=== PATIENT | female | born 1935 | race Caucasian/White ===

== ENCOUNTER 2019-08-30 08:00 | Outpatient (CLI) | payer MEDICARE, OTHER | END 2019-08-30 08:01 | disposition critical access hospital (66) | LOC: EMS 08:00 | PROVIDERS: ATTEND Surgery | DX: R06.00 Dyspnea, unspecified (principal); F41.9 Anxiety disorder, unspecified | CPT/HCPCS: A0425; A0429 ==

== ENCOUNTER 2019-08-30 08:05 | Inpatient (IN) | payer MEDICARE, OTHER ==
[2019-08-30] MEDS ORDERED: FUROSEMIDE 40 MG/4 ML VIAL IVP STA (09:04)
--- NOTE | 2019-08-30 09:07 | ED Physician Documentation ---
PD HPI DYSPNEA - Stated complaint Stated Complaint: SOA - Chief complaint Chief Complaint: Resp - History obtained from History obtained from: Patient, Family, EMS - History of Present Illness Timing - onset: How many days ago (5) Timing - onset during: Light activity Timing - duration: Days (5) Timing - details: Gradual onset, Still present Improved by: O2, Sitting up Worsened by: Exertion, Laying flat Associated symptoms: Cough, Wheezing, Chest pain / discomfort Similar symptoms before: Diagnosis (COPD) Recently seen: Not recently seen - Additional information Additional information: 84-year-old female with history of pulmonary hypertension and COPD has developed increasing shortness of breath beginning last week. She is visiting from [place] and will be here at least until the end of November. She has had some exertional dyspnea and weakness progressive over this past week and she [facility] with a cough and congestion. Review of Systems Constitutional: denies: Fever Eyes: denies: Photophobia Ears: denies: Ear pain Nose: denies: Rhinorrhea / runny nose, Congestion Throat: denies: Sore throat Cardiac: reports: Chest pain / pressure, Palpitations. denies: Pedal edema, Calf pain Respiratory: reports: Dyspnea, Cough, Wheezing GI: denies: Abdominal Pain, Nausea, Vomiting : denies: Dysuria Skin: denies: Rash PD PAST MEDICAL HISTORY - Past Medical History Cardiovascular: Hypertension Respiratory: COPD GI: C.difficile Musculoskeletal: Osteoarthritis - Past Surgical History Past Surgical History: No - Present Medications Home Medications: Ambulatory Orders Medication Instructions Recorded Confirmed Aspirin 81 mg PO DAILY 11/08/12 05/15/15 Citalopram [CeleXA] 10 mg PO ONCE 11/08/12 05/15/15 Losartan [Cozaar] 50 mg PO DAILY 11/08/12 05/15/15 Tiotropium [Spiriva] 1 puffs INH DAILY 11/08/12 05/15/15 Verapamil ER [Calan SA] 240 mg PO DAILY 11/08/12 05/15/15 HYDROcod/ACETAM 5/325 [Vicodin 1 - 2 ea PO Q6H PRN #15 tablet 05/15/15 5/325] Lansoprazole 15 mg PO DAILY 05/15/15 05/15/15 guaiFENesin/DEXTROMETHORPHAN 10 ml PO DAILY 05/15/15 05/15/15 [Robitussin Dm] - Allergies Allergies/Adverse Reactions: Allergies Allergy/AdvReac Type Severity Reaction Status Date / Time azithromycin AdvReac Severe LOWERS Verified 12/29/13 16:20 [From Zithromax Z-Gerhard] BLOOD PRESSURE - Social History Does the pt smoke?: No Smoking Status: Never smoker Does the pt drink ETOH?: No Does the pt have substance abuse?: No - Immunizations Immunizations are current?: Yes - POLST Patient has POLST: Yes PD ED PE NORMAL - Vitals Vital signs reviewed: Yes (Tachycardic and hypertensive) - General General: Alert and oriented X 3, Well developed/nourished, Other (84-year-old fe male hard of hearing is standing at the bedside mildly tachypneic and moving slowly.) - HEENT HEENT: Atraumatic, PERRL, EOMI - Neck Neck: Supple, no meningeal sign, No bony TTP - Cardiac Cardiac: Other (Irregularly irregular rate and rhythm with 2 out of 6 holosystolic murmur) - Respiratory Respiratory: Other (Tachypneic at rest with diminished breath sounds in the bases bilaterally) - Abdomen Abdomen: Soft, Non tender - Back Back: No CVA TTP, No spinal TTP - Derm Derm: Normal color, Warm and dry, No rash - Extremities Extremities: No deformity, Other (Trace edema only) - Neuro Neuro: Alert and oriented X 3, filament shaper 2-12 intact, No motor deficit, No sensory deficit, Normal speech Eye Opening: Spontaneous Motor: Obeys Commands Verbal: Oriented GCS Score: 15 - Psych Psych: Normal mood, Normal affect Results - Vitals Vitals: Vital Signs - 24 hr 08/30/19 08/30/19 08/30/19 08:19 10:27 12:00 Temperature 36.5 C 36.6 C Heart Rate 106 H 128 H 105 H Respiratory 20 21 20 Rate Blood Pressure 155/112 H 167/95 H 149/98 H O2 Saturation 93 98 99 08/30/19 14:00 Temperature Heart Rate 107 H Respiratory 17 Rate Blood Pressure 160/94 H O2 Saturation 99 Oxygen O2 Source Room air - EKG (time done) 0925 Rate: Rate (enter#) (117) Rhythm: Atrial fibrillation Intervals: Prolonged QT (borderline) QRS: LVH Compare to prior EKG: Old EKG unavailable Computer interpretation: Agree with computer - Labs Labs: Laboratory Tests 08/30/19 08/30/19 08/30/19 10:15 10:15 10:15 WBC 7.0 RBC 4.78 Hgb 12.3 Hct 39.1 MCV 81.8 MCH 25.7 L MCHC 31.5 L RDW 16.7 H Plt Count 285 MPV 9.9 Neut # (Auto) 5.4 Lymph # (Auto) 1.1 L [place] # (Auto) 0.4 Eos # (Auto) 0.1 Baso # (Auto) 0.1 Absolute Nucleated RBC 0.00 Nucleated RBC % 0.0 Sodium 137 Potassium 3.9 Chloride 98 L Carbon Dioxide 27 Anion Gap 12.0 BUN 21 H Creatinine 1.0 Estimated GFR (MDRD) 53 L Glucose 121 H Lactic Acid Calcium 9.3 Total Bilirubin 0.8 AST 109 H ALT 123 H Alkaline Phosphatase 109 Troponin I High Sens 11.5 B-Natriuretic Peptide Total Protein 7.1 Albumin 4.0 Globulin 3.1 Albumin/Globulin Ratio 1.3 Lipase 29 Urine Color Urine Clarity Urine pH Ur Specific [place] Urine Protein Urine Glucose (UA) Urine Ketones Urine Occult Blood Urine Nitrite Urine Bilirubin Urine Urobilinogen Ur Leukocyte Esterase Urine RBC Urine WBC Ur Squamous Epith Cells Urine Bacteria Ur Microscopic Review Urine Culture Comments 08/30/19 08/30/19 08/30/19 10:15 10:15 10:23 WBC RBC Hgb Hct MCV MCH MCHC RDW Plt Count MPV Neut # (Auto) Lymph # (Auto) [place] # (Auto) Eos # (Auto) Baso # (Auto) Absolute Nucleated RBC Nucleated RBC % Sodium Potassium Chloride Carbon Dioxide Anion Gap BUN Creatinine Estimated GFR (MDRD) Glucose Lactic Acid 1.1 Calcium Total Bilirubin AST ALT Alkaline Phosphatase Troponin I High Sens B-Natriuretic Peptide 865 H Total Protein Albumin Globulin Albumin/Globulin Ratio Lipase Urine Color YELLOW Urine Clarity CLEAR Urine pH 7.0 Ur Specific [place] 1.015 Urine Protein NEGATIVE Urine Glucose (UA) NEGATIVE Urine Ketones NEGATIVE Urine Occult Blood MODERATE H Urine Nitrite NEGATIVE Urine Bilirubin NEGATIVE Urine Urobilinogen 0.2 (NORMAL) Ur Leukocyte Esterase TRACE H Urine RBC 6-10 H Urine WBC 0-3 Ur Squamous Epith Cells RARE Squamous Urine Bacteria None Seen Ur Microscopic Review INDICATED Urine Culture Comments INDICATED - Rads (name of study) chest 1 Radiology: Prelim report reviewed (Impression: 1. Probable COPD with baseline chronic interstitial changes. Possible superimposed mild pulmonary edema. 2. No pneumothorax. Pleural thickening versus small right pleural effusion.), EMP read indepedently, See rad report Procedures - IVC sono (time) 0900 Bedside IVC sono: IVC measures (cm) (2.52), IVC collapsed c insp (cm) (2.52), Dehydration, High CVP PD MEDICAL DECISION MAKING - ED course Complexity details: reviewed old records, reviewed results, re-evaluated patient, considered differential, d/w patient, d/w family ED course: 84 y/o female without a history of afib has developed increasing shortness of breath. She is found to be volume overloaded and has rapid A. fib. She is administered Lasix 40 mg intravenously and then she is administered diltiazem 20 mg intravenously. Both of these maneuvers lead first to an improvement in her breathing and second and improvement in her heart rate. She has never had congestive heart failure to her her recall and she has not had atrial fibrillation to her recall. She has been on blood thinners once before for DVT about 6 years ago. Both of these findings are new for the patient both the congestive failure and the atrial fibrillation. I have asked our Hospitalist to consider admitting the patient to the hospital for observation. Departure - Departure Disposition: ED Place in Observation Clinical Impression: Atrial fibrillation with RVR Congestive heart failure Qualifiers: Heart failure type: unspecified Heart failure chronicity: acute on chronic Qu alified Code(s): I50.9 - Heart failure, unspecified Condition: Fair
--- NOTE | 2019-08-30 09:33 | XRAY Report ---
Reason: chest pain Procedure Date: 08/30/2019 Accession Number: [id number] / [id number] Procedure: XR - Chest 1 View X-Ray CPT Code: 85770 Final Report FULL RESULT: EXAM: CHEST RADIOGRAPHY EXAM DATE: 08/30/2019 09:03 AM. CLINICAL HISTORY: Chest pain. COMPARISON: CHEST 2 VIEW PA/LAT 03/18/2015 3:08 PM. TECHNIQUE: 1 view. FINDINGS: Lungs/Pleura: Mild blunting of the right costophrenic angles. Diffuse mild interstitial prominence is present. Mild bronchial wall thickening. Lungs are hyperinflated with flattening of the diaphragms. Subtle opacities are noted at the bases. No pneumothorax. Mediastinum: Atheromatous disease is noted in the thoracic aorta. Stable cardiomediastinal silhouette. Other: EKG leads overlie the chest. IMPRESSION: 1. Probable COPD with baseline chronic interstitial changes. Possible superimposed mild pulmonary edema. 2. No pneumothorax. Pleural thickening versus small right pleural effusion. RADIA
[2019-08-30 10:36] LABS: BASOPHILS # (AUTO) 0.1 10^3/uL (0.0-0.1); BASOPHILS % (AUTO) 0.7 %; EOSINOPHILS # (AUTO) 0.1 10^3/uL (0.0-0.7); EOSINOPHILS % (AUTO) 1.1 %; HGB - HEMOGLOBIN 12.3 g/dL (12.0-16.0); LYMPHOCYTES # (AUTO) 1.1 10^3/uL (1.5-3.5); LYMPHOCYTES % (AUTO) 15.2 %; MEAN CORPUSCULAR HEMOGLOBIN 25.7 pg (27.0-31.0); MEAN CORPUSCULAR HGB CONC 31.5 g/dL (32.0-36.0); MEAN CORPUSCULAR VOLUME 81.8 fL (81.0-99.0); MEAN PLATELET VOLUME 9.9 fL (7.9-10.8); MONOCYTES # (AUTO) 0.4 10^3/uL (0.0-1.0); MONOCYTES % (AUTO) 6.3 %; NEUTROPHILS # (AUTO) 5.4 10^3/uL (1.5-6.6); NEUTROPHILS % (AUTO) 76.3 %; PLT - PLATELET COUNT 285 10^3/uL (130-450); RED BLOOD COUNT 4.78 10^6/uL (4.20-5.40); RED CELL DISTRIBUTION WIDTH 16.7 % (12.0-15.0)
[2019-08-30 10:54] LABS: ALBUMIN/GLOBULIN RATIO 1.3 (1.0-2.2); BILIRUBIN,TOTAL 0.8 mg/dL (0.2-1.0); CALCIUM 9.3 mg/dL (8.5-10.3); TOTAL PROTEIN 7.1 g/dL (6.7-8.2)
[2019-08-30 10:58] LABS: BILIRUBIN,URINE NEGATIVE (NEGATIVE); GLUCOSE, URINE (UA) NEGATIVE (NEGATIVE); KETONES,URINE (UA) NEGATIVE (NEGATIVE); LEUKOCYTE ESTERASE, URINE TRACE (NEGATIVE); NITRITE,URINE NEGATIVE (NEGATIVE); OCCULT BLOOD,URINE MODERATE (NEGATIVE); PROTEIN,URINE NEGATIVE (NEGATIVE); UROBILINOGEN,URINE 0.2 (NORMAL) E.U./dL (NORMAL)
[2019-08-30 11:01] LABS: CLARITY,URINE CLEAR (CLEAR)
[2019-08-30 11:23] LABS: BACTERIA,URINE None Seen /HPF (None Seen); SQUAMOUS EPITHELIAL CELL,UR RARE Squamous (<= Few)
[2019-08-30] MEDS ORDERED: diltiaZEM INJ 5 MG/ML VIAL IVP STA (14:44)
[2019-08-30] MEDS ORDERED: SODIUM CHLORIDE FLUSH 0.9% 10 ML SYRINGE IVP PRN (16:38)
--- NOTE | 2019-08-30 17:07 | HISTORY & PHYSICAL EXAMINATION ---
Chief Complaint - Chief Complaint Chief Complaint: shortness of breath, leg swelling History of Present Illness - Admitted From Admitted From:: ED - History Obtained From Records Reviewed: yes History obtained from: patient, chart review Exam Limitations: AMS, hearing impairment - History of Present Illness HPI Comment/Other: Lauren Aviles is a fraile appearing 84-year old white female with a [place] accent and a past medical history of hypertension, hyperlipidemia, atrial fibrillation, pulmonary hypertension, COPD, hearing impairment, cataracts, memory loss, anal fissure with bleeding, constipation, and urinary urgency & frequency. The patient was brought in via EMS with a primary complaint of shortness of breath with activity intolerance, which has been progressive for the last several days. She used her albuterol inhaler at least 4 times, with no improvement in her breathing so called EMS. Upon arrival to the ED the patient was struggling to breath, could not tolerate the HOB to be lowered, only speaking in one word phrases. After applying oxygen, and with repeat nebulizer treatments, her symptoms improved. She was noted to be in atrial fibrillation with RVR, heart rates 100-140s, with little improvement after IV diltiazem and IV Lasix was given. A chest x-ray showed pulmonary edema, possible right pleural effusion. On exam, the patient states that since her airplane ride out to [facility] on July 31, 2019, she has suffered from an upper respiratory congestion and a productive cough. She states that since getting over that, she has felt extremely tired every day. The patient and her daughter confirm that she has been having no tolerance of lying flat for the past several months and sleeps in a recliner. She has had had recent weight gain, poor appeti te, increased cough, and more swelling in her BLEs. Labs show an elevated BNP over 800. She is being admitted to inpatient for treatment of CHF exacerbation. 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 She has a son, a daughter and is . She admits to tobacco use, denies alcohol or illicit drug use. She wishes to be a FULL code. - Substance History Use: Uses substance without health or social issues: NONE Abuse: Recurrent use of substance despite neg consequences: NONE Dependence: Experiences withdrawal or developed tolerances: NONE - POLST Patient has POLST: Yes POLST Status: Full Code Meds/Allgy - Home Medications Home Medications: Ambulatory Orders Medication Instructions Recorded Confirmed Aspirin 81 mg PO DAILY 11/08/12 08/30/19 Citalopram [CeleXA] 10 mg PO DAILY 11/08/12 08/30/19 Furosemide [Lasix] 20 mg PO DAILY 08/30/19 08/30/19 Losartan Potassium [Cozaar] 100 mg PO DAILY 08/30/19 08/30/19 Metoprolol Succinate [Toprol Xl] 50 mg PO DAILY 08/30/19 08/30/19 Omeprazole 20 mg PO DAILY 08/30/19 08/30/19 Sildenafil Citrate [Sildenafil] 10 mg PO BID 08/30/19 08/30/19 Umeclidinium Brm/Vilanterol Tr 1 puffs INH DAILY 08/30/19 08/30/19 [Anoro Ellipta 62.5-25 Mcg INH] - Allergies Allergies/Adverse Reactions: Allergies Allergy/AdvReac Type Severity Reaction Status Date / Time No Known Drug Allergies Allergy Verified 08/30/19 21:08 Review of Systems - Constitutional Constitutional: reports: Fatigue, Malaise, Weakness, Poor appetite, Weight gain - Eyes Eyes: reports: Vision loss - Ears, Nose & Throat Ears, Nose & Throat: reports: Hearing loss, Tinnitus, Postnasal drainage, Sore throat, Hoarseness, Dental decay - Cardiovascular Cariovascular: reports: Irregular heart rate, Palpitations, Edema, Lightheadedness, Exertional dyspnea, Decr. exercise tolerance, Orthopnea - Respiratory Respiratory: reports: Cough, Sputum production, Orthopnea, SOB at rest, SOB with exertion - Gastrointestinal Gastrointestinal: reports: Abdominal distention, Nausea, Reflux/heartburn, Bloat ing, Poor appetite - Genitourinary Genitourinary: reports: Dysuria, Frequency, Urgency, Incontinence, Nocturia - Musculoskeletal Musculoskeletal: reports: Muscle aches, Stiffness, Limited range of motion, Muscle weakness - Integumentary Integumentary: reports: Dryness, Pigment changes - Neurological Neurological: reports: Headache, Dizziness, Memory problems, Pre-existing deficit, Abnormal gait - Endocrine Endocrine: reports: Intolerance to cold - All Other Systems All Other Systems: reports: Reviewed and negative Prior Level of Functionality: Patient does not drive, no recent falls, walks independently, lives in [facility]. Exam - Vital Signs Reviewed Vital Signs: Yes Vital Signs: Vital Signs x48h Temp Pulse Resp BP Pulse Ox 08/30/19 16:00 109 H 18 147/93 H 100 08/30/19 14:00 107 H 17 160/94 H 99 08/30/19 12:00 105 H 20 149/98 H 99 08/30/19 10:27 36.6 C 128 H 21 167/95 H 98 - Physical Exam General Appearance: positive: Alert, Mild distress Eyes Bilateral: positive: No lid inflammation ENT: positive: Other (poor oral dentitian) Neck: positive: Trachea midline, Stiff neck Respiratory: positive: Chest non-tender, No respiratory distress, Wheezes, Rhonchi Cardiovascular: positive: Irregularly irregular, Tachycardia, JVD present, Systolic murmur, Diastolic murmur, Decreased pulse(s) Peripheral Pulses: positive: 1+ Abdomen: positive: Non-tender, Nml bowel sounds, Other (rounded, soft) Back: positive: Nml inspection Skin: positive: No rash, Warm, Dry, Pallor (pale, dry, flakey skin) Extremities: positive: Non-tender, Pedal edema (pitting, +2 to BLEs, cool extremities), Joint swelling Neurologic/Psychiatric: positive: Disoriented to time, Weakness, Sensory loss, Depressed mood/affect (poor energy, flat affect, baseline dementia, memory loss) Reflexes: Bicep (R): 2+, Bicep (L): 2+ Conclusion/Plan - Problem List (1) Congestive heart failure Conclusion/Plan: -Exam findings; orthopnea, activity intolerance, progressive shortness of breath, productive cough, weight gain, peripheral edema, and palpitations -Elevated BNP of 823, liver congestions with elevated LFTs, tachycardia, HTN -Given IV Lasix and IV diltiazem in the ED -Continue IV Lasix, start spironolactone, rate control with metoprolol -Continue on telemetry, await echo in the AM, daily weights, strict I/Os, routine labs Orthopnea -Patient has had no tolerance of lying flat for the past several months per daughter Acute and chronic respiratory failure with hypoxia -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 -Takes Anoro Ellipta at home, continued home med while here -Added Xopenex nebs, respiratory cares -Supplemental oxygen is needed since coming to the ED, no home O2 Elevated LFTs -AST 109, ALT 123, normal bili, normal alk phos -Likely due to liver congestion from acute fluid overload Atrial fibrillation with RVR -No prior history of atrial fibrillation -PCP, Dr. 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 -No current home O2, no history of GABRIELLE Hypertension -Patient is prescribed Lasix, metoprolol, and losartan at home -IV Lasix, metoprolol with split dosing, and holding losartan until echo results GERD (gastroesophageal reflux disease) -PPI at home, continue on an H2 lillian per daughters request Osteoporosis -Noted in past medical history Chronic cough -Likely a result of her COPD, now with fluid overload -Cough is usual productive -Consider an expectorant if needed Protein calorie malnutrition -Patient appears cachetic on exam -Daughter confirms recent poor appetite, although weight gain (fluid overload) Hearing loss -Patient left her hearing aides at home, daughter will bring in Hyperlipidemia -No statin on home med list, may not be of benefit at this point -No prior history of stroke or [place] Anal fissure -Patient admits to bleeding after BMs -Difficult to justify anticoagulation with this condition based on HAS BLED score -Monitor for bleeding, avoid constipation, give bowel meds, routine labs Chronic constipation -No prescribed bowel meds at home -Also with poor appetite lately -Consequently has bleeding with hard stools -Lactulose in the AM, monitor for constipation Insomnia -Patients daughter notes longstanding, life long difficulties with poor sleep habits -Also her poor sleep leads to lack of routines, leading to medical noncompliance with taking her medications -Consider extra help, also with memory loss (mild) Qualifiers: - Lab Results Lab results reviewed: Yes Henry Bones: 08/30/19 10:15 08/30/19 10:15 Core Measures - Anticipated LOS I expect patient to be DC'd or transferred within 96 hours.: Yes
[2019-08-30] MEDS: SODIUM CHLORIDE FLUSH 0.9% 10 ML SYRINGE IVP SCH ×2 (18:20→23:49)
[2019-08-30] MEDS ORDERED: LEVALBUTEROL 1.25 MG/3 ML NEB INH PRN (18:24)
[2019-08-30] MEDS ORDERED: ACETAMINOPHEN 500 MG TABLET PO PRN (18:25)
[2019-08-30] MEDS: SPIRONOLACTONE 25 MG TABLET PO SCH (19:12)
[2019-08-30] MEDS: METOPROLOL SUCCINATE 25 MG TABLET PO SCH (19:12)
[2019-08-30] MEDS: FUROSEMIDE 40 MG/4 ML VIAL IVP SCH (19:12)
[2019-08-30] MEDS: FAMOTIDINE 20 MG TABLET PO SCH (20:51)
[2019-08-30] MEDS ORDERED: MAGNESIUM SULFATE 1 GM in SODIUM CHLORIDE 0.9% 50 ML IV ONE (22:21)
[2019-08-31] MEDS: FUROSEMIDE 40 MG/4 ML VIAL IVP SCH ×2 (06:34→14:29)
--- NOTE | 2019-08-31 08:24 | PROVIDER PROGRESS NOTE ---
Subjective - Prog Note Date Prog Note Date: 08/31/19 Prog Note Time: 08:24 - Subjective Pt reports feeling: Improved Subjective: Lauren complains about not moving her bowels for at least 48 hours, and wishes to have her magnesium with her calcium, or else they will not work. She denies a new headache, chest pain, nausea, vomiting, a new rash or confusion. She states she did not sleep well, as usual. She understands the importance of remaining in the hospital for one more day for fluid management. Current Medications - Current Medications Current Medications: Active Medications: Acetaminophen (Tylenol) 500 mg PO Q6HR PRN Aspirin ([place] Aspirin) 81 mg PO DAILY [facility] Calcium Citrate () 250 mg PO DAILY [facility] Citalopram Hydrobromide (Celexa) 10 mg PO DAILY [facility] Famotidine (Pepcid) 20 mg PO BID [facility] Furosemide (Lasix Inj 40 Mg Vial) 40 mg IVP BIDDIURETIC [facility] Lactulose (Enulose) 10 gm PO DAILY [facility] Levalbuterol HCl (Xopenex) 1.25 mg INH Q4H PRN Magnesium Oxide (Mag Ox) 400 mg PO DAILYWM [facility] Metoprolol Succinate (Toprol Xl) 25 mg PO BIDWM [facility] Anoro Ellipta 62.5- (25 Mcg Inh) 1 puffs INH RTDAILY [facility] Senna (Senokot) 8.6 mg PO BIDWM [facility] Spironolactone (Aldactone) 25 mg PO DAILY [facility] Wheat Dextrin (Benefiber) 1 packet PO DAILY [facility] HOME meds: Aspirin 81 mg PO DAILY 11/08/12 Citalopram [CeleXA] 10 mg PO DAILY 11/08/12 Furosemide [Lasix] 20 mg PO DAILY 08/30/19 Losartan Potassium [Cozaar] 100 mg PO DAILY 08/30/19 Metoprolol Succinate [Toprol Xl] 50 mg PO DAILY 08/30/19 Omeprazole 20 mg PO DAILY 08/30/19 Objective - Vital Signs/Intake & Output Reviewed Vital Signs: Yes Vital Signs: Vital Signs x48h Temp Pulse Resp BP Pulse Ox 08/31/19 08:23 36.8 C 112 H 19 154/93 H 94 08/31/19 05:35 36.8 C 115 H 18 147/101 H 94 Intake & Output: Intake & Output 0208/29/19 08/30/19 08/31/19 23:59 23:59 23:59 23:59 Intake Total 100 52 Output Total 550 Balance -450 52 - Objective General Appearance: positive: No acute distress, Alert Eyes Bilateral: positive: PERRL, No lid inflammation Eyes: OU Conjunctivae pale ENT: positive: Pharyngeal erythema, Dry mucous membranes Neck: positive: No JVD, Trachea midline Respiratory: positive: Chest non-tender, No respiratory distress, Rhonchi (coarse crackles to posterior bilateral low lungs, scattered crackles anterior- bilaterally) Cardiovascular: positive: Irregularly irregular, Tachycardia, Systolic murmur, Gallop/S3, Decreased pulse(s) Peripheral Pulses: 1+ Radial (R), 1+ Radial (L) Abdomen: positive: Non-tender, Nml bowel sounds, Other (rounded, firm) Back: positive: Nml inspection Skin: positive: No rash, Warm, Dry, Pallor, Other (bronze, ricardo toned skin) Extremities: positive: Pedal edema (trace to ankles, legs are sensitive, covered in spider veins, warm, +sensation) Neurologic/Psychiatric: positive: Oriented x3, CN's nml (2-12), Motor nml, Weakness, Sensory loss, Other (early dementia, HOPI) Reflexes: Bicep (R): 3+, Bicep (L): 3+ - Lab Results Fish Bones: 08/31/19 09:05 08/31/19 09:05 Other Labs: Lab Results x24hrs 08/30/19 08/30/19 08/30/19 Range/Units 10:23 10:15 10:15 WBC (4.8-10.8) x10^3/uL RBC (4.20-5.40) 10^6/uL Hgb (12.0-16.0) g/dL Hct (37.0-47.0) % MCV (81.0-99.0) fL MCH (27.0-31.0) pg MCHC (32.0-36.0) g/dL RDW (12.0-15.0) % Plt Count (130-450) 10^3/uL MPV (7.9-10.8) fL Neut # (Auto) (1.5-6.6) 10^3/uL Lymph # (Auto) (1.5-3.5) 10^3/uL [place] # (Auto) (0.0-1.0) 10^3/uL Eos # (Auto) (0.0-0.7) 10^3/uL Baso # (Auto) (0.0-0.1) 10^3/uL Absolute Nucleated RBC x10^3/uL Nucleated RBC % /100WBC Sodium (135-145) mmol/L Potassium (3.5-5.0) mmol/L Chloride (101-111) mmol/L Carbon Dioxide (21-32) mmol/L Anion Gap (6-13) BUN (6-20) mg/dL Creatinine (0.4-1.0) mg/dL Estimated GFR (MDRD) (>89) Glucose (70-100) mg/dL Lactic Acid 1.1 (0.5-2.2) mmol/L Calcium (8.5-10.3) mg/dL Total Bilirubin (0.2-1.0) mg/dL AST (10-42) IU/L ALT (10-60) IU/L Alkaline Phosphatase (42-121) IU/L Troponin I High Sens (2.3-14.8) ng/L B-Natriuretic Peptide 865 H (5-100) pg/mL Total Protein (6.7-8.2) g/dL Albumin (3.2-5.5) g/dL Globulin (2.1-4.2) g/dL Albumin/Globulin Ratio (1.0-2.2) Lipase (22-51) U/L Urine Color YELLOW Urine Clarity CLEAR (CLEAR) Urine pH 7.0 (5.0-7.5) PH Ur Specific [place] 1.015 (1.002-1.030) Urine Protein NEGATIVE (NEGATIVE) mg/dL Urine Glucose (UA) NEGATIVE (NEGATIVE) mg/dL Urine Ketones NEGATIVE (NEGATIVE) mg/dL Urine Occult Blood MODERATE H (NEGATIVE) Urine Nitrite NEGATIVE (NEGATIVE) Urine Bilirubin NEGATIVE (NEGATIVE) Urine Urobilinogen 0.2 (NORMAL) (NORMAL) E.U./dL Ur Leukocyte Esterase TRACE H (NEGATIVE) Urine RBC 6-10 H (0-5) /HPF Urine WBC 0-3 (0-5) /HPF Ur Squamous Epith Cells RARE Squamous (<= Few) Urine Bacteria None Seen (None Seen) /HPF Ur Microscopic Review INDICATED Urine Culture Comments INDICATED 08/30/19 08/30/19 08/30/19 Range/Units 10:15 10:15 10:15 WBC 7.0 (4.8-10.8) x10^3/uL RBC 4.78 (4.20-5.40) 10^6/uL Hgb 12.3 (12.0-16.0) g/dL Hct 39.1 (37.0-47.0) % MCV 81.8 (81.0-99.0) fL MCH 25.7 L (27.0-31.0) pg MCHC 31.5 L (32.0-36.0) g/dL RDW 16.7 H (12.0-15.0) % Plt Count 285 (130-450) 10^3/uL MPV 9.9 (7.9-10.8) fL Neut # (Auto) 5.4 (1.5-6.6) 10^3/uL Lymph # (Auto) 1.1 L (1.5-3.5) 10^3/uL [place] # (Auto) 0.4 (0.0-1.0) 10^3/uL Eos # (Auto) 0.1 (0.0-0.7) 10^3/uL Baso # (Auto) 0.1 (0.0-0.1) 10^3/uL Absolute Nucleated RBC 0.00 x10^3/uL Nucleated RBC % 0.0 /100WBC Sodium 137 (135-145) mmol/L Potassium 3.9 (3.5-5.0) mmol/L Chloride 98 L (101-111) mmol/L Carbon Dioxide 27 (21-32) mmol/L Anion Gap 12.0 (6-13) BUN 21 H (6-20) mg/dL Creatinine 1.0 (0.4-1.0) mg/dL Estimated GFR (MDRD) 53 L (>89) Glucose 121 H (70-100) mg/dL Lactic Acid (0.5-2.2) mmol/L Calcium 9.3 (8.5-10.3) mg/dL Total Bilirubin 0.8 (0.2-1.0) mg/dL AST 109 H (10-42) IU/L ALT 123 H (10-60) IU/L Alkaline Phosphatase 109 (42-121) IU/L Troponin I High Sens 11.5 (2.3-14.8) ng/L B-Natriuretic Peptide (5-100) pg/mL Total Protein 7.1 (6.7-8.2) g/dL Albumin 4.0 (3.2-5.5) g/dL Globulin 3.1 (2.1-4.2) g/dL Albumin/Globulin Ratio 1.3 (1.0-2.2) Lipase 29 (22-51) U/L Urine Color Urine Clarity (CLEAR) Urine pH (5.0-7.5) PH Ur Specific [place] (1.002-1.030) Urine Protein (NEGATIVE) mg/dL Urine Glucose (UA) (NEGATIVE) mg/dL Urine Ketones (NEGATIVE) mg/dL Urine Occult Blood (NEGATIVE) Urine Nitrite (NEGATIVE) Urine Bilirubin (NEGATIVE) Urine Urobilinogen (NORMAL) E.U./dL Ur Leukocyte Esterase (NEGATIVE) Urine RBC (0-5) /HPF Urine WBC (0-5) /HPF Ur Squamous Epith Cells (<= Few) Urine Bacteria (None Seen) /HPF Ur Microscopic Review Urine Culture Comments ABX Reporting Has patient been on IV antibiotics over the past 48 hours?: No Assessment/Plan - Problem List (1) Congestive heart failure Impression: -Exam findings; orthopnea, activity intolerance, progressive shortness of breath, productive cough, weight gain, peripheral edema, and palpitations -Patient has had no tolerance of lying flat for the past several months per daughter -Elevated BNP up from 865, now 1110, liver congestions with elevated LFTs, tachycardia, HTN is ongoing this morning -Given IV Lasix and IV diltiazem in the ED -Continue IV Lasix, spironolactone, rate control with metoprolol -One extra dose of BB was added to achieve better rate control -Continue on telemetry, daily weights, strict I/Os, routine labs Severe pulmonary hypertension -Preliminary echo show an elevated RVSP at rest of 52 mmHg, moderate tricuspid regurg -Likely a consequence of her advanced lung disease -Continues on spironolactone, IV lasix and rate control with BB -Continue supplemental oxygen, respiratory cares, home inhaler, as needed Xopenex nebs Acute and chronic respiratory failure with hypoxia -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 -Asbestos is the commercial name for a group of hydrated magnesium silicate fibrous minerals -Asbestos occurs in soil and rock as long fibers (2 major types: serpentine and amphibole) -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 daughter -No current home O2, no history of GABRIELLE -Now with severe pulmonary HTN Hypertension -Patient is prescribed Lasix, metoprolol, and losartan at home -IV Lasix, metoprolol with split dosing, and holding losartan, likely resume losartan at a very low dose GERD (gastroesophageal reflux disease) -PPI at home, continue on an H2 lillian per daughters request -continues on Pepcid Osteoporosis -Noted in past medical history Chronic cough -Likely a result of her COPD, now with fluid overload -Cough is usual productive -Consider an expectorant if needed Protein calorie malnutrition -Patient appears cachetic on exam -Daughter confirms recent poor appetite, although weight gain (fluid overload) -Ate a good breakfast Hearing loss -Patient left her hearing aides at home, daughter will bring in Hyperlipidemia -No statin on home med list, may not be of benefit at this point -No prior history of stroke or HI Anal fissure -Patient admits to bleeding after BMs -Difficult to justify anticoagulation with this condition based on HAS BLED score -Monitor for bleeding, avoid constipation, give bowel meds, routine labs Chronic constipation -No prescribed bowel meds at home -Also with poor appetite lately -Consequently has bleeding with hard stools -Lactulose today, daily benefiber, monitor for constipation Insomnia -Patients daughter notes longstanding, life long difficulties with poor sleep habits -Also her poor sleep leads to lack of routines, leading to medical noncompliance with taking her medications -Consider extra help, also with memory loss (mild) Qualifiers:
[2019-08-31 09:14] LABS: BASOPHILS # (AUTO) 0.1 10^3/uL (0.0-0.1); BASOPHILS % (AUTO) 0.9 %; EOSINOPHILS # (AUTO) 0.1 10^3/uL (0.0-0.7); EOSINOPHILS % (AUTO) 2.2 %; LYMPHOCYTES % (AUTO) 37.2 %; MEAN CORPUSCULAR VOLUME 80.9 fL (81.0-99.0); MEAN PLATELET VOLUME 9.6 fL (7.9-10.8); MONOCYTES # (AUTO) 0.5 10^3/uL (0.0-1.0); MONOCYTES % (AUTO) 8.3 %; NEUTROPHILS # (AUTO) 2.8 10^3/uL (1.5-6.6); NEUTROPHILS % (AUTO) 51.2 %; PLT - PLATELET COUNT 289 10^3/uL (130-450); RED BLOOD COUNT 5.19 10^6/uL (4.20-5.40); RED CELL DISTRIBUTION WIDTH 16.4 % (12.0-15.0); WHITE BLOOD COUNT 5.4 x10^3/uL (4.8-10.8)
[2019-08-31] MEDS: ASPIRIN CHEW 81 MG TABLET PO SCH (09:18)
[2019-08-31] MEDS: CITALOPRAM 10 MG TABLET PO SCH (09:18)
[2019-08-31] MEDS: MAGNESIUM OXIDE 400 MG TABLET PO SCH ×3 (09:18→11:54)
[2019-08-31] MEDS: METOPROLOL SUCCINATE 25 MG TABLET PO SCH ×3 (09:18→17:29)
[2019-08-31] MEDS: FAMOTIDINE 20 MG TABLET PO SCH ×2 (09:19→21:25)
[2019-08-31] MEDS: SODIUM CHLORIDE FLUSH 0.9% 10 ML SYRINGE IVP SCH ×2 (09:19→17:29)
[2019-08-31] MEDS: SPIRONOLACTONE 25 MG TABLET PO SCH (09:21)
[2019-08-31] MEDS ORDERED: METOPROLOL SUCCINATE 25 MG TABLET PO ONE (09:25)
[2019-08-31 09:28] LABS: ALBUMIN 4.1 g/dL (3.2-5.5); ALBUMIN/GLOBULIN RATIO 1.3 (1.0-2.2); BILIRUBIN,TOTAL 0.9 mg/dL (0.2-1.0); CALCIUM 9.2 mg/dL (8.5-10.3); CREATININE 1.3 mg/dL (0.4-1.0); INR 1.2 (0.8-1.2); MAGNESIUM 2.4 mg/dL (1.7-2.8); PHOSPHORUS 3.9 mg/dL (2.5-4.6); PT - PROTHROMBIN TIME 13.4 secs (9.9-12.6); TOTAL PROTEIN 7.2 g/dL (6.7-8.2)
[2019-08-31] MEDS: LACTULOSE 10 GM /15 ML UDC PO SCH (09:47)
[2019-08-31] MEDS: CALCIUM CITRATE 250 MG TABLET PO SCH (11:50)
[2019-08-31] MEDS: WHEAT DEXTRIN POWDER PACKET PO SCH (11:50)
[2019-08-31] MEDS: DIGOXIN 500 MCG/2 ML AMP IVP SCH ×2 (14:25→19:59)
[2019-08-31] MEDS ORDERED: HYALURONIDASE HUMAN RECOMB 150 UNIT/ML VIAL SUBQ ONE (16:00)
--- NOTE | 2019-08-31 16:14 | PHARMACY PROGRESS NOTE ---
- Best Possible Medication History Admit Date and Time: 08/30/19 1638 Processed by: Pharmacy Medication History completed: Yes Patient Interview: Completed Secondary Source(s): Prescription bottles, Other family member As the person ultimately responsible for medication therapy, providers are able to order a medication from an existing home medication list in [facility] via the "Reconcile Routine" prior to Confirmation of that medication by support assistant. Such practice is discouraged except when the physician, in their clinical judgment, deems that a medical need exists for a medication without regard to previous use.
[2019-08-31] MEDS: SENNA 8.6 MG TABLET PO SCH (17:29)
[2019-08-31] MEDS ORDERED: POTASSIUM CHLORIDE 20 MEQ TABLET PO ONE (19:10)
[2019-08-31] MEDS: DIGOXIN 125 MCG TABLET PO SCH (21:37)
[2019-08-31] MEDS ORDERED: DIGOXIN 125 MCG TABLET PO SCH (22:00)
[2019-09-01] MEDS: SODIUM CHLORIDE FLUSH 0.9% 10 ML SYRINGE IVP SCH ×2 (01:22→09:48)
[2019-09-01] MEDS: DIGOXIN 125 MCG TABLET PO SCH ×2 (06:42→14:08)
[2019-09-01] MEDS ORDERED: FUROSEMIDE 40 MG TABLET PO ONE (07:31)
[2019-09-01] MEDS ORDERED: METOPROLOL SUCCINATE 25 MG TABLET PO SCH (08:00)
[2019-09-01 08:24] LABS: CREATININE 1.1 mg/dL (0.4-1.0)
[2019-09-01] MEDS: SPIRONOLACTONE 25 MG TABLET PO SCH (08:36)
[2019-09-01] MEDS: CALCIUM CITRATE 250 MG TABLET PO SCH (08:36)
[2019-09-01] MEDS: SENNA 8.6 MG TABLET PO SCH (08:36)
[2019-09-01] MEDS: MAGNESIUM OXIDE 400 MG TABLET PO SCH (08:37)
[2019-09-01] MEDS: ASPIRIN CHEW 81 MG TABLET PO SCH (08:37)
[2019-09-01] MEDS: LACTULOSE 10 GM /15 ML UDC PO SCH (08:38)
[2019-09-01] MEDS: FAMOTIDINE 20 MG TABLET PO SCH (08:38)
[2019-09-01] MEDS: CITALOPRAM 10 MG TABLET PO SCH (08:38)
[2019-09-01] MEDS: WHEAT DEXTRIN POWDER PACKET PO SCH (09:01)
[2019-09-01] MEDS ORDERED: guaiFENesin 600 MG TABLET PO SCH (10:00)
[2019-09-01] MEDS ORDERED: FLUTICASONE NASAL SPRAY NAS SCH (10:00)
--- NOTE | 2019-09-01 11:12 | Discharge Plan ---
Discharge Plan Problem Reviewed?: Yes Disposition: Home, Self Care Condition: Good Prescriptions: Citalopram Hydrobromide [Citalopram HBr] 20 mg PO DAILY #30 tablet Famotidine [Pepcid] 20 mg PO BID #60 tablet Losartan Potassium 12.5 mg PO DAILY #30 tablet Metoprolol Succinate [Toprol Xl] 75 mg PO DAILY #60 tab.er.24h Senna [Senokot] 8.6 mg PO BIDWM #60 tablet Spironolactone [Aldactone] 25 mg PO DAILY #30 tablet Diet: Regular Activity Restrictions: Activity as Tolerated Shower Restrictions: No Instruction Topics: Senna tablets or capsules, Losartan tablets, Spironolactone tablets Health Concerns: CHF exacerbation Dyspnea (shortness of breath) Atrial fibrillation (irregular, fast heart beat) Insomnia Plan of Treatment: Continue treatment of your heart failure as directed Attend Pulmonary/Cardiac rehab See a PCP within one week Care Goals: Prevent fluid overload by taking your diuretic pills (water pills) Prevent hospital stays or ED visits Improve sleep hygiene to ensure hour scheduled stays the same Assessment: You were admitted to the hospital for an exacerbation of your heart failure. Your shortness of breath became less, and your heart rate became more controlled. An oxygen saturation study was performed with final results showing no need for home oxygen. A physical therapy evaluation was done to ensure you are strong enough to return home. Your primary care office from [facility] was in good contact with us, and provided your last office note. They will be getting a copy of my discharge summary. Dr. Littlejohn-Cardiology and Hawa Garduno's office as well. You are medically stable since your heart rates have been more controlled, and your diuretics are working. Go see Dr. Mathews on 09/18/2019 @ 12:30 as a hospital follow up. Ask Dr. Mathews for an outpatient physical therapy evaluation for a balance test please. Follow-Up Care: [facility], [facility] No Smoking: If you smoke, Please STOP! Call for help.
--- NOTE | 2019-09-01 12:05 | DISCHARGE SUMMARY ---
Discharge Summary Admit Date: 08/30/19 Discharge Date: 09/01/19 Discharging Provider: DIAMOND Trammell Primary Care Provider: Hawa Garduno/Gokul Lyon Code Status: Attempt Resuscitation Condition at Discharge: Good Discharge Disposition: 01 Home, Self Care - DIAGNOSES Admission Diagnoses: CHF exacerbation Orthopnea Acute and chronic respiratory failure with hypoxia Elevated LFTs Atrial fibrillation with RVR COPD (chronic obstructive pulmonary disease) with chronic bronchitis Hypertension GERD (gastroesophageal reflux disease) Osteoporosis Chronic cough Protein calorie malnutrition Hearing loss Hyperlipidemia Anal fissure Chronic constipation Insomnia Discharge Diagnoses with Status of Each Condition: Acute on chronic combined systolic and diastolic heart failure-ongoing, stable, continues on medical guided therapy Moderate to severe pulmonary hypertension-Started on spironolactone/lasix, stable Acute and chronic respiratory failure with hypoxia-Resolved, baseline lung disease, no home oxygen needed Elevated LFTs-Resolved Atrial fibrillation with RVR-Resolved, rates more controlled since starting BB COPD (chronic obstructive pulmonary disease) with chronic bronchitis-Chronic, stable Hypertension-Chronic, adjusted prior meds to allow for new diuretics GERD (gastroesophageal reflux disease)-Chronic, stable Osteoporosis-Chronic, stable Chronic cough-Improved, back to baseline Protein calorie malnutrition-Chronic, will be seeing Pulmonary rehab Hearing loss-Chronic, recommend hearing aids Hyperlipidemia-Chronic, stable Anal fissure-Chronic, 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 The patient was brought in via EMS with a primary complaint of shortness of breath, which has been progressive for the last several days. She used her albuterol inhaler at least 4 times, with no improvement in her breathing so called EMS. Upon arrival to the ED the patient was struggling to breath, could not tolerate the HOB to be lowered, only speaking in one word phrases. After applying oxygen, and with repeat nebulizer treatments, her symptoms improved. She was noted to be in atrial fibrillation with RVR, heart rates 100-140s, with little improvement after IV diltiazem and IV Lasix was given. A chest x-ray showed pulmonary edema, possible right pleural effusion. On exam, the patient states that since her airplane ride out to [facility] on July 31, 2019, she has suffered from an upper respiratory congestion and a productive cough. She states that since getting over that, she has felt extremely tired every day. - HOSPITAL COURSE Hospital Course: The patient was admitted to the hospital for a CHF exacerbation, with progressive dyspnea, leg swelling and activity intolerance. She was first treated with IV lasix, transitioned to PO, spironolactone since her pulmonary pr essures were elevated (severe pulmonary hypertension). She was noted to be in atrial fibrillation with RVR which was treated with increased home dosing of her metoprolol, digoxin x3 doses, not continued at home, and gentle diuretics. The patient has baseline constipation, which was treated with lactulose, magnesium citrate, and activity. An oxygen saturation study was performed with final results showing no need for home oxygen. A physical therapy evaluation was completed, excluding her from rehab. The patient's primary care office from [facility] was in good contact with us, and provided their last office note, who is CC'd in this document. Also, Dr. iLttlejohn-Cardiology and Hawa Garduno. The patient was medically stable since her heart rates have been more controlled with continuous telemetry monitoring (80-90's). - ALLERGIES Allergies/Adverse Reactions: Allergies Allergy/AdvReac Type Severity Reaction Status Date / Time No Known Drug Allergies Allergy Verified 09/04/19 14:28 - MEDICATIONS Home Medications: Ambulatory Orders Medication Instructions Recorded Confirmed Aspirin 81 mg PO DAILY 11/08/12 08/30/19 Furosemide [Lasix] 20 mg PO DAILY 08/30/19 08/30/19 Umeclidinium Brm/Vilanterol Tr 1 puffs INH DAILY 08/30/19 08/30/19 [Anoro Ellipta 62.5-25 Mcg INH] Albuterol Sulf [Ventolin Hfa 1 - 2 puffs INH Q4HR 08/31/19 08/31/19 Inhaler] Azelastine HCl 1 spray ELENI DAILY 08/31/19 08/31/19 Fluticasone [Flonase] 1 spray ELENI DAILY 08/31/19 08/31/19 Guaifenesin [Mucinex] 600 mg PO DAILY 08/31/19 08/31/19 Citalopram Hydrobromide 20 mg PO DAILY #30 tablet 09/01/19 [Citalopram HBr] Famotidine [Pepcid] 20 mg PO BID #60 tablet 09/01/19 Losartan Potassium 12.5 mg PO DAILY #30 tablet 09/01/19 Metoprolol Succinate [Toprol Xl] 75 mg PO DAILY #60 tab.er.24h 09/01/19 Senna [Senokot] 8.6 mg PO BIDWM #60 tablet 09/01/19 Spironolactone [Aldactone] 25 mg PO DAILY #30 tablet 09/01/19 - PHYSICAL EXAM AT DISCHARGE General Appearance: positive: No acute distress, Alert, Anxious Eyes Bilateral: positive: No lid inflammation ENT: positive: Pharynx nml, No signs of dehydration Neck: positive: Thyroid nml, No JVD, Trachea midline Respiratory: positive: Chest non-tender, No respiratory distress Cardiovascular: positive: No gallop, Irregularly irregular, Systolic murmur, Diastolic murmur, Decreased pulse(s) Peripheral Pulses: positive: 1+ Abdomen: positive: Non-tender, Nml bowel sounds, Other (rounded, soft) Back: positive: Nml inspection Skin: positive: No rash, Warm, Dry, Other (pale, dry, flakey) Extremities: positive: Non-tender, Pedal edema (trace to BLEs) Neurologic/Psychiatric: positive: Oriented x3, Weakness, Sensory loss, Depressed mood/affect, Other (baseline short term memory loss (early dementia)) Reflexes: Bicep (R): 3+, Bicep (L): 3+ - LABS Result Diagrams: 08/31/19 09:05 09/01/19 08:11 - FOLLOW UP Follow Up: Go see Dr. Mathews on 09/18/2019 @ 12:30 as a hospital follow up. Ask Dr. Mathews for an outpatient physical therapy evaluation for a balance test please. - TIME SPENT Time Spent in Discharge (Minutes): 55
[2019-09-01] MEDS ORDERED: MAGNESIUM CITRATE 296 ML BOTTLE PO ONE (12:07)
[2019-09-01 12:16] VITALS: BP 146/93
[2019-09-01] MEDS ORDERED: CITALOPRAM 10 MG TABLET PO ONE (14:06)
--- NOTE | 2019-09-01 15:02 | ADVANCE CARE PLANNING NOTE ---
Advance Care Planning - Planning Encounter Date: 09/01/19 Time: 11:00 Purpose: To establish quality of life goals, confirm code status wishes Parties in Attendance: The patient-Lauren Aviles, myself-DIAMOND Trammell Decisional Capacity of the Patient: The patient is fully decisional and can elaborate on all of her medical diagnoses. She has been alert and orientated for her entire hospital stay. She has a baseline hearing impairment that is not a barrier to this conversation. 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 She states that sometimes her anxiety blocks her from doing things that she once found enjoyable such as walking, spending an entire day shopping or traveling long distances. She states that she feels blessed to have lived such a long life, but wonders what it would be like to stop taking all of her pills and let things level out. She states she very much wants to keep living, and has no intentions of following through with such an act. She understands that her newest medications will keep her heart strong and is looking forward to her pulmonary rehabilitation that has been ordered. She states that if her heart were to stop, she would wish for all efforts to be made to get it going again, despite the consequence of potential brain damage. She wishes to remain a FULL code, since miracles can always happen. She finds her recent breathlessness to be quite disturbing as it has stopped her from doing as much as she wants with her sculpting. She hates having a routine in her life, but understands the importance of a better routine to ensure medications are taken, and her chronic illnesses be treated as intended. She explains, her most creative time of the day is between 3-4AM, when everyone else is sleeping in the world. She states that she trusts her daughter, Sesar, who she is staying with to help her out with prompt follow ups and extensive medical decisions. She wants to feel better each day, and do what she is supposed to do when it comes to her health. She respects her PCP in [facility] and wants to make sure we keep him updated. Objective/Medical Story: Lauren Aviles is a frail appearing 84-year old white female with a [place] accent and a past medical history of hypertension, hyperlipidemia, atrial fibrillation, pulmonary hypertension, COPD, hearing impairment, cataracts, dementia, anal fissure with bleeding, constipation, and urinary urgency & frequency. The patient was brought in via EMS with a primary complaint of shortness of breath, which has been progressive for the last several days. She used her albuterol inhaler at least 4 times, with no improvement in her breathing so called EMS. Upon arrival to the ED the patient was struggling to breath, could not tolerate the HOB to be lowered, only speaking in one word phrases. After applying oxygen, and with repeat nebulizer treatments, her symptoms improved. She was noted to be in atrial fibrillation with RVR, heart rates 100-140s, with little improvement after IV diltiazem and IV Lasix was given. A chest x-ray showed pulmonary edema, possible right pleural effusion. On exam, the patient states that since her airplane ride out to [facility] on July 31, 2019, she has suffered from an upper respiratory congestion and a productive cough. She states that since getting over that, she has felt extremely tired every day. An advance care discussion occurred due to the patient's initial statement of, "wonders what it would be like to stop taking all of her pills and let things level out. She struggles with anxiety, which becomes worse with her sleep disturbance. Goals of Care: Prevent fluid overload by taking your diuretic pills (water pills) Prevent hospital stays or ED visits Improve sleep hygiene to ensure hour scheduled stays the same Plan: Continue treatment of your heart failure as directed Attend Pulmonary/Cardiac rehab See a PCP within one week Code Status: Attempt Resuscitation Time spent on advance care plannin
[2019-09-02] MEDS ORDERED: CITALOPRAM 10 MG TABLET PO SCH (09:00)
[2019-09-02] MEDS ORDERED: FUROSEMIDE 20 MG TABLET PO SCH (09:00)
[2019-09-02] MEDS ORDERED: FAMOTIDINE 20 MG TABLET PO SCH (09:00)
--- NOTE | 2019-09-04 09:21 | MISCELLANEOUS PROVIDER NOTE ---
Miscellaneous Provider Note - - Note: Spoke with Sesar, patients daughter via phone as a courtesy check up to see how things are going since returning home from the hospital. The patient had diarrhea, for at least 2 days, so I advised her to hold her daily Lasix for today since she may be a little dehydrated. She also said that her mothers arm where an IV infiltrated is becoming more painful, hard, very red. I advised her to keep it elevated, watch for fevers, and apply ice for comfort. The patient is not having an increased cough, more shortness of breath, poor appetite or weight gain. I wished her well, and she plans to follow up with the PCP in a few weeks for hospital follow up. Signed: DIAMOND Trammell 09/04/2019 @ 0921 AM
== END 2019-09-01 15:00 | disposition home or self-care (01) | DRG 291 ==
LOC: EDUNIT# → ED 08:05 → MS2 16:38
PROVIDERS: ADMIT Nurse Practitioner; ATTEND Nurse Practitioner
DX: I11.0 Hypertensive heart disease with heart failure (principal); I50.9 Heart failure, unspecified; J96.21 Acute and chronic respiratory failure with hypoxia; E46 Unspecified protein-calorie malnutrition; R64 Cachexia; I50.43 Acute on chronic combined systolic (congestive) and diastolic (congestive) heart failure; I48.91 Unspecified atrial fibrillation; J43.9 Emphysema, unspecified; I27.23 Pulmonary hypertension due to lung diseases and hypoxia; F17.200 Nicotine dependence, unspecified, uncomplicated; E78.5 Hyperlipidemia, unspecified; F41.9 Anxiety disorder, unspecified; F03.90 Unspecified dementia, unspecified severity, without behavioral disturbance, psychotic disturbance, mood disturbance, and anxiety; K76.1 Chronic passive congestion of liver; K60.2 Anal fissure, unspecified; M19.90 Unspecified osteoarthritis, unspecified site; G62.9 Polyneuropathy, unspecified; H91.90 Unspecified hearing loss, unspecified ear; K21.9 Gastro-esophageal reflux disease without esophagitis; K59.09 Other constipation; R32 Unspecified urinary incontinence; R35.1 Nocturia; R35.0 Frequency of micturition; M81.0 Age-related osteoporosis without current pathological fracture; Z68.21 Body mass index [BMI] 21.0-21.9, adult; G47.00 Insomnia, unspecified; H54.7 Unspecified visual loss; J32.9 Chronic sinusitis, unspecified; Z77.090 Contact with and (suspected) exposure to asbestos; Z79.82 Long term (current) use of aspirin; Z79.899 Other long term (current) drug therapy; Z86.718 Personal history of other venous thrombosis and embolism; Z87.01 Personal history of pneumonia (recurrent)
CPT/HCPCS: 36415; 71045; 80051; 80053; 81001; 82565; 83605; 83690; 83735; 83880; 84100; 84484; 85025; 85610; 86140; 87086; 93005; 93306; 94640; 94761; 97161; A9270; J7040; 81003; 96374; 96375; 99284

== ENCOUNTER 2019-09-04 14:21 | Emergency (ER) | payer MEDICARE, OTHER ==
[2019-09-04 16:28] LABS: BASOPHILS # (AUTO) 0.1 10^3/uL (0.0-0.1); BASOPHILS % (AUTO) 1.6 %; EOSINOPHILS # (AUTO) 0.1 10^3/uL (0.0-0.7); HGB - HEMOGLOBIN 12.4 g/dL (12.0-16.0); LYMPHOCYTES # (AUTO) 1.6 10^3/uL (1.5-3.5); LYMPHOCYTES % (AUTO) 28.6 %; MEAN CORPUSCULAR HEMOGLOBIN 26.3 pg (27.0-31.0); MEAN CORPUSCULAR VOLUME 82.4 fL (81.0-99.0); MEAN PLATELET VOLUME 10.1 fL (7.9-10.8); MONOCYTES # (AUTO) 0.6 10^3/uL (0.0-1.0); MONOCYTES % (AUTO) 11.3 %; NEUTROPHILS # (AUTO) 3.1 10^3/uL (1.5-6.6); NEUTROPHILS % (AUTO) 56.1 %; PLT - PLATELET COUNT 292 10^3/uL (130-450); RED BLOOD COUNT 4.71 10^6/uL (4.20-5.40); RED CELL DISTRIBUTION WIDTH 16.2 % (12.0-15.0); WHITE BLOOD COUNT 5.6 x10^3/uL (4.8-10.8)
[2019-09-04 16:40] LABS: ALBUMIN 3.7 g/dL (3.2-5.5); ALBUMIN/GLOBULIN RATIO 1.1 (1.0-2.2); CALCIUM 9.3 mg/dL (8.5-10.3); CREATININE 1.3 mg/dL (0.4-1.0)
--- NOTE | 2019-09-04 17:06 | XRAY Report ---
Reason: Chest pain Procedure Date: 09/04/2019 Accession Number: [id number] / [id number] Procedure: XR - Chest 1 View X-Ray CPT Code: 36771 Final Report FULL RESULT: EXAM: CHEST RADIOGRAPHY EXAM DATE: 09/04/2019 04:48 PM. CLINICAL HISTORY: Chest pain. COMPARISON: CHEST 1 VIEW 08/30/2019 9:03 AM. TECHNIQUE: 1 view. FINDINGS: Lungs/Pleura: Interval improvement in lung volume. There is no consolidation or pulmonary edema. No new airspace disease. Negative for pneumothorax. Mediastinum: The heart size is normal. There is moderate tortuosity of the aorta. Other: None. IMPRESSION: Improved lung volumes. No new airspace disease. RADIA
[2019-09-04 19:03] VITALS: BP 158/97
--- NOTE | 2019-09-04 20:14 | ED Physician Documentation ---
History of Present Illness - Stated complaint Stated Complaint: DIFFICULTY BREATHING, LT ARM SWELLING - Chief complaint Chief Complaint: Resp - History obtained from History obtained from: Patient, Family - Additonal information Additional information: Patient comes emergency department with her daughter complaining that she felt as though she could not take a deep breath this morning. Patient states that she did not notice any other symptoms. No chest pain or Air hunger. No cough or fever. No increased edema in her lower extremities. Patient states that she was just admitted to the hospital and her records indicate that she was diagnosed with a CHF exacerbation and new onset atrial fibrillation.Patient states that she is actually not feeling too bad right now, but that she is trying to be "cautious" because she does not want to end up as bad off as she was last week when she had to stay in the hospital. No other complaints at this time. Patient was started on metoprolol and spironolactone on discharge and was instructed to follow-up with her primary care physician. She has not seen a fill manager. Review of Systems Ten Systems: 10 systems reviewed and negative Constitutional: reports: Reviewed and negative Eyes: reports: Reviewed and negative Ears: reports: Reviewed and negative Nose: reports: Reviewed and negative Throat: reports: Reviewed and negative Cardiac: reports: Reviewed and negative Respiratory: reports: Reviewed and negative, Other (Difficulty taking deep breath) GI: reports: Reviewed and negative : reports: Reviewed and negative Skin: reports: Reviewed and negative Musculoskeletal: reports: Reviewed and negative Neurologic: reports: Reviewed and negative Psychiatric: reports: Reviewed and negative Endocrine: reports: Reviewed and negative Immunocompromised: reports: Reviewed and negative PD PAST MEDICAL HISTORY - Past Medical History Past Medical History: Yes Cardiovascular: Hypertension, High cholesterol, Deep vein thrombosis, Atrial fibrillation, Arrhythmia Respiratory: COPD, Pneumonia Neuro: Dementia, Peripheral neuropathy Endocrine/Autoimmune: None GI: GERD, Hemorrhoids ONCOLOGY ACCOUNT SPECIALIST: None : Incontinence, Nocturia, Frequency HEENT: Chronic vision loss, Chronic sinusitis, Chronic hearing loss Psych: None Musculoskeletal: Osteoarthritis, Osteoporosis, Fatigue Derm: None - Past Surgical History Past Surgical History: No - Present Medications Home Medications: Ambulatory Orders Medication Instructions Recorded Confirmed Aspirin 81 mg PO DAILY 11/08/12 08/30/19 Furosemide [Lasix] 20 mg PO DAILY 08/30/19 08/30/19 Umeclidinium Brm/Vilanterol Tr 1 puffs INH DAILY 08/30/19 08/30/19 [Anoro Ellipta 62.5-25 Mcg INH] Albuterol Sulf [Ventolin Hfa 1 - 2 puffs INH Q4HR 08/31/19 08/31/19 Inhaler] Azelastine HCl 1 spray ELENI DAILY 08/31/19 08/31/19 Fluticasone [Flonase] 1 spray ELENI DAILY 08/31/19 08/31/19 Guaifenesin [Mucinex] 600 mg PO DAILY 08/31/19 08/31/19 Citalopram Hydrobromide 20 mg PO DAILY #30 tablet 09/01/19 [Citalopram HBr] Famotidine [Pepcid] 20 mg PO BID #60 tablet 09/01/19 Losartan Potassium 12.5 mg PO DAILY #30 tablet 09/01/19 Metoprolol Succinate [Toprol Xl] 75 mg PO DAILY #60 tab.er.24h 09/01/19 Senna [Senokot] 8.6 mg PO BIDWM #60 tablet 09/01/19 Spironolactone [Aldactone] 25 mg PO DAILY #30 tablet 09/01/19 Cephalexin [Keflex] 500 mg PO Q6H #28 capsule 09/04/19 - Allergies Allergies/Adverse Reactions: Allergies Allergy/AdvReac Type Severity Reaction Status Date / Time No Known Drug Allergies Allergy Verified 09/04/19 14:28 - Social History Does the pt smoke?: No Smoking Status: Never smoker Does the pt drink ETOH?: No Does the pt have substance abuse?: No - Immunizations Immunizations are current?: Yes - POLST Patient has POLST: Yes POLST Status: Full Code PD ED PE NORMAL - Vitals Vital signs reviewed: Yes - General General: Alert and oriented X 3, No acute distress - HEENT HEENT: PERRL - Neck Neck: Supple, no meningeal sign - Cardiac Cardiac: RRR, No murmur - Respiratory Respiratory: No respiratory distress, Clear bilaterally, Other (Patient speaks without difficulty and carries on an extensive conversation. She is noted to be sitting in bed comfortably breathing and without labored respirations. Patient is able to take full, deep breaths on respiratory exam.) - Abdomen Abdomen: Soft, Non tender, Non distended - Derm Derm: Warm and dry - Extremities Extremities: No deformity, No edema - Neuro Neuro: Alert and oriented X 3 - Psych Psych: Normal mood, Normal affect Results - Vitals Vitals: Vital Signs - 24 hr 09/04/19 09/04/19 09/04/19 14:28 16:08 17:14 Temperature 36.9 C 36.4 C L Heart Rate 99 80 84 Respiratory 20 18 23 Rate Blood Pressure 132/90 H 149/93 H 159/106 H O2 Saturation 95 96 97 09/04/19 09/04/19 18:23 19:03 Temperature Heart Rate 73 89 Respiratory 24 20 Rate Blood Pressure 144/97 H 158/97 H O2 Saturation 96 96 Oxygen O2 Source Room air - EKG (time done) 1701 Rate: Rate (enter#) (93) Rhythm: Atrial fibrillation [place]: Normal Intervals: Normal [place] QRS: Normal Ischemia: Normal ST segments. No: Hyperacute T waves, T wave inversion Compare to prior EKG: Unchanged from prior EKG Computer interpretation: Agree with computer - Labs Labs: Laboratory Tests 09/04/19 09/04/19 09/04/19 16:21 16:21 16:21 WBC 5.6 RBC 4.71 Hgb 12.4 Hct 38.8 MCV 82.4 MCH 26.3 L MCHC 32.0 RDW 16.2 H Plt Count 292 MPV 10.1 Neut # (Auto) 3.1 Lymph # (Auto) 1.6 [place] # (Auto) 0.6 Eos # (Auto) 0.1 Baso # (Auto) 0.1 Absolute Nucleated RBC 0.00 Nucleated RBC % 0.0 Sodium 136 Potassium 4.5 Chloride 97 L Carbon Dioxide 28 Anion Gap 11.0 BUN 28 H Creatinine 1.3 H Estimated GFR (MDRD) 39 L Glucose 95 Calcium 9.3 Total Bilirubin 1.0 AST 18 ALT 31 Alkaline Phosphatase 81 Troponin I High Sens 23.9 H* B-Natriuretic Peptide Total Protein 7.0 Albumin 3.7 Globulin 3.3 Albumin/Globulin Ratio 1.1 Lipase 29 09/04/19 09/04/19 16:30 18:12 WBC RBC Hgb Hct MCV MCH MCHC RDW Plt Count MPV Neut # (Auto) Lymph # (Auto) [place] # (Auto) Eos # (Auto) Baso # (Auto) Absolute Nucleated RBC Nucleated RBC % Sodium Potassium Chloride Carbon Dioxide Anion Gap BUN Creatinine Estimated GFR (MDRD) Glucose Calcium Total Bilirubin AST ALT Alkaline Phosphatase Troponin I High Sens 23.2 H* B-Natriuretic Peptide 508 H Total Protein Albumin Globulin Albumin/Globulin Ratio Lipase - Rads (name of study) Chest x-ray Radiology: Final report received, See rad report (Final radiologist impression: Improved lung volumes. No new airspace disease.) PD MEDICAL DECISION MAKING - ED course Complexity details: reviewed old records, reviewed results, re-evaluated patient, considered differential, d/w patient, d/w family ED course: The patient was very well-appearing in the emergency department and furthermore, had a normal lung exam and good oxygen saturation with a normal heartrate, and no lower extremity edema. As such, I did not find evidence of an acute worsening of her CHF or COPD exacerbation. I discussed with the patient and her daughter thatAt this point in time, there is no reason to change her regimen and certainly, not to admit her back to the hospital. We have discussed the importance of follow-up with her doctor, as well as potential need for cardio logy follow-up at some point. According to nurse initiated protocol, labs and chest x-ray had been obtained after triage and these were unremarkable. Chest x-ray showed improvement since the patient's last x-ray during admission. Departure - Departure Disposition: 01 Home, Self Care Clinical Impression: Phlebitis Dyspnea Qualifiers: Dyspnea type: unspecified Qualified Code(s): R06.00 - Dyspnea, unspecified Condition: Fair Instructions: ED Dyspnea Shortness of Breath Prescriptions: Cephalexin [Keflex] 500 mg PO Q6H #28 capsule Comments: Your labs, including repeat cardiac enzymes, look good. There is no evidence of an acute condition causing your symptoms today. Additionally, your chest x-ray is improved since the last chest x-ray, and your lung exam is normal. Your oxygen levels here in the ER are also good. At this point in time, your atrial fibrillation is still present, but the rate is well controlled. As such, you may be discharged home, and no changes to your current medication regimen are indicated at this time. Discharge Date/Time: 09/04/19 19:09
== END 2019-09-04 19:09 | disposition home or self-care (01) ==
LOC: ED 14:21
DX: R06.00 Dyspnea, unspecified (principal); I80.9 Phlebitis and thrombophlebitis of unspecified site; I10 Essential (primary) hypertension; F03.90 Unspecified dementia, unspecified severity, without behavioral disturbance, psychotic disturbance, mood disturbance, and anxiety
CPT/HCPCS: 36415; 71045; 80053; 83690; 83880; 84484; 85025; 93005; 99284

== ENCOUNTER 2019-10-23 14:17 | Outpatient (CLI) | payer MEDICARE, OTHER ==
[2019-10-23 14:40] LABS: CALCIUM 9.1 mg/dL (8.5-10.3); CREATININE 1.6 mg/dL (0.4-1.0)
== END 2019-10-23 14:18 | disposition home or self-care (01) ==
LOC: LAB 14:17
PROVIDERS: ATTEND Internal Medicine Cardiovascular Disease
DX: I48.91 Unspecified atrial fibrillation (principal); I50.31 Acute diastolic (congestive) heart failure
CPT/HCPCS: 36415; 80048

== ENCOUNTER 2019-12-26 11:40 | Outpatient (CLI) | payer MEDICARE, OTHER ==
--- NOTE | 2019-12-26 16:15 | DEXA Report ---
Reason: OSTEOPOROSIS Procedure Date: 12/26/2019 Accession Number: [id number] / [id number] Procedure: DEX - Dexa Spine and/or Hip CPT Code: Final Report FULL RESULT: PROCEDURE: Dexa Spine and/or Hip INDICATIONS: OSTEOPOROSIS TECHNIQUE: Dual energy x-ray absorptiometry (DXA) was performed on a [employer] System. Regions measured are the AP Spine, femoral neck, and if needed forearm. COMPARISON: None. FINDINGS: Lumbar Spine: Bone Mineral Density 0.710 g/cm/cm,T score -3.9, osteoporosis Left Hip: Bone Mineral Density 0.527 g/cm/cm,T score -3.8, osteoporosis Left Femoral Neck: Bone Mineral Density 0.484 g/cm/cm, T score -4.0, osteoporosis (T score greater or equal to -1.0: NORMAL) (T score from -1.1 to -2.4: OSTEOPENIA) (T score less than or equal to -2.5 to: OSTEOPOROSIS) Impression: Prominent osteoporosis within the lumbar spine, hip and femoral neck as above. Patients with diagnosis of osteoporosis or osteopenia should have regular bone mineral density assessment. For those eligible for Medicare, routine testing is allowed once every 2 years. Testing frequency can be increased for patients who have rapidly progressing disease or for those who are receiving medical therapy to restore bone mass. Reviewed by: Rebecca Liz MD on 12/26/2019 4:13 PM PDT Approved by: Rebecca Liz MD on 12/26/2019 4:13 PM PDT Station ID: [id number]
== END 2019-12-26 23:59 | disposition home or self-care (01) ==
LOC: DI 11:40
PROVIDERS: ATTEND Nurse Practitioner Gerontology
DX: M81.0 Age-related osteoporosis without current pathological fracture (principal)
CPT/HCPCS: 77080

== ENCOUNTER 2020-01-29 12:05 | Outpatient (CLI) | payer MEDICARE, OTHER ==
[2020-01-29 12:27] LABS: BASOPHILS # (AUTO) 0.1 10^3/uL (0.0-0.1); BASOPHILS % (AUTO) 1.2 %; EOSINOPHILS # (AUTO) 0.1 10^3/uL (0.0-0.7); HGB - HEMOGLOBIN 13.9 g/dL (12.0-16.0); LYMPHOCYTES # (AUTO) 1.7 10^3/uL (1.5-3.5); LYMPHOCYTES % (AUTO) 33.4 %; MEAN CORPUSCULAR HEMOGLOBIN 27.7 pg (27.0-31.0); MEAN CORPUSCULAR HGB CONC 32.9 g/dL (32.0-36.0); MEAN CORPUSCULAR VOLUME 84.1 fL (81.0-99.0); MEAN PLATELET VOLUME 9.5 fL (7.9-10.8); MONOCYTES # (AUTO) 0.4 10^3/uL (0.0-1.0); MONOCYTES % (AUTO) 8.8 %; NEUTROPHILS # (AUTO) 2.7 10^3/uL (1.5-6.6); NEUTROPHILS % (AUTO) 54.4 %; PLT - PLATELET COUNT 236 10^3/uL (130-450); RED BLOOD COUNT 5.02 10^6/uL (4.20-5.40); RED CELL DISTRIBUTION WIDTH 16.8 % (12.0-15.0)
[2020-01-29 12:44] LABS: ALBUMIN 4.5 g/dL (3.2-5.5); ALBUMIN/GLOBULIN RATIO 1.4 (1.0-2.2); ALKALINE PHOSPHATASE 46 IU/L (42-121); ALT ALANINE AMINOTRANSFERASE 14 IU/L (10-60); AST ASPARTATE AMINOTRANSFERASE 19 IU/L (10-42); BUN - BLOOD UREA NITROGEN 50 mg/dL (6-20); CALCIUM 9.2 mg/dL (8.5-10.3); CARBON DIOXIDE - CO2 34 mmol/L (21-32); CHLORIDE 91 mmol/L (101-111); CHOL/HDL RATIO 4.4 (<4.4); CHOLESTEROL 258 mg/dL; GLUCOSE 98 mg/dL (70-100); HDL CHOLESTEROL 59 mg/dL; LDL CHOLESTEROL,CALCULATED 178 mg/dL; SODIUM 134 mmol/L (135-145); TOTAL PROTEIN 7.8 g/dL (6.7-8.2); VLDL CHOLESTEROL 21 mg/dL
== END 2020-01-29 12:06 | disposition home or self-care (01) ==
LOC: LAB 12:05
PROVIDERS: ATTEND Nurse Practitioner Family
DX: I11.0 Hypertensive heart disease with heart failure (principal); I50.9 Heart failure, unspecified; I48.91 Unspecified atrial fibrillation; E78.5 Hyperlipidemia, unspecified
CPT/HCPCS: 36415; 80053; 80061; 83721; 85025

== ENCOUNTER 2020-02-13 15:13 | Outpatient (CLI) | payer MEDICARE, OTHER ==
[2020-02-13 18:35] LABS: BILIRUBIN,URINE NEGATIVE (NEGATIVE); GLUCOSE, URINE (UA) NEGATIVE (NEGATIVE); KETONES,URINE (UA) NEGATIVE (NEGATIVE); LEUKOCYTE ESTERASE, URINE NEGATIVE (NEGATIVE); NITRITE,URINE NEGATIVE (NEGATIVE); OCCULT BLOOD,URINE LARGE (NEGATIVE); PROTEIN,URINE NEGATIVE (NEGATIVE); UROBILINOGEN,URINE 0.2 (NORMAL) E.U./dL (NORMAL)
[2020-02-13 18:42] LABS: CLARITY,URINE CLEAR (CLEAR)
[2020-02-13 18:51] LABS: CALCIUM 9.9 mg/dL (8.5-10.3); CREATININE 2.1 mg/dL (0.4-1.0)
[2020-02-13 19:03] LABS: BACTERIA,URINE None Seen /HPF (None Seen); EPITHELIAL CELLS,UR MOD Renal Tubular /HPF (<= Few); RBC,URINE 0-5 /HPF (0-5); SQUAMOUS EPITHELIAL CELL,UR NONE SEEN (<= Few)
== END 2020-02-13 23:59 | disposition home or self-care (01) ==
LOC: LAB.WCP 15:13
PROVIDERS: ATTEND Nurse Practitioner Family
DX: N17.9 Acute kidney failure, unspecified (principal); R31.9 Hematuria, unspecified
CPT/HCPCS: 36415; 80048; 81001

== ENCOUNTER 2020-03-17 13:29 | Outpatient (CLI) | payer MEDICARE, OTHER ==
--- NOTE | 2020-03-17 16:16 | CT Report ---
PROCEDURE: Abdomen/Pelvis WO INDICATIONS: PANCREATIC CYST, HEMATURIA TECHNIQUE: Noncontrast 5 mm thick sections acquired from the diaphragms to the symphysis. 5 mm coronal and sagi ttal reformats were then performed. For radiation dose reduction, the following was used: automated exposure control, adjustment of mA and/or kV according to patient size. COMPARISON: None. FINDINGS: Image quality: Limited by absence of both oral and intravenous contrast.. ABDOMEN: Lung bases: Lung bases are clear. Heart size is normal. Solid organs: Liver and spleen are normal in size. Gallbladder contains a slight degree of posterio r layering calcification seen on CT series 3 image 41 but there is no evidence of acute cholecystitis or biliary obstruction Pancreas is normal in contours except at the pancreatic tail where a water d ensity rounded structure can be seen in the area of sonographic visualization of a cyst measuring 2.4 x 2.5 cm. This was also present without appreciable spinning frame changer time on 05/15/2015 CT scanning utiliz ing similar technique. No adrenal nodules. Kidneys are normal in size, without hydronephrosis or ne phrolithiasis. Peritoneum and bowel: Unenhanced bowel loops demonstrate normal wall thickness and caliber. No free fluid or air. Nodes and vessels: No retroperitoneal or mesenteric adenopathy by size criteria. Aorta and inferior vena cava are normal in caliber. Miscellaneous: No ventral hernias. PELVIS: Genitourinary: Bladder wall thickness is normal. Miscellaneous: No inguinal hernias or adenopathy. Bones: No suspicious bony lesions. No vertebral body compression fractures. IMPRESSION: No definite acute disease. Quality of visualization is somewhat limited by the absence of both oral a nd intravenous contrast. At the pancreatic tail there is a 2.4 x 2.5 cm water density cyst, equivalen t to the finding on ultrasound from 02/07/2020 and also present on prior CT scanning 05/15/2015. No foll ow-up recommended. Note is made of a slight degree of posterior layering calcification within the gallbladder lumen, pot entially milk of calcium. No evidence of acute cholecystitis or biliary obstruction. A source of hematuria is not found. No hydronephrosis or nephrolithiasis is seen. Contrast enhanced s lyssa with excretion phase imaging allowing better visualization of the urothelium and also renal c ortex may be warranted for more accurate assessment of hematuria. Reviewed by: Griffin Mosquera MD on 03/17/2020 4:14 PM PDT Approved by: Griffin Mosquera MD on 03/17/2020 4:14 PM PDT Station ID: [id number]
== END 2020-03-17 13:30 | disposition home or self-care (01) ==
LOC: DI 13:29
PROVIDERS: ATTEND Nurse Practitioner Family
DX: K86.2 Cyst of pancreas (principal); R31.9 Hematuria, unspecified
CPT/HCPCS: 74176

== ENCOUNTER 2020-05-05 12:19 | Outpatient (CLI) | payer MEDICARE, OTHER ==
[2020-05-05 13:06] LABS: CALCIUM 9.6 mg/dL (8.5-10.3); CREATININE 2.4 mg/dL (0.4-1.0)
== END 2020-05-05 12:20 | disposition home or self-care (01) ==
LOC: LAB 12:19
PROVIDERS: ATTEND Nurse Practitioner Family
DX: N18.4 Chronic kidney disease, stage 4 (severe) (principal)
CPT/HCPCS: 36415; 80048

== ENCOUNTER 2020-06-15 07:00 | Outpatient (CLI) | payer MEDICARE, OTHER ==
[2020-06-15 15:52] LABS: ALBUMIN 4.2 g/dL (3.2-5.5); ALBUMIN/GLOBULIN RATIO 1.4 (1.0-2.2); BILIRUBIN,TOTAL 0.9 mg/dL (0.2-1.0); CALCIUM 9.5 mg/dL (8.5-10.3); CREATININE 1.7 mg/dL (0.4-1.0); TOTAL PROTEIN 7.3 g/dL (6.7-8.2)
[2020-06-15 15:54] LABS: BILIRUBIN,URINE NEGATIVE (NEGATIVE); GLUCOSE, URINE (UA) NEGATIVE (NEGATIVE); KETONES,URINE (UA) NEGATIVE (NEGATIVE); LEUKOCYTE ESTERASE, URINE TRACE (NEGATIVE); NITRITE,URINE POSITIVE (NEGATIVE); OCCULT BLOOD,URINE LARGE (NEGATIVE); PH,URINE 6.5 PH (5.0-7.5); PROTEIN,URINE 100 mg/dL (NEGATIVE); UROBILINOGEN,URINE 0.2 (NORMAL) E.U./dL (NORMAL)
[2020-06-15 15:55] LABS: CLARITY,URINE CLOUDY (CLEAR)
[2020-06-15 16:11] LABS: BACTERIA,URINE Few /HPF (None Seen); RBC,URINE TNTC /HPF (0-5); SQUAMOUS EPITHELIAL CELL,UR NONE SEEN (<= Few)
[2020-06-15 17:16] LABS: CREATININE,URINE 153.6 mg/dL; MICROALBUM/CREATININE RATIO,UR 673.2 ug/mg (<30.0); MICROALBUMIN,URINE 103.4 mg/dL (0-300.0)
== END 2020-06-15 23:59 | disposition home or self-care (01) ==
LOC: LAB 07:00
PROVIDERS: ATTEND Internal Medicine
DX: N18.4 Chronic kidney disease, stage 4 (severe) (principal)
CPT/HCPCS: 36415; 80053; 81001; 82043; 82306; 82570; 83970; 87086; 87181

== ENCOUNTER 2020-06-26 14:08 | Outpatient (CLI) | payer MEDICARE, OTHER ==
[2020-06-26 14:51] LABS: BASOPHILS # (AUTO) 0.1 10^3/uL (0.0-0.1); BASOPHILS % (AUTO) 1.2 %; EOSINOPHILS # (AUTO) 0.1 10^3/uL (0.0-0.7); EOSINOPHILS % (AUTO) 1.8 %; HGB - HEMOGLOBIN 10.8 g/dL (12.0-16.0); LYMPHOCYTES # (AUTO) 1.5 10^3/uL (1.5-3.5); LYMPHOCYTES % (AUTO) 29.9 %; MEAN CORPUSCULAR HEMOGLOBIN 26.9 pg (27.0-31.0); MEAN CORPUSCULAR HGB CONC 31.9 g/dL (32.0-36.0); MEAN CORPUSCULAR VOLUME 84.5 fL (81.0-99.0); MEAN PLATELET VOLUME 9.4 fL (7.9-10.8); MONOCYTES # (AUTO) 0.5 10^3/uL (0.0-1.0); MONOCYTES % (AUTO) 9.6 %; NEUTROPHILS # (AUTO) 2.8 10^3/uL (1.5-6.6); NEUTROPHILS % (AUTO) 57.3 %; PLT - PLATELET COUNT 264 10^3/uL (130-450); RED BLOOD COUNT 4.01 10^6/uL (4.20-5.40); WHITE BLOOD COUNT 4.9 x10^3/uL (4.8-10.8)
== END 2020-06-26 14:09 | disposition home or self-care (01) ==
LOC: LAB 14:08
PROVIDERS: ATTEND Nurse Practitioner Family
DX: R53.83 Other fatigue (principal)
CPT/HCPCS: 36415; 85025

== ENCOUNTER 2020-07-05 14:04 | Outpatient (CLI) | payer MEDICARE, OTHER ==
[2020-07-05 14:44] LABS: BILIRUBIN,URINE NEGATIVE (NEGATIVE); GLUCOSE, URINE (UA) NEGATIVE (NEGATIVE); KETONES,URINE (UA) NEGATIVE (NEGATIVE); LEUKOCYTE ESTERASE, URINE NEGATIVE (NEGATIVE); NITRITE,URINE NEGATIVE (NEGATIVE); OCCULT BLOOD,URINE LARGE (NEGATIVE); PH,URINE 7.5 PH (5.0-7.5); PROTEIN,URINE 30 mg/dL (NEGATIVE); UROBILINOGEN,URINE 0.2 (NORMAL) E.U./dL (NORMAL)
[2020-07-05 14:49] LABS: CLARITY,URINE HAZY (CLEAR)
== END 2020-07-05 14:05 | disposition home or self-care (01) ==
LOC: LAB 14:04
PROVIDERS: ATTEND Specialist
DX: R31.0 Gross hematuria (principal); N18.4 Chronic kidney disease, stage 4 (severe)
CPT/HCPCS: 81003

== ENCOUNTER 2020-07-13 14:00 | Outpatient (CLI) | payer MEDICARE, OTHER ==
--- NOTE | 2020-07-13 17:30 | CONSULTATION NOTE ---
Palliative Care Consultation - Referral Referring Provider: DIAMOND Fernando Time of Visit: [id number] Referral setting: Home Referral Reason: Advanced Care Planning/Depression - Information Sources Records reviewed: Previous records reviewed History/Review of Systems obtained from: Patient, Family (daughter/CHRISTINA Kaba) Exam limitations: Clinical condition ([place]) - History of Present Illness Brief History of Present Illness: This is an 85-year-old female who was seen and evaluated today for initial palliative care consultation Within her home due to her underlying COPD, CKD, and advance care planning with her daughter, but not present in their home. The patient's overwhelming concern has been related to her circumstances. She has had the misfortune that she came to [facility] in July 2019 to have cataract surgery performed and unfortunately, coronavirus hits and she was unable to return back to her home in [place]. Since that time, she has been living with her daughter and [place]. She has been having increased financial strain and difficulties that make her feel helpless in being able to manage so far away from her apartment in [place]. She stays up late until 3-4AM in the morning and sleeps the majority of the day. Her daughter reports that she will not shower routinely. The patient herself reports to feeling hopeless in the last 2 weeks and losing interest in activities she used to find pleasurable. She is on citralopram 20mg daily and has been on this for an unknown time and previously provided relief for her. She also feels isolated from her friends in [facility] due to the time difference and her inability to rise earlier in the day. The patient herself feels that she has a good appetite, but her daughter stipulates that it is decreased (also due to missing meals) and the patient has lost weight in the last year, appx 8lbs. She presently weighs 102lb. She states that she will snack when she is awake at night. The patient supports some forgetfulness. She reports that it is minor things. Her daughter is supporting her in medication management with queing reminders to take her medications and ordering these medications. Upon arrival to [facility], the patient was admitted to [facility] in Aug 2019 with a CHF excerbation and Afib. It was later discovered that she was not taking all of her medications as prescribed. She has underlying COPD that does not require oxygen supplementation. 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 She reports a cough that last week was more persistent that has returned to baseline. Denies fever or wheezing. She is scheduled to have a cystoscopy due to hematuria. She first noticed hematuria in appx November 2018. The hematuria would resolve and then come back. Recently the patient had gross hematuria with visible bruising. Her eliquis is presently being held and she has had decrease in bruising. She reports some trepidation regarding the upcoming procedure due to anesthesia. This is a frail, well-dressed woman who is seen and evaluated is the dining room. She is articulate and engaged. No evidence of acute distress. Cardiology: Dr. Raad Lees Director Of Agriculture: Dr. Lamont Monroe Nephrology: Dr. Heaton Urology: Dr. Canales Medical/Surgical History - Past Medical History Cardiovascular: reports: Congestive heart failure, Hypertension, High cholesterol, Deep vein thrombosis, Atrial fibrillation, Arrhythmia, Other (Pulm onary HTN) Respiratory: reports: COPD (Followed by Dr. Monroe, no oxygen requirment), Pneumonia Neuro: Peripheral neuropathy Endocrine/Autoimmune: reports: None GI: reports: GERD, C.difficile, Hemorrhoids GAME MODERATOR: reports: None : reports: Incontinence, Nocturia, Frequency, Other (Hematuria) HEENT: reports: Chronic vision loss, Chronic sinusitis, Chronic hearing loss Psych: reports: Depression, Anxiety, Other (Insomnia) Musculoskeletal: reports: Osteoarthritis, Osteoporosis, Fatigue Derm: reports: None MRSA Hx?: No - Past Surgical History HEENT: reports: Cataracts - Substance History Use: Uses substance without health or social issues: NONE (Former tobacco use, 2ppd "many years ago") Social History - Living Situation Living arrangement: At home Living Situation: With family (daughter/Sesar VASQUEZ) Support System: Since early July 2019 the patient has been residing with her daughter, Sesar is in [place]. She came to [facility] for cataract surgery and due to the coronavirus pandemic has been unable to return to her apartment in [place]. She grew up in [place]. 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 She is . She has 2 children, a son and daughter. Her daughter, Sesar he is her DPOA who resides in [facility] and is undergoing treatment for breast cancer. Her son, resides in [place]. It is her desire to return to [place] and live independently. Sesar has a dog, Blueberry, that is in the home that she rescued. Family History - Family History Family History: Mother: , Father: Family History Comment/Other: Father in 50s due to heart; Mother diseased in 90s with HTN and heart concerns. Medications/Allergies - Medications Home Medications: Ambulatory Orders Medication Instructions Recorded Confirmed Umeclidinium Brm/Vilanterol Tr 1 puffs INH DAILY 08/30/19 07/14/20 [Anoro Ellipta 62.5-25 Mcg INH] Albuterol Sulf [Ventolin Hfa 1 - 2 puffs INH Q4HR 08/31/19 07/14/20 Inhaler] Azelastine HCl 1 spray ELNEI DAILY 08/31/19 07/14/20 Fluticasone [Flonase] 1 spray ELENI DAILY 08/31/19 07/14/20 Guaifenesin [Mucinex] 600 mg PO DAILY 08/31/19 07/14/20 Citalopram Hydrobromide 20 mg PO DAILY #30 tablet 09/01/19 07/14/20 [Citalopram HBr] Biotin 1 cap PO DAILY 07/14/20 07/14/20 Zwllygh-Dti-Q5 2 tbs PO DAILY 07/14/20 Famotidine [Pepcid] 10 mg PO BID 07/14/20 07/14/20 Metoprolol Succinate [Toprol Xl] 75 mg PO DAILY 07/14/20 07/14/20 Mirtazapine [Remeron] 7.5 mg PO QPM 07/14/20 07/14/20 Potassium Chloride Oral Soln 15 ml PO DAILY 07/14/20 07/14/20 Probiotic Saccharomyces B 1 cap PO DAILY 07/14/20 Sildenafil Citrate [Sildenafil] 10 mg PO BID 07/14/20 07/14/20 Torsemide 10 mg PO .SAT&SUN 07/14/20 07/14/20 Torsemide 20 mg PO .MONTOFRIDAY 07/14/20 07/14/20 - Allergies Allergies/Adverse Reactions: Allergies Allergy/AdvReac Type Severity Reaction Status Date / Time No Known Drug Allergies Allergy Verified 07/14/20 19:38 Review of Systems - Constitutional Constitutional: reports: Fatigue, Weight loss (in last year, weight at 102lb). denies: Fever - Eyes Eyes: reports: Corrective lenses. denies: Irritation - Ears, Nose & Throat Ears, Nose & Throat: reports: Hearing loss, Hearing aids (missing a hearing aid). denies: Dry mouth - Cardiovascular Cardiovascular: reports: Exertional dyspnea. denies: Chest pain, Edema (controlled) - Respiratory Respiratory: reports: Cough. denies: Wheezing - Gastrointestinal Gastrointestinal: reports: Other (bowel movement daily with varied forms. Bowel movements have been changed since she had C.diff.). denies: Abdominal pain, Vomiting - Genitourinary Genitourinary: reports: Hematuria (history of hematuria with cystoscopy scheduled 07/16/2020). denies: Dysuria - Musculoskeletal Musculoskeletal: denies: Joint swelling, Transfer issues - Integumentary Integumentary: reports: Dryness - Neurological Neurological: reports: General weakness - Psychiatric Psychiatric: reports: Depression, Anxiety, Other (Insomnnia) - Endocrine Endocrine: denies: Diabetes type 2 - All Other Systems All Other Systems: reports: Reviewed and negative Physical Exam - Vital Signs Temperature: 36.9 C Pulse Rate: 80 O2 Saturation: 96 (on RA at rest) Blood Pressure: 141/69 (left wrist cuff) - Physical Exam General Appearance: positive: No acute distress, Alert, Other (thin) Eyes Bilateral: positive: Normal inspection ENT: positive: No signs of dehydration Neck: positive: Thyroid nml, Trachea midline Cardiovascular: positive: Regular rate & rhythm, No murmur Respiratory: positive: No respiratory distress, Breath sounds nml, Other (intermittent dry, nonproductive cough). negative: Wheezes, Rales Abdomen: positive: Non-tender, Soft, Nml bowel sounds Skin: positive: Dryness Extremities: positive: No pedal edema, Other (+lumbar lordosis) Neurologic/Psychiatric: positive: Oriented x3, Weakness, Depressed mood/affect Palliative Care - POLST Patient has POLST: No Pain: No pain Tiredness/Fatigue: Mild (1-3) Drowsiness/Sedation: None Nausea: None Anorexia: Mild (1-3) Dyspnea: Mild (1-3) Depression: Moderate (4-6) Anxiety: Moderate (4-6) Feelings of wellbeing/Perceived Quality of Life: Poor Sleep: Variable sleep pattern Performance Status: Patient is ambulatory without an assistive device in her daughter's home. No recent falls. Requires cueing for medication management. Continent of bowel and bladder. Reduced appetite. PPS 60% - Palliative Care Discussion: Through a series of unfortunate events the patient has spent the last year in [facility] unable to return to her apartment in [place] initially due to her own health complications and then due to the coronavirus pandemic. She recognizes that she is at high risk for axel coronavirus and this is something that she wishes to avoid and mitigate her risk by staying within her daughter's home. The patient's underlying financial concerns, worry regarding her future living arrangements and unfolding health problems has further led to depressive symptoms that are not being managed by her present monotherapy of citralopram. The patient also has concerns and fear regarding her daughter's phone physical wellbeing and states as she undergoes chemotherapy for breast cancer. The patient has the ultimate desire to return to [place] and sees that she will have to relocate from her present apartment which requires multiple tasks. She has to sort through stacks of paper work, move all her sculptures, and with her underlying comorbidities navigate the public transport of [place]. The patient's daughter and son have expressed concerns regarding her returning to [place]. However, the patient at the present time feels the need to be in a community with various age groups as she obtains inspiration for her art from this and she most adamantly does not wish to move to senior housing or a facility. Began introduction of POLST today and patient is clear that she wishes to have all interventions performed that are life-sustaining. Results - Lab Results Lab results reviewed: Yes Lab and Imaging Results: 06/15/2020 Sodium 134, potassium 3.4, BUN 28, creatinine 1.7, glucose 93, calcium 93, AST 22, ALT 20, alk phos 57, albumin 4.2, vitamin D 58, PTH intact 141 06/26/2020 WBC 4.9, hemoglobin 10.8, hematocrit 33.9%, MCV 84.5, RDW 15, platelet 264 Impression and Recommendations - Palliative Care Impression: This is an 85-year-old female with multiple cardiac and pulmonary comorbidities including pulmonary hypertension, COPD, CHF and atrial fibrillation now with uncontrolled depression in the setting of insomnia and weight loss. The patient has developed hematuria and is undergoing further evaluation and management by urology with the procedure scheduled this Sunday. There is underlying complex psychosocial history that would benefit from further support supportive listening navigation. Palliative care will continue to explore goals of care, build rapport, provide symptom management and anticipatory guidance. Recommendations/Counseling Done: 1.COPD. No adventitious lung sounds on examination. Appears to be stable. Reviewed signs and symptoms of COPD exacerbation such as purulent sputum, wheezing/shortness of breath for further monitoring. Continue Anoro Ellipta as ordered. Patient had questions regarding continuation of Mucinex and given underlying history of cough in the setting of COPD recommend continuation of Mucinex 600 mg daily. Follow-up with pulmonology as scheduled. 2.Depression. Longstanding history with underlying anxiety. Presently depressive symptoms are not controlled as evidenced by reports of insomnia and decreased oral intake with reported weight loss. Social isolation, financial pressures as well as complex psychosocial concerns contributing to depressive symptoms. Supportive listening provided. Recommend continuation of citalopram 20 mg daily. Will initiate mirtazapine 7.5 mg to take 1 tablet in the evening for appetite stimulation, depressive symptoms and insomnia. Reviewed with patient and daughter/DPOA side effects such as sedation, weight gain and expect to see evidence of some benefit of medication in 2 to 4 weeks. Mirtazapine will be used as an adjunct to citalopram for refractory depression. If recent lab work such as TSH has not been obtained will obtain at next visit to rule out any underlying hypothyroidism. We will continue to follow and adjust medication regiment based on patient's response. Mirtazapine to be initiated on Sunday following her cystoscopy to avoid any interactions with anesthesia. 3.Insomnia. Patient has long been someone who goes to bed in the early hours of the morning as she is typically most creative at night. Recommend resetting her sleepwake cycle with the initiation of mirtazapine. Recommend slowly Moving her bedtime forward in gradual increments for example from 4:30 AM to 3:30 AM an d so on. This will also assist with her being able to be more engaged during the day and connect with friends via phone on the [facility]. 4.Forgetfulness. Reported by the patient. This can be compounded due to her uncontrolled depression exacerbating the symptoms as well as her social isolation. Will monitor as depressive symptoms improve and may consider more formal evaluation of any underlying cognitive impairment. 5.Caregiver burden. Underlying complex psychosocial concerns. The patient's daughter/DPOA is overseeing care in management of the patient in addition to her own health concerns and this is taxing and waiting upon her. As the patient has some financial task and burdens to address recommended to the patient and daughter to tackle one item at a time on a daily basis to reduce stress and anxiety. Supportive listening provided. If open, would benefit from medical social work in the future for psychosocial support. 6. Advanced care planning. Patient's ultimate goal is to return to [place]. The patient's daughter's fears regarding her ability to navigate freely in public transportation with her decreased exercise tolerance due to her pulmonary hypertension, CHF and his COPD put her at risk for sequelae such as a fall, COPD exacerbation or can axel coronavirus. The patient does not recognize her physical limitations due to her chronic co-morbidities and wishes to remain independent. The patient is quite clear that she wishes to have any medical interventions for prolongation of life. Prior to the patient's upcoming cystoscopy she wishes to redo her healthcare power of staff attorney paperwork to continue to state her daughter as designated primary DPOA and her son asked secondary. We will continue to build rapport and tease out goals of care moving forward. We will continue to provide support for communication between the patient and her daughter. Time Spent: Follow-up in 3 to 4 weeks or as needed. Total time spent 90 minutes with greater than 50% of this spent in counseling and coordination of care with the patient and daughter/DPOA; review of palliative care philosophy; introduction of POLST and goals of care; examination of patient; review of pathophysiology of COPD; management of depression and review of medication mirtazapine with purpose, dose and side effects reviewed; review of symptom management and anticipatory guidance. Disclaimer: The chart note was formulated using voice recognition technology and unfortunately sound alike errors may occur.
== END 2020-07-13 14:01 | disposition home or self-care (01) ==
LOC: PC 14:00
PROVIDERS: ATTEND Nurse Practitioner Family
DX: Z51.5 Encounter for palliative care (principal); J44.9 Chronic obstructive pulmonary disease, unspecified; F32.9 Major depressive disorder, single episode, unspecified; G47.00 Insomnia, unspecified; R31.9 Hematuria, unspecified; R41.3 Other amnesia; I13.0 Hypertensive heart and chronic kidney disease with heart failure and stage 1 through stage 4 chronic kidney disease, or unspecified chronic kidney disease; N18.4 Chronic kidney disease, stage 4 (severe); I50.9 Heart failure, unspecified; I27.20 Pulmonary hypertension, unspecified; Z87.891 Personal history of nicotine dependence
CPT/HCPCS: 99345

== ENCOUNTER 2021-02-15 13:16 | Outpatient (CLI) | payer MEDICARE, OTHER ==
[2021-02-15 13:38] LABS: BASOPHILS # (AUTO) 0.1 10^3/uL (0.0-0.1); EOSINOPHILS # (AUTO) 0.2 10^3/uL (0.0-0.7); HCT - HEMATOCRIT 42.3 % (37.0-47.0); HGB - HEMOGLOBIN 13.1 g/dL (12.0-16.0); LYMPHOCYTES # (AUTO) 1.8 10^3/uL (1.5-3.5); LYMPHOCYTES % (AUTO) 26.1 %; MEAN CORPUSCULAR HEMOGLOBIN 26.5 pg (27.0-31.0); MEAN CORPUSCULAR VOLUME 85.5 fL (81.0-99.0); MEAN PLATELET VOLUME 9.4 fL (7.9-10.8); MONOCYTES # (AUTO) 0.6 10^3/uL (0.0-1.0); MONOCYTES % (AUTO) 8.7 %; NEUTROPHILS # (AUTO) 4.1 10^3/uL (1.5-6.6); NEUTROPHILS % (AUTO) 61.1 %; PLT - PLATELET COUNT 257 10^3/uL (130-450); RED BLOOD COUNT 4.95 10^6/uL (4.20-5.40); RED CELL DISTRIBUTION WIDTH 17.6 % (12.0-15.0); WHITE BLOOD COUNT 6.8 x10^3/uL (4.8-10.8)
[2021-02-15 14:03] LABS: ALBUMIN 4.1 g/dL (3.2-5.5); ALBUMIN/GLOBULIN RATIO 1.2 (1.0-2.2); ALKALINE PHOSPHATASE 91 IU/L (42-121); ALT ALANINE AMINOTRANSFERASE 14 IU/L (10-60); AST ASPARTATE AMINOTRANSFERASE 18 IU/L (10-42); BILIRUBIN,TOTAL 0.7 mg/dL (0.2-1.0); BUN - BLOOD UREA NITROGEN 32 mg/dL (6-20); CALCIUM 10.1 mg/dL (8.5-10.3); CARBON DIOXIDE - CO2 30 mmol/L (21-32); CHLORIDE 98 mmol/L (101-111); CHOLESTEROL 250 mg/dL; CREATININE 1.3 mg/dL (0.4-1.0); GFR - MDRD 39 (>89); GLUCOSE 92 mg/dL (70-100); HDL CHOLESTEROL 62 mg/dL; LDL CHOLESTEROL,CALCULATED 159 mg/dL; LDL/HDL RATIO 2.6 (<4.4); POTASSIUM 3.5 mmol/L (3.5-5.0); SODIUM 140 mmol/L (135-145); TOTAL PROTEIN 7.6 g/dL (6.7-8.2); TRIGLYCERIDES 144 mg/dL; VLDL CHOLESTEROL 29 mg/dL
[2021-02-15 14:16] LABS: THYROID STIMULATING HORMONE 4.6 uIU/mL (0.34-5.60)
[2021-02-15 14:19] LABS: FREE T4 (FREE THYROXINE) 1.44 ng/dL (0.58-1.64)
== END 2021-02-15 13:17 | disposition home or self-care (01) ==
LOC: LAB.S 13:16
PROVIDERS: ATTEND Nurse Practitioner
DX: N18.4 Chronic kidney disease, stage 4 (severe) (principal); I50.9 Heart failure, unspecified; E03.9 Hypothyroidism, unspecified; D64.9 Anemia, unspecified
CPT/HCPCS: 36415; 80053; 80061; 83721; 84439; 84443; 85025

== ENCOUNTER 2021-06-20 16:54 | Emergency (ER) | payer MEDICARE, OTHER ==
--- NOTE | 2021-06-20 17:12 | ED Physician Documentation ---
PD HPI DYSPNEA - Stated complaint Stated Complaint: SOA/ON OXYGEN - Chief complaint Chief Complaint: Resp - History obtained from History obtained from: Patient - History of Present Illness Timing - onset: How many days ago (2-3) Timing - onset during: Light activity (She typically does not need oxygen at rest and only uses it with activity at 2 to 3 L nasal cannula. She has needed it regularly for the last 2 to 3 days and is feeling short of breath even with it.) Timing - duration: Days (2-3) Timing - details: Abrupt onset (worse dyspnea with weight gain just over the past 2-3 days, confirmed by her daughter with whom she lives.) Inciting event(s): No: Out of meds, URI, Immobilization/travel Improved by: O2, Rest, Sitting up Worsened by: Exertion, Laying flat Associated symptoms: Bilateral edema (with noted 5-6 lb weight gain in just the past 2 days.). No: Fever, Cough, Wheezing, Chest pain / discomfort Similar symptoms before: Diagnosis (history of CHF, also COPD.) Recently seen: Clinic (BCG bladder irrigations for bladder cancer in the past week.) Review of Systems Constitutional: denies: Fever, Chills Nose: denies: Rhinorrhea / runny nose, Congestion Throat: denies: Sore throat Cardiac: denies: Chest pain / pressure, Palpitations Respiratory: reports: Dyspnea, Wheezing (at times). denies: Cough GI: denies: Abdominal Pain, Nausea, Vomiting, Diarrhea, Bloody / black stool Skin: denies: Rash Musculoskeletal: reports: Extremity swelling (increased the past 2-3 days) Neurologic: reports: Generalized weakness. denies: Focal weakness, Numbness PD PAST MEDICAL HISTORY - Past Medical History Cardiovascular: Congestive heart failure, Hypertension, High cholesterol, Deep vein thrombosis, Atrial fibrillation, Arrhythmia, Other (Pulmonary HTN) Respiratory: COPD (Followed by Dr. Monroe, no oxygen requirment), Pneumonia Neuro: Peripheral neuropathy Endocrine/Autoimmune: None GI: GERD, C.difficile, Hemorrhoids COMIC ARTIST: None : Incontinence, Nocturia, Frequency, Other (Hematuria) HEENT: Chronic vision loss, Chronic sinusitis, Chronic hearing loss Psych: Depression, Anxiety, Other (Insomnia) Musculoskeletal: Osteoarthritis, Osteoporosis, Fatigue Derm: None - Past Surgical History Past Surgical History: No HEENT: Cataracts - Present Medications Home Medications: Ambulatory Orders Medication Instructions Recorded Confirmed Albuterol Sulf [Ventolin Hfa 1 - 2 puffs INH Q4HR 08/31/19 06/20/21 Inhaler] Azelastine HCl 1 spray ELENI DAILY 08/31/19 06/20/21 Fluticasone [Flonase] 1 spray ELENI DAILY 08/31/19 06/20/21 Citalopram Hydrobromide 20 mg PO DAILY #30 tablet 09/01/19 07/14/20 [Citalopram HBr] Biotin 1 cap PO DAILY 07/14/20 07/14/20 [id number] 2 tbs PO DAILY 07/14/20 Famotidine [Pepcid] 10 mg PO BID 07/14/20 07/14/20 Metoprolol Succinate [Toprol Xl] 75 mg PO DAILY 07/14/20 06/20/21 Mirtazapine [Remeron] 7.5 mg PO QPM 07/14/20 06/20/21 Probiotic Saccharomyces B 1 cap PO DAILY 07/14/20 Sildenafil Citrate [Sildenafil] 10 mg PO BID 07/14/20 06/20/21 Torsemide 20 mg ORAL DAILY 07/14/20 06/20/21 Apixaban [Eliquis] 2.5 mg ORAL BID 06/20/21 06/20/21 Tiotropium Br/Olodaterol HCl 2 puffs IH DAILY 06/20/21 06/20/21 [Stiolto Respimat Inhal [place]] - Allergies Allergies/Adverse Reactions: Allergies Allergy/AdvReac Type Severity Reaction Status Date / Time No Known Drug Allergies Allergy Verified 06/20/21 17:00 - Social History Does the pt smoke?: No Smoking Status: Never smoker Does the pt drink ETOH?: No Does the pt have substance abuse?: No - Immunizations Immunizations are current?: Yes - POLST Patient has POLST: No POLST Status: Full Code PD ED PE NORMAL - Vitals Vital signs reviewed: Yes - General General: Alert and oriented X 3, Well developed/nourished - HEENT HEENT: Pharynx benign - Neck Neck: Supple, no meningeal sign, No adenopathy - Cardiac Cardiac: RRR, Other (mild diastolic murmur left chest radiating to neck c/w aortic regurg?) - Respiratory Respiratory: No respiratory distress, Other (wet crackles both lower 1/3 lung tavera. Faint exp wheezes scattered. ) - Abdomen Abdomen: Soft, Non tender, No organomegaly - Female Female : Deferred - Rectal Rectal: Deferred - Back Back: No CVA TTP - Derm Derm: Normal color, Warm and dry - Extremities Extremities: No calf tenderness / cord, Other (2+ edema without tenderness in both lower legs. ) - Neuro Neuro: Alert and oriented X 3, No motor deficit, No sensory deficit, Normal speech Eye Opening: Spontaneous Motor: Obeys Commands Verbal: Oriented GCS Score: 15 Results - Vitals Vitals: Vital Signs - 24 hr 06/20/21 06/20/21 06/20/21 17:00 17:21 18:07 Temperature 36.5 C Heart Rate 61 61 Respiratory 16 16 Rate Blood Pressure 180/78 H 165/88 H O2 Saturation 94 94 97 06/20/21 06/20/21 06/20/21 18:30 19:00 19:30 Temperature Heart Rate 76 63 56 L Respiratory 20 14 18 Rate Blood Pressure 180/79 H 179/65 H O2 Saturation 96 99 97 06/20/21 20:00 Temperature Heart Rate 55 L Respiratory 16 Rate Blood Pressure 157/61 H O2 Saturation 100 Oxygen O2 Source Nasal cannula Oxygen Flow Rate 2 - Labs Labs: Laboratory Tests 06/20/21 06/20/21 06/20/21 17:36 17:36 17:36 WBC 5.1 RBC 4.90 Hgb 12.9 Hct 41.0 MCV 83.7 MCH 26.3 L MCHC 31.5 L RDW 15.7 H Plt Count 245 MPV 9.5 Neut # (Auto) 3.0 Lymph # (Auto) 1.5 Smith # (Auto) 0.4 Eos # (Auto) 0.2 Baso # (Auto) 0.1 Absolute Nucleated RBC 0.00 Nucleated RBC % 0.0 Sodium 140 Potassium 3.9 Chloride 97 L Carbon Dioxide 32 Anion Gap 11.0 BUN 22 H Creatinine 1.5 H Estimated GFR (MDRD) 33 L Glucose 89 Calcium 9.7 Phosphorus 3.9 Magnesium 2.6 Total Bilirubin 1.0 AST 21 ALT 13 Alkaline Phosphatase 70 Troponin I High Sens 10.5 B-Natriuretic Peptide Total Protein 8.1 Albumin 4.1 Globulin 4.0 Albumin/Globulin Ratio 1.0 Lipase 31 Nasal Adenovirus (PCR) Nasal B. parapertussis DNA (PCR) Nasal Coronavir 229E PCR Nasal Coronavir HKU1 PCR Nasal Coronavir NL63 PCR Nasal Coronavir OC43 PCR Nasal Enterovir/Rhinovir PCR Nasal Influenza B PCR Nasal Influenza A PCR Nasal Parainfluen 1 PCR Nasal Parainfluen 2 PCR Nasal Parainfluen 3 PCR Nasal Parainfluen 4 PCR Nasal RSV (PCR) Nasal B.pertussis DNA PCR Nasal C.pneumoniae (PCR) Eleni Human Metapneumo PCR Nasal M.pneumoniae (PCR) Nasal SARS-CoV-2 (PCR) 06/20/21 06/20/21 17:36 18:33 WBC RBC Hgb Hct MCV MCH MCHC RDW Plt Count MPV Neut # (Auto) Lymph # (Auto) Smith # (Auto) Eos # (Auto) Baso # (Auto) Absolute Nucleated RBC Nucleated RBC % Sodium Potassium Chloride Carbon Dioxide Anion Gap BUN Creatinine Estimated GFR (MDRD) Glucose Calcium Phosphorus Magnesium Total Bilirubin AST ALT Alkaline Phosphatase Troponin I High Sens B-Natriuretic Peptide 448 H Total Protein Albumin Globulin Albumin/Globulin Ratio Lipase Nasal Adenovirus (PCR) NOT DETECTED Nasal B. parapertussis DNA (PCR) NOT DETECTED Nasal Coronavir 229E PCR NOT DETECTED Nasal Coronavir HKU1 PCR NOT DETECTED Nasal Coronavir NL63 PCR NOT DETECTED Nasal Coronavir OC43 PCR NOT DETECTED Nasal Enterovir/Rhinovir PCR NOT DETECTED Nasal Influenza B PCR NOT DETECTED Nasal Influenza A PCR NOT DETECTED Nasal Parainfluen 1 PCR NOT DETECTED Nasal Parainfluen 2 PCR NOT DETECTED Nasal Parainfluen 3 PCR NOT DETECTED Nasal Parainfluen 4 PCR NOT DETECTED Nasal RSV (PCR) NOT DETECTED Nasal B.pertussis DNA PCR NOT DETECTED Nasal C.pneumoniae (PCR) NOT DETECTED Eleni Human Metapneumo PCR NOT DETECTED Nasal M.pneumoniae (PCR) NOT DETECTED Nasal SARS-CoV-2 (PCR) NOT DETECTED - Rads (name of study) chest xray Radiology: Prelim report reviewed (left basilar atelectasis infiltrates and sma ll effusion. ), See rad report PD MEDICAL DECISION MAKING - ED course Complexity details: reviewed results (Her basic electrolytes and kidney function are okay and her creatinine is actually better than baseline in general. BNP is elevated at 400 but comparable or less than other values.), re-evaluated patient (To more comfortably and states she had a reasonable urine output here in the ER so far. She is maintaining good oxygenation on 2 L nasal cannula which she does have available at home. Her preference is outpatient treatment.), considered differential (Like exacerbation of CHF without any obvious trigger such as change diet, medications, concurrent illness. We will treat with extra diuretic. Check labs. She has received BCG bladder irrigations so may have had some absorption of fluid with fluid gain in that way.), d/w patient Departure - Departure Disposition: 01 Home, Self Care Clinical Impression: Dyspnea Qualifiers: Dyspnea type: shortness of breath Qualified Code(s): R06.02 - Shortness of breath Acute exacerbation of CHF (congestive heart failure) Qualifiers: Heart failure type: combined systolic and diastolic Qualified Code(s): I50.43 - Acute on chronic combined systolic (congestive) and diastolic (congestive) heart failure Condition: Stable Record reviewed to determine appropriate education?: Yes Instructions: ED Dyspnea Shortness of Breath Follow-Up: Nicolasa Ham ARNP [Primary Care Provider] - Comments: Your kidney function and electrolytes are looking okay. You do have mild renal insufficiency but it is similar or better than prior levels. The creatinine today was 1.5. Your chest x-ray does not look like a significant amount of CHF. Obviously you have had the recent weight gain. It is possible he may have had some fluid resorption with the bladder irrigations that have led to increased amount of fluid. It has not affected your electrolytes however. For the next couple of days I would suggest increasing your torsemide from the once daily to twice daily with a repeat second dose being or just after lunchtime. See if that allows for improvement in your weight and fluid retention. I would just do that for the next 2 days and see how you do. Follow-up with your primary care in the next few days as well. See if they want to have any medication adjustment while you are getting the bladder irrigations etc. Discharge Date/Time: 06/20/21 20:52
[2021-06-20] MEDS ORDERED: FUROSEMIDE 40 MG/4 ML VIAL IVP STA (17:33)
[2021-06-20 17:50] LABS: BASOPHILS # (AUTO) 0.1 10^3/uL (0.0-0.1); BASOPHILS % (AUTO) 1.8 %; EOSINOPHILS # (AUTO) 0.2 10^3/uL (0.0-0.7); HGB - HEMOGLOBIN 12.9 g/dL (12.0-16.0); LYMPHOCYTES # (AUTO) 1.5 10^3/uL (1.5-3.5); LYMPHOCYTES % (AUTO) 29.3 %; MEAN CORPUSCULAR HEMOGLOBIN 26.3 pg (27.0-31.0); MEAN CORPUSCULAR HGB CONC 31.5 g/dL (32.0-36.0); MEAN CORPUSCULAR VOLUME 83.7 fL (81.0-99.0); MEAN PLATELET VOLUME 9.5 fL (7.9-10.8); MONOCYTES # (AUTO) 0.4 10^3/uL (0.0-1.0); MONOCYTES % (AUTO) 7.3 %; NEUTROPHILS % (AUTO) 58.4 %; PLT - PLATELET COUNT 245 10^3/uL (130-450); RED CELL DISTRIBUTION WIDTH 15.7 % (12.0-15.0); WHITE BLOOD COUNT 5.1 x10^3/uL (4.8-10.8)
[2021-06-20] MEDS ORDERED: ALBUTEROL NEB 2.5 MG/3 ML INH STA (17:56)
--- NOTE | 2021-06-20 18:05 | XRAY Report ---
PROCEDURE: Chest 1 View X-Ray INDICATIONS: Chest Pain TECHNIQUE: One view of the chest was acquired. COMPARISON: Prior exam report dated 09/04/2019. Images not available. FINDINGS: Surgical changes and devices: None. Lungs and pleura: Underinflation chronic interstitial change present. There is blunting the left cost ophrenic angle. Mediastinum: Mediastinal contours appear normal. Heart size is normal. Atherosclerotic vascular bria cification noted in the aortic arch. Bones and chest wall: No suspicious bony lesions. Overlying soft tissues appear unremarkable. IMPRESSION: Minimal left basilar atelectasis and or infiltrate with small left pleural effusion. Hyperinflation chronic interstitial changes Aortic atherosclerosis Reviewed by: Marcell Armijo MD on 06/20/2021 5:03 PM [facility] Approved by: Marcell Armijo MD on 06/20/2021 5:03 PM AKST Station ID: [id number]
[2021-06-20 18:13] LABS: ALBUMIN 4.1 g/dL (3.2-5.5); CALCIUM 9.7 mg/dL (8.5-10.3); CREATININE 1.5 mg/dL (0.4-1.0); MAGNESIUM 2.6 mg/dL (1.7-2.8); PHOSPHORUS 3.9 mg/dL (2.5-4.6); POTASSIUM 3.9 mmol/L (3.5-5.0); TOTAL PROTEIN 8.1 g/dL (6.7-8.2)
[2021-06-20] MEDS ORDERED: ENALAPRILAT 1.25 MG/ML VIAL IVP STA (18:55)
[2021-06-20 19:36] LABS: B. PARAPERTUSSIS- RESP PCR PAN NOT DETECTED; B. PERTUSSIS- RESP PCR PANEL NOT DETECTED; C. PNEUMONIAE- RESP PCR PANEL NOT DETECTED; CORONAVIRUS 229E-RESP PCR NOT DETECTED; CORONAVIRUS HKU1-RESP PCR NOT DETECTED; CORONAVIRUS NL63-RESP PCR NOT DETECTED; CORONAVIRUS OC43-RESP PCR NOT DETECTED; HUMAN METAPNEUMOVIRUS NOT DETECTED; INFLUENZA A- RESP PCR PANEL NOT DETECTED; INFLUENZA B - RESP PCR PANEL NOT DETECTED; M. PNEUMONIAE- RESP PCR PANEL NOT DETECTED; PARAINFLUENZA VIRUS 1 NOT DETECTED; PARAINFLUENZA VIRUS 2 NOT DETECTED; PARAINFLUENZA VIRUS 3 NOT DETECTED; PARAINFLUENZA VIRUS 4 NOT DETECTED; RHINOVIRUS/ENTEROVIRUS NOT DETECTED; RSV- RESP PCR PANEL NOT DETECTED; SARS-CoV-2 -RESP PCR PANEL NOT DETECTED
[2021-06-20 20:11] VITALS: BP 157/61
--- NOTE | 2021-06-20 20:26 | ED Physician Documentation ---
ED Addendum - Addendum Addendum: 06/20/21 20:24 Patient signed out to me by Dr. Vaughan at end of his shift. At beginning of my shift, ED RN tells me patient is requesting d/c home. I went into patient's room and she is awake and alert, smiling, and in NAD. She is indeed requesting discharge home, tells me she feels much better and is comfortable going home. She maintains 96-98% pulse ox on 2 liters NC (which she has at home, although typically only uses at night). I encouraged her to return if she worsens in any way, and to follow up with her primary care provider
== END 2021-06-20 20:52 | disposition home or self-care (01) ==
LOC: ED 16:54
DX: I11.0 Hypertensive heart disease with heart failure (principal); I50.43 Acute on chronic combined systolic (congestive) and diastolic (congestive) heart failure; N28.9 Disorder of kidney and ureter, unspecified; I49.1 Atrial premature depolarization; Z86.718 Personal history of other venous thrombosis and embolism; Z79.01 Long term (current) use of anticoagulants; R01.1 Cardiac murmur, unspecified; Z20.822 Contact with and (suspected) exposure to COVID-19
CPT/HCPCS: 0202U; 36415; 80053; 83690; 83735; 83880; 84100; 84484; 85025; 93005; 94640; 96374; 96375; 99283

== ENCOUNTER 2021-07-20 14:04 | Emergency (ER) | payer MEDICARE, OTHER ==
[2021-07-20 15:34] LABS: BASOPHILS # (AUTO) 0.1 10^3/uL (0.0-0.1); BASOPHILS % (AUTO) 1.2 %; EOSINOPHILS # (AUTO) 0.2 10^3/uL (0.0-0.7); EOSINOPHILS % (AUTO) 3.5 %; HCT - HEMATOCRIT 38.5 % (37.0-47.0); HGB - HEMOGLOBIN 12.3 g/dL (12.0-16.0); LYMPHOCYTES # (AUTO) 1.4 10^3/uL (1.5-3.5); LYMPHOCYTES % (AUTO) 23.9 %; MEAN CORPUSCULAR HEMOGLOBIN 26.4 pg (27.0-31.0); MEAN CORPUSCULAR HGB CONC 31.9 g/dL (32.0-36.0); MEAN CORPUSCULAR VOLUME 82.6 fL (81.0-99.0); MONOCYTES # (AUTO) 0.6 10^3/uL (0.0-1.0); MONOCYTES % (AUTO) 9.9 %; NEUTROPHILS # (AUTO) 3.5 10^3/uL (1.5-6.6); NEUTROPHILS % (AUTO) 61.2 %; PLT - PLATELET COUNT 278 10^3/uL (130-450); RED BLOOD COUNT 4.66 10^6/uL (4.20-5.40); RED CELL DISTRIBUTION WIDTH 15.3 % (12.0-15.0); WHITE BLOOD COUNT 5.7 x10^3/uL (4.8-10.8)
[2021-07-20 15:41] LABS: CALCIUM 9.8 mg/dL (8.5-10.3); CREATININE 1.9 mg/dL (0.4-1.0); POTASSIUM 3.9 mmol/L (3.5-5.0)
--- NOTE | 2021-07-20 16:14 | XRAY Report ---
PROCEDURE: Chest 1 View X-Ray INDICATIONS: chest pain TECHNIQUE: One view of the chest was acquired. COMPARISON: Chest x-ray 06/20/2021 FINDINGS: Surgical changes and devices: None. Lungs and pleura: No pleural effusions or pneumothorax. Chronic interstitial changes are present. Mediastinum: Mediastinal contours appear normal. Heart size is enlarged. Bones and chest wall: No suspicious bony lesions. Overlying soft tissues appear unremarkable. IMPRESSION: Chronic interstitial changes. Reviewed by: Rebecca Liz MD on 07/20/2021 4:13 PM PST Approved by: Rebecca Liz MD on 07/20/2021 4:13 PM [facility] Station ID: [id number]
[2021-07-20 16:15] LABS: BILIRUBIN,URINE NEGATIVE (NEGATIVE); GLUCOSE, URINE (UA) NEGATIVE (NEGATIVE); KETONES,URINE (UA) NEGATIVE (NEGATIVE); LEUKOCYTE ESTERASE, URINE MODERATE (NEGATIVE); NITRITE,URINE NEGATIVE (NEGATIVE); OCCULT BLOOD,URINE SMALL (NEGATIVE); PH,URINE 6.5 PH (5.0-7.5); PROTEIN,URINE TRACE mg/dL (NEGATIVE); UROBILINOGEN,URINE 0.2 (NORMAL) E.U./dL (NORMAL)
--- NOTE | 2021-07-20 16:22 | ED Physician Documentation ---
History of Present Illness - Stated complaint Stated Complaint: FEMALE - Chief complaint Chief Complaint: Abd Pain - Additonal information Additional information: 86-year-old female who has a history of bladder cancer presents to the emergency department for concerns of possible urinary tract infection, urinary retention as well as bilateral feet swelling. She is treated by Dr. Ash [phone]), urologist at [facility]. She last had a cystoscopy about 1 week. She has also had 2 courses of BCG. However it was poorly tolerated since then the patient has had dribbling urine with bladder pain but no juan jose dysuria. She is also been found to have some increasing feet swelling during the day. Patient does have a history of COPD for which she is oxygen dependent. Meds: Levothyroxine, albuterol, torsemide, Viagra, Eliquis, metoprolol, stilalto, albuterol PD PAST MEDICAL HISTORY - Past Medical History Cardiovascular: Congestive heart failure, Hypertension, High cholesterol, Deep vein thrombosis, Atrial fibrillation, Arrhythmia, Other (Pulmonary HTN) Respiratory: COPD (Followed by Dr. Monroe, no oxygen requirment), Pneumonia Neuro: Peripheral neuropathy Endocrine/Autoimmune: None GI: GERD, C.difficile, Hemorrhoids LINE WELDER: None : Incontinence, Nocturia, Frequency, Other (Hematuria) HEENT: Chronic vision loss, Chronic sinusitis, Chronic hearing loss Psych: Depression, Anxiety, Other (Insomnia) Musculoskeletal: Osteoarthritis, Osteoporosis, Fatigue Derm: None - Past Surgical History Past Surgical History: No HEENT: Cataracts - Present Medications Home Medications: Ambulatory Orders Medication Instructions Recorded Confirmed Albuterol Sulf [Ventolin Hfa 1 - 2 puffs INH Q4HR 08/31/19 06/20/21 Inhaler] Azelastine HCl 1 spray ELENI DAILY 08/31/19 06/20/21 Fluticasone [Flonase] 1 spray ELENI DAILY 08/31/19 06/20/21 Citalopram Hydrobromide 20 mg PO DAILY #30 tablet 09/01/19 07/14/20 [Citalopram HBr] Biotin 1 cap PO DAILY 07/14/20 07/14/20 [id number] 2 tbs PO DAILY 07/14/20 Famotidine [Pepcid] 10 mg PO BID 07/14/20 07/14/20 Metoprolol Succinate [Toprol Xl] 75 mg PO DAILY 07/14/20 06/20/21 Mirtazapine [Remeron] 7.5 mg PO QPM 07/14/20 06/20/21 Probiotic Saccharomyces B 1 cap PO DAILY 07/14/20 Sildenafil Citrate [Sildenafil] 10 mg PO BID 07/14/20 06/20/21 Torsemide 20 mg ORAL DAILY 07/14/20 06/20/21 Apixaban [Eliquis] 2.5 mg ORAL BID 06/20/21 06/20/21 Tiotropium Br/Olodaterol HCl 2 puffs IH DAILY 06/20/21 06/20/21 [Stiolto Respimat Inhal [place]] Cefpodoxime Proxetil [Vantin] 100 mg PO Q12H #14 tablet 07/20/21 - Allergies Allergies/Adverse Reactions: Allergies Allergy/AdvReac Type Severity Reaction Status Date / Time No Known Drug Allergies Allergy Verified 07/20/21 14:22 - Social History Does the pt smoke?: No Smoking Status: Never smoker Does the pt drink ETOH?: No Does the pt have substance abuse?: No - Immunizations Immunizations are current?: Yes - POLST Patient has POLST: No POLST Status: Full Code Results - Vitals Vitals: Vital Signs - 24 hr 07/20/21 14:18 Temperature 36.4 C L Heart Rate 103 H Respiratory 20 Rate Blood Pressure 96/71 O2 Saturation 93 Oxygen O2 Source Nasal cannula - Labs Labs: Laboratory Tests 07/20/21 07/20/21 07/20/21 15:29 15:29 15:29 WBC 5.7 RBC 4.66 Hgb 12.3 Hct 38.5 MCV 82.6 MCH 26.4 L MCHC 31.9 L RDW 15.3 H Plt Count 278 MPV 9.0 Neut # (Auto) 3.5 Lymph # (Auto) 1.4 L [place] # (Auto) 0.6 Eos # (Auto) 0.2 Baso # (Auto) 0.1 Absolute Nucleated RBC 0.00 Nucleated RBC % 0.0 Sodium 136 Potassium 3.9 Chloride 95 L Carbon Dioxide 31 Anion Gap 10.0 BUN 34 H Creatinine 1.9 H Estimated GFR (MDRD) 25 L Glucose 110 H Lactic Acid Calcium 9.8 Troponin I High Sens 12.4 B-Natriuretic Peptide TSH Urine Color Urine Clarity Urine pH Ur Specific [place] Urine Protein Urine Glucose (UA) Urine Ketones Urine Occult Blood Urine Nitrite Urine Bilirubin Urine Urobilinogen Ur Leukocyte Esterase Urine RBC Urine WBC Ur Squamous Epith Cells Urine Bacteria Ur Microscopic Review Urine Culture Comments 07/20/21 07/20/21 07/20/21 15:29 15:29 15:48 WBC RBC Hgb Hct MCV MCH MCHC RDW Plt Count MPV Neut # (Auto) Lymph # (Auto) [place] # (Auto) Eos # (Auto) Baso # (Auto) Absolute Nucleated RBC Nucleated RBC % Sodium Potassium Chloride Carbon Dioxide Anion Gap BUN Creatinine Estimated GFR (MDRD) Glucose Lactic Acid Calcium Troponin I High Sens B-Natriuretic Peptide 239 H TSH 5.31 Urine Color YELLOW Urine Clarity SL. CLOUDY Urine pH 6.5 Ur Specific [place] <=1.005 Urine Protein TRACE Urine Glucose (UA) NEGATIVE Urine Ketones NEGATIVE Urine Occult Blood SMALL H Urine Nitrite NEGATIVE Urine Bilirubin NEGATIVE Urine Urobilinogen 0.2 (NORMAL) Ur Leukocyte Esterase MODERATE H Urine RBC 0-5 Urine WBC >25 H Ur Squamous Epith Cells RARE Squamous Urine Bacteria None Seen Ur Microscopic Review INDICATED Urine Culture Comments INDICATED 07/20/21 16:12 WBC RBC Hgb Hct MCV MCH MCHC RDW Plt Count MPV Neut # (Auto) Lymph # (Auto) [place] # (Auto) Eos # (Auto) Baso # (Auto) Absolute Nucleated RBC Nucleated RBC % Sodium Potassium Chloride Carbon Dioxide Anion Gap BUN Creatinine Estimated GFR (MDRD) Glucose Lactic Acid 0.7 Calcium Troponin I High Sens B-Natriuretic Peptide TSH Urine Color Urine Clarity Urine pH Ur Specific [place] Urine Protein Urine Glucose (UA) Urine Ketones Urine Occult Blood Urine Nitrite Urine Bilirubin Urine Urobilinogen Ur Leukocyte Esterase Urine RBC Urine WBC Ur Squamous Epith Cells Urine Bacteria Ur Microscopic Review Urine Culture Comments - Rads (name of study) CXR Radiology: Final report received (Chronic interstitial changes. No pleural effusion or pneumothorax.) PD MEDICAL DECISION MAKING - ED course Complexity details: reviewed old records, reviewed results, re-evaluated pat ient, considered differential, d/w patient ED course: 86-year-old female who carries a history of bladder cancer, oxygen dependent COPD as well as congestive heart failure is advised to come to the emergency department for evaluation of bladder discomfort and difficulty initiating urine stream. She was seen by her urologist 1 week ago and underwent cystoscopy. Since then she has had increased discomfort. She is also reporting lower extremity/feet leg swelling. Screening labs show no significant leukocytosis or anemia. She does have a mildly elevated BUN and creatinine of 34 and 1.9 respectively. This is mildly higher than her baseline which is typically in the 20s and about 1.5. Chest x- ray does not show acute heart failure and her BNP is only mildly elevated to 239. Patient has admitted to eating and drinking very little over the last week given her concerns about needing to urinate. Therefore we did give only a small amount of fluids to help with the mild renal insufficiency. 500 mL. 1710: I spoke with her urologist. We discussed that with cystoscopy last week the cytology was negative for recurrence of the bladder cancer. Urine culture grew mixed jose. We did discuss my urine sample today that shows moderate LE and WBCs but rare bacteria. However given the symptoms her urologist would like the urine treated. Patient will be started on Vantin 100 mg twice daily. Plan and findings were discussed with the patient and her daughter at the bedside. All questions answered. Emergent return precautions discussed. Departure - Departure Disposition: Home, Self Care Clinical Impression: Acute cystitis Qualifiers: Hematuria presence: without hematuria Qualified Code(s): N30.00 - Acute cystitis without hematuria Bladder cancer Qualifiers: Bladder location: unspecified site Qualified Code(s): C67.9 - Malignant neoplasm of bladder, unspecified Condition: Stable Record reviewed to determine appropriate education?: Yes Follow-Up: KALYANI ASH MD [Primary Care Provider] - Prescriptions: Cefpodoxime Proxetil [Vantin] 100 mg PO Q12H #14 tablet Comments: Your mom was seen in the emergency department today for about 1 week of bladder discomfort and a weak stream of urine. She had also reported swelling in both her feet. Her chest x-ray does not show any pneumonia or acute heart failure, however all people with COPD especially to her degree do have some degree of heart failure. Her urine does suggest infection. Her labs and urine was discussed with her urologist. At this point we like to start a prescription of antibiotics. Please fill the prescription for the cefpodoxime/Vantin which was sent electronically to the [facility] in [place]. With this antibiotic I would anticipate that she has improved urinary symptoms over the next 24 to 48 hours. It is important to continue close follow-up with her urologist. If at any point she has worsening symptoms, develops fevers, abdominal pain, uncontrolled vomiting, chest pain that she is to return immediately to the ER for a second evaluation.
[2021-07-20 16:32] LABS: CLARITY,URINE SL. CLOUDY (CLEAR)
[2021-07-20 16:35] LABS: RBC,URINE 0-5 /HPF (0-5); SQUAMOUS EPITHELIAL CELL,UR RARE Squamous (<= Few); WBC,URINE >25 /HPF (0-5)
[2021-07-20 16:36] LABS: BACTERIA,URINE None Seen /HPF (None Seen)
[2021-07-20] MEDS ORDERED: SODIUM CHLORIDE 0.9% 500 ML IV STA (17:12)
[2021-07-20] MEDS ORDERED: CEFPODOXIME PROXETIL 100 MG TABLET PO STA (17:24)
[2021-07-20 18:03] VITALS: BP 184/66
[2021-07-20] MEDS ORDERED: CEFPODOXIME PROXETIL 100 MG TABLET PO SCH (21:00)
== END 2021-07-20 18:12 | disposition home or self-care (01) ==
LOC: ED 14:04
DX: I11.0 Hypertensive heart disease with heart failure (principal); I50.9 Heart failure, unspecified; Z86.718 Personal history of other venous thrombosis and embolism; Z79.01 Long term (current) use of anticoagulants; J44.9 Chronic obstructive pulmonary disease, unspecified; Z99.81 Dependence on supplemental oxygen; N30.00 Acute cystitis without hematuria; Z85.51 Personal history of malignant neoplasm of bladder
CPT/HCPCS: 36415; 51702; 71045; 80048; 81001; 83605; 83880; 84443; 84484; 85025; 87086; 93005; 99281; 99284; A9270; 81003

== ENCOUNTER 2021-07-28 15:06 | Outpatient (CLI) | payer MEDICARE, OTHER ==
[2021-07-28 15:27] LABS: BILIRUBIN,URINE NEGATIVE (NEGATIVE); GLUCOSE, URINE (UA) NEGATIVE (NEGATIVE); KETONES,URINE (UA) NEGATIVE (NEGATIVE); LEUKOCYTE ESTERASE, URINE MODERATE (NEGATIVE); NITRITE,URINE NEGATIVE (NEGATIVE); OCCULT BLOOD,URINE MODERATE (NEGATIVE); PROTEIN,URINE 100 mg/dL (NEGATIVE); UROBILINOGEN,URINE 0.2 (NORMAL) E.U./dL (NORMAL)
[2021-07-28 15:51] LABS: CLARITY,URINE SL. CLOUDY (CLEAR)
[2021-07-28 16:15] LABS: BACTERIA,URINE Few /HPF (None Seen); RBC,URINE 0-5 /HPF (0-5); SQUAMOUS EPITHELIAL CELL,UR FEW Squamous (<= Few); WBC,URINE >25 /HPF (0-5)
== END 2021-07-28 15:07 | disposition home or self-care (01) ==
LOC: LAB 15:06
PROVIDERS: ATTEND Urology
DX: R30.0 Dysuria (principal)
CPT/HCPCS: 81001; 87086

== ENCOUNTER 2021-09-08 10:41 | Outpatient (CLI) | payer MEDICARE, OTHER | END 2021-09-08 10:42 | disposition critical access hospital (66) | LOC: EMS 10:41 | DX: R06.02 Shortness of breath (principal); I50.9 Heart failure, unspecified; Z99.81 Dependence on supplemental oxygen | CPT/HCPCS: A0425; A0429 ==

== ENCOUNTER 2021-09-08 10:48 | Emergency (ER) | payer MEDICARE, OTHER ==
[2021-09-08 11:11] LABS: BASOPHILS # (AUTO) 0.1 10^3/uL (0.0-0.1); BASOPHILS % (AUTO) 0.9 %; EOSINOPHILS # (AUTO) 0.2 10^3/uL (0.0-0.7); EOSINOPHILS % (AUTO) 2.9 %; HCT - HEMATOCRIT 39.3 % (37.0-47.0); HGB - HEMOGLOBIN 12.6 g/dL (12.0-16.0); LYMPHOCYTES % (AUTO) 36.5 %; MEAN CORPUSCULAR HEMOGLOBIN 26.7 pg (27.0-31.0); MEAN CORPUSCULAR HGB CONC 32.1 g/dL (32.0-36.0); MEAN CORPUSCULAR VOLUME 83.3 fL (81.0-99.0); MEAN PLATELET VOLUME 8.9 fL (7.9-10.8); MONOCYTES # (AUTO) 0.4 10^3/uL (0.0-1.0); MONOCYTES % (AUTO) 7.7 %; NEUTROPHILS # (AUTO) 2.8 10^3/uL (1.5-6.6); NEUTROPHILS % (AUTO) 51.8 %; PLT - PLATELET COUNT 256 10^3/uL (130-450); RED BLOOD COUNT 4.72 10^6/uL (4.20-5.40); RED CELL DISTRIBUTION WIDTH 17.2 % (12.0-15.0); WHITE BLOOD COUNT 5.5 x10^3/uL (4.8-10.8)
--- NOTE | 2021-09-08 11:22 | ED Physician Documentation ---
PD HPI DYSPNEA - Stated complaint Stated Complaint: SOA - Chief complaint Chief Complaint: Resp - History obtained from History obtained from: Patient - History of Present Illness Timing - onset: Yesterday Timing - onset during: Light activity Timing - duration: Days (1) Timing - details: Gradual onset, Still present Inciting event(s): Other (having considerable burning and pain with urination and frequency, which has gotten her anxious and worsening her feeling of dyspnea.). No: Out of meds, URI Improved by: Rest Worsened by: Exertion, Other (feeling anxious) Associated symptoms: No: Fever, Cough, Wheezing Similar symptoms before: Diagnosis (CHF episodes in the past, and also COPD.) Recently seen: Clinic (had chemo bladder irrigation recently with marked discomfort with urination soon after.) Review of Systems Constitutional: denies: Fever, Chills Nose: denies: Rhinorrhea / runny nose, Congestion Cardiac: denies: Chest pain / pressure, Palpitations Respiratory: reports: Dyspnea, Wheezing. denies: Cough GI: reports: Nausea. denies: Abdominal Pain, Vomiting, Diarrhea : reports: Dysuria, Frequency, Hesitancy, Incontinent (often dribbling when feels urge to urinate. Does not have feeling of incomplete emptying per se, but frequency.). denies: Hematuria Skin: denies: Rash, Lesions Musculoskeletal: reports: Extremity swelling (mild edema in both legs, slightly more than baseline.). denies: Back pain Neurologic: reports: Generalized weakness. denies: Focal weakness, Numbness Psychiatric: reports: Anxiety PD PAST MEDICAL HISTORY - Past Medical History Cardiovascular: Congestive heart failure, Hypertension, High cholesterol, Deep vein thrombosis, Atrial fibrillation, Arrhythmia, Other (Pulmonary HTN) Respiratory: COPD (Followed by Dr. Monroe, no oxygen requirment), Pneumonia Neuro: Peripheral neuropathy Endocrine/Autoimmune: None GI: GERD, C.difficile, Hemorrhoids BOARD CERTIFIED ARTS THERAPIST: None : Incontinence, Nocturia, Frequency, Other (Hematuria) HEENT: Chronic vision loss, Chronic sinusitis, Chronic hearing loss Psych: Depression, Anxiety, Other (Insomnia) Musculoskeletal: Osteoarthritis, Osteoporosis, Fatigue Derm: None - Past Surgical History Past Surgical History: No HEENT: Cataracts - Present Medications Home Medications: Ambulatory Orders Medication Instructions Recorded Confirmed Albuterol Sulf [Ventolin Hfa 1 - 2 puffs INH Q4HR 08/31/19 06/20/21 Inhaler] Azelastine HCl 1 spray ELENI DAILY 08/31/19 06/20/21 Fluticasone [Flonase] 1 spray ELENI DAILY 08/31/19 06/20/21 Citalopram Hydrobromide 20 mg PO DAILY #30 tablet 09/01/19 07/14/20 [Citalopram HBr] Biotin 1 cap PO DAILY 07/14/20 07/14/20 [id number] 2 tbs PO DAILY 07/14/20 Famotidine [Pepcid] 10 mg PO BID 07/14/20 07/14/20 Metoprolol Succinate [Toprol Xl] 75 mg PO DAILY 07/14/20 06/20/21 Mirtazapine [Remeron] 7.5 mg PO QPM 07/14/20 06/20/21 Probiotic Saccharomyces B 1 cap PO DAILY 07/14/20 Sildenafil Citrate [Sildenafil] 10 mg PO BID 07/14/20 06/20/21 Torsemide 20 mg ORAL DAILY 07/14/20 06/20/21 Apixaban [Eliquis] 2.5 mg ORAL BID 06/20/21 06/20/21 Tiotropium Br/Olodaterol HCl 2 puffs IH DAILY 06/20/21 06/20/21 [Stiolto Respimat Inhal [place]] Cefpodoxime Proxetil [Vantin] 100 mg PO Q12H #14 tablet 07/20/21 Levothyroxine Sodium 09/08/21 [Levothyroxine] Phenazopyridine HCl [Pyridium] 100 mg PO TID PRN #15 tablet 09/08/21 cephALEXin [Keflex] 500 mg PO TID #20 cap 09/08/21 oxyCODONE [Roxicodone] 09/08/21 09/08/21 - Allergies Allergies/Adverse Reactions: Allergies Allergy/AdvReac Type Severity Reaction Status Date / Time No Known Drug Allergies Allergy Verified 07/20/21 14:22 - Social History Does the pt smoke?: No Smoking Status: Never smoker Does the pt drink ETOH?: No Does the pt have substance abuse?: No - Immunizations Immunizations are current?: Yes - POLST Patient has POLST: No POLST Status: Full Code PD ED PE NORMAL - General General: Alert and oriented X 3, Well developed/nourished, Other (mostly anxious with tachypnea, but no work of breathing, retractions, nor conversational dyspnea. ) - HEENT HEENT: Pharynx benign - Neck Neck: Supple, no meningeal sign, No adenopathy - Cardiac Cardiac: RRR, No murmur - Respiratory Respiratory: No respiratory distress. No: Clear bilaterally (faint basilar crackles, mild. No wheezing nor coarse sounds.) - Abdomen Abdomen: Soft, Non tender - Derm Derm: Normal color, Warm and dry - Extremities Extremities: No calf tenderness / cord, Other (1+ edema in both lower legs, without calf tenderness.) - Neuro Neuro: Alert and oriented X 3, No motor deficit, Normal speech Results - Vitals Vitals: Vital Signs - 24 hr 09/08/21 09/08/21 09/08/21 10:56 11:42 12:22 Temperature 36.5 C Heart Rate 88 101 H 93 Respiratory 34 H 36 H 34 H Rate Blood Pressure 165/112 H 163/120 H 183/110 H O2 Saturation 98 92 95 09/08/21 09/08/21 09/08/21 12:33 14:48 15:29 Temperature Heart Rate 97 87 79 Respiratory 24 18 16 Rate Blood Pressure 175/97 H 152/70 H 110/57 L O2 Saturation 93 97 95 09/08/21 09/08/21 17:09 17:12 Temperature 37 C Heart Rate 80 74 Respiratory 20 Rate Blood Pressure 128/72 O2 Saturation 95 95 Oxygen O2 Source Nasal cannula Oxygen Flow Rate 4 - EKG (time done) 10:59 Rate: Rate (enter#) (85) Rhythm: NSR [place]: Normal Intervals: Normal AR Ischemia: Normal ST segments. No: ST elevation c/w ischemia, ST depression Compare to prior EKG: Unchanged from prior EKG - Labs Labs: Laboratory Tests 09/08/21 09/08/21 09/08/21 11:07 11:07 11:07 WBC 5.5 RBC 4.72 Hgb 12.6 Hct 39.3 MCV 83.3 MCH 26.7 L MCHC 32.1 RDW 17.2 H Plt Count 256 MPV 8.9 Neut # (Auto) 2.8 Lymph # (Auto) 2.0 [place] # (Auto) 0.4 Eos # (Auto) 0.2 Baso # (Auto) 0.1 Absolute Nucleated RBC 0.00 Nucleated RBC % 0.0 Sodium 134 L Potassium 3.9 Chloride 95 L Carbon Dioxide 28 Anion Gap 11.0 BUN 35 H Creatinine 1.7 H Estimated GFR (MDRD) 28 L Glucose 103 H Calcium 9.4 Magnesium Total Bilirubin 0.7 AST 20 ALT 13 Alkaline Phosphatase 56 Troponin I High Sens B-Natriuretic Peptide 395 H Total Protein 7.8 Albumin 4.3 Globulin 3.5 Albumin/Globulin Ratio 1.2 Lipase 31 Urine Color Urine Clarity Urine pH Ur Specific [place] Urine Protein Urine Glucose (UA) Urine Ketones Urine Occult Blood Urine Nitrite Urine Bilirubin Urine Urobilinogen Ur Leukocyte Esterase Urine RBC Urine WBC Ur Squamous Epith Cells Urine Bacteria Ur Microscopic Review Urine Culture Comments 09/08/21 09/08/21 09/08/21 11:07 11:07 14:23 WBC RBC Hgb Hct MCV MCH MCHC RDW Plt Count MPV Neut # (Auto) Lymph # (Auto) [place] # (Auto) Eos # (Auto) Baso # (Auto) Absolute Nucleated RBC Nucleated RBC % Sodium Potassium Chloride Carbon Dioxide Anion Gap BUN Creatinine Estimated GFR (MDRD) Glucose Calcium Magnesium 2.9 H Total Bilirubin AST ALT Alkaline Phosphatase Troponin I High Sens 14.5 B-Natriuretic Peptide Total Protein Albumin Globulin Albumin/Globulin Ratio Lipase Urine Color YELLOW Urine Clarity HAZY Urine pH 7.0 Ur Specific [place] 1.015 Urine Protein TRACE Urine Glucose (UA) NEGATIVE Urine Ketones NEGATIVE Urine Occult Blood LARGE H Urine Nitrite POSITIVE H Urine Bilirubin NEGATIVE Urine Urobilinogen 0.2 (NORMAL) Ur Leukocyte Esterase NEGATIVE Urine RBC TNTC H Urine WBC 6-10 H Ur Squamous Epith Cells RARE Squamous Urine Bacteria Rare Ur Microscopic Review INDICATED Urine Culture Comments INDICATED - Rads (name of study) chest xray Radiology: Prelim report reviewed (chronic interstitial changes. No acute process. ), See rad report PD MEDICAL DECISION MAKING - ED course Complexity details: reviewed results (bladder scanner, okay amount post residual. Does have some UTI by UA and certainly by symptoms. Her CHF is mild. ), re-evaluated patient (improved and more calm/rested and not feeling dyspnea at time of discharge.), considered differential (her symptoms improved most with pain meds and benzo IV, for calming and to decreased bladder pain. Some element of CHF likely, but not too much. Given extra diuretic.), d/w patient Departure - Departure Disposition: 01 Home, Self Care Clinical Impression: Dysuria Dyspnea Qualifiers: Dyspnea type: shortness of breath Qualified Code(s): R06.02 - Shortness of breath UTI (urinary tract infection) Qualifiers: Urinary tract infection type: acute cystitis Hematuria presence: without hematuria Qualified Code(s): N30.00 - Acute cystitis without hematuria Condition: Stable Record reviewed to determine appropriate education?: Yes Instructions: ED UTI Cystitis Female Follow-Up: Nicolasa Ham ARNP [Primary Care Provider] - Prescriptions: cephALEXin [Keflex] 500 mg PO TID #20 cap Phenazopyridine HCl [Pyridium] 100 mg PO TID PRN #15 tablet PRN Reason: Abdominal Pain Comments: You do not appear to be in significant congestive heart failure. I would just continue usual medications and diuretic. You were given an extra dose here with some urine out. Your urine test does show signs of potential infection. The urine culture will result in 2 to 3 days to verify infection or not. We can treat meanwhile for potential bladder infection given your symptoms. Take phenazopyridine and cephalexin 3 times daily for the next 5 to 7 days as prescribed. Add Tylenol every 4-6 hours if needed for pains. Continue your other usual medicines. Follow-up with your primary care and urologist as scheduled. If transmitted your prescriptions to [facility] pharmacy in [place]. Discharge Date/Time: 09/08/21 17:19
[2021-09-08 11:24] LABS: ALBUMIN 4.3 g/dL (3.2-5.5); ALBUMIN/GLOBULIN RATIO 1.2 (1.0-2.2); BILIRUBIN,TOTAL 0.7 mg/dL (0.2-1.0); CALCIUM 9.4 mg/dL (8.5-10.3); CREATININE 1.7 mg/dL (0.4-1.0); POTASSIUM 3.9 mmol/L (3.5-5.0); TOTAL PROTEIN 7.8 g/dL (6.7-8.2)
[2021-09-08] MEDS ORDERED: HYDROmorphone 1 MG/ML CARPUJECT IVP STA (11:48)
[2021-09-08] MEDS ORDERED: FUROSEMIDE 40 MG/4 ML VIAL IVP STA (11:48)
[2021-09-08] MEDS ORDERED: PHENAZOPYRIDINE 100 MG TABLET PO STA (11:48)
--- NOTE | 2021-09-08 12:09 | XRAY Report ---
PROCEDURE: Chest 1 View X-Ray INDICATIONS: chest pain TECHNIQUE: One view of the chest was acquired. COMPARISON: Chest x-ray 07/20/2021 FINDINGS: Surgical changes and devices: None. Lungs and pleura: No pleural effusions or pneumothorax. Lungs are clear. Chronic interstitial villalta ges and elevation of the right hemidiaphragm unchanged. Mediastinum: Mediastinal contours appear normal. Heart size is normal. Bones and chest wall: No suspicious bony lesions. Overlying soft tissues appear unremarkable. IMPRESSION: Stable appearance of chronic interstitial change. Reviewed by: Rebecca Liz MD on 09/08/2021 12:08 PM [facility] Approved by: Rebecca Liz MD on 09/08/2021 12:08 PM [facility] Station ID: [id number]
[2021-09-08] MEDS ORDERED: LORazepam 2 MG/ML VIAL IVP STA (12:13)
[2021-09-08] MEDS ORDERED: KETOROLAC 15 MG/ML VIAL IVP STA (13:49)
[2021-09-08 14:56] LABS: BILIRUBIN,URINE NEGATIVE (NEGATIVE); GLUCOSE, URINE (UA) NEGATIVE (NEGATIVE); KETONES,URINE (UA) NEGATIVE (NEGATIVE); LEUKOCYTE ESTERASE, URINE NEGATIVE (NEGATIVE); NITRITE,URINE POSITIVE (NEGATIVE); OCCULT BLOOD,URINE LARGE (NEGATIVE); PROTEIN,URINE TRACE mg/dL (NEGATIVE); UROBILINOGEN,URINE 0.2 (NORMAL) E.U./dL (NORMAL)
[2021-09-08 14:57] LABS: CLARITY,URINE HAZY (CLEAR)
[2021-09-08 15:37] LABS: BACTERIA,URINE Rare /HPF (None Seen); RBC,URINE TNTC /HPF (0-5); SQUAMOUS EPITHELIAL CELL,UR RARE Squamous (<= Few)
[2021-09-08] MEDS ORDERED: cefTRIAXone 1 GM VIAL IVP STA (15:54)
[2021-09-08 17:12] VITALS: BP 128/72
== END 2021-09-08 17:19 | disposition home or self-care (01) ==
LOC: EDUNIT# → ED 10:48
DX: N30.00 Acute cystitis without hematuria (principal); I11.0 Hypertensive heart disease with heart failure; I50.9 Heart failure, unspecified; Z86.718 Personal history of other venous thrombosis and embolism; Z79.01 Long term (current) use of anticoagulants; I48.91 Unspecified atrial fibrillation
CPT/HCPCS: 36415; 71045; 80053; 81001; 83690; 83735; 83880; 84484; 85025; 87086; 93005; 96374; 96375; 99284; A9270; J1170; J2060; 81003

== ENCOUNTER 2021-09-14 09:35 | Outpatient (CLI) | payer MEDICARE, OTHER ==
--- NOTE | 2021-09-14 12:10 | CONSULTATION NOTE ---
Palliative Care Follow Up - Referral Referring Provider: DIAMOND Frankel Time of Visit: [id number] Referral setting: Home Referral Reason: Frailty/Anxiety/Pain - Information Sources Records reviewed: Previous records reviewed History/Review of Systems obtained from: Patient, Family (daughterRafy) Exam limitations: Clinical condition (+LOS COYOTES) - History of Present Illness Update Brief HPI Update: This is an 86-year-old female who was seen and evaluated today for palliative care consultation due to suprapubic pain in the setting of bladder cancer, anxiety, COPD, frailty, and advance care planning with her daughter, Rafy present in the home. Provider wore N95 mask. The patient first began noticing hematuria in November 2018 and it was off and on. She was eventually evaluated for hematuria and July 2020 she had a cystocopy and right retograde pyelogram TURBT by Dr. Ruelas at Loc[facility] and had post op complications of acute respiratory failure, CHF exacerbation, afib with chest pain. Upon discharge she went to [facility] for rehabilitation and was there until Fall 2020 when she moved back in with her daughter. 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 She has seen two urologists and is now being followed by Dr. Tessy Rosas at [facility]. She has had 2 BCG cycles. The after the last cycle of BCG treatment the patient had a cystoscopy in June 2021 that was unable to be fully preformed due to patients tolerance and demonstrated the shay of the bladder were inflammed and was not continued. Daughter says a CT scan also demonstrated thickened bladder shay. Since the last cystoscopy the patient has been having increasing suprapubic pain. She reports that it will occur with voiding, attempt to void and defecation. THe pain will also occur at night and she has to get up frequently to attempt to void but does not always have success. She presently is being treated for a UTI with keflex and pyridum. Urology placed her on Myretiq 25mg daily and no noted improvement of symptoms at this time. Patient has relief with use of oxycodone 5mg when available. Before any further evaluation could be done regarding the patient's bladder cancer, a nodule increased in size with her lung and she had a fine needle biopsy performed on 09/12 with results pending. The patient has had an increase in shortness of breath. She becomes anxious if her oxygen is not in place and she will not wash her face with water for fear th at she will have this perception that she will drown. She was advised by her seasoning mixer to only use her oxygen when active however, she has needed this at rest as well due to increased dyspnea as well as anxiety. She has been on citalopram in the past. Presently on mirtazapine 7.5 mg daily. The patient is presently managing her medications not allowing her daughter to assist. She is unable to state what medication she is on and why despite multiple attempts for explanation. Would benefit from the daughter taking over management of the medications. Prior to the patient's procedure in July 2020 she was not on supplemental oxygen. She reports that she has a bowel movement at least daily to every other day. If there are concerns regarding constipation then she utilizes MiraLAX effectively. She weighs herself daily with last weight 111 pounds. She denies any increased lower extremity edema. She prefers to not wear stockings or socks for fear of constriction. The patient is seen in the living room, well groomed, frail with supplemental oxygen in place. She is unable to sit still for very long due to discomfort and is having to stand and frequently excuse herself to utilize the restroom where it is clear through the door that she is displaying signs of discomfort and distress. Requested that oxycodone 5 mg be administered and after approximately 15 minutes the patient became calm and was comfortable and able to participate in conversation and evaluation. Lithostripper: Dr. Lamont Monroe Urologist: Dr. Tessy Rosas Slip Caster: Dr. Raad Lees [facility]-Coagulation Clinic: [facility], [place] Past Medical History: Patient has a past medical history of congestive heart failure, hypertension, hyperlipidemia, DVT, atrial fibrillation, arrhythmia, pulmonary hypertension, COPD on supplemental oxygen, pneumonia, peripheral neuropathy, GERD, C. difficile, hemorrhoids, incontinence, chronic vision loss, chronic sinusitis, chronic hearing loss not wearing hearing aids, insomnia, depression, anxiety, osteoarthritis, osteoporosis, fatigue, former tobacco use, bladder cancer 2020, CKD stage IV, pulmonary nodule, history of lung collapse 2/2 lung biopsy. Social History - Living Situation Living arrangement: At home Living Situation: With family (daughter/CHRISTINA, Sesar) Support System: Since early July 2019 the patient was residing with her daughter, Maribell in [place]. She came to [facility] for cataract surgery and due to the coronavirus pandemic was unable to return to her apartment in [facility] which is in [facility]. The patient grew up in [place]. 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 She is . She has 2 children, a son and daughter. Her daughter chano, is her DPOA who resides in [place] and her son resides in [place]. After the patient underwent an evaluation of hematuria with cystoscopy in July 2020 the patient had postop complications and then was discharged to a rehabilitation facility, [facility] where she was until the fall 2020 when she returned home with her daughter, in the next 2 minutes home. The patient continues to have a strong desire to return to her apartment in [place]. Homar has a dog, jonelle, that is in the home that she rescued and is extremely friendly. Medications/Allergies - Medications Home Medications: Ambulatory Orders Medication Instructions Recorded Confirmed Albuterol Sulf [Ventolin Hfa 1 - 2 puffs INH Q4HR 08/31/19 06/20/21 Inhaler] Azelastine HCl 1 spray ELENI QPM 08/31/19 06/20/21 Fluticasone [Flonase] 1 spray LEENI DAILY 08/31/19 06/20/21 [id number] 2 tbs PO DAILY 07/14/20 Metoprolol Succinate [Toprol Xl] 75 mg PO DAILY 07/14/20 06/20/21 Mirtazapine [Remeron] 7.5 mg PO Q48H MDD x 7 days then 07/14/20 06/20/21 d/c Sildenafil Citrate [Sildenafil] 10 mg PO BID 07/14/20 06/20/21 Torsemide 20 mg ORAL DAILY 07/14/20 06/20/21 Apixaban [Eliquis] 2.5 mg ORAL BID 06/20/21 06/20/21 Tiotropium Br/Olodaterol HCl 2 puffs IH DAILY 06/20/21 06/20/21 [Stiolto Respimat Inhal Peacham] Levothyroxine Sodium 1 tab PO DAILY 09/08/21 [Levothyroxine] Phenazopyridine HCl [Pyridium] 100 mg PO TID PRN #15 tablet 09/08/21 cephALEXin [Keflex] 500 mg PO TID #20 cap 09/08/21 oxyCODONE [Roxicodone] 5 mg PO Q4H PRN 09/08/21 09/08/21 Cyclosporine [Restasis Multidose] 1 amp EACHEYE BID 09/14/21 09/14/21 Escitalopram Oxalate [Lexapro] 5 mg PO DAILY 09/14/21 09/14/21 LORazepam [Ativan] 0.25 mg PO Q8H PRN 09/14/21 09/14/21 Magnesium Hydroxide [Milk of 30 ml PO DAILY PRN MDD no BM in 3 09/14/21 09/14/21 Magnesia] days Mirabegron [Myrbetriq] 25 mg PO DAILY 09/14/21 09/14/21 Naloxone HCl Nasal [Narcan Nasal] MDD as directed 09/14/21 Omeprazole Magnesium 20 mg PO DAILY 09/14/21 09/14/21 - Allergies Allergies/Adverse Reactions: Allergies Allergy/AdvReac Type Severity Reaction Status Date / Time No Known Drug Allergies Allergy Verified 09/14/21 12:12 Review of Systems - Constitutional Constitutional: reports: Fatigue, Poor appetite, Other (weight 111lb today). denies: Fever - Eyes Eyes: reports: Corrective lenses - Ears, Nose & Throat Ears, Nose & Throat: reports: Hearing loss, Hearing aids (will not wear heaing aids), Nasal congestion, Other (missing two front teeth that she is self concious about) - Cardiovascular Cardiovascular: reports: Exertional dyspnea, Decr. exercise tolerance. denies: Chest pain, Edema (controlled) - Respiratory Respiratory: reports: Cough, SOB with exertion. denies: Wheezing - Gastrointestinal Gastrointestinal: reports: Nausea, Poor appetite, Other (Reports belching; does not want to eat). denies: Abdominal pain, Constipation, Vomiting, Early satiety - Genitourinary Genitourinary: reports: Frequency, Other (suprapubic pain). denies: Hematuria - Musculoskeletal Musculoskeletal: reports: Assistive devices - Integumentary Integumentary: reports: Dryness - Neurological Neurological: reports: General weakness - Psychiatric Psychiatric: reports: Depression, Anxiety, Other (Insomnnia) - Hematologic/Lymphatic Hematologic/Lymph: reports: Bruising (due to DOAC) - All Other Systems All Other Systems: reports: Reviewed and negative (supplemented by daughter as patient is LOS COYOTES and with underlying anxiety cannot respond to questions at times) Physical Exam - Vital Signs Temperature: 37.0 C Pulse Rate: 58 O2 Saturation: 90 (on RA at rest) Blood Pressure: 102/77 - Physical Exam General Appearance: positive: No acute distress, Alert, Other (thin, muscular atrophy) Eyes Bilateral: positive: Normal inspection ENT: positive: No signs of dehydration Neck: positive: Trachea midline Cardiovascular: positive: Irregularly irregular, Systolic murmur (+2/6 GUTIERREZ) Respiratory: positive: No respiratory distress, Breath sounds nml, Other (Supplemental oxygen in place). negative: Wheezes, Rales Abdomen: positive: Non-tender, Soft, Nml bowel sounds, Other (Bladder palpable with firmness, not distended and tender to palpation) Skin: positive: Dryness Extremities: positive: No pedal edema, Other (+lumbar lordosis) Neurologic/Psychiatric: positive: Oriented x3, Weakness, Depressed mood/affect Comments/Other: 94% on 2L via NC at rest Palliative Care - POLST Patient has POLST: No Pain: Pain worsening (suprapubic pain--impoved with oxycodone useage) Tiredness/Fatigue: Moderate (4-6) Drowsiness/Sedation: Moderate (4-6) Nausea: Mild (1-3) Anorexia: Moderate (4-6) Dyspnea: Moderate (4-6) Anxiety: Severe (7-10) Feelings of wellbeing/Perceived Quality of Life: Poor Sleep: Variable sleep pattern Constipation: Opoid induced, Managed Performance Status: Prior to July 2020 the patient was ambulatory without an assistive device and supplemental oxygen. She now requires supplemental oxygen during ambulation and at rest. She requires assistance with bathing. She is unable to prepare her own meals. She has difficulty managing her medications. - Palliative Care Discussion: Prior to July 2020 the patient had significant comorbidities however, remain functional. Since her initial diagnosis of of carcinoma of the bladder she has had significant functional decline and remains living with her daughter after residential and living in a nursing facility. The patient herself does not appreciate the level of deterioration her function has decreased to. She pe rceives that she will be able to return home to her apartment in [place] where she will be able to navigate hailing a cab, walking to the grocery store, and caring for herself independently, something that she has not done for over 2 years. The patient will not be swayed regarding returning to [place] and today asked this provider if she would be able to return to [place] and advised to focus on the present with her most recent lung biopsy as well as moving forward with management of the carcinoma of her bladder however, it would be unlikely. Patient perceived the question as a way to determine if the provider "was for or against me." Lengthy discussion was had with the patient and daughter of the role of palliative care and the goal to optimize the patient's comfort, quality of life and safety. THe patient has a fear of and this was expressed today. She reports that she would rather be then residing in a mcc or if she was unable to ever return to [facility]. There remains to be complex psychosocial dynamics between the patient and her daughter. The patient's daughter had previously expressed her desire to have her mother returned home from the nursing facility where she would be able to be in a more comfortable setting, paint, and transition to hospice services where she would in the daughter's home. However, there have been recent changes in the daughter's thoughts regarding this given the dynamics of the relationship and the daughter is going to be reaching back out to [facility] and Senior services regarding potential placement options in the future. The patient has significant pain to the suprapubic area. Unclear if this is due to bladder spasms or carcinoma itself. Would benefit from increase of oxycodone to 5 mg every 4 hours as needed for pain and to monitor patient's response and usage with the potential to transition to a long-acting opioid with the patient and daughter in agreement. The patient has significant on anxiety related to her circumstances as well as fear due to her underlying COPD and pulmonary hypertension leading to breathlessness. Would benefit from introduction of low-dose lorazepam in addition to transitioning from mirtazapine to Lexapro for management of her anxiety. Impression and Recommendations - Palliative Care Impression: This is an 86-year-old female with multiple cardiac and pulmonary comorbidities including pulmonary hypertension, COPD, CHF, atrial fibrillation in the setting of bladder cancer and anxiety. Will transition from mirtazapine to Lexapro for control of anxiety as well as initiate lorazepam 0.25 mg every 8 hours as needed for anxiety. For the patient's underlying suprapubic pain due to bladder cancer will utilize oxycodone 5 mg every 4 hours as needed for pain. There continues to be an underlying complex psychosocial history between the patient and daughter and continues to require supportive listening for navigation and will request palliative care volunteer for assistance in companionship and respite for the daughter. Palliative care will continue to explore goals of care, build rapport, provide symptom management and anticipatory guidance. Recommendations/Counseling Done: 1. Suprapubic pain. Unclear if this is pain of neoplastic origin due to bladde r cancer versus bladder spasms. Patient presently on my Wild 25 mg daily and has only been on this for a short time. Next step would be to increase the dose to 50 mg and if remains in effective may consider switching to a anti a cholinergic weighing benefits versus burdens of side effects and this was discussed at length with the patient's daughter. Given the patient's pain impacting her function will prescribe oxycodone 5 mg every 4 hours as needed for pain and to record date and time of administration. Discussed moving forward palliative care to be the sole provider for pain management and to dedicate 1 pharmacy which will be [facility]. Narcan prescribed to have in the home. Would expect that the patient will likely need long acting opioid therapy for management of her pain but will see where the patient lands with this present plan. Did reach out to patient's urologist and awaiting return call to discuss next steps in plan of care and if bladder wall thickening is a potential for the patient's underlying suprapubic pain. 2. Anxiety. With underlying depression. Patient with increased anxiety in association with underlying COPD and navigating her cancer diagnosis and loss of independence. Decrease mirtazapine to 7.5 mg every other night x7 days then discontinue. Initiate Lexapro 5 mg daily. Advised the takes 2 to 3 weeks to see effect of medication. We will also initiate lorazepam 0.25 mg every 8 hours as needed for acute anxiety as a tool in the toebox. 3. Lung nodule. Status post fine needle biopsy on 09/12 with results pending. 4. Forgetfulness. This appears to be compounded due to the patient's social isolation and anxiety. Discussed at length to have the patient's daughter provide medication management and she is in agreement to allow the daughter to manage medications moving forward. 5. COPD with supplemental oxygen. Patient also with underlying pulmonary hypertension. Given the patient's pulse ox is less than 90% on room air at rest and perceived anxiousness related to breathlessness advised to utilize 2 L via nasal cannula even at rest as well as with activity for comfort and to maintain her oxygen supplementation above 92%.Continue stiolto and sildenafil as prescribed by pulmonology. 6. Caregiver burden. Underlying complex psychosocial concerns between patient and daughter. Patient's daughter/DPOA has been overseeing the patient's care and management for the last 2 years. Would benefit from palliative care volunteer to provide support. Patient's daughter has contact with [facility] that has previously been put on hold and plans to recontact as well as Senior services to provide support. 7. Advanced care planning. Patient's ultimate goal remains to return to [facility]. The patient does not perceive her physical limitations related to her comorbidities and continues to wish to remain independent. She continues to desire medical and interventions for prolongation of life. We will need to continue to build rapport and tease out fears and provide assistance to the patient's daughter with navigation and providing support within the home. Total time spent 105 minutes with greater than 50% of the spent in counseling and coordination of care with the patient and daughter; review of patient's medications and symptom management; review of initiation of medication and side effects; examination of patient; pain and symptom management as well as anticipatory guidance. Disclaimer: The chart note was formulated using voice recognition technology and unfortunately sound alike errors may occur.
== END 2021-09-14 09:36 | disposition home or self-care (01) ==
LOC: PC 09:35
PROVIDERS: ATTEND Nurse Practitioner Family
DX: Z51.5 Encounter for palliative care (principal); G89.3 Neoplasm related pain (acute) (chronic); C67.9 Malignant neoplasm of bladder, unspecified; R54 Age-related physical debility; F41.9 Anxiety disorder, unspecified; J44.9 Chronic obstructive pulmonary disease, unspecified; N39.0 Urinary tract infection, site not specified; I13.0 Hypertensive heart and chronic kidney disease with heart failure and stage 1 through stage 4 chronic kidney disease, or unspecified chronic kidney disease; I50.9 Heart failure, unspecified; N18.4 Chronic kidney disease, stage 4 (severe); Z87.891 Personal history of nicotine dependence; Z99.81 Dependence on supplemental oxygen; I27.20 Pulmonary hypertension, unspecified; I48.91 Unspecified atrial fibrillation; R91.1 Solitary pulmonary nodule
CPT/HCPCS: 99350

== ENCOUNTER 2021-09-19 14:35 | Outpatient (CLI) | payer MEDICARE, OTHER ==
--- NOTE | 2021-09-19 16:50 | CONSULTATION NOTE ---
Palliative Care Follow Up - Referral Referring Provider: DIAMOND Frankel Time of Visit: [id number] Referral setting: Home Referral Reason: Anxiety/Pain/Anorexia - Information Sources Records reviewed: Previous records reviewed History/Review of Systems obtained from: Patient, Family (daughter, Rafy) Exam limitations: Clinical condition (+GRAYLING) - History of Present Illness Update Brief HPI Update: This is an 86-year-old female who was seen and evaluated in follow-up today due to suprapubic pain in the setting of bladder cancer, anxiety, COPD and GERD with her daughter, not present in her home. Provider wore N95 mask. The patient first began noticing hematuria in November 2018 and it was on and off. She eventually was evaluated for hematuria in July 2020 and she had a cystoscopy and right retrograde pyelogram fatigue TURBT performed at [facility] and had eventual complications. She is status post BCG x2 for a total of 6 cycles each time from 12/26/2020 to 01/25/2021 and then again 04/28 to June 2021. July 2021 cystoscopy showed significant erythema over 75% of the bladder concerning for tumor persistence versus recurrence versus infection. Cytology at that time was negative per urology report. After her last cystoscopy she began having increasing suprapubic pain. She reports that it were to occur with voiding, attempt to void. Of note, since the patient's daughter last evaluation took over medication administration it became clear the patient was not taking her Myrbetriq and had discontinued it. Since she has restarted the Myrbetriq she reports that her frequency is reduced but voiding amount has increased. She reports that her pain is more tolerable with utilizing oxycodone 5 mg typically 3-4 times per day. Daughter reports that she would have given this at other times but the patient had declined. The patient has 1 more dose of Remeron and will continue on with Lexapro 5 mg daily. Has tolerated this transition well. Daughter and patient reports that she has been having panic attacks at night where she is fearful that she will not be able to breathe this bite supplemental oxygen in place. Daughter has been administering 0.25 mg of lorazepam and will sit with her until she calms down. Appetite continues to remain poor. At times, she will fall asleep at the table. Daughter reports that this has been persistent since the patient returned home from [facility] at rehab. She has had a reduction in her heartburn sensation since initiating omeprazole 20 mg daily. Past Medical History: Buffer Nickel: Dr. Lamont Monroe Urologist: Dr. Tessy Rosas Accounts Payable Associate: Dr. Raad Lees Anti-Coagulation Clinic: [facility] Patient has a past medical history of congestive heart failure, hypertension, hyperlipidemia, DVT, atrial fibrillation, arrhythmia, pulmonary hypertension, COPD on supplemental oxygen, pneumonia, peripheral neuropathy, GERD, C. difficile, hemorrhoids, incontinence, chronic vision loss, chronic sinusitis, chronic hearing loss not wearing hearing aids, insomnia, depression, anxiety, osteoarthritis, osteoporosis, fatigue, former tobacco use, bladder cancer 2020, CKD stage IV, pulmonary nodule, history of lung collapse 2/2 lung biopsy. Social History - Living Situation Living arrangement: At home Living Situation: With family (daughter/CHRISTINA, Sesar) Support System: Since early July 2019 the patient was residing with her daughter, Maribell in [place]. She came to [facility] for cataract surgery and due to the coronavirus pandemic was unable to return to her apartment in [place] [facility] which is in [facility]. The patient grew up in [place]. 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 She is . She has 2 children, a son and daughter. Her daughter chano, is her DPOA who resides in [place] and her son resides in [place]. After the patient underwent an evaluation of hematuria with cystoscopy in July 2020 the patient had postop complications and then was discharged to a rehabilitation facility, [facility] where she was until the fall 2020 when she returned home with her daughter, in the next 2 minutes home. The patient continues to have a strong desire to return to her apartment in [place]. Sesar has a dog, blueberry, that is in the home that she rescued and is extremely friendly. Medications/Allergies - Medications Home Medications: Ambulatory Orders Medication Instructions Recorded Confirmed Albuterol Sulf [Ventolin Hfa 1 - 2 puffs INH Q4HR 08/31/19 06/20/21 Inhaler] Azelastine HCl 1 spray ELENI QPM 08/31/19 06/20/21 Fluticasone [Flonase] 1 spray ELENI DAILY 08/31/19 06/20/21 Cyvfync-Upy-A1 2 tbs PO DAILY 07/14/20 Metoprolol Succinate [Toprol Xl] 75 mg PO DAILY 07/14/20 06/20/21 Sildenafil Citrate [Sildenafil] 10 mg PO BID 07/14/20 06/20/21 Torsemide 20 mg ORAL DAILY 07/14/20 06/20/21 Apixaban [Eliquis] 2.5 mg ORAL BID 06/20/21 06/20/21 Tiotropium Br/Olodaterol HCl 2 puffs IH DAILY 06/20/21 06/20/21 [Stiolto Respimat Inhal Liberty] Levothyroxine Sodium 1 tab PO DAILY 09/08/21 [Levothyroxine] Phenazopyridine HCl [Pyridium] 100 mg PO TID PRN #15 tablet 09/08/21 oxyCODONE [Roxicodone] 5 mg PO Q4H PRN 09/08/21 09/08/21 Cyclosporine [Restasis Multidose] 1 amp EACHEYE BID 09/14/21 09/14/21 Escitalopram Oxalate [Lexapro] 5 mg PO DAILY 09/14/21 09/14/21 LORazepam [Ativan] 0.25 mg PO Q8H PRN 09/14/21 09/14/21 Magnesium Hydroxide [Milk of 30 ml PO DAILY PRN MDD no BM in 3 09/14/21 09/14/21 Magnesia] days Mirabegron [Myrbetriq] 25 mg PO DAILY 09/14/21 09/14/21 Naloxone HCl Nasal [Narcan Nasal] MDD as directed 09/14/21 Omeprazole Magnesium 20 mg PO DAILY 09/14/21 09/14/21 LORazepam [Ativan] 0.25 mg PO QPM MDD 30 minutes 09/19/21 09/19/21 before bed - Allergies Allergies/Adverse Reactions: Allergies Allergy/AdvReac Type Severity Reaction Status Date / Time No Known Drug Allergies Allergy Verified 09/14/21 12:12 Review of Systems - Constitutional Constitutional: reports: Fatigue, Poor appetite. denies: Fever - Eyes Eyes: reports: Corrective lenses - Ears, Nose & Throat Ears, Nose & Throat: reports: Hearing loss, Hearing aids (will not wear heaing aids), Other (missing two front teeth that she is self concious about) - Cardiovascular Cardiovascular: reports: Exertional dyspnea, Decr. exercise tolerance. denies: Chest pain, Edema (controlled) - Respiratory Respiratory: reports: SOB with exertion. denies: Wheezing - Gastrointestinal Gastrointestinal: reports: Poor appetite. denies: Abdominal pain, Constipation (reports bowel movement every other day, soft), Vomiting, Early satiety, Other (GERD improved) - Genitourinary Genitourinary: reports: Frequency, Incontinence, Other (suprapubic pain). denies: Dysuria, Hematuria - Musculoskeletal Musculoskeletal: reports: Assistive devices - Integumentary Integumentary: reports: Dryness - Neurological Neurological: reports: General weakness - Psychiatric Psychiatric: reports: Depression, Anxiety (see HPI), Other (Insomnnia) - Hematologic/Lymphatic Hematologic/Lymph: reports: Bruising (due to DOAC) - All Other Systems All Other Systems: reports: Reviewed and negative (supplemented by daughter as patient is GRAYLING) Physical Exam - Vital Signs Temperature: 36.8 C Pulse Rate: 58 O2 Saturation: 96 (on 2L via NC) Blood Pressure: 102/68 - Physical Exam General Appearance: positive: No acute distress, Alert, Other (thin, muscular atrophy, calmer today and relaxed) Eyes Bilateral: positive: Normal inspection ENT: positive: No signs of dehydration Neck: positive: Trachea midline Cardiovascular: positive: Irregularly irregular, Systolic murmur (+2/6 GUTIERREZ) Respiratory: positive: No respiratory distress, Other (Supplemental oxygen in place). negative: Rales Abdomen: positive: Non-tender, Soft, Nml bowel sounds, Other (Bladder palpable with firmness, not distended and tender to palpation) Skin: positive: Dryness Extremities: positive: No pedal edema, Other (+lumbar lordosis) Neurologic/Psychiatric: positive: Oriented x3, Weakness, Depressed mood/affect Palliative Care - POLST Patient has POLST: No Pain: Pain improved (Suprapubic pain improved with oxycodone and Mybetriq consistent usage.) Tiredness/Fatigue: Moderate (4-6) Drowsiness/Sedation: Moderate (4-6) Nausea: Mild (1-3) Anorexia: Moderate (4-6) Dyspnea: Moderate (4-6) Anxiety: Moderate (4-6) Sleep: Variable sleep pattern Constipation: Opoid induced, Managed - Palliative Care Discussion: The patient is relieved that her most recent lung biopsy was negative for malignancy however, still remains symptomatic due to her underlying bladder cancer with concern that patient may have persistent, recurrent cancer and her frequency and incontinence may be something that she will have to adjust to. Her urooncologist is ordering an MRI to determine if there is anything further to address however, given the last status of the patient's cystoscopy would not repeat this and therefore, does not appear to have options available. Therefore, will follow up after MRI results and continue to work with patient regarding setting expectations and comfort measures. Encouraged her to continue taking the Myrbetriq on a routine basis and if continues to be positive and effective there is room to titrate this dose further. She has underlying panic attacks that occur for a few of not waking up and dying. She normalizes saying "does not everyone have this fear?" When offered support from palliative care salesperson used cars to tease out these underlying fears the patient declines. Discussed utilizing lorazepam 0.25 mg 30 minutes before bed to the chair panic attacks and will continue to adjust Lexapro as needed based on the patient's response. The patient has had overall improvement of her suprapubic pain with use of oxycodone 5 mg every 4 hours as needed for pain taking approximately 15 to 20 mg/day. Discussed moving forward may consider long-acting opioid therapy versus scheduling oxycodone 5 mg during the day based on the patient's usage and will determine what will be the best option for the patient. Impression and Recommendations - Palliative Care Impression: This is an 86-year-old female with multiple cardiac and pulmonary comorbidities including pulmonary hypertension, COPD, CHF, atrial fibrillation in the setting of bladder cancer, anorexia, anxiety. She has transition to Lexapro for anxiety and request that she utilize lorazepam 0.25 mg 30 minutes before bedtime to reduce panic attacks. There continues to be an underlying complex psychosocial history between the patient and daughter and supportive listening will be provided to assist with navigation. Palliative care will continue to explore goals of care, provide rapport, provide symptom management and anticipatory guidance. Recommendations/Counseling Done: 1. Suprapubic pain. Unclear if this pain of neoplastic origin due to bladder cancer versus bladder spasms. However, patient has had improvement with initiation of my Patrik 25 mg taken on a routine basis after she previously stopped. Encouraged to continue Myrbetriq moving forward and there is room to increase to 50 mg daily. Urology oncologist to order an MRI to evaluate for any other underlying causes for the patient's complaints of the suprapubic pain. Most likely due to tumor burden due to underlying bladder cancer. Continue oxycodone 5 mg every 4 hours as needed for pain and record date and time administration. Did discuss moving forward may consider switching to long- acting opioid versus scheduling short acting opioid ask as long acting based on the patient's preference and what would best suit her. Did reach out to patient's urologist and awaiting return call back to discuss further next steps. Neurcaine is in the home. 2. Anxiety with panic attacks and underlying depression. Encourage patient and daughter to utilize lorazepam 0.25 mg 30 minutes before bedtime. Did offer palliative care salesperson used cars to provide support regarding fear regarding end of life however, declines. To discontinue mirtazapine and continue Lexapro 5 mg daily and to titrate Lexapro accordingly. 3. Lung nodule. Status post fine-needle biopsy on 09/12 with negative results for malignancy. Follow-up with new courtesy bus driver as scheduled. 4. GERD. Improved with utilization of omeprazole 20 mg daily. Continue this moving forward. 5. Anorexia in the setting of bladder cancer and multiple comorbidities inclu ding COPD. Patient did not find mirtazapine effective for appetite stimulation. Encouraged utilization of Ensure supplementation for caloric intake and made recommendations to follow-up with Senior services for reduced cost of Ensure and provided prescription regarding this. 6. Advanced care planning. Patient is to have a strong desire to "get on with my life" and not have cancer. She continues to not perceive her physical limitations related to her comorbidities and her inability to be independent. She has a fear related to dying that is also highlighted by her fear of going to sleep and having panic attacks. She is adverse to having support to tease out these fears at the present time and previously have requested a palliative care volunteer for support. Total time spent 55 minutes with greater than 50% of the spent in counseling and coordination of care with the patient and daughter; review of patient's medications and symptom management; review of recent conversation with urology oncologist; examination of patient; pain and symptom management as well as anticipatory guidance. Disclaimer: The chart note was formulated using voice recognition technology and unfortunately sound alike errors may occur.
== END 2021-09-19 14:36 | disposition home or self-care (01) ==
LOC: PC 14:35
PROVIDERS: ATTEND Nurse Practitioner Family
DX: Z51.5 Encounter for palliative care (principal); R10.2 Pelvic and perineal pain; F41.9 Anxiety disorder, unspecified; F32.A Depression, unspecified; F41.0 Panic disorder [episodic paroxysmal anxiety]; R91.1 Solitary pulmonary nodule; K21.9 Gastro-esophageal reflux disease without esophagitis; R63.0 Anorexia
CPT/HCPCS: 99348; 99355

== ENCOUNTER 2021-09-26 14:50 | Outpatient (CLI) | payer MEDICARE, OTHER ==
--- NOTE | 2021-09-26 19:49 | CONSULTATION NOTE ---
Palliative Care Follow Up - Referral Referring Provider: DIAMOND Frankel Time of Visit: [id number] Referral setting: Home Referral Reason: Anxiety/Bladder Cancer/Suprapubic pain/ACP - Information Sources Records reviewed: Previous records reviewed History/Review of Systems obtained from: Patient, Family (daughter, Rafy) Exam limitations: Clinical condition (+MOHEGAN) - History of Present Illness Update Brief HPI Update: This is an 86-year-old female who was seen and evaluated in follow-up today due to suprapubic pain in the setting of bladder cancer, anxiety, COPD, GERD and advance care planning with her daughter present in the home. Provider wore N95 mask. The patient began noticing hematuria in November 2018 and it was on and off. She eventually was evaluated for hematuria in July 2020 and she had a cystoscopy and right retrograde pyelogram fatigue TURBT performed at [facility] and had eventual complications. She is status post BCG x2 for a total of 6 cycles each time from 12/26/2020 to 01/25/2021 and then again 04/28 to June 2021. July 2021 cystoscopy showed significant erythema over 75% of the bladder concerning for tumor persistence versus recurrence versus infection. Cytology at that time was negative per urology report. After her last cystoscopy she began having increasing suprapubic pain. She reports that it were to occur with voiding or on an attempt to void. SInce restarting mybetriq the patient's discomfort with voiding has improved and has started taking it at night to provide symptom relief over night. She reports that her pain is more tolerable with utilizing oxycodone 5 mg typically 3-4 times per day. Daughter reports that she would have given this at other times but the patient had declined. Patient herself states that "if the pain were there than I would take it." In discussion with urology-oncology, Dr. Rosas, limited options and time to focus on comfort measures and daughter is aware of this with conversation with Dr. Rosas. She has an abdominal MRI scheduled on 10/04/21. Patient has had a reduction in her appetite since last evaluation. She continues with consuming breakfast and dinner but portions are smaller and last recorded weight as 106lb. Patient reports depressive symptoms and she cannot do her art if she is "not in a happy place." She is presently on lexapro 5mg daily and would benefit from dose increase. She is no longer using ativan at bedtime for panic attacks and feels these have diminished with use of oxygen during the night. Despite being without anxiety she noted some unsteadiness on her feet at night with utlization of ativan and oxycodone. Past Medical History: Horizontal Drill Operator: Dr. Lamont Monroe Urologist: Dr. Tessy Rosas Email Campaign Specialist: Dr. Raad Lees Anti-Coagulation Clinic: [facility] Patient has a past medical history of congestive heart failure, hypertension, hyperlipidemia, DVT, atrial fibrillation, arrhythmia, pulmonary hypertension, COPD on supplemental oxygen, pneumonia, peripheral neuropathy, GERD, C. difficile, hemorrhoids, incontinence, chronic vision loss, chronic sinusitis, chronic hearing loss not wearing hearing aids, insomnia, depression, anxiety, osteoarthritis, osteoporosis, fatigue, former tobacco use, bladder cancer 2020, CKD stage IV, pulmonary nodule, history of lung collapse 2/2 lung biopsy. Social History - Living Situation Living arrangement: At home Living Situation: With family (daughter/DPOA, Sesar) Support System: Since early July 2019 the patient was residing with her daughter, Maribell in [place]. She came to [facility] for cataract surgery and due to the coronavirus pandemic was unable to return to her apartment in [facility] which is in [facility]. The patient grew up in [facility] [place]. 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 She is . She has 2 children, a son and daughter. Her daughter Rafy, is her DPOA who resides in [facility] and her son resides in [place]. After the patient underwent an evaluation of hematuria with cystoscopy in July 2020 the patient had postop complications and then was discharged to a rehabilitation facility, [facility] where she was until the fall 2020 when she returned home with her daughter. The patient continues to have a strong desire to return to her apartment in [facility]. Sesar has a dog, blueberry, that is in the home that she rescued and is extremely friendly. Medications/Allergies - Medications Home Medications: Ambulatory Orders Medication Instructions Recorded Confirmed Albuterol Sulf [Ventolin Hfa 1 - 2 puffs INH Q4HR 08/31/19 06/20/21 Inhaler] Azelastine HCl 1 spray ELENI QPM 08/31/19 06/20/21 Fluticasone [Flonase] 1 spray ELENI DAILY 08/31/19 06/20/21 [id number] 2 tbs PO DAILY 07/14/20 Metoprolol Succinate [Toprol Xl] 75 mg PO DAILY 07/14/20 06/20/21 Sildenafil Citrate [Sildenafil] 10 mg PO BID 07/14/20 06/20/21 Torsemide 20 mg ORAL DAILY 07/14/20 06/20/21 Apixaban [Eliquis] 2.5 mg ORAL BID 06/20/21 06/20/21 Tiotropium Br/Olodaterol HCl 2 puffs IH DAILY 06/20/21 06/20/21 [Stiolto Respimat Inhal [place]] Levothyroxine Sodium 1 tab PO DAILY 09/08/21 [Levothyroxine] Phenazopyridine HCl [Pyridium] 100 mg PO TID PRN #15 tablet 09/08/21 oxyCODONE [Roxicodone] 5 mg PO Q4H PRN 09/08/21 09/08/21 Cyclosporine [Restasis Multidose] 1 amp EACHEYE BID 09/14/21 09/14/21 Escitalopram Oxalate [Lexapro] 10 mg PO DAILY 09/14/21 09/14/21 LORazepam [Ativan] 0.25 mg PO Q8H PRN 09/14/21 09/14/21 Magnesium Hydroxide [Milk of 30 ml PO DAILY PRN MDD no BM in 3 09/14/21 09/14/21 Magnesia] days Mirabegron [Myrbetriq] 25 mg PO DAILY 09/14/21 09/14/21 Naloxone HCl Nasal [Narcan Nasal] MDD as directed 09/14/21 Omeprazole Magnesium 20 mg PO DAILY 09/14/21 09/14/21 - Allergies Allergies/Adverse Reactions: Allergies Allergy/AdvReac Type Severity Reaction Status Date / Time No Known Drug Allergies Allergy Verified 09/14/21 12:12 Review of Systems - Constitutional Constitutional: reports: Fatigue, Poor appetite, Weight loss (106lb). denies: Fever - Eyes Eyes: reports: Corrective lenses - Ears, Nose & Throat Ears, Nose & Throat: reports: Hearing loss, Hearing aids (will not wear heaing aids), Other (missing two front teeth that she is self concious about) - Cardiovascular Cardiovascular: reports: Exertional dyspnea, Decr. exercise tolerance. denies: Chest pain, Edema (controlled) - Respiratory Respiratory: reports: SOB with exertion. denies: Wheezing - Gastrointestinal Gastrointestinal: reports: Poor appetite, Other (Does not have a desire to eat, see HPI). denies: Abdominal pain, Constipation (reports bowel movement daily, soft), Vomiting, Early satiety - Genitourinary Genitourinary: reports: Frequency, Incontinence, Other (suprapubic pain, improved with oxycodone). denies: Dysuria, Hematuria - Musculoskeletal Musculoskeletal: reports: Assistive devices - Integumentary Integumentary: reports: Dryness - Neurological Neurological: reports: General weakness - Psychiatric Psychiatric: reports: Depression, Anxiety (see HPI), Other (Insomnnia) - Hematologic/Lymphatic Hematologic/Lymph: reports: Bruising (due to DOAC) - All Other Systems All Other Systems: reports: Reviewed and negative (supplemented by daughter as patient is MOHEGAN) Physical Exam - Vital Signs Temperature: 36.8 C Pulse Rate: 47 O2 Saturation: 93 (on 2L via NC) Blood Pressure: 139/71 (left wrist sitting) - Physical Exam General Appearance: positive: No acute distress, Alert, Cachetic, Other (thin, muscular atrophy, calmer today and relaxed) Eyes Bilateral: positive: Normal inspection ENT: positive: No signs of dehydration Neck: positive: Trachea midline Cardiovascular: positive: Irregularly irregular, Systolic murmur (+2/6 GUTIERREZ) Respiratory: positive: No respiratory distress, Rales (BLL, trace), Other (Supplemental oxygen in place) Abdomen: positive: Non-tender, Soft, Nml bowel sounds, Other (Bladder palpable with firmness, not distended and non tender to palpation) Skin: positive: Dryness Extremities: positive: No pedal edema, Other (+lumbar lordosis) Neurologic/Psychiatric: positive: Oriented x3, Weakness, Depressed mood/affect Comments/Other: standing 135/64 Palliative Care - POLST Patient has POLST: No Pain: Pain improved (with oxycodone usage) Tiredness/Fatigue: Moderate (4-6) Nausea: None Anorexia: Severe (7-10) Depression: Moderate (4-6) Anxiety: Moderate (4-6) Feelings of wellbeing/Perceived Quality of Life: Poor Sleep: Sleeps well Constipation: Opoid induced, Managed - Palliative Care Discussion: Open.discussion with patient as she wanted to know next steps and potential options and this COATING MACHINE OPERATOR and daughter will lead that most likely next steps will be comfort measures and focusing on quality of life versus interventions related to the patient's bladder cancer due to her fragility and complex comorbidities she would be unable to tolerate surgery. Based despite requesting to know next steps, patient found this difficult to except as she continues to have a strong desire to return to [facility], her apartment and all her sculptures. During this open discussion the patient's daughter shared her own journey with cancer and with very open and vulnerable to which the patient herself was devoid of expressing emotion. This may be a coping mechanism for the patient given her past experiences. The patient was amenable to having the palliative care cupboard builder come into the home and provide support. She is displaying signs and symptoms of depression as highlighted by her lack of desire to eat with anorexia and likely underlying pulmonary cachexia as well as multiple comorbidities influencing her muscular atrophy and weight loss including her history of bladder cancer. Strongly encourage that the patient consume 1 can of Ensure daily and she is amenable to this to be obtained from [facility] with a prescription provided. The patient often feels isolated during conversations due to her inability to hear. She no longer has hearing aids. Discussed utilization of an amplifier such as a pocket talker to be included in conversations and she is open to this. Impression and Recommendations - Palliative Care Impression: This is an 86-year-old female with multiple cardiac and pulmonary comorbidities including pulmonary hypertension, COPD, CHF, atrial fibrillation in setting of bladder cancer, depression and anxiety. Will increase Lexapro from 5 mg to 10 mg for underlying depression. Pain is controlled with oxycodone 5 mg every 4 hours as needed for suprapubic pain. Continues to be complex psychosocial history between the patient and daughter and requires supportive listening for navigation. Given the patient's difficulty in grasping end of life will request palliative care cupboard builder for additional support and patient and daughter are open to this support. Palliative care will continue to explore goals of care, provide rapport, symptom management and anticipatory guidance. Recommendations/Counseling Done: 1. Suprapubic pain. Possibly pain of neoplastic origin. Encouraged to continue Myrbetriq moving forward and there is room to increase to 50 mg daily. Urology oncologist to order an MRI of abdomen to evaluate for any other underlying causes for the patient's complaints of the suprapubic pain, and patient and daughter to discuss if immunotherapy is option for patient. Urology-oncology has stated before next steps is to focus on comfort and reviewed with patient today. Continue oxycodone 5 mg every 4 hours as needed for pain and record date and time administration. Narcan in the home. 2. Anxiety with panic attacks and underlying depression. Request palliative care cupboard builder for support. Increase lexapro to 10mg daily. If no improvement in 2-3 weeks consider adjunct of abilify for depresson. Continue ativan as ordered as needed for acute anxiety/panic. 3. Anorexia in the setting of bladder cancer and multiple comorbidities including COPD. Patient did not find mirtazapine effective for appetite stimulation. Encouraged utilization of Ensure supplementation for caloric intake and made recommendations to follow-up with [facility] for reduced cost of Ensure and provided prescription regarding this indicating it is medically necessary.Patient is agreeable to having one per day of Ensure. 4. Advanced care planning. Patient is to have a strong desire to return to [facility] and be with her art and scupltures. She has a fear related to dying and would benefit from additional support from Palliative Care cupboard builder. Will benefit from recommendations directly to her after urology-oncology reviews MRI of abdomen as she wishes to know what she is dealing with and next steps. Total time spent 70 minutes with greater than 50% of the spent in counseling and coordination of care with the patient and daughter; review of patient's medications and symptom management; review of recent conversation with urology oncologist; examination of patient;supportive listening; pain and symptom management as well as anticipatory guidance. Disclaimer: The chart note was formulated using voice recognition technology and unfortunately sound alike errors may occur.
== END 2021-09-26 14:51 | disposition home or self-care (01) ==
LOC: PC 14:50
PROVIDERS: ATTEND Nurse Practitioner Family
DX: Z51.5 Encounter for palliative care (principal); R10.2 Pelvic and perineal pain; F41.9 Anxiety disorder, unspecified; F32.A Depression, unspecified; R63.0 Anorexia; C67.9 Malignant neoplasm of bladder, unspecified
CPT/HCPCS: 99350

== ENCOUNTER 2021-10-05 20:50 | Outpatient (CLI) | payer MEDICARE, OTHER | END 2021-10-05 20:51 | disposition critical access hospital (66) | LOC: EMS 20:50 | DX: R10.30 Lower abdominal pain, unspecified (principal); G89.3 Neoplasm related pain (acute) (chronic) | CPT/HCPCS: A0425; A0427 ==

== ENCOUNTER 2021-10-05 20:56 | Emergency (ER) | payer MEDICARE, OTHER ==
[2021-10-05 21:28] LABS: BASOPHILS # (AUTO) 0.1 10^3/uL (0.0-0.1); EOSINOPHILS % (AUTO) 0.4 %; HCT - HEMATOCRIT 37.8 % (37.0-47.0); HGB - HEMOGLOBIN 11.9 g/dL (12.0-16.0); LYMPHOCYTES # (AUTO) 0.8 10^3/uL (1.5-3.5); LYMPHOCYTES % (AUTO) 10.7 %; MEAN CORPUSCULAR HEMOGLOBIN 26.5 pg (27.0-31.0); MEAN CORPUSCULAR HGB CONC 31.5 g/dL (32.0-36.0); MEAN CORPUSCULAR VOLUME 84.2 fL (81.0-99.0); MEAN PLATELET VOLUME 9.6 fL (7.9-10.8); MONOCYTES # (AUTO) 0.4 10^3/uL (0.0-1.0); MONOCYTES % (AUTO) 5.4 %; NEUTROPHILS # (AUTO) 5.8 10^3/uL (1.5-6.6); NEUTROPHILS % (AUTO) 82.2 %; PLT - PLATELET COUNT 265 10^3/uL (130-450); RED BLOOD COUNT 4.49 10^6/uL (4.20-5.40); RED CELL DISTRIBUTION WIDTH 16.5 % (12.0-15.0); WHITE BLOOD COUNT 7.1 x10^3/uL (4.8-10.8)
[2021-10-05 21:42] LABS: ALBUMIN 4.1 g/dL (3.2-5.5); ALBUMIN/GLOBULIN RATIO 1.1 (1.0-2.2); BILIRUBIN,TOTAL 0.7 mg/dL (0.2-1.0); CALCIUM 9.4 mg/dL (8.5-10.3); CREATININE 1.4 mg/dL (0.4-1.0); POTASSIUM 3.9 mmol/L (3.5-5.0); TOTAL PROTEIN 7.7 g/dL (6.7-8.2)
--- OUTSIDE RECORDS SUMMARY | 2021-10-05 22:07 | EXTERNAL MEDICAL SUMMARY RPT | Continuity of Care Document ---
:1935 Author Organization [facility] Address [address] [phone] Phone Care Team Providers Name Role Phone Munoz Unavailable Unavailable Allergies No information. Encounters No information. Medications No information. Problems date description facility [id number] Other nonspecific abnormal finding of [facility] Results No information.
--- NOTE | 2021-10-05 23:45 | ED Physician Documentation ---
PD HPI ABD PAIN - Stated complaint Stated Complaint: ABD PX - Chief complaint Chief Complaint: Abd Pain - History obtained from History obtained from: Patient - History of Present Illness Timing - onset: Today Timing - details: Gradual onset Quality: Cramping Location: All over / everywhere Improved by: Other (nothing) Worsened by: Other (no exacerbating factors) Recently seen: Emergency Dept (09/08 for dypsnea) - Additional information Additional information: presents c/o all day I couldnt urinate and constipation. However, she says she was able to urinate while in ED and feels this has resolved (no longer has urge to urinate). She continues to feel constipated, last BM 3 days ago. She says her daughter just bought milk of magnesia but she hasnt had any yet. She says she has been taking miralax. She takes prescribed pain medication (oxycodone). Review of Systems Constitutional: denies: Fever GI: reports: Abdominal Pain, Constipation. denies: Nausea, Vomiting : reports: Unable to Void (resolved) PD PAST MEDICAL HISTORY - Past Medical History Cardiovascular: Congestive heart failure, Hypertension, High cholesterol, Deep vein thrombosis, Atrial fibrillation, Arrhythmia, Other (Pulmonary HTN) Respiratory: COPD (Followed by Dr. Monroe, no oxygen requirment), Pneumonia Neuro: Peripheral neuropathy Endocrine/Autoimmune: None GI: GERD, C.difficile, Hemorrhoids AMMONIUM HYDROXIDE OPERATOR: None : Incontinence, Nocturia, Frequency, Other (Hematuria) HEENT: Chronic vision loss, Chronic sinusitis, Chronic hearing loss Psych: Depression, Anxiety, Other (Insomnia) Musculoskeletal: Osteoarthritis, Osteoporosis, Fatigue Derm: None - Past Surgical History Past Surgical History: No HEENT: Cataracts - Present Medications Home Medications: Ambulatory Orders Medication Instructions Recorded Confirmed Albuterol Sulf [Ventolin Hfa 1 - 2 puffs INH Q4HR 08/31/19 06/20/21 Inhaler] Azelastine HCl 1 spray ELENI QPM 08/31/19 06/20/21 Fluticasone [Flonase] 1 spray ELENI DAILY 08/31/19 06/20/21 [id number] 2 tbs PO DAILY 07/14/20 Metoprolol Succinate [Toprol Xl] 75 mg PO DAILY 07/14/20 06/20/21 Sildenafil Citrate [Sildenafil] 10 mg PO BID 07/14/20 06/20/21 Torsemide 20 mg ORAL DAILY 07/14/20 06/20/21 Apixaban [Eliquis] 2.5 mg ORAL BID 06/20/21 06/20/21 Tiotropium Br/Olodaterol HCl 2 puffs IH DAILY 06/20/21 06/20/21 [Stiolto Respimat Inhal [place]] Levothyroxine Sodium 1 tab PO DAILY 09/08/21 [Levothyroxine] oxyCODONE [Roxicodone] 5 mg PO Q4H PRN 09/08/21 09/08/21 Cyclosporine [Restasis Multidose] 1 amp EACHEYE BID 09/14/21 09/14/21 Escitalopram Oxalate [Lexapro] 10 mg PO DAILY 09/14/21 09/14/21 LORazepam [Ativan] 0.25 mg PO Q8H PRN 09/14/21 09/14/21 Magnesium Hydroxide [Milk of 30 ml PO DAILY PRN MDD no BM in 3 09/14/21 09/14/21 Magnesia] days Mirabegron [Myrbetriq] 25 mg PO DAILY 09/14/21 09/14/21 Naloxone HCl Nasal [Narcan Nasal] MDD as directed 09/14/21 Omeprazole Magnesium 20 mg PO DAILY 09/14/21 09/14/21 Senna [Senokot] 1 tab PO TID 10/06/21 10/06/21 Senna [Senokot] 2 tab PO Q4H PRN MDD NTE 12tab/24h 10/06/21 10/06/21 if no BM in 48h polyethylene glycoL 3350 [Miralax] 1 cap ORAL BID 10/06/21 10/06/21 - Allergies Allergies/Adverse Reactions: Allergies Allergy/AdvReac Type Severity Reaction Status Date / Time No Known Drug Allergies Allergy Verified 10/05/21 21:04 - Social History Does the pt smoke?: No Smoking Status: Never smoker Does the pt drink ETOH?: No Does the pt have substance abuse?: No - Immunizations Immunizations are current?: Yes - POLST Patient has POLST: No POLST Status: Full Code PD ED PE NORMAL - Vitals Vital signs reviewed: Yes - General General: Alert and oriented X 3, No acute distress, Well developed/nourished, Other (very [place]) - HEENT HEENT: Moist mucous membranes - Cardiac Cardiac: RRR - Respiratory Respiratory: No respiratory distress, Clear bilaterally - Abdomen Abdomen: Normal bowel sounds, Soft, Non distended, Other (mild TTP across lower abdomen without rebound or guarding) Results - Vitals Vitals: Oxygen O2 Source Nasal cannula Oxygen Flow Rate 2 - Labs Labs: Laboratory Tests 10/05/21 10/05/21 10/06/21 21:15 21:15 00:20 WBC 7.1 RBC 4.49 Hgb 11.9 L Hct 37.8 MCV 84.2 MCH 26.5 L MCHC 31.5 L RDW 16.5 H Plt Count 265 MPV 9.6 Neut # (Auto) 5.8 Lymph # (Auto) 0.8 L Orange # (Auto) 0.4 Eos # (Auto) 0.0 Baso # (Auto) 0.1 Absolute Nucleated RBC 0.00 Nucleated RBC % 0.0 Sodium 133 L Potassium 3.9 Chloride 91 L Carbon Dioxide 30 Anion Gap 12.0 BUN 35 H Creatinine 1.4 H Estimated GFR (MDRD) 35 L Glucose 124 H Calcium 9.4 Total Bilirubin 0.7 AST 22 ALT 13 Alkaline Phosphatase 62 Total Protein 7.7 Albumin 4.1 Globulin 3.6 Albumin/Globulin Ratio 1.1 Lipase 35 Urine Color YELLOW Urine Clarity CLEAR Urine pH 7.0 Ur Specific [place] 1.015 Urine Protein NEGATIVE Urine Glucose (UA) NEGATIVE Urine Ketones NEGATIVE Urine Occult Blood LARGE H Urine Nitrite NEGATIVE Urine Bilirubin NEGATIVE Urine Urobilinogen 0.2 (NORMAL) Ur Leukocyte Esterase NEGATIVE Urine RBC TNTC H Urine WBC 0-3 Ur Squamous Epith Cells FEW Squamous Urine Bacteria Rare Ur Microscopic Review INDICATED Urine Culture Comments NOT INDICATED - Rads (name of study) acute abdomimal series xrays Radiology: Prelim report reviewed, See rad report PD MEDICAL DECISION MAKING - ED course Complexity details: reviewed old records, reviewed results, re-evaluated patient, considered differential, d/w patient, d/w family ED course: patient declined I+O cath early in stay but subsequently was able to urinate and she feels this resulted in resolution of sensation of urinary retention. Plain film xrays of abdomen demonstrate large amount of colonic/rectal stool. She is offered fecal disimpaction but refuses this. She says she will take milk of magnesia when she gets home and requests d/c. She is given a glycerin suppository to facilitate passage of the stool. Return precautions discussed as well as follow up recommendation. Departure - Departure Disposition: 01 Home, Self Care Clinical Impression: Constipation Qualifiers: Constipation type: unspecified constipation type Qualified Code(s): K59.00 - Constipation, unspecified Condition: Stable Instructions: ED Constipation Discharge Date/Time: 10/06/21 02:55
[2021-10-06 00:27] VITALS: BP 145/113
[2021-10-06 00:32] LABS: BILIRUBIN,URINE NEGATIVE (NEGATIVE); GLUCOSE, URINE (UA) NEGATIVE (NEGATIVE); KETONES,URINE (UA) NEGATIVE (NEGATIVE); LEUKOCYTE ESTERASE, URINE NEGATIVE (NEGATIVE); NITRITE,URINE NEGATIVE (NEGATIVE); OCCULT BLOOD,URINE LARGE (NEGATIVE); PROTEIN,URINE NEGATIVE (NEGATIVE); UROBILINOGEN,URINE 0.2 (NORMAL) E.U./dL (NORMAL)
[2021-10-06 01:07] LABS: CLARITY,URINE CLEAR (CLEAR)
[2021-10-06 01:09] LABS: BACTERIA,URINE Rare /HPF (None Seen); RBC,URINE TNTC /HPF (0-5); SQUAMOUS EPITHELIAL CELL,UR FEW Squamous (<= Few); WBC,URINE 0-3 /HPF (0-5)
[2021-10-06] MEDS ORDERED: GLYCERIN ADULT SUPP PR STA (01:32)
--- NOTE | 2021-10-06 01:40 | XRAY Report ---
PROCEDURE: Abdomen Acute INDICATIONS: Abdominal pain TECHNIQUE: One view chest and two views of the abdomen were acquired. COMPARISON: Chest x-ray 09/08/2021, 06/20/2021. CT abdomen pelvis 03/17/2020. FINDINGS: Surgical changes and devices: None. Chest: There is hyperinflation of the lungs with flattening of the hemidiaphragms compatible with PROCESS SERVER D. Peripheral reticular interstitial opacities are redemonstrated bilaterally. No acute consolidation . Heart size is enlarged. No pleural effusions. No pneumoperitoneum. Abdomen: Bowel gas pattern appears within normal limits overall without evidence of obstruction. The re is prominent stool distention in the rectum which may reflect impaction. There are diffuse vascula r calcifications. Bones: No suspicious bony lesions. IMPRESSION: 1. Prominent stool distention in the rectal sigmoid colon suggestive of impaction. 2. Bowel gas pattern demonstrates no definite evidence of obstruction. 3. Findings compatible with COPD. Reviewed by: Vito Salas MD on 10/06/2021 1:38 AM PDT Approved by: Vito Salas MD on 10/06/2021 1:38 AM PDT Station ID: [id number]
== END 2021-10-06 02:55 | disposition home or self-care (01) ==
LOC: EDUNIT# → ED 20:56
DX: K59.00 Constipation, unspecified (principal)
CPT/HCPCS: 36415; 51798; 74022; 80053; 81001; 83690; 85025; 99282; 99285; A9270; 81003; 87086

== ENCOUNTER 2021-10-06 15:00 | Outpatient (CLI) | payer MEDICARE, OTHER ==
--- NOTE | 2021-10-06 17:12 | CONSULTATION NOTE ---
Palliative Care Follow Up - Referral Referring Provider: DIAMOND Frankel Time of Visit: [id number] Referral setting: Home Referral Reason: Constipation/Bladder Ca/OAB/Anxiety - Information Sources Records reviewed: Previous records reviewed History/Review of Systems obtained from: Patient, Family (daughter, Rafy) Exam limitations: Clinical condition (+[place]) - History of Present Illness Update Brief HPI Update: This is an 86-year-old female who was seen and evaluated in follow-up today due to suprapubic pain in the setting of bladder cancer, anxiety, COPD, and constipation with her daughter present in the home. Provider wore N95 mask. The patient had not voided for approximately 12 hours and did not not have adequate defecation for approximately 3 days when she presented to the emergency department at [facility] on 10/05. Urine specimen was obtained which was not indicative of a urinary tract infection. A did a bladder scan that demonstrated 200 cc of urine. Was offered to do a straight cath however, the patient adamantly refused. She reports that she was told in the past that she should never have a Can catheter placed due to her sensitivity post bladder cancer treatments. Abdominal injury imaging was performed that demonstrated "prominent stool distention in the rectosigmoid colon suggestive of impaction." The patient was discharged home with a glycerin suppository which was given upon her return home. The daughter had given a dose of milk of magnesia yesterday of 30 mL and 30 mL today without positive response. Patient is on sure if she is passing flatus. She reports urinary fish that it will come in small amounts. She is wearing pull-up depends. Denies dysuria. She is utilizing oxycodone 5 mg typically 4 times per day on average. She reports that this reduces the suprapubic pain that she is experiencing. When she began having signs of constipation the daughter started adding senna 1 tablet up to 3 times a day beginning on Sunday. It is also hit or miss if the patient will consume her MiraLAX. She is status post evaluation with her customer support professional, Dr. Almonte who upon review of her most recent CT scan and lung nodule biopsy reported that the area may be scarring or infection. Patient is to provide a sputum specimen that she has not been able to provide before starting oral antibiotic cefotetan. She also is having increased evidence of shortness of breath type B report anxiety driven. She was prescribed albuterol nebulizer however, she does not want to use a light yellow utilizer. She does have a spacer in the home to use with her albuterol inhaler. She continues with minimal oral intake eating some bites at a time during the day. Daughter has recently introduced Ensure and the patient will drink about 1/day. Dr. Seun Almonte--customer support professional Dr. Tessy Rosas--urology/oncology Past Medical History: Patient has a past medical history of congestive heart failure, hypertension, hyperlipidemia, DVT, atrial fibrillation, arrhythmia, pulmonary hypertension, COPD on supplemental oxygen, pneumonia, peripheral neuropathy, GERD, C. difficile, hemorrhoids, incontinence, chronic vision loss, chronic sinusitis, chronic hearing loss not wearing hearing aids, insomnia, depression, anxiety, osteoarthritis, osteoporosis, fatigue, former tobacco use, bladder cancer 2020, CKD stage IV, pulmonary nodule, history of lung collapse 2/2 lung biopsy. Social History - Living Situation Living arrangement: At home Living Situation: With family (daughter/DPOA, Sesar) Support System: Since early July 2019 the patient was residing with her daughterMaribell in [place]. She came to [facility] for cataract surgery and due to the coronavirus pandemic was unable to return to her apartment in [facility] which is in [facility]. The patient grew up in [place]. 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 She is . She has 2 children, a son and daughter. Her daughter Rafy, is her DPOA who resides in [facility] and her son resides in [place]. After the patient underwent an evaluation of hematuria with cystoscopy in July 2020 the patient had postop complications and then was discharged to a rehabilitation facility, [facility] where she was until the fall 2020 when she returned home with her daughter. Sesar has a dog, blueberry, that is in the home that she rescued and is extremely friendly. Followed by Palliative Care Supervisor Tumblers. Medications/Allergies - Medications Home Medications: Ambulatory Orders Medication Instructions Recorded Confirmed Albuterol Sulf [Ventolin Hfa 1 - 2 puffs INH Q4HR 08/31/19 06/20/21 Inhaler] Azelastine HCl 1 spray ELENI QPM 08/31/19 06/20/21 Fluticasone [Flonase] 1 spray ELENI DAILY 08/31/19 06/20/21 [id number] 2 tbs PO DAILY 07/14/20 Metoprolol Succinate [Toprol Xl] 75 mg PO DAILY 07/14/20 06/20/21 Sildenafil Citrate [Sildenafil] 10 mg PO BID 07/14/20 06/20/21 Torsemide 20 mg ORAL DAILY 07/14/20 06/20/21 Apixaban [Eliquis] 2.5 mg ORAL BID 06/20/21 06/20/21 Tiotropium Br/Olodaterol HCl 2 puffs IH DAILY 06/20/21 06/20/21 [Stiolto Respimat Inhal [place]] Levothyroxine Sodium 1 tab PO DAILY 09/08/21 [Levothyroxine] oxyCODONE [Roxicodone] 5 mg PO Q4H PRN 09/08/21 09/08/21 Cyclosporine [Restasis Multidose] 1 amp EACHEYE BID 09/14/21 09/14/21 Escitalopram Oxalate [Lexapro] 10 mg PO DAILY 09/14/21 09/14/21 LORazepam [Ativan] 0.25 mg PO Q8H PRN 09/14/21 09/14/21 Magnesium Hydroxide [Milk of 30 ml PO DAILY PRN MDD no BM in 3 09/14/21 09/14/21 Magnesia] days Mirabegron [Myrbetriq] 25 mg PO DAILY 09/14/21 09/14/21 Naloxone HCl Nasal [Narcan Nasal] MDD as directed 09/14/21 Omeprazole Magnesium 20 mg PO DAILY 09/14/21 09/14/21 Senna [Senokot] 1 tab PO TID 10/06/21 10/06/21 Senna [Senokot] 2 tab PO Q4H PRN MDD NTE 12tab/24h 10/06/21 10/06/21 if no BM in 48h polyethylene glycoL 3350 [Miralax] 1 cap ORAL BID 10/06/21 10/06/21 - Allergies Allergies/Adverse Reactions: Allergies Allergy/AdvReac Type Severity Reaction Status Date / Time No Known Drug Allergies Allergy Verified 10/05/21 21:04 Review of Systems - Constitutional Constitutional: reports: Fatigue, Poor appetite, Weight loss (106lb). denies: Fever - Eyes Eyes: reports: Corrective lenses - Ears, Nose & Throat Ears, Nose & Throat: reports: Hearing loss, Hearing aids (will not wear heaing aids), Other (missing two front teeth that she is self concious about) - Cardiovascular Cardiovascular: reports: Exertional dyspnea, Decr. exercise tolerance. denies: Chest pain, Edema (controlled) - Respiratory Respiratory: reports: SOB with exertion, Other (will feel like she cannot breathe despite having oxygen in place and cannot adequately using her albuterol inhaler). denies: Wheezing - Gastrointestinal Gastrointestinal: reports: Poor appetite, Other (Does not have a desire to eat, see HPI). denies: Abdominal pain, Constipation (reports bowel movement daily, soft), Vomiting, Early satiety - Genitourinary Genitourinary: reports: Incontinence, Other (suprapubic pain, improved with oxycodone). denies: Dysuria, Frequency (reports reduction in frequency, however depends was saturated today and patient was unaware that she voided and she then voided when in bed placing oil enema without control), Hematuria - Musculoskeletal Musculoskeletal: reports: Assistive devices - Integumentary Integumentary: reports: Dryness - Neurological Neurological: reports: General weakness, Dizziness - Psychiatric Psychiatric: reports: Depression, Anxiety (increased anxiety per daughter), Other (Insomnnia) - Hematologic/Lymphatic Hematologic/Lymph: reports: Bruising (due to DOAC) - All Other Systems All Other Systems: reports: Reviewed and negative (supplemented by daughter as patient is [place]) Physical Exam - Vital Signs Pulse Rate: 66 O2 Saturation: 90 (on 2L via N) Blood Pressure: 105/57 - Physical Exam General Appearance: positive: No acute distress, Alert, Cachetic, Other (thin, muscular atrophy, slightly dishleved today) Eyes Bilateral: positive: Normal inspection ENT: positive: No signs of dehydration Neck: positive: Trachea midline Cardiovascular: positive: Irregularly irregular, Systolic murmur (+2/6 GUTIERREZ) Respiratory: positive: No respiratory distress, Rales (LLL, trace), Other (Supplemental oxygen in place) Abdomen: positive: Non-tender, Soft, Nml bowel sounds, Other (Bladder palpable with firmness, not distended and non tender to palpation; +stool noted in rectum on examination and administer 118mL of mineral oil enema in the home) Skin: positive: Dryness, Bruising (Left dorsal aspect of hand due to IV/blood draw) Extremities: positive: No pedal edema, Other (+lumbar lordosis) Neurologic/Psychiatric: positive: Oriented x3, Weakness, Depressed mood/affect Palliative Care - POLST Patient has POLST: No Pain: Pain improved (with oxycodone use) Nausea: None Anorexia: Moderate (4-6) Dyspnea: Moderate (4-6) Depression: Moderate (4-6) Anxiety: Moderate (4-6) Feelings of wellbeing/Perceived Quality of Life: Poor Sleep: Variable sleep pattern Constipation: Yes, Opoid induced, Intermittent constipation - Palliative Care Discussion: Patient expresses today that she is "afraid of dying of this" in terms of her bladder cancer. She recently met with the palliative care rn med surg yesterday and found this positive interaction. The patient herself is someone that needs proof seeing imaging from diagnostics to believe a diagnosis in order to move forward. 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 Unfortunately, she has developed constipation and evidence of impaction today. She had difficulty tolerating the full minimal oral enema that was inserted today but did positively have a bowel movement while this provider was present. However, given the prominence of stool distention noting on her abdominal imaging and abdominal MRI from this week would recommend further defecation and daughter to administer half a bottle of magnesium citrate. Moving forward discussed utilization of senna if no bowel movement in 48 hours. The goal remains for the patient to have a daily, soft bowel movement. The patient continues to show signs and symptoms of progression related to her multiple comorbidities. Unclear if the most recent abdominal MRI will show evidence and a definitive answer for why the patient is continues to have symptoms related to an overactive bladder and generalized debility. Discussed separately with the daughter that the patient would be appropriate for hospice services but at this time, the patient continues to desire interventions on to live a given her fear of dying. Results - Lab Results Lab results reviewed: Yes Lab and Imaging Results: 10/04/2021 MRI of abdomen and pelvis with and without contrast "Mild concentric bladder wall thickening without a discrete mass identified. The findings are nonspecific and may reflect cystitis or posttreatment changes. No lymphadenopathy within the abdomen or pelvis by size criteria. Moderate to severe distention in the rectosigmoid colon suggestive of impaction. No evidence of associated proximal bowel obstruction." 10/06/2021 abdominal series "Prominent stool distention of the rectal sigmoid colon suggestive of impaction. Bowel gas pattern demonstrates no definitive evidence of obstruction. Findings compatible with COPD." Impression and Recommendations - Palliative Care Impression: This is an 86-year-old female with multiple cardiac and pulmonary comorbidities including pulmonary hypertension, COPD CHF in the setting of history of bladder cancer, anxiety, and now with fecal impaction. She required a mineral oil enema administration today with some positive success. She would benefit from further defecation and daughter to administer half a bottle of magnesium citrate. Pain is presently well controlled with utilization of approximately 20 mg of oxycodone per day. Palliative care will continue to explore goals of care, provide rapport, symptom management and anticipatory guidance. Recommendations/Counseling Done: 1. Fecal impaction. Sedentary lifestyle, minimal oral intake, and opioid therapy contributing factors. Prominent stool noted on abdominal imaging from 10/06 and abdominal MRI on 10/04. Administered mineral oil enema today with positive response of defecation. However, given the degree of stool noted in the rectal sigmoid colon advise administration of half a bottle of magnesium citrate to be administered today. Moving forward to continue senna 8.6 mg 1 tablet 3 times a day. To increase MiraLAX to 1 cap twice a day. Discussed if no bowel movement in 48 hours to take 2 tablets of senna every 4 hours until a bowel movement not to exceed 12 tablets in 24 hours. Goal is to have a daily, soft bowel movement. Continue to monitor and titrate accordingly. 2. Suprapubic pain. History of bladder cancer. Status post abdominal MRI on 10/04/2021 pending urology oncology appointment on 10/12 to review. Abdominal MRI demonstrated "mild concentric bladder wall thickening without a discrete mass identified." Patient also does have evidence of overactive bladder contributing. Some of the causes suprapubic pain may be due to neoplastic origin. Continue Myrbetriq 25 mg daily. Continue oxycodone 5 mg every 4 hours as needed for pain and record date and time administration. Narcan is in the home. May consider transitioning to fentanyl patch based on the patient's continued utilization of oxycodone for comfort. 3. Anxiety with panic attacks and underlying depression. Last week, patient's Lexapro was increased to 10 mg daily. If no improvement in 2 to 3 weeks continue to consider adjunct of Abilify for depression. Continue Ativan as or dered as needed for acute anxiety/panic. Continue to be supported by the palliative care rn med surg. Patient has a strong underlying fear of dying. 4. COPD. Her underlying COPD and pulmonary hypertension are contributing to the patient's feelings of breathlessness and anxiety. She is refusing utilization of albuterol nebulizer. Discussed utilization of albuterol inhaler when acute shortness of breath comes on with spacer with the daughter to assist with administration and the patient is open to this. To continue utilization of supplemental oxygen 2 L via nasal cannula with a goal to have pulse ox greater than 90%. 5. Weight loss. Pulmonary cachexia and history of bladder cancer contributing. She did not find mirtazapine effective for appetite stimulation. Continue utilization of Ensure Plus supplementation for caloric intake. Have provided prescription for Ensure for reduced cost at [facility]. 6. Advanced care planning. Patient continues to express continued fear related to dying. Daughter is overwhelmed with the care of the patient as she continues to require increased assistance that continues to progress in needs week by week. If patient continues on this trajectory would be most appropriate for hospice services if amenable. Plan to rediscuss goals of care and next steps with advanced care planning after meeting with urology oncologist angelia ng. Total time spent 85 minutes with greater than 50% of the spent in counseling and coordination of care with the patient and daughter; administration of rectal enema; examination of patient; review of abdominal series and EGD MRI of abdomen report; medication titration as well as anticipatory guidance. Contacted the patient urology oncologist, Dr. Rosas and was able to speak at length with review of recent emergency department visit and present clinical presentation as well as concerns re: patient's clinical decline. Dr. Rosas to follow-up with patient and daughter on site at her office as previously scheduled on 10/12. Disclaimer: The chart note was formulated using voice recognition technology and unfortunately sound alike errors may occur.
== END 2021-10-06 15:01 | disposition home or self-care (01) ==
LOC: PC 15:00
PROVIDERS: ATTEND Nurse Practitioner Family
DX: Z51.5 Encounter for palliative care (principal); F41.9 Anxiety disorder, unspecified; F32.A Depression, unspecified; R63.4 Abnormal weight loss; R63.0 Anorexia; J44.9 Chronic obstructive pulmonary disease, unspecified; I27.20 Pulmonary hypertension, unspecified; R10.30 Lower abdominal pain, unspecified; R91.8 Other nonspecific abnormal finding of lung field; R06.09 Other forms of dyspnea; R32 Unspecified urinary incontinence; R53.1 Weakness; K59.03 Drug induced constipation; T40.2X5A Adverse effect of other opioids, initial encounter; Z79.01 Long term (current) use of anticoagulants; Z79.899 Other long term (current) drug therapy; Z85.51 Personal history of malignant neoplasm of bladder; R39.89 Other symptoms and signs involving the genitourinary system
CPT/HCPCS: 99350

== ENCOUNTER 2021-10-07 08:00 | Outpatient (CLI) | payer MEDICARE, OTHER | END 2021-10-07 23:59 | disposition home or self-care (01) | LOC: LAB.R 08:00 | PROVIDERS: ATTEND Internal Medicine | DX: J43.1 Panlobular emphysema (principal); R91.1 Solitary pulmonary nodule | CPT/HCPCS: 81599; 87070; 87077; 87186; 87205 ==

== ENCOUNTER 2021-10-13 13:40 | Outpatient (CLI) | payer MEDICARE, OTHER ==
--- NOTE | 2021-10-13 19:24 | CONSULTATION NOTE ---
Palliative Care Follow Up - Referral Referring Provider: DIAMOND Frankel Time of Visit: [id number] Referral setting: Home Referral Reason: Bladder pain with LUTS/Constipation/Anxiety - Information Sources Records reviewed: Previous records reviewed History/Review of Systems obtained from: Patient, Family (daughter, Rafy) Exam limitations: Clinical condition (+ALUTIIQ) - History of Present Illness Update Brief HPI Update: This is an 86-year-old female who is seen in follow-up today due to suprapubic pain in the setting of history of bladder cancer, L UTS symptoms, anxiety, and constipation with her daughter present in the home. Last evaluation, the patient's had been constipated and demonstrated impaction. She positively responded to suppository administration and her bowel regimen was adjusted to MiraLAX 1 cap twice daily and senna 1 tablet 3 times a day. Since last week, the patient has steadily had an increase in her bowel movements leading to more explosive diarrhea. Her daughter has held her bowel regimen medication yesterday and today. She has not had a bowel movement. Patient reports to feeling relief after defecation. Yesterday, the patient had a follow-up with her urologist oncologist with review of abdominal MRI performed on 10/04/2021 that demonstrated stable bladder wall thickening without a discrete mass identified and no evidence of metastatic disease. After meeting with Dr. Curran and given her extensive comorbidities and not being a surgical candidate the patient is agreement to focus on symptom management and discontinue cancer surveillance. She also had a urinalysis and urine culture performed. Urine culture remains pending. Referrals were also placed to nutrition, social work, and physical functional medicine to increase her overall strength. At the present time, the patient's daughter does many tasks for her including providing meals and limiting the patient's ambulation within the home by providing a lot of tax for her. There has begun to be a reduction in the patient's overall anxiety. Presently, the patient's daughter is administering lorazepam 0.25 mg twice daily in addition to her recent increase of Lexapro 10 mg daily. Daughter notes that the patient is sleeping much of the day. Patient continues to consume minimally typically 1 meal per day and is not consuming 1 can of protein supplementation that is presently Ensure but desires to transition over to boost. Her weight is now down to 102lbs. Her pain appears to be better controlled and she is not waking up at night due to discomfort. She is presently taking about 3-4 oxycodone per day but is not always been consistent with the fourth dose. Past Medical History: Patient has a past medical history of congestive heart failure, hypertension, hyperlipidemia, DVT, atrial fibrillation, arrhythmia, pulmonary hypertension, COPD on supplemental oxygen, pneumonia, peripheral neuropathy, GERD, C. difficile, hemorrhoids, incontinence, chronic vision loss, chronic sinusitis, chronic hearing loss not wearing hearing aids, insomnia, depression, anxiety, osteoarthritis, osteoporosis, fatigue, former tobacco use, bladder cancer 2020, CKD stage IV, pulmonary nodule, history of lung collapse 2/2 lung biopsy. Social History - Living Situation Living arrangement: At home Living Situation: With family (daughter/DPNEGRA, Sesar) Support System: Since early July 2019 the patient was residing with her daughter, Maribell in [place]. She came to [facility] for cataract surgery and due to the coronavirus pandemic was unable to return to her apartment in [facility] which is in [facility]. The patient grew up in [facility] [facility]. 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 She is . She has 2 children, a son and daughter. Her daughter Rafy, is her DPOA who resides in [facility] and her son resides in [place]. After the patient underwent an evaluation of hematuria with cystoscopy in July 2020 the patient had postop complications and then was discharged to a rehabilitation facility, [facility] where she was until the fall 2020 when she returned home with her daughter. Followed by Palliative Care Audio Director. Medications/Allergies - Medications Home Medications: Ambulatory Orders Medication Instructions Recorded Confirmed Albuterol Sulf [Ventolin Hfa 1 - 2 puffs INH Q4HR 08/31/19 06/20/21 Inhaler] Azelastine HCl 1 spray ELENI QPM 08/31/19 06/20/21 Fluticasone [Flonase] 1 spray ELENI DAILY 08/31/19 06/20/21 [id number] 2 tbs PO DAILY 07/14/20 Metoprolol Succinate [Toprol Xl] 75 mg PO DAILY 07/14/20 06/20/21 Sildenafil Citrate [Sildenafil] 10 mg PO BID 07/14/20 06/20/21 Torsemide 20 mg ORAL DAILY 07/14/20 06/20/21 Apixaban [Eliquis] 2.5 mg ORAL BID 06/20/21 06/20/21 Tiotropium Br/Olodaterol HCl 2 puffs IH DAILY 06/20/21 06/20/21 [Stiolto Respimat Inhal [place]] Levothyroxine Sodium 1 tab PO DAILY 09/08/21 [Levothyroxine] oxyCODONE [Roxicodone] 5 mg PO Q4H PRN 09/08/21 09/08/21 Cyclosporine [Restasis Multidose] 1 amp EACHEYE BID 09/14/21 09/14/21 Escitalopram Oxalate [Lexapro] 10 mg PO DAILY 09/14/21 09/14/21 LORazepam [Ativan] 0.25 mg PO Q8H PRN 09/14/21 09/14/21 Magnesium Hydroxide [Milk of 30 ml PO DAILY PRN MDD no BM in 3 09/14/21 09/14/21 Magnesia] days Mirabegron [Myrbetriq] 25 mg PO DAILY 09/14/21 09/14/21 Naloxone HCl Nasal [Narcan Nasal] MDD as directed 09/14/21 Omeprazole Magnesium 20 mg PO DAILY 09/14/21 09/14/21 Senna [Senokot] 1 tab PO DAILY 10/06/21 10/06/21 Senna [Senokot] 2 tab PO Q4H PRN MDD NTE 12tab/24h 10/06/21 10/06/21 if no BM in 48h polyethylene glycoL 3350 [Miralax] 1 cap ORAL QPM 10/06/21 10/06/21 oxyCODONE [Roxicodone] 5 mg PO TID 10/13/21 10/13/21 - Allergies Allergies/Adverse Reactions: Allergies Allergy/AdvReac Type Severity Reaction Status Date / Time No Known Drug Allergies Allergy Verified 10/05/21 21:04 Review of Systems - Constitutional Constitutional: reports: Fatigue, Poor appetite, Weight loss (10/13/21 102lb; previous weight 106lb). denies: Fever - Eyes Eyes: reports: Corrective lenses - Ears, Nose & Throat Ears, Nose & Throat: reports: Hearing loss, Hearing aids (will not wear heaing aids), Other (missing two front teeth that she is self concious about) - Cardiovascular Cardiovascular: reports: Exertional dyspnea, Decr. exercise tolerance. denies: Chest pain, Edema (controlled) - Respiratory Respiratory: reports: SOB with exertion, Other (supplemental oxygen in place). denies: Wheezing - Gastrointestinal Gastrointestinal: reports: Poor appetite. denies: Abdominal pain, Constipation (see HPI), Vomiting, Early satiety - Genitourinary Genitourinary: reports: Incontinence, Other (suprapubic pain, improved with oxycodone). denies: Dysuria, Hematuria - Musculoskeletal Musculoskeletal: reports: Assistive devices - Integumentary Integumentary: reports: Dryness - Neurological Neurological: reports: General weakness - Psychiatric Psychiatric: reports: Depression, Anxiety (see HPI), Other (Insomnnia) - Hematologic/Lymphatic Hematologic/Lymph: reports: Bruising (due to DOAC) - All Other Systems All Other Systems: reports: Reviewed and negative (supplemented by daughter as patient is ALUTIIQ) Physical Exam - Vital Signs Temperature: 36.7 C Pulse Rate: 66 O2 Saturation: 97 (on 2L via NC) Blood Pressure: 100/53 - Physical Exam General Appearance: positive: No acute distress, Alert, Cachetic, Other (thin, muscular atrophy) Eyes Bilateral: positive: Normal inspection ENT: positive: No signs of dehydration Neck: positive: Trachea midline Cardiovascular: positive: Irregularly irregular, Systolic murmur (+2/6 GUTIERREZ) Respiratory: positive: No respiratory distress, Rales (LLL, trace), Other (Supplemental oxygen in place) Abdomen: positive: Non-tender, Soft, Nml bowel sounds Skin: positive: Dryness, Bruising (Left dorsal aspect of hand due to IV/blood draw) Extremities: positive: No pedal edema, Other (+lumbar lordosis) Neurologic/Psychiatric: positive: Oriented x3, Weakness, Other (Calmer today) Palliative Care - POLST Patient has POLST: No Pain: Pain improved (with oxycodone use to suprapubic pain) - Palliative Care Discussion: Patient is expressing relief that her oncology oncologist appointment went extremely well and that she is "not dying from cancer." She does express that moving forward given her health complications that she is not a surgical candidate and therefore will focus on symptom management and no longer continue with cancer surveillance. She has a strong desire to get better and stronger. She perceives that she will be able to return back to her former baseline. Gently set expectations regarding her ability to return to her former baseline and at the present time the goal is to optimize her strength and weight with supplemental support from conservation enforcement officer and physical medical doctor. Overall, her symptoms appear to be better controlled in relation to her pain as well as her anxiety. Some of this may have been a relief after her visit yesterday with urologist oncologist with positive results that has lessened her anxiety. However,She would benefit from making oxycodone schedule III times a day to keep her pain under control moving forward. Patient is amenable regarding this. Impression and Recommendations - Palliative Care Impression: This is an 86-year-old female with multiple cardiac and pulmonary comorbidities including pulmonary hypertension, COPD, CHF, in the setting of history of bladder cancer, L UTS symptoms with suprapubic pain anxiety, and constipation. Patient would benefit from scheduled oxycodone 5 mg 3 times daily moving forward for her suprapubic pain. Her anxiety has improved with increase of Lexapro to 10 mg daily and utilization of the Lorazepam. Palliative care will continue to explore goals of care, fied support, symptom management and anticipatory guidance. Recommendations/Counseling Done: 1.Suprapubic pain. History of bladder cancer. Status post abdominal MRI on 10/04/2021 and s/p urology oncology appointment on 10/12 with interpretation of MRI with no evidence of metastatic disease. Moving forward, the patient would prefer to focus on symptom management and discontinue cancer surveillance given she is not a surgical candidate or candidate for other therapy should she have a recurrence. Overactive bladder may be contributing to some of her suprapubic pain. Continue on my Wild 25 mg daily. Change oxycodone to 5 mg schedule III times a day and patient is amenable. Narcan is in the home. Continue to monitor and adjust pain regimen as required. 2. Constipation. Sedentary lifestyle, minimal oral intake, and opioid therapy contributing factors. Status post fecal impaction with suppository on 10/06 with positive response. Increased defecation and discussion regarding scaling back on bowel regimen. Moving forward utilize MiraLAX 1 cap daily and senna 1 tablet daily. Reviewed dose titration of MiraLAX and senna moving forward. Does have milk of magnesia to utilize if no bowel movement in 3 days. Also has senna tablets to utilize if no bowel movement in 48 hours to take 2 tablets of senna every 4 hours until a bowel movement not to exceed 12 tablets in 24 hours. Goal is to have a bowel movement that is soft daily to every other day. Continue to monitor and titrate accordingly. 3. Anxiety with panic attacks and underlying depression. Has tolerated dose increase of Lexapro to 10 mg daily. Anxiety is presently under better control with utilization of lorazepam 0.25 mg twice a day. Will eventually advised to scale back but presently anxiety is under control while Lexapro is building to effect. May consider adjunct of Abilify for depression in the future based on symptom response. 4. Weight loss. Pulmonary cachexia and history of bladder cancer contributing. To see conservation enforcement officer 1 11/04. Discussed increasing Ensure or boost supplementation to 1 can twice a day. To continue to encourage foods that the patient finds pleasurable. Provided prescription for Ensure for reduced cost at [facility]. 5. Pulmonary nodule. Patient was recently seen and evaluated by her refrigerating machine operator and was advised to provide a sputum sample and then move forward with taking oral antibiotics. Recently provided a sputum specimen as she does not have a productive cough. Daughter now expressing concerns regarding administration of oral antibiotic therapy in light of pending urine culture. Advised to contact refrigerating machine operator in regards to recommendation if to move forward with oral antibiotic therapy as patient was to take this as a trial. 6. Advanced care planning. Patient is optimistic regarding her recent news that she is "not dying of cancer." She has had recent reduction in her anxiety since yesterday with this stated news. Continue to set expectations for the patient regarding her nutritional status and physical activity given multiple comorbidities contributing. We will need to continue to provide education regarding chronic comorbidities based on the patient's willingness to receive information moving forward. And will benefit from support from specialty services conservation enforcement officer, and physical medicine provider as well as palliative care email designer. Total time spent 60 minutes with greater than 50% of the spent in counseling coronation of care with the patient and daughter; review of urology oncology visit and printed record; medication management for pain and symptom management; pathophysiology related to pulmonary hypertension; and anticipatory guidance. Disclaimer: The chart note was formulated using voice recognition technology and unfortunately sound alike errors may occur.
== END 2021-10-13 13:41 | disposition home or self-care (01) ==
LOC: PC 13:40
PROVIDERS: ATTEND Nurse Practitioner Family
DX: Z51.5 Encounter for palliative care (principal); C67.9 Malignant neoplasm of bladder, unspecified; J44.9 Chronic obstructive pulmonary disease, unspecified; I27.20 Pulmonary hypertension, unspecified; G89.3 Neoplasm related pain (acute) (chronic); K59.00 Constipation, unspecified; F41.0 Panic disorder [episodic paroxysmal anxiety]; R63.4 Abnormal weight loss; R91.1 Solitary pulmonary nodule; F32.A Depression, unspecified; F41.9 Anxiety disorder, unspecified; I11.0 Hypertensive heart disease with heart failure; I50.9 Heart failure, unspecified; I48.91 Unspecified atrial fibrillation; K21.9 Gastro-esophageal reflux disease without esophagitis; Z99.81 Dependence on supplemental oxygen; Z87.891 Personal history of nicotine dependence
CPT/HCPCS: 99350

== ENCOUNTER 2021-11-10 14:40 | Outpatient (CLI) | payer MEDICARE, OTHER ==
--- NOTE | 2021-11-10 17:34 | CONSULTATION NOTE ---
Palliative Care Follow Up - Referral Referring Provider: DIAMOND Frankel Time of Visit: [id number] Referral setting: Home Referral Reason: Bladder pain with LUTS/Bowel pattern/Anxiety and Depression - Information Sources Records reviewed: Previous records reviewed History/Review of Systems obtained from: Patient, Family (daughter/CHRISTINA Hillman) Exam limitations: Clinical condition (+CACHIL DEHE) - History of Present Illness Update Brief HPI Update: This is an 86-year-old female who is seen in follow-up today due to suprapubic pain in the setting of history of bladder cancer, LUTS symptoms, anxiety, depression, and fluctuation in bowel pattern with her daughter present in the home. Provider wore N95 mask. Patient was having fluctuations between constipation and diarrhea. There are times when she will take her medication which is 1 cap Miralax and 1 senna at night where she will be defecating all day versus regular bowel movement. There appears to be much fluctuation. Would benefit from reduction of MiraLAX. Presently, she is only taking oxycodone 5 mg twice a day and feels that her pain is not what it used to be and has experienced much improvement. She reports things have "eased up." She continues to have anxiety and depression. She is not interested in doing things that she previously found enjoyable such as her pastel's which are set up for her. She is typically laying down and potentially sleeping approximately 20 hours a day. She reports that she has nothing to do despite encouragement and support from her daughter to do activities. She is also not interested in doing self-care. She finds nothing in [place] "stimulating." She is being supported by the palliative care combination technician. She is presently on Lexapro 10 mg grams daily and lorazepam 0.25 mg twice daily. Would benefit from further control of her depression symptoms. She continues to not be eating on a regular basis. She had a referral to a inspector electromechanical however, this was canceled as the patient does not wish to follow through on recommendations. They have switched to utilizing lean cuisine with the patient is typically consuming about 5 ounces of food at night. She continues to rely on her daughter for assistance with meal preparation. Left/self care. She is going to be seeing a physical medicine doctor to determine a regimen for her with strengthening at the end of November. Past Medical History: Patient has a past medical history of congestive heart failure, hypertension, hy perlipidemia, DVT, atrial fibrillation, arrhythmia, pulmonary hypertension, COPD on supplemental oxygen, pneumonia, peripheral neuropathy, GERD, C. difficile, hemorrhoids, incontinence, chronic vision loss, chronic sinusitis, chronic hearing loss not wearing hearing aids, insomnia, depression, anxiety, osteoarthritis, osteoporosis, fatigue, former tobacco use, bladder cancer 2020, CKD stage IV, pulmonary nodule, history of lung collapse 2/2 lung biopsy. Social History - Living Situation Living arrangement: At home Living Situation: With family (daughter/DPOA, Sesar) Support System: Since early July 2019 the patient was residing with her daughter, Sesar in [place]. She came to [facility] for cataract surgery and due to the coronavirus pandemic was unable to return to her apartment in [facility] which is in [facility] as well as health complications. The patient grew up in [facility]. 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 She is . She has 2 children, a son and daughter. Her daughter Sesar, is her DPOA who resides in [facility] and her son resides in [place]. After the patient underwent an evaluation for hematuria with cystoscopy in July 2020 the patient had postop complications and then was discharged to a rehabilitation facility, [facility] where she was until the Fall 2020 when she returned home with her daughter. Her son is paying for her apartment in [facility] to hold onto her sculptures. She has a strong desire to return to [facility]. Followed by Palliative Care Bariatric Surgeon. Medications/Allergies - Medications Home Medications: Ambulatory Orders Medication Instructions Recorded Confirmed Albuterol Sulf [Ventolin Hfa 1 - 2 puffs INH Q4HR 08/31/19 06/20/21 Inhaler] Azelastine HCl 1 spray ELENI QPM 08/31/19 06/20/21 Fluticasone [Flonase] 1 spray ELENI DAILY 08/31/19 06/20/21 [id number] 2 tbs PO DAILY 07/14/20 Metoprolol Succinate [Toprol Xl] 75 mg PO DAILY 07/14/20 06/20/21 Sildenafil Citrate [Sildenafil] 10 mg PO BID 07/14/20 06/20/21 Torsemide 20 mg ORAL DAILY 07/14/20 06/20/21 Apixaban [Eliquis] 2.5 mg ORAL BID 06/20/21 06/20/21 Tiotropium Br/Olodaterol HCl 2 puffs IH DAILY 06/20/21 06/20/21 [Stiolto Respimat Inhal [place]] Levothyroxine Sodium 1 tab PO DAILY 09/08/21 [Levothyroxine] oxyCODONE [Roxicodone] 5 mg PO Q4H PRN 09/08/21 09/08/21 Cyclosporine [Restasis Multidose] 1 amp EACHEYE BID 09/14/21 09/14/21 Escitalopram Oxalate [Lexapro] 10 mg PO DAILY 09/14/21 09/14/21 LORazepam [Ativan] 0.25 mg PO BID 09/14/21 09/14/21 Magnesium Hydroxide [Milk of 30 ml PO DAILY PRN MDD no BM in 3 09/14/21 09/14/21 Magnesia] days Mirabegron [Myrbetriq] 25 mg PO DAILY 09/14/21 09/14/21 Naloxone HCl Nasal [Narcan Nasal] MDD as directed 09/14/21 Omeprazole Magnesium 20 mg PO DAILY 09/14/21 09/14/21 Senna [Senokot] 1 tab PO DAILY 10/06/21 10/06/21 Senna [Senokot] 2 tab PO Q4H PRN MDD NTE 12tab/24h 10/06/21 10/06/21 if no BM in 48h polyethylene glycoL 3350 [Miralax] 0.5 cap ORAL QPM 10/06/21 10/06/21 oxyCODONE [Roxicodone] 5 mg PO BID 10/13/21 10/13/21 Aripiprazole [Abilify] 2 mg PO QPM 11/13/21 11/13/21 - Allergies Allergies/Adverse Reactions: Allergies Allergy/AdvReac Type Severity Reaction Status Date / Time No Known Drug Allergies Allergy Verified 10/05/21 21:04 Review of Systems - Constitutional Constitutional: reports: Fatigue, Poor appetite, Weight loss ( 102lb; previous weight 106lb). denies: Fever - Eyes Eyes: reports: Corrective lenses - Ears, Nose & Throat Ears, Nose & Throat: reports: Hearing loss, Hearing aids (will not wear heaing aids), Other (missing two front teeth that she is self concious about) - Cardiovascular Cardiovascular: reports: Decr. exercise tolerance. denies: Chest pain, Edema - Respiratory Respiratory: reports: SOB with exertion, Other (supplemental oxygen in place). denies: Wheezing - Gastrointestinal Gastrointestinal: reports: Change in bowel habits (see HPI), Poor appetite. denies: Abdominal pain, Nausea, Vomiting, Early satiety - Genitourinary Genitourinary: reports: Incontinence, Other (suprapubic pain, improved with oxycodone 5mg BID). denies: Dysuria, Frequency - Musculoskeletal Musculoskeletal: reports: Assistive devices - Integumentary Integumentary: reports: Dryness - Neurological Neurological: reports: General weakness - Psychiatric Psychiatric: reports: Depression, Anxiety, Other (Insomnnia) - Hematologic/Lymphatic Hematologic/Lymph: reports: Bruising (due to DOAC) - All Other Systems All Other Systems: reports: Reviewed and negative (supplemented by daughter as patient is CACHIL DEHE) Physical Exam - Vital Signs Temperature: 36.8 C Pulse Rate: 86 O2 Saturation: 92 (on RA) Blood Pressure: 114/65 - Physical Exam General Appearance: positive: No acute distress, Alert, Cachetic, Other (thin, muscular atrophy generalized) Eyes Bilateral: positive: Normal inspection ENT: positive: No signs of dehydration Neck: positive: Trachea midline Cardiovascular: positive: Irregularly irregular, Systolic murmur (+2/6 GUTIERREZ) Respiratory: positive: No respiratory distress, Breath sounds nml, Other (Supplemental oxygen in place) Abdomen: positive: Non-tender, Soft, Nml bowel sounds, Other (BLadder nontender to palpation) Skin: positive: Dryness Extremities: positive: No pedal edema, Other (+lumbar lordosis) Neurologic/Psychiatric: positive: Oriented x3 (STM impairment noted intermittently, would benefit from formal cognitive testing with [facility]), Weakness, Depressed mood/affect Palliative Care - POLST Patient has POLST: No POLST Status: Full Code Pain: Pain improved (suprapubic pain with LUTS symptoms with oxycodone 5mg BID and mybetriq 25mg daily.) Tiredness/Fatigue: Moderate (4-6) Nausea: None Anorexia: Moderate (4-6) Dyspnea: Moderate (4-6) Depression: Moderate (4-6) Anxiety: Moderate (4-6) Feelings of wellbeing/Perceived Quality of Life: Poor Sleep: Variable sleep pattern Constipation: Opoid induced, Managed - Palliative Care Discussion: Patient continues to have a circular conversation regarding her desire and ability to return back to [facility]. She perceives that she is no longer able to do trains but would be able to navigate with car service or past service not recognizing her limitations physically since she was last there over 2 years ago now with supplemental oxygen, weight loss, and additional medications to manage symptomatology. She continues to require her supports and reorienting for setting goals and the hearing now not taking away her hope and desire to return back to her apartment but focusing on improving her strength and getting a physically stronger. Would benefit from support from physical medicine provider at the end of November 2021. Lengthy discussion was also had regarding working on building her endurance by ambulating within the home and building up her walking edge every several days days. She continues to benefit from the palliative care combination technician for support. She displays strong evidence for depressive symptoms and anxiety. Her anxiety is under better control with increase of Lexapro however, her cognitive impairment that displays intermittently may be due to depressive symptoms that are not well managed and would benefit from additional pharmacological support and then introduce Abilify as a trial. Impression and Recommendations - Palliative Care Impression: This is an 86-year-old female with multiple cardiac and pulmonary comorbidities including pulmonary hypertension, COPD, CHF, in the setting of history of bladder cancers, L UTS symptoms with suprapubic pain, depression, anxiety, fluctuating bowel pattern and debility. Would benefit from routine ambulation within the home to build endurance. Pain is presently well controlled with oxycodone 5 mg twice daily. Depressive symptoms are not controlled and would benefit from addition of Abilify 2 mg daily as a trial. Palliative care will continue to explore goals of care, provide support, symptom management, care coordination and anticipatory guidance. Recommendations/Counseling Done: 1. Anxiety with panic attacks. Improved. Continue Lexapro 10 mg daily. Continue lorazepam 0.25 mg twice daily with goal to gradually taper in the future. Continue support from palliative care combination technician. 2. Depression. Patient has lost interest in activities she has found pleasurable. Continue Lexapro 10 mg daily. Add Abilify 2 mg at bedtime and reviewed purpose, dose, and side effects. Continue support from palliative care combination technician. 3. Cognitive impairment. Intermittent. Would benefit from [facility] testing at next evaluation and underlying depression symptoms may be contributing to cognitive impairments. We will continue to monitor. 4. Suprapubic pain. History of bladder cancer. Status post abdominal MRI on 10/04/2021 and status post urology oncology appointment on 10/12 with interpretation of MRI with no evidence of metastatic disease. Moving forward, the patient would prefer to focus on symptom management and discontinue cancer surveillance given she is not a surgical candidate or candidate for other therapy should she have a recurrence. Overactive bladder may also be contributing to some of her suprapubic pain. Continue Myrbetriq 25 mg daily. Continue oxycodone 5 mg twice daily for pain control. Narcan is in the home. Continue to monitor and adjust Provenge and then as needed. 5. Constipation. Fluctuating bowel patterns. Sedentary lifestyle, minimal oral intake and opioid therapy contributing factors. Reduce MiraLAX to half a cap daily and continue senna 1 tablet daily. If no bowel movement in 2 days then administer 1 cap daily until bowel movement then back to half a cap daily. Also we reviewed dose titration with senna as needed if no bowel movement. Goal is to have a bowel movement that is soft, daily to every other day. 6. Debility. Multifactorial with patient's underlying depression, depleted energy, multiple comorbidities. Discussed ambulation within the home at least 1 time a day and then increasing to 3 times a day and gradually increasing distance. This is to help with the patient's endurance and ability to care for herself. Pending evaluation with physical medicine provider at the end of November 2021. Total time spent 55 minutes with greater than 50% of the spent in counseling and coordination of care with the patient and daughter; review of medication purpose, dose, and side effects Supportive listening. Pain and symptom management; and anticipatory guidance. Disclaimer: The chart note was formulated using voice recognition technology and unfortunately sound alike errors may occur.
== END 2021-11-10 14:41 | disposition home or self-care (01) ==
LOC: PC 14:40
PROVIDERS: ATTEND Nurse Practitioner Family
DX: Z51.5 Encounter for palliative care (principal); R10.2 Pelvic and perineal pain; F41.0 Panic disorder [episodic paroxysmal anxiety]; F32.A Depression, unspecified; R41.89 Other symptoms and signs involving cognitive functions and awareness; R53.81 Other malaise; K59.03 Drug induced constipation; T40.2X5A Adverse effect of other opioids, initial encounter; R19.7 Diarrhea, unspecified; Z85.51 Personal history of malignant neoplasm of bladder; Z79.899 Other long term (current) drug therapy; Z79.891 Long term (current) use of opiate analgesic; Z79.01 Long term (current) use of anticoagulants; R39.82 Chronic bladder pain; R63.4 Abnormal weight loss; R63.0 Anorexia; J44.9 Chronic obstructive pulmonary disease, unspecified; Z99.81 Dependence on supplemental oxygen; Z87.891 Personal history of nicotine dependence
CPT/HCPCS: 99349

== ENCOUNTER 2021-11-29 15:10 | Outpatient (CLI) | payer MEDICARE, OTHER ==
--- NOTE | 2021-11-29 17:21 | CONSULTATION NOTE ---
Palliative Care Follow Up - Referral Referring Provider: DIAMOND Frankel Time of Visit: [id number] Referral setting: Home Referral Reason: Anxiety and Depression/GERD/Bladder pain with LUTS - Information Sources Records reviewed: Previous records reviewed History/Review of Systems obtained from: Patient, Family (daughter/CHRISTINA Hillman) Exam limitations: Clinical condition (+INAJA, mild forgetfulness) - History of Present Illness Update Brief HPI Update: This is an 86-year-old female who was seen in fall today due to suprapubic pain in the setting of history of bladder cancer, LUTS symptoms, anxiety, and depression with her daughter present in the home. Patient continues to perseverate on her strong desire to return home to [facility] not recognizing her limitations physically and that she is in a different state than she was when she presented to [facility] approximately 3 years ago. She has had deconditioning due to multiple health complications including presently being on supplemental oxygen which she was not on previously. She recently met with a physical medicine provider, Dr. Mercedes who has formulated a strengthening plan for the patient and this is to be implemented by [facility] PT and OT department and is pending to be set up. Daughter reports she is also working on getting a transfer chair for the car as well as an elevated toilet seat. The plan is to follow-up with the functional medicine provider in 2 to 3 months. Since last evaluation due to the patient's underlying anxiety and depression she was started on Abilify 2 mg nightly. Daughter reports that this has made a difference in the patient's overall mood and engagement. When she rises for the day she is "up" and is chatting more and more engaged. This is begun to be more obvious over the last week. Daughter reports that the patient becomes winded and fatigued easily during ambulation. For example, when going to the [facility] to see the physical medicine doctor she was unable to walk from the car to the escalator however, the patient herself does not recall this She is scheduled to see her puller through later this week as well as having a CT scan. Daughter plans on bringing up concerns regarding the patient's functional level relating to her breathing. Patient herself reports that her suprapubic pain is presently well controlled taking oxycodone 5 mg twice a day and intermittently if she needs it she will take an extra oxycodone by asking her daughter but this is not a daily occurrence. Past Medical History: Patient has a past medical history of congestive heart failure, hypertension, hyperlipidemia, DVT, atrial fibrillation, arrhythmia, pulmonary hypertension, COPD on supplemental oxygen, pneumonia, peripheral neuropathy, GERD, C. difficile, hemorrhoids, incontinence, chronic vision loss, chronic sinusitis, chronic hearing loss not wearing hearing aids, insomnia, depression, anxiety, osteoarthritis, osteoporosis, fatigue, former tobacco use, bladder cancer 2020, CKD stage IV, pulmonary nodule, history of lung collapse 2/2 lung biopsy. Social History - Living Situation Living arrangement: At home Living Situation: With family (daughter/DPNEGRA, Sesar) Support System: Since early July 2019 the patient was residing with her daughter, Sesar in [place]. She came to [facility] for cataract surgery and due to the coronavirus pandemic was unable to return to her apartment in [facility] which is in [facility] as well as health complications. The patient grew up in [place] [facility]. 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 She is . She has 2 children, a son and daughter. Her daughter Sesar, is her DPOA who resides in [facility] and her son resides in [place]. After the patient underwent an evaluation for hematuria with cystoscopy in July 2020 the patient had postop complications and then was discharged to a rehabilitation facility, [facility] where she was until the Fall 2020 when she returned home with her daughter. Her son is paying for her apartment in [facility] to hold onto her sculptures. She has a strong desire to return to [facility] and today reports that her son has said she could go back to [facility], which he has not said per daughter. Patient also states that providers she has recently seen, urologist and physical medicine physician have all said she would be able to go back to [facility] which the daughter states has not been the case. Followed by Palliative Care Plant Nursery Worker. Medications/Allergies - Medications Home Medications: Ambulatory Orders Medication Instructions Recorded Confirmed Albuterol Sulf [Ventolin Hfa 1 - 2 puffs INH Q4HR 08/31/19 06/20/21 Inhaler] Azelastine HCl 1 spray ELENI QPM 08/31/19 06/20/21 Fluticasone [Flonase] 1 spray ELENI DAILY 08/31/19 06/20/21 [id number] 2 tbs PO DAILY 07/14/20 Metoprolol Succinate [Toprol Xl] 75 mg PO DAILY 07/14/20 06/20/21 Sildenafil Citrate [Sildenafil] 10 mg PO BID 07/14/20 06/20/21 Torsemide 20 mg ORAL DAILY 07/14/20 06/20/21 Apixaban [Eliquis] 2.5 mg ORAL BID 06/20/21 06/20/21 Tiotropium Br/Olodaterol HCl 2 puffs IH DAILY 06/20/21 06/20/21 [Stiolto Respimat Inhal [place]] Levothyroxine Sodium 1 tab PO DAILY 09/08/21 [Levothyroxine] oxyCODONE [Roxicodone] 5 mg PO Q4H PRN 09/08/21 09/08/21 Cyclosporine [Restasis Multidose] 1 amp EACHEYE BID 09/14/21 09/14/21 Escitalopram Oxalate [Lexapro] 10 mg PO DAILY 09/14/21 09/14/21 LORazepam [Ativan] 0.25 mg PO BID 09/14/21 09/14/21 Magnesium Hydroxide [Milk of 30 ml PO DAILY PRN MDD no BM in 3 09/14/21 09/14/21 Magnesia] days Mirabegron [Myrbetriq] 25 mg PO DAILY 09/14/21 09/14/21 Naloxone HCl Nasal [Narcan Nasal] MDD as directed 09/14/21 Omeprazole Magnesium 20 mg PO DAILY 09/14/21 09/14/21 Senna [Senokot] 1 tab PO DAILY 10/06/21 10/06/21 Senna [Senokot] 2 tab PO Q4H PRN MDD NTE 12tab/24h 10/06/21 10/06/21 if no BM in 48h polyethylene glycoL 3350 [Miralax] 0.5 cap ORAL QPM 10/06/21 10/06/21 oxyCODONE [Roxicodone] 5 mg PO BID 10/13/21 10/13/21 Aripiprazole [Abilify] 2 mg PO QPM 11/13/21 11/13/21 - Allergies Allergies/Adverse Reactions: Allergies Allergy/AdvReac Type Severity Reaction Status Date / Time No Known Drug Allergies Allergy Verified 10/05/21 21:04 Review of Systems - Constitutional Constitutional: reports: Poor appetite, Weight loss ( 102lb; previous weight 106lb). denies: Fever - Eyes Eyes: reports: Corrective lenses - Ears, Nose & Throat Ears, Nose & Throat: reports: Hearing loss, Hearing aids (will not wear heaing aids), Other (missing two front teeth that she is self concious about) - Cardiovascular Cardiovascular: reports: Decr. exercise tolerance. denies: Edema - Respiratory Respiratory: reports: SOB with exertion, Other (supplemental oxygen in place). denies: Wheezing - Gastrointestinal Gastrointestinal: reports: Poor appetite. denies: Constipation (reports regular, soft bowel movements daily to every other day), Nausea - Genitourinary Genitourinary: reports: Incontinence, Other (suprapubic pain, improved with oxycodone 5mg BID). denies: Dysuria, Frequency - Musculoskeletal Musculoskeletal: reports: Muscle weakness, Assistive devices - Integumentary Integumentary: reports: Dryness - Neurological Neurological: reports: General weakness, Memory problems (does to recall events when she was in [facility] facility) - Psychiatric Psychiatric: reports: Depression, Anxiety, Other (Insomnnia) - Hematologic/Lymphatic Hematologic/Lymph: reports: Bruising (bruises easily) - All Other Systems All Other Systems: reports: Reviewed and negative (supplemented by daughter as patient is INAJA) Physical Exam - Vital Signs Temperature: 36.7 C Pulse Rate: 68 O2 Saturation: 98 (on 2L via NC) Blood Pressure: 124/72 - Physical Exam General Appearance: positive: No acute distress, Alert, Cachetic (well groomed and dressed today; muscular atrophy that is generalized), Other Eyes Bilateral: positive: Normal inspection ENT: positive: No signs of dehydration Neck: positive: Trachea midline Cardiovascular: positive: Irregularly irregular, Systolic murmur (+2/6 GUTIERREZ) Respiratory: positive: No respiratory distress, Breath sounds nml, Other (supplemental oxyge in place; able to speak in full sentances) Abdomen: positive: Non-tender, Soft, Nml bowel sounds, Other (bladder nondistended and nontender to palpation) Skin: positive: Dryness Extremities: positive: No pedal edema, Other (+Lumbar lordosis) Neurologic/Psychiatric: positive: Oriented x3 (STM impairment noted intermittently and with physical medicine MD unable to complete formal cognitive testing per daughter), Weakness, Other (Noted improved mood from last evaluaton and will become fixated on idea of returning to [facility] and constantly bring the conversation back to that point) Palliative Care - POLST Patient has POLST: No POLST Status: Full Code Pain: Pain improved (supra) Feelings of wellbeing/Perceived Quality of Life: Poor (wants to be in her apartment in [facility]) Sleep: Sleep improved Constipation: Yes, Opoid induced, Managed - Palliative Care Discussion: Patient has not been displaying strong evidence for depressive symptoms and anxiety with her anxiety under better control after increase of Lexapro but due to depressive symptoms Abilify was introduced with positive benefit and tolerance. There has been an overall uplift in the patient's overall mood over the last several weeks most specifically in the last week. The patient continues to ruminate when returning back to [facility]. In lengthily, cheated discussion the patient feels alive per her report when having this discussion in regards to her return to [facility]. She has been unhappy being present on [facility] for the last 3 years and strongly wishes to return home. She does not recognize her limitations however, she will articulate what her barriers are but has not been making any steps to improve this. For example, she is not ambulating to the mailbox or her within the home. She has not always follow through on recommendations by other providers. She perceives that other providers have commented that she would be able to return home despite this not being the case per her daughter and has a skewed perception. The patient herself even admits that she is "happy when I get what I want." This is a very honest admission. Continue to set expectations with the patient not to eliminate hope about her return to [facility] and her sculptures however, the task at hand is to focus on improving her strength and endurance level as well as her overall mood. She continues to have support from the palliative care procedure tech. Impression and Recommendations - Palliative Care Impression: This is an 86-year-old female with multiple cardiac and pulmonary comorbidities including pulmonary hypertension, COPD, CHF in the setting of history of bladder cancer, LUTS symptoms with suprapubic pain, depression, anxiety and debility. Pain is presently well controlled with oxycodone 5 mg twice daily. Depressive symptoms have also improved with introduction of Abilify 2 mg daily with Lexapro 10 mg daily. Patient continues to have unrealistic expectations regarding her ability to return to [facility]. Palliative care will continue to explore goals of care, provide support, symptom management, care coordination and anticipatory guidance. Recommendations/Counseling Done: 1. Depression. Improvement noted. Continue Abilify 2 mg at bedtime. Continue Lexapro 10 mg daily. Continue support from palliative care procedure tech. 2. Anxiety with history of panic attacks. Stable. Continue Lexapro 10 mg daily. Continue lorazepam 0.25 mg twice daily with goal to gradually taper in the future. Continue support from palliative care procedure tech. 3. GERD. Stable. Continue omeprazole 20 mg grams daily as prescribed. 4. Suprapubic pain. History of bladder cancer. Status post abdominal MRI on 10/04/2021 and status post urology oncology appointment on 10/12 with interpretation of MRI with no evidence of metastatic disease. Moving forward the patient would prefer to focus on symptom management and discontinue cancer surveillance given she is not stable candidate or candidate for other therapy should she have a recurrence. Overactive bladder may be contributing to some of her suprapubic pain and this has stabilized with Myrbetriq 25 mg daily. Continue oxycodone 5 mg daily for pain control. Narcan is in the home. Continue to monitor and adjust medication as needed. 5. Debility. Multifactorial with patient's underlying depression, pulmonary cachexia, and deconditioning with multiple comorbidities contributing. Scheduled to work with outpatient physical therapy and Occupational Therapy with Liam and status post physical medicine provider in November 2021. 6. Advance care planning. Patient continues to have unrealistic expectations regarding returning to her apartment in [facility]. She has not been open to looking at setting goals and working towards those goals in order to achieve her desired and goal. She has a singular focused mindset and would continue to benefit from consistency regarding communication on goals and support from physical therapy services as well as the palliative care procedure tech. Total time spent 50 minutes with greater than 50% of the spent in counseling coronation of care with the patient and daughter; examination of patient; review of symptoms and management; setting expectations; supportive listening; and anticipatory guidance. Disclaimer: The chart note was formulated using voice recognition technology and unfortunately sound alike errors may occur.
== END 2021-11-29 15:11 | disposition home or self-care (01) ==
LOC: PC 15:10
PROVIDERS: ATTEND Nurse Practitioner Family
DX: Z51.5 Encounter for palliative care (principal); F32.A Depression, unspecified; F41.9 Anxiety disorder, unspecified; K21.9 Gastro-esophageal reflux disease without esophagitis; R10.30 Lower abdominal pain, unspecified; R53.81 Other malaise; Z87.891 Personal history of nicotine dependence
CPT/HCPCS: 99349

== ENCOUNTER 2022-03-14 11:23 | Outpatient (CLI) | payer MEDICARE, OTHER | END 2022-03-14 11:24 | disposition home or self-care (01) | LOC: LAB 11:23 | PROVIDERS: ATTEND Internal Medicine | DX: J43.1 Panlobular emphysema (principal); J96.11 Chronic respiratory failure with hypoxia | CPT/HCPCS: 87070; 87077; 87101; 87181; 87205 ==

== ENCOUNTER 2022-04-26 16:05 | Outpatient (CLI) | payer MEDICARE, OTHER ==
[2022-04-26 16:20] LABS: BASOPHILS # (AUTO) 0.1 10^3/uL (0.0-0.1); BASOPHILS % (AUTO) 1.3 %; EOSINOPHILS # (AUTO) 0.1 10^3/uL (0.0-0.7); EOSINOPHILS % (AUTO) 2.1 %; HCT - HEMATOCRIT 35.4 % (37.0-47.0); HGB - HEMOGLOBIN 10.8 g/dL (12.0-16.0); LYMPHOCYTES # (AUTO) 1.1 10^3/uL (1.5-3.5); LYMPHOCYTES % (AUTO) 20.1 %; MEAN CORPUSCULAR HEMOGLOBIN 26.2 pg (27.0-31.0); MEAN CORPUSCULAR HGB CONC 30.5 g/dL (32.0-36.0); MEAN CORPUSCULAR VOLUME 85.9 fL (81.0-99.0); MEAN PLATELET VOLUME 9.9 fL (7.9-10.8); MONOCYTES # (AUTO) 0.4 10^3/uL (0.0-1.0); MONOCYTES % (AUTO) 7.8 %; NEUTROPHILS # (AUTO) 3.6 10^3/uL (1.5-6.6); NEUTROPHILS % (AUTO) 68.3 %; PLT - PLATELET COUNT 231 10^3/uL (130-450); RED BLOOD COUNT 4.12 10^6/uL (4.20-5.40); RED CELL DISTRIBUTION WIDTH 16.1 % (12.0-15.0); WHITE BLOOD COUNT 5.2 x10^3/uL (4.8-10.8)
[2022-04-26 16:34] LABS: ALBUMIN 3.6 g/dL (3.2-5.5); ALBUMIN/GLOBULIN RATIO 1.2 (1.0-2.2); BILIRUBIN,TOTAL 0.9 mg/dL (0.2-1.0); CALCIUM 9.2 mg/dL (8.5-10.3); CREATININE 1.1 mg/dL (0.4-1.0); POTASSIUM 4.4 mmol/L (3.5-5.0); TOTAL PROTEIN 6.7 g/dL (6.7-8.2)
[2022-04-26 16:50] LABS: THYROID STIMULATING HORMONE 2.49 uIU/mL (0.34-5.60)
[2022-04-26 16:52] LABS: FREE T4 (FREE THYROXINE) 1.39 ng/dL (0.58-1.64)
== END 2022-04-26 16:06 | disposition home or self-care (01) ==
LOC: LAB 16:05
PROVIDERS: ATTEND Nurse Practitioner
DX: E03.9 Hypothyroidism, unspecified (principal); R53.83 Other fatigue
CPT/HCPCS: 36415; 80053; 84439; 84443; 85025

== ENCOUNTER 2022-04-27 02:03 | Outpatient (CLI) | payer MEDICARE, OTHER, MEDICAID | END 2022-04-27 02:04 | disposition critical access hospital (66) | LOC: EMS 02:03 | DX: R06.02 Shortness of breath (principal); R06.2 Wheezing; I48.91 Unspecified atrial fibrillation; J44.9 Chronic obstructive pulmonary disease, unspecified; Z99.81 Dependence on supplemental oxygen | CPT/HCPCS: A0425; A0427 ==

== ENCOUNTER 2022-04-27 02:10 | Inpatient (IN) | payer MEDICARE, OTHER, MEDICAID ==
--- NOTE | 2022-04-27 02:14 | ED Physician Documentation ---
PD HPI DYSPNEA - Stated complaint Stated Complaint: SOA - History obtained from History obtained from: Patient (limited HPI/ROS due to severe dyspnea), Family (daughter (arrives later in ED stay)), EMS - History of Present Illness Timing - onset: Today Timing - details: Abrupt onset Improved by: O2, Inhaler/neb Associated symptoms: Diaphoresis, Bilateral edema. No: Fever, Cough, Hemoptysis, Wheezing, Chest pain / discomfort Similar symptoms before: Diagnosis (CHF, COPD) Recently seen: Clinic (seen by her needle polisher yesterday (Dr. Lees)) - Additional information Additional information: BIBA for dyspnea, waxing and waning x 1-2 days but rapidly worsening 1-2 hours CHILD & ADOLESCENT PSYCHIATRIST and severe by the time EMS arrived. EMS note mid-90s pulse ox on NRB mask but severe tachypnea, diaphoresis, unable to speak due to severe dyspnea. They administered duoneb followed by albuterol neb and gave 125mg IV solumedrol with mild improvement en route. On arrival patient is in severe respiratory distress, mostly unable to verbally communicate due to respiratory distress; she does answer questions with shaking/nodding head. She is able to verbalize to me that she would want whatever measures are necessary , specifically she would be willing to be intubated/mechanically ventilated if need be. Review of Systems Unable to obtain: Other (limited due to extreme dyspnea) Constitutional: denies: Fever Cardiac: reports: Pedal edema. denies: Chest pain / pressure Respiratory: reports: Dyspnea. denies: Cough PD PAST MEDICAL HISTORY - Past Medical History Past Medical History: Yes Cardiovascular: Congestive heart failure, Hypertension, Atrial fibrillation Respiratory: COPD (uses 2liters/min NC at home) Other Past Medical History: pulmonary hypertension, chronic kidney disease - Past Surgical History Past Surgical History: Yes HEENT: Cataracts Other past surgical history: TURBT - Present Medications Home Medications: Ambulatory Orders Medication Instructions Recorded Confirmed ARIPiprazole [Abilify Mycite] 2 mg PO DAILY 04/27/22 04/27/22 Apixaban [Eliquis] 2.5 mg PO DAILY 04/27/22 04/27/22 Escitalopram [Lexapro] 10 mg PO DAILY 04/27/22 04/27/22 LORazepam [Ativan] 0.5 mg PO BID 04/27/22 04/27/22 Levothyroxine Sodium 0.05 mg PO DAILY 04/27/22 04/27/22 [Levothyroxine] Mirabegron [Myrbetriq] 25 mg PO DAILY 04/27/22 04/27/22 Omeprazole 20 mg PO DAILY 04/27/22 04/27/22 Sildenafil Citrate [Sildenafil] 20 mg PO DAILY 04/27/22 04/27/22 Tiotropium Br/Olodaterol HCl 2 puffs INH DAILY 04/27/22 04/27/22 [Stiolto Respimat Inhal [place]] Torsemide [Soaanz] 20 mg PO DAILY 04/27/22 04/27/22 bisoproloL fumarate [Bisoprolol 10 mg PO 04/27/22 Fumarate] oxyCODONE [Roxicodone] 2.5 mg PO BID 04/27/22 04/27/22 - Allergies Allergies/Adverse Reactions: Allergies Allergy/AdvReac Type Severity Reaction Status Date / Time No Known Drug Allergies Allergy Verified 04/27/22 02:19 PD ED PE NORMAL - Vitals Vital signs reviewed: Yes - General General: Well developed/nourished, Other (severe respiratory distress, using accessory muscles, mostly unable to verbalize due to dyspnea; diaphoretic) - Neck Neck: No JVD - Abdomen Abdomen: Soft, Non tender PD ED PE EXPANDED - Cardiac Cardiac: Tachy, Irregularly irregular - Respiratory Respiratory: Distress, Labored, Accessory mm use, Wheezing, Rales, Decreased breath sounds - Derm Derm: Diaphoretic - Extremities Extremities: Pedal edema bilateral Results - Vitals Vitals: Vital Signs - 24 hr 04/27/22 04/27/22 04/27/22 02:19 02:25 02:32 Temperature 36.3 C L Heart Rate 133 H 130 H 128 H Respiratory 36 H 26 H 30 H Rate Blood Pressure 166/124 H 130/107 H O2 Saturation 97 99 97 If not protocol : Oxygen Flow, liters/minute 04/27/22 04/27/22 04/27/22 02:43 02:45 02:50 Temperature Heart Rate 137 H 131 H 122 H Respiratory 39 H 38 H Rate Blood Pressure 144/107 H O2 Saturation 96 If not protocol : Oxygen Flow, liters/minute 04/27/22 04/27/22 04/27/22 02:56 02:58 03:01 Temperature Heart Rate 129 H 115 H 124 H Respiratory 23 24 21 Rate Blood Pressure 123/94 H O2 Saturation 99 100 If not protocol : Oxygen Flow, liters/minute 04/27/22 04/27/22 04/27/22 03:41 04:09 04:36 Temperature Heart Rate 124 H 111 H 134 H Respiratory 24 20 30 H Rate Blood Pressure 109/71 90/71 135/97 H O2 Saturation 94 If not protocol : Oxygen Flow, liters/minute 04/27/22 04/27/22 04/27/22 04:41 05:00 05:30 Temperature Heart Rate 130 H 133 H 123 H Respiratory 28 H 28 H 26 H Rate Blood Pressure 111/90 H 138/97 H O2 Saturation 93 93 95 If not protocol 2 2 2 : Oxygen Flow, liters/minute 04/27/22 04/27/22 04/27/22 05:59 06:00 06:23 Temperature Heart Rate 111 H 107 H 109 H Respiratory 25 H 24 22 Rate Blood Pressure 138/93 H 119/89 H 119/90 H O2 Saturation 93 93 93 If not protocol 2 2 2 : Oxygen Flow, liters/minute 04/27/22 04/27/22 04/27/22 07:00 07:30 07:51 Temperature Heart Rate 125 H 118 H Respiratory 19 19 Rate Blood Pressure 140/112 H 105/68 O2 Saturation 96 96 If not protocol 2 2 2 : Oxygen Flow, liters/minute 04/27/22 04/27/22 08:00 08:30 Temperature Heart Rate 114 H 112 H Respiratory 20 18 Rate Blood Pressure 112/81 H 112/77 O2 Saturation 95 95 If not protocol 2 2 : Oxygen Flow, liters/minute Oxygen O2 Source Nasal cannula Oxygen Flow Rate 2 - EKG (time done) No standard instances Rate: Rate (enter#) (119) Rhythm: Atrial fibrillation [place]: Normal Ischemia: Normal ST segments - Labs Labs: Laboratory Tests 04/27/22 04/27/22 04/27/22 02:26 02:26 02:26 WBC 7.8 RBC 4.56 Hgb 11.8 L Hct 39.6 MCV 86.8 MCH 25.9 L MCHC 29.8 L RDW 16.1 H Plt Count 282 MPV 10.3 Neut # (Auto) 3.9 Lymph # (Auto) 3.1 Dillon # (Auto) 0.6 Eos # (Auto) 0.1 Baso # (Auto) 0.1 Absolute Nucleated RBC 0.00 Nucleated RBC % 0.0 Sodium 134 L Potassium 4.2 Chloride 95 L Carbon Dioxide 27 Anion Gap 12.0 BUN 36 H Creatinine 1.4 H Estimated GFR (MDRD) 35 L Glucose 322 H Calcium 9.1 Total Bilirubin 0.8 AST 275 H ALT 208 H Alkaline Phosphatase 134 H Troponin I High Sens B-Natriuretic Peptide 1237 H Total Protein 7.4 Albumin 4.0 Globulin 3.4 Albumin/Globulin Ratio 1.2 Lipase 31 Nasal Adenovirus (PCR) Nasal B. parapertussis DNA (PCR) Nasal Coronavir 229E PCR Nasal Coronavir HKU1 PCR Nasal Coronavir NL63 PCR Nasal Coronavir OC43 PCR Nasal Enterovir/Rhinovir PCR Nasal Influenza B PCR Nasal Influenza A PCR Nasal Parainfluen 1 PCR Nasal Parainfluen 2 PCR Nasal Parainfluen 3 PCR Nasal Parainfluen 4 PCR Nasal RSV (PCR) Nasal B.pertussis DNA PCR Nasal C.pneumoniae (PCR) Jacky Human Metapneumo PCR Nasal M.pneumoniae (PCR) Nasal SARS-CoV-2 (PCR) 04/27/22 04/27/22 02:26 04:30 WBC RBC Hgb Hct MCV MCH MCHC RDW Plt Count MPV Neut # (Auto) Lymph # (Auto) Dillon # (Auto) Eos # (Auto) Baso # (Auto) Absolute Nucleated RBC Nucleated RBC % Sodium Potassium Chloride Carbon Dioxide Anion Gap BUN Creatinine Estimated GFR (MDRD) Glucose Calcium Total Bilirubin AST ALT Alkaline Phosphatase Troponin I High Sens 21.7 H* B-Natriuretic Peptide Total Protein Albumin Globulin Albumin/Globulin Ratio Lipase Nasal Adenovirus (PCR) NOT DETECTED Nasal B. parapertussis DNA (PCR) NOT DETECTED Nasal Coronavir 229E PCR NOT DETECTED Nasal Coronavir HKU1 PCR NOT DETECTED Nasal Coronavir NL63 PCR NOT DETECTED Nasal Coronavir OC43 PCR NOT DETECTED Nasal Enterovir/Rhinovir PCR NOT DETECTED Nasal Influenza B PCR NOT DETECTED Nasal Influenza A PCR NOT DETECTED Nasal Parainfluen 1 PCR NOT DETECTED Nasal Parainfluen 2 PCR NOT DETECTED Nasal Parainfluen 3 PCR NOT DETECTED Nasal Parainfluen 4 PCR NOT DETECTED Nasal RSV (PCR) NOT DETECTED Nasal B.pertussis DNA PCR NOT DETECTED Nasal C.pneumoniae (PCR) NOT DETECTED Jacky Human Metapneumo PCR NOT DETECTED Nasal M.pneumoniae (PCR) NOT DETECTED Nasal SARS-CoV-2 (PCR) NOT DETECTED - Rads (name of study) chest xray Radiology: Prelim report reviewed, See rad report PD MEDICAL DECISION MAKING - ED course Complexity details: reviewed old records, reviewed results, re-evaluated patient, considered differential, d/w patient, d/w family ED course: Patient arrives in severe respiratory distress but has gradual but remarkable improvement with bipap. She is given albuterol neb (also received duoneb and albuterol neb by EMS), 1mg IV lorazepam (to help tolerate the bipap), and 40mg IV lasix. Late in stay she is given 1mg/kg SQ lovenox (chronic atrial fibrillation for which she takes eliquis, but given the severity of respiratory distress on presentation, I was wary of PO medications until more observation off of the bipap could be achieved). She had brief period of borderline low BP (90 sbp although diastolic of 71), but bp subsequently improved without specific intervention. She was eventually given 5mg IV lopressor for persistent NIKA that was no longer in proportion to any overt respiratory distress as well as 2mg IV morphine for chronic pain (takes oxycodone at home). Daughter says patient was evaluated by her needle polisher yesterday and she was changed from metoprolol to bisoprolol due to poor rate control with the metoprolol. BNP is over 1200 and CXR interpreted by radiology as "pulmonary edema with small right pleural effusion and trace left pleural effusion. Bibasilar consolidation. differential considerations include atelectasis, pneumonia". I suspect tonight's dyspnea is most likely due to CHF, possibly complicated by COPD. She was weaned off of bipap and maintained low-mid 90s pulse ox on 3 liters NC. Telehealth consulted , defers to daytime hospitalist Late in ED stay, patient's daughter filled out a POLST along with the patient which indicates patient is FULL CODE. Daughter says that despite patient's medical history, this is the first POLST form patient has filled out Departure - Departure Disposition: 66 [facility] DC/Xfer Clinical Impression: Congestive heart failure Qualifiers: Heart failure type: unspecified Heart failure chronicity: acute on chronic Qualified Code(s): I50.9 - Heart failure, unspecified Condition: Stable
[2022-04-27] MEDS ORDERED: ALBUTEROL NEB 2.5 MG/3 ML INH STA (02:15)
[2022-04-27 02:33] LABS: BASOPHILS # (AUTO) 0.1 10^3/uL (0.0-0.1); BASOPHILS % (AUTO) 1.3 %; EOSINOPHILS # (AUTO) 0.1 10^3/uL (0.0-0.7); EOSINOPHILS % (AUTO) 1.5 %; HCT - HEMATOCRIT 39.6 % (37.0-47.0); HGB - HEMOGLOBIN 11.8 g/dL (12.0-16.0); LYMPHOCYTES # (AUTO) 3.1 10^3/uL (1.5-3.5); LYMPHOCYTES % (AUTO) 39.8 %; MEAN CORPUSCULAR HEMOGLOBIN 25.9 pg (27.0-31.0); MEAN CORPUSCULAR HGB CONC 29.8 g/dL (32.0-36.0); MEAN CORPUSCULAR VOLUME 86.8 fL (81.0-99.0); MEAN PLATELET VOLUME 10.3 fL (7.9-10.8); MONOCYTES # (AUTO) 0.6 10^3/uL (0.0-1.0); MONOCYTES % (AUTO) 7.2 %; NEUTROPHILS # (AUTO) 3.9 10^3/uL (1.5-6.6); NEUTROPHILS % (AUTO) 49.9 %; PLT - PLATELET COUNT 282 10^3/uL (130-450); RED BLOOD COUNT 4.56 10^6/uL (4.20-5.40); RED CELL DISTRIBUTION WIDTH 16.1 % (12.0-15.0); WHITE BLOOD COUNT 7.8 x10^3/uL (4.8-10.8)
[2022-04-27 02:45] LABS: ALBUMIN/GLOBULIN RATIO 1.2 (1.0-2.2); BILIRUBIN,TOTAL 0.8 mg/dL (0.2-1.0); CALCIUM 9.1 mg/dL (8.5-10.3); CREATININE 1.4 mg/dL (0.4-1.0); POTASSIUM 4.2 mmol/L (3.5-5.0); TOTAL PROTEIN 7.4 g/dL (6.7-8.2)
[2022-04-27] MEDS ORDERED: LORazepam 2 MG/ML VIAL IVP STA (02:49)
[2022-04-27] MEDS ORDERED: FUROSEMIDE 40 MG/4 ML VIAL IVP STA (03:04)
[2022-04-27] MEDS ORDERED: ENOXAPARIN 60 MG/0.6 ML SYRINGE SUBQ STA (05:14)
[2022-04-27 05:31] LABS: B. PARAPERTUSSIS- RESP PCR PAN NOT DETECTED; B. PERTUSSIS- RESP PCR PANEL NOT DETECTED; C. PNEUMONIAE- RESP PCR PANEL NOT DETECTED; CORONAVIRUS 229E-RESP PCR NOT DETECTED; CORONAVIRUS HKU1-RESP PCR NOT DETECTED; CORONAVIRUS NL63-RESP PCR NOT DETECTED; CORONAVIRUS OC43-RESP PCR NOT DETECTED; HUMAN METAPNEUMOVIRUS NOT DETECTED; INFLUENZA A- RESP PCR PANEL NOT DETECTED; INFLUENZA B - RESP PCR PANEL NOT DETECTED; M. PNEUMONIAE- RESP PCR PANEL NOT DETECTED; PARAINFLUENZA VIRUS 1 NOT DETECTED; PARAINFLUENZA VIRUS 2 NOT DETECTED; PARAINFLUENZA VIRUS 3 NOT DETECTED; PARAINFLUENZA VIRUS 4 NOT DETECTED; RHINOVIRUS/ENTEROVIRUS NOT DETECTED; RSV- RESP PCR PANEL NOT DETECTED; SARS-CoV-2 -RESP PCR PANEL NOT DETECTED
[2022-04-27] MEDS ORDERED: MORPHINE 2 MG/ML CARPUJECT IVP STA (05:49)
[2022-04-27] MEDS ORDERED: METOPROLOL 5 MG/5 ML VIAL IVP STA (05:49)
--- NOTE | 2022-04-27 06:08 | PROVIDER PROGRESS NOTE ---
Shovel Mechanic Note - Shovel Mechanic Note Shovel Mechanic Note: *Pre-Admit Note* Ms Aviles presents to ER with severe dyspnea/tachypnea, unable to talk, requiring BIPAP. Hx COPD, pulm HTN, A fib. Treated with nebs, steroids, lasix. CXR shows pulmonary edema. Weaned down to nasal cannula. A fib with RVR. Pt was changed from metoprolol to bisoprolol by cosmetic account coordinator outpatient yesterday for poor rate control. Received IV metoprolol in ER and subq lovenox therapeutic (home med Eliquis). Continue to monitor closely. Preliminary admission orders placed, per ER physician patient is stable for med/tele. Complete H&P pending evaluation by admitting physician oncoming 7 am.
[2022-04-27] MEDS ORDERED: ACETAMINOPHEN 325 MG TABLET PO PRN (06:10)
[2022-04-27] MEDS ORDERED: ONDANSETRON 4 MG/2 ML VIAL IVP PRN (06:10)
[2022-04-27] MEDS ORDERED: IPRATROPIUM/ALBUTEROL 3 ML NEB INH PRN (06:14)
--- NOTE | 2022-04-27 06:16 | XRAY Report ---
PROCEDURE: Chest 1 View X-Ray INDICATIONS: dyspnea TECHNIQUE: One view of the chest was acquired. COMPARISON: None FINDINGS: Surgical changes and devices: Pacemaker is noted. Lungs and pleura: Mild bilateral effusions are present, left greater than right. There are areas of superimposed bibasilar opacity. Increased interstitial markings are present. Mediastinum: Mediastinal contours appear normal. Heart size is enlarged. Bones and chest wall: No suspicious bony lesions. Overlying soft tissues appear unremarkable. IMPRESSION: Mild bilateral effusions with bibasilar opacities. The latter could represent pneumonia, focal edema and/or atelectasis. Increased pulmonary vascularity suggestive of edema. Reviewed by: Rebecca Liz MD on 04/27/2022 6:15 AM PDT Approved by: Rebecca Liz MD on 04/27/2022 6:15 AM PDT Station ID: [id number]
[2022-04-27] MEDS: SODIUM CHLORIDE FLUSH 0.9% 10 ML SYRINGE IVP SCH ×3 (08:53→21:22)
[2022-04-27] MEDS ORDERED: AZITHROMYCIN 250 MG TABLET PO STA (11:11)
--- NOTE | 2022-04-27 11:18 | HISTORY & PHYSICAL EXAMINATION ---
Chief Complaint - Chief Complaint Chief Complaint: SOB <Sejal Barcenas - Last Filed: 04/28/22 09:06> History of Present Illness - Admitted From Admitted From:: ED - History Obtained From History obtained from: Telemedicine Dr frannie montes, ED Dr and the pt's daughter at bedside <PrabhakarlibradoSejal Baldwin - Last Filed: 04/28/22 09:06> - History of Present Illness HPI Comment/Other: This is an 87-year-old white female with a history of COPD on 2L of O2 continuously, CHF (unknown type) and A. fib on Eliquis. She was seen by her Partnership Development Manager yesterday and her beta-lillian metoprolol was changed to bisoprolol because of poor heart rate control. She is on sildenafil suggesting that she has severe pulmonary hypertension. She has never been to this ER before. She lives with her daughter and has been more SOB, doing less and less activity over the past 2 weeks, gets nightly "panic attacks" telling her daughter she cannot breath. She developed severe shortness of breath this last night, that was rapidly worsening and daughter called an ambulance when she saw that her mother was pale, diaphoretic and gasping for air. On presentation to the ED she was in severe respiratory distress, could barely speak, received IV morphine, IV Lasix, nebulizers, and was put on BiPAP. She had slow improvement in respiratory status and has been tapered down to nasal cannula supplemental oxygen. She was found to be in A. fib with RVR. Her CXR shows pulmonary edema, bilateral pleural effusions and bilateral basilar infiltrates. She is being admitted to the ICU for starting an iv Cardizem drip for rate control and for further management of her severe respiratory failure from CHF and COPD exacerbation with a probable pneumonia, admitted to the Hospitalist service. Her CODE STATUS is Full Code. (Sejal Barcenas) History - Past Medical History Cardiovascular: reports: Congestive heart failure, Hypertension, Atrial fibrillation Respiratory: reports: COPD (uses 2liters/min NC at home) Neuro: reports: None Endocrine/Autoimmune: reports: HyPOthyroidism GI: reports: None INSTRUMENTS SALES REPRESENTATIVE: reports: None : reports: Incontinence HEENT: reports: None Psych: reports: None Musculoskeletal: reports: Other Derm: reports: None MRSA Hx?: No Other Past Medical History: pulmonary hypertension, chronic kidney disease - Past Surgical History HEENT: reports: Cataracts Other past surgical history: TURBT - Family & Social History Family History: Mother: , Father: Family History Comment/Other: She has 2 adult children who are healthy Living arrangement: At home Living Situation: With family Social History Notes: 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 She moved here from [facility] 2 years ago, however still has her sculpters in her [facility] residence which she wants to oversee moving them here, but understands that air travel is difficult given her COPD requiring oxygen. She lives with her daughter, the son lives in [place] and wants the pt to move back to [facility]. The patient no longer drives. The patient is an ex-smoker who quit over 25 years ago. She drinks no alcohol. No illicit drug use. - Substance History Use: Uses substance without health or social issues: NONE - POLST Patient has POLST: No <Sejal Barcenas - Last Filed: 04/28/22 09:06> Meds/Allgy <Raza Glez - Last Filed: 04/28/22 00:55> <Sejal Barcenas - Last Filed: 04/28/22 09:06> - Home Medications Home Medications: Ambulatory Orders Medication Instructions Recorded Confirmed Albuterol Sulf [Ventolin Hfa 1 - 2 puffs INH Q4HR 08/31/19 06/20/21 Inhaler] Azelastine HCl 1 spray ELENI QPM 08/31/19 06/20/21 Fluticasone [Flonase] 1 spray ELENI DAILY 08/31/19 06/20/21 Bjoylor-Scf-O4 2 tbs PO DAILY 07/14/20 Metoprolol Succinate [Toprol Xl] 75 mg PO DAILY 07/14/20 06/20/21 Sildenafil Citrate [Sildenafil] 10 mg PO BID 07/14/20 06/20/21 Torsemide 20 mg ORAL DAILY 07/14/20 06/20/21 Apixaban [Eliquis] 2.5 mg ORAL BID 06/20/21 06/20/21 Tiotropium Br/Olodaterol HCl 2 puffs IH DAILY 06/20/21 06/20/21 [Stiolto Respimat Inhal [place]] Levothyroxine Sodium 1 tab PO DAILY 09/08/21 [Levothyroxine] oxyCODONE [Roxicodone] 5 mg PO Q4H PRN 09/08/21 09/08/21 Cyclosporine [Restasis Multidose] 1 amp EACHEYE BID 09/14/21 09/14/21 Escitalopram Oxalate [Lexapro] 10 mg PO DAILY 09/14/21 09/14/21 LORazepam [Ativan] 0.25 mg PO BID 09/14/21 09/14/21 Magnesium Hydroxide [Milk of 30 ml PO DAILY PRN MDD no BM in 3 09/14/21 09/14/21 Magnesia] days Mirabegron [Myrbetriq] 25 mg PO DAILY 09/14/21 09/14/21 Naloxone HCl Nasal [Narcan Nasal] MDD as directed 09/14/21 Omeprazole Magnesium 20 mg PO DAILY 09/14/21 09/14/21 Senna [Senokot] 1 tab PO DAILY 10/06/21 10/06/21 Senna [Senokot] 2 tab PO Q4H PRN MDD NTE 12tab/24h 10/06/21 10/06/21 if no BM in 48h polyethylene glycoL 3350 [Miralax] 0.5 cap ORAL QPM 10/06/21 10/06/21 oxyCODONE [Roxicodone] 5 mg PO BID 10/13/21 10/13/21 Aripiprazole [Abilify] 2 mg PO QPM 11/13/21 11/13/21 ARIPiprazole [Abilify Mycite] 2 mg PO DAILY 04/27/22 04/27/22 Albuterol Sulf [Ventolin Hfa 2 puffs INH Q4HR PRN 04/27/22 04/27/22 Inhaler] Apixaban [Eliquis] 2.5 mg PO DAILY 04/27/22 04/27/22 Escitalopram [Lexapro] 10 mg PO DAILY 04/27/22 04/27/22 Estrogens, Conjugated Cream 1 gm VG .TWICE WEEKLY 04/27/22 04/27/22 [Premarin Cream] LORazepam [Ativan] 0.5 mg PO BID 04/27/22 04/27/22 Levothyroxine Sodium 0.05 mg PO DAILY 04/27/22 04/27/22 [Levothyroxine] Metoprolol Succinate [Toprol Xl] 75 mg PO DAILY 04/27/22 04/27/22 Mirabegron [Myrbetriq] 25 mg PO DAILY 04/27/22 04/27/22 Omeprazole 20 mg PO DAILY 04/27/22 04/27/22 Sildenafil Citrate [Sildenafil] 20 mg PO DAILY 04/27/22 04/27/22 Tiotropium Br/Olodaterol HCl 2 puffs INH DAILY 04/27/22 04/27/22 [Stiolto Respimat Inhal [place]] Torsemide [Soaanz] 20 mg PO DAILY 04/27/22 04/27/22 bisoproloL fumarate [Bisoprolol 10 mg PO 04/27/22 Fumarate] oxyCODONE [Roxicodone] 2.5 mg PO BID 04/27/22 04/27/22 - Allergies Allergies/Adverse Reactions: Allergies Allergy/AdvReac Type Severity Reaction Status Date / Time No Known Drug Allergies Allergy Verified 04/28/22 08:24 Review of Systems - Constitutional Constitutional: reports: Fatigue, Weakness, Poor appetite - Ears, Nose & Throat Ears, Nose & Throat: reports: Hearing loss, Hearing aids (Still poor hearing, even with hearing aids in place.) - Cardiovascular Cariovascular: reports: Exertional dyspnea, Decr. exercise tolerance, Orthopnea - Respiratory Respiratory: reports: Cough, Wheezing, Orthopnea, SOB at rest, SOB with exertion - Gastrointestinal Gastrointestinal: reports: Other ("Food gets stuck" after every meal. Daughter says she was checked for achalasia and unknown findings. Unknown if she ever had EGD to look for stricture.) - Neurological Neurological: reports: General weakness, Other (R hand tremor, worse when she is nervous) - Psychiatric Psychiatric: reports: Depression, Other (Gets "panic attacks". These have been increasing over the last 2 weeks and occurring every night, as she tries to go to bed. Has insomnia therefore.) - All Other Systems All Other Systems: reports: Reviewed and negative (All information was obtained from the daughter who is at bedside, because the patient is very [place]) <Sejal Barcenas - Last Filed: 04/28/22 09:06> Exam - Physical Exam General Appearance: positive: Mild distress (She is anxious that she cannot hear, her right hand is tremulous which the daughter says is a sign of her being nervous. She is mildly short of breath with speaking, wearing O2 per nasal cannula), Other (Cachectic) Eyes Bilateral: positive: Normal inspection, EOMI ENT: positive: No signs of dehydration Neck: positive: Nml inspection, No JVD (in a vertical sitting position) Respiratory: positive: Wheezes, Other (Poor air movement in all lung tavera. Increased AP diameter.) Cardiovascular: positive: No murmur (Very distant heart sounds), Irregularly irregular, Tachycardia Skin: positive: Warm, Dry Extremities: positive: Non-tender, No pedal edema Neurologic/Psychiatric: positive: Oriented x3, Other (Intermittent tremor of the right hand, at rest, when she is "nervous", not intentional tremor.) <Sejal Barcenas - Last Filed: 04/28/22 09:06> - Vital Signs Vital Signs: Vital Signs x48h Temp Pulse Resp BP Pulse Ox O2 Flow Rate 04/28/22 00:00 36.9 C 100 26 H 154/88 H 93 2 04/27/22 23:00 104 H 22 152/97 H 93 2 04/27/22 22:00 104 H 22 152/92 H 96 2 04/27/22 21:00 100 24 138/104 H 97 2 04/27/22 20:00 36.4 C L 100 28 H 140/78 H 96 2 04/27/22 19:49 2 04/27/22 19:00 103 H 26 H 149/88 H 95 2 04/27/22 18:00 91 20 126/73 96 2 04/27/22 17:00 98 16 133/88 H 97 2 Conclusion/Plan - Lab Results Fish Bones: 04/27/22 02:26 04/27/22 02:26 <Raza Glez - Last Filed: 04/28/22 00:55> - Problem List (1) Acute respiratory failure with hypoxia Conclusion/Plan: This is likely multifactorial: From pulmonary edema, from COPD exacerbation, and from pneumonia. Will continue with supplemental O2 keeping sats greater than 88%. Because she needed BiPAP temporarily while in the ED, she will be admitted to the ICU for possible future need for BiPAP or ventilator. We will treat her underlying problems, see below. (2) Atrial fibrillation with RVR Conclusion/Plan: She has had known atrial fib. We got history that her metoprolol was recently changed to bisoprolol by her Partnership Development Manager just yesterday, because of poor rate control. She is also already on renal doses of Eliquis for anticoagulation for stroke prophylaxis.The daughter showed me some old records On her iphone, in [place]) from her Partnership Development Manager: Echo in 03/29, showed LVEF 40%, pulm HTN was mild then PAP 44mmHg. Will admit patient to the ICU and start IV diltiazem drip after a bolus dose of 10 mg, for aggressive rate control treatment. We will continue her Eliquis. Continue with her beta-lillian. Dose can be titrated up further for rate control and for her CHF management. Will order an Echo (3) Pulmonary edema Conclusion/Plan: Suspect that she may have had flash pulmonary edema on top of chronic pulmonary edema given the presence of pleural effusions. We will start IV twice daily diuretics. Follow I's and O's, daily weights, BMP daily, BNP daily, magnesium intermittently. Will order an Echo (however, today is night and we only have Echo service available here - til 5pm). (4) COPD with exacerbation Conclusion/Plan: Will start the patient on DuoNebs scheduled and as needed. Will also give IV steroid treatment scheduled and inhaled steroids via nebulizer Will order the patient to continue to take her Sildenafil as "patient's own med". Will begin oral nightly Singulair We will start empiric antibiotics (see below) Will try to get outside records regarding her pulmonary disease Cont O2 suppl (5) CAP (community acquired pneumonia) Conclusion/Plan: Will request a sputum culture and also blood culture. Will begin empiric treatment using IV ceftriaxone and oral Zithromax. We will start Florastor. Will add Mucinex for pulmonary toilet Continue with supplemental oxygen. (6) CKD (chronic kidney disease) Conclusion/Plan: Patient has a mildly elevated creatinine of 1.4 and she is on renal dosing for her Eliquis therefore presumptively she has CKD. We have no old labs here for comparison. This is her first visit to our ER here (under this name). Avoid nephrotoxins. Follow BMP daily (7) Elevated LFTs Conclusion/Plan: This is likely from passive liver congestion from R heart disease, or chronic from other etiology (no old records here under this name). Will monitor LFTs daily and if improved with diuresis, will not order liver W/U (8) Tremor of right hand Conclusion/Plan: This coincides with her being "nervous" and having panic attacks. Unfortunately we cannot use Propranolol, with its B1 and B-2 blocking effects, because of her severe underlying COPD. We will try to use medications for anxiety. She would need an outpatient Neurology evaluation for this localized hand tremor (9) Anxiety and depression Conclusion/Plan: Daughter says she is on Abilify which may be helping slightly. She also takes some doses of Valium. The daughter reports nightly "panic attacks" which always happen when she tries to go to bed and she is always orthopneic over the last 2 weeks. I suspect this may be just air hunger when her feet are elevated causing increased venous ret urn and increased pressure/fluid in her lungs. Will treat with Morphine iv for pulm edema, and continue anxiolytics and possibly use Benadryl for insomnia. - Lab Results Fish Bones: 04/28/22 06:15 04/28/22 06:15 - Diagnostic Imaging Results Diagnostic Imaging Results: positive: Final report reviewed - EKG Results EKG Interpreted Independently: Yes <Sejal Barcenas - Last Filed: 04/28/22 09:06> - EKG Results EKG Findings: This rhythm is afib with RVR, and LVH with strain pattern. (Sejal Barcenas) - Other Other Results/Comments: Attestation: The patient is expected to be discharged or transferred to another facility within 96 hours: Yes. (Sejal Barcenas)
[2022-04-27] MEDS ORDERED: diltiaZEM INJ 5 MG/ML VIAL IVP ONE ×2 (11:29→12:10)
[2022-04-27] MEDS ORDERED: diltiaZEM CD 240 MG CAPSULE PO STA (11:29)
[2022-04-27 11:34] LABS: INR 1.3 (0.8-1.2); PT - PROTHROMBIN TIME 14.2 secs (9.9-12.6)
[2022-04-27] MEDS: IPRATROPIUM/ALBUTEROL 3 ML NEB INH SCH ×2 (12:04→16:18)
[2022-04-27] MEDS ORDERED: DEXTROSE 5% 100 ML IV ONE (12:28)
[2022-04-27] MEDS: cefTRIAXone 2 GM in SODIUM CHLORIDE 0.9% MINIBAG 100 ML IV SCH (12:46)
[2022-04-27] MEDS: diltiaZEM INJ 125 MG in DEXTROSE 5% 100 ML IV SCH (12:47)
[2022-04-27] MEDS: ESCITALOPRAM 10 MG TABLET PO SCH (12:49)
[2022-04-27] MEDS: APIXABAN 2.5 MG TABLET PO SCH ×2 (12:50→21:21)
[2022-04-27] MEDS: guaiFENesin 600 MG TABLET PO SCH ×2 (14:56→21:21)
[2022-04-27] MEDS: FUROSEMIDE 40 MG/4 ML VIAL IVP SCH (14:56)
[2022-04-27] MEDS: methylPREDNISolone SUCCINATE 40 MG/ML VIAL IVP SCH ×2 (14:57→21:22)
[2022-04-27] MEDS ORDERED: PARAB/CET ALC/STRYL ALC/PG/SLS 473 ML BOTTLE TOP PRN (15:36)
[2022-04-27] MEDS: SACCHAROMYCES BOULARDII 250 MG CAPSULE PO SCH (17:23)
[2022-04-27 18:00] LABS: BILIRUBIN,URINE NEGATIVE (NEGATIVE); GLUCOSE, URINE (UA) NEGATIVE (NEGATIVE); KETONES,URINE (UA) NEGATIVE (NEGATIVE); LEUKOCYTE ESTERASE, URINE SMALL (NEGATIVE); NITRITE,URINE NEGATIVE (NEGATIVE); OCCULT BLOOD,URINE TRACE-INTA (NEGATIVE); PROTEIN,URINE NEGATIVE (NEGATIVE); UROBILINOGEN,URINE 0.2 (NORMAL) E.U./dL (NORMAL)
[2022-04-27 18:01] LABS: CLARITY,URINE CLOUDY (CLEAR)
[2022-04-27 18:10] LABS: BACTERIA,URINE Moderate /HPF (None Seen); RBC,URINE 0-5 /HPF (0-5); SQUAMOUS EPITHELIAL CELL,UR MANY Squamous (<= Few)
[2022-04-27] MEDS ORDERED: METOPROLOL SUCCINATE 50 MG TABLET PO SCH (21:00)
[2022-04-27] MEDS: oxyCODONE 5 MG TABLET PO SCH (21:21)
[2022-04-27] MEDS: LORazepam 0.5 MG TABLET PO SCH (21:21)
--- NOTE | 2022-04-27 22:55 | ED Physician Documentation ---
ED Addendum - Addendum Addendum: 04/27/22 22:54 PLEASE NOTE that patient has previous records available in [facility] which can be found under same name and date of but under MR# [id number].
--- NOTE | 2022-04-28 01:00 | PROVIDER PROGRESS NOTE ---
Hospitalist Cross-cover Note - Cross-Cover Note Cross-Cover Note: I was called by RN stating " Pt admitted for Acute Hypoxic Resp Failure; is very anxious and restless. Was given Lorazepam 0.5mg at 2120. Pt stated "it is not helping, I can't sleep." Can you please order something for sleep, maybe Benadryl IV?" Chart and EMR briefly reviewed, Patient difficulty sleeping can be from pulmonary HTN vs A fib with RVR us underlying pulmonary HTN vs increase volume status causing worsening edema, hypoxia and difficult sleeping all the above discussed in detail with patient, have ordered BNP and have asked RN to call us back once results of BNP are back as that will help decide if patient needs more diuresis vs cpap/bipap vs ativan,. RN will call my team back.
[2022-04-28] MEDS ORDERED: diphenhydrAMINE ELIXIR 25 MG/10 ML UDC PO PRN (02:09)
--- NOTE | 2022-04-28 02:11 | PROVIDER PROGRESS NOTE ---
Acid Loader Note - Acid Loader Note Acid Loader Note: Cross cover: Pt unable to sleep, feeling anxious. Received home Ativan earlier. O2 sats stable 2 L NC, baseline. HR 100-110s on cardizem gtt. Lasix scheduled for 6 am. Will try low dose PO benadryl. D/w JANY.
[2022-04-28] MEDS: diltiaZEM INJ 125 MG in DEXTROSE 5% 100 ML IV SCH ×2 (02:32→11:27)
[2022-04-28] MEDS: FUROSEMIDE 40 MG/4 ML VIAL IVP SCH (06:05)
[2022-04-28] MEDS: SODIUM CHLORIDE FLUSH 0.9% 10 ML SYRINGE IVP PRN (06:06)
[2022-04-28] MEDS: methylPREDNISolone SUCCINATE 40 MG/ML VIAL IVP SCH ×3 (06:15→21:13)
[2022-04-28] MEDS: ZINC OXIDE 20% OINT 30 GM TUBE TOP PRN (06:17)
[2022-04-28 06:34] LABS: BASOPHILS % (AUTO) 0.1 %; HCT - HEMATOCRIT 39.1 % (37.0-47.0); HGB - HEMOGLOBIN 12.2 g/dL (12.0-16.0); LYMPHOCYTES # (AUTO) 0.7 10^3/uL (1.5-3.5); LYMPHOCYTES % (AUTO) 8.8 %; MEAN CORPUSCULAR HEMOGLOBIN 25.8 pg (27.0-31.0); MEAN CORPUSCULAR HGB CONC 31.2 g/dL (32.0-36.0); MEAN CORPUSCULAR VOLUME 82.8 fL (81.0-99.0); MEAN PLATELET VOLUME 10.2 fL (7.9-10.8); MONOCYTES # (AUTO) 0.3 10^3/uL (0.0-1.0); MONOCYTES % (AUTO) 4.3 %; NEUTROPHILS # (AUTO) 6.4 10^3/uL (1.5-6.6); NEUTROPHILS % (AUTO) 86.3 %; PLT - PLATELET COUNT 292 10^3/uL (130-450); RED BLOOD COUNT 4.72 10^6/uL (4.20-5.40); RED CELL DISTRIBUTION WIDTH 16.5 % (12.0-15.0); WHITE BLOOD COUNT 7.4 x10^3/uL (4.8-10.8)
[2022-04-28 06:44] LABS: CREATININE 1.6 mg/dL (0.4-1.0); POTASSIUM 3.9 mmol/L (3.5-5.0)
[2022-04-28] MEDS: IPRATROPIUM/ALBUTEROL 3 ML NEB INH SCH ×4 (07:05→19:11)
[2022-04-28] MEDS: PANTOPRAZOLE 40 MG TABLET PO SCH (07:28)
[2022-04-28] MEDS: LEVOTHYROXINE 25 MCG TABLET PO SCH (07:28)
[2022-04-28] MEDS: SACCHAROMYCES BOULARDII 250 MG CAPSULE PO SCH ×2 (07:30→17:03)
[2022-04-28] MEDS ORDERED: ARIPIPRAZOLE 2 MG PO SCH ×2 (09:00→21:00)
[2022-04-28] MEDS ORDERED: MIRABEGRON 25 MG PO SCH (09:00)
[2022-04-28] MEDS ORDERED: SILDENAFIL CITRATE 20 MG PO SCH ×2 (09:00→10:30)
--- NOTE | 2022-04-28 09:12 | PROVIDER PROGRESS NOTE ---
Objective - Vital Signs/Intake & Output Reviewed Vital Signs: Yes Vital Signs: Vital Signs Temp Pulse Pulse Resp BP Pulse Ox O2 Flow Rate 04/28/22 08:00 37.2 C 109 H 24 146/81 H 96 2 04/28/22 07:07 73 24 3 04/28/22 07:00 104 H 30 H 147/81 H 96 2 04/28/22 06:00 97 22 133/97 H 93 2 Intake & Output: Intake & Output 04/25/22 04/26/22 04/27/22 04/28/22 23:59 23:59 23:59 23:59 Intake Total 897 195.75 Output Total 550 275 Balance 347 -79.25 - Objective General Appearance: positive: No acute distress, Alert, Other (Cachectic) Eyes Bilateral: positive: Normal inspection, EOMI ENT: positive: Other ([place]) Neck: positive: Nml inspection, No JVD (in a vertivcal sitting position) Respiratory: positive: Rales, Rhonchi Cardiovascular: positive: Regular rate & rhythm, No murmur (distant heart souinds) Abdomen: positive: Non-tender, Nml bowel sounds, No distention Skin: positive: Warm, Dry Extremities: positive: Non-tender, No pedal edema Neurologic/Psychiatric: positive: Oriented x3, Other (R hand intermittent tremor. [place]) - Lab Results Fish Bones: 04/28/22 06:15 04/28/22 06:15 Other Labs: Lab Results x24hrs 04/28/22 04/28/22 04/28/22 Range/Units 06:15 06:15 06:15 WBC 7.4 (4.8-10.8) x10^3/uL RBC 4.72 (4.20-5.40) 10^6/uL Hgb 12.2 (12.0-16.0) g/dL Hct 39.1 (37.0-47.0) % MCV 82.8 (81.0-99.0) fL MCH 25.8 L (27.0-31.0) pg MCHC 31.2 L (32.0-36.0) g/dL RDW 16.5 H (12.0-15.0) % Plt Count 292 (130-450) 10^3/uL MPV 10.2 (7.9-10.8) fL Neut # (Auto) 6.4 (1.5-6.6) 10^3/uL Lymph # (Auto) 0.7 L (1.5-3.5) 10^3/uL [place] # (Auto) 0.3 (0.0-1.0) 10^3/uL Eos # (Auto) 0.0 (0.0-0.7) 10^3/uL Baso # (Auto) 0.0 (0.0-0.1) 10^3/uL Absolute Nucleated RBC 0.00 x10^3/uL Nucleated RBC % 0.0 /100WBC PT (9.9-12.6) secs INR (0.8-1.2) Sodium 140 (135-145) mmol/L Potassium 3.9 (3.5-5.0) mmol/L Chloride 97 L (101-111) mmol/L Carbon Dioxide 29 (21-32) mmol/L Anion Gap 14.0 H (6-13) BUN 48 H (6-20) mg/dL Creatinine 1.6 H (0.4-1.0) mg/dL Estimated GFR (MDRD) 30 L (>89) Glucose 206 H (70-100) mg/dL Calcium 10.0 (8.5-10.3) mg/dL Troponin I High Sens (2.3-14.8) ng/L B-Natriuretic Peptide 3726 H (5-100) pg/mL Urine Color Urine Clarity (CLEAR) Urine pH (5.0-7.5) PH Ur Specific [place] (1.002-1.030) Urine Protein (NEGATIVE) mg/dL Urine Glucose (UA) (NEGATIVE) mg/dL Urine Ketones (NEGATIVE) mg/dL Urine Occult Blood (NEGATIVE) Urine Nitrite (NEGATIVE) Urine Bilirubin (NEGATIVE) Urine Urobilinogen (NORMAL) E.U./dL Ur Leukocyte Esterase (NEGATIVE) Urine RBC (0-5) /HPF Urine WBC (0-5) /HPF Ur Squamous Epith Cells (<= Few) Urine Bacteria (None Seen) /HPF Urine Culture Comments Nasal Screen MRSA (PCR) (NEGATIVE) 04/28/22 04/27/22 04/27/22 Range/Units 01:16 17:30 17:12 WBC (4.8-10.8) x10^3/uL RBC (4.20-5.40) 10^6/uL Hgb (12.0-16.0) g/dL Hct (37.0-47.0) % MCV (81.0-99.0) fL MCH (27.0-31.0) pg MCHC (32.0-36.0) g/dL RDW (12.0-15.0) % Plt Count (130-450) 10^3/uL MPV (7.9-10.8) fL Neut # (Auto) (1.5-6.6) 10^3/uL Lymph # (Auto) (1.5-3.5) 10^3/uL [place] # (Auto) (0.0-1.0) 10^3/uL Eos # (Auto) (0.0-0.7) 10^3/uL Baso # (Auto) (0.0-0.1) 10^3/uL Absolute Nucleated RBC x10^3/uL Nucleated RBC % /100WBC PT (9.9-12.6) secs INR (0.8-1.2) Sodium (135-145) mmol/L Potassium (3.5-5.0) mmol/L Chloride (101-111) mmol/L Carbon Dioxide (21-32) mmol/L Anion Gap (6-13) BUN (6-20) mg/dL Creatinine (0.4-1.0) mg/dL Estimated GFR (MDRD) (>89) Glucose (70-100) mg/dL Calcium (8.5-10.3) mg/dL Troponin I High Sens 81.2 H* (2.3-14.8) ng/L B-Natriuretic Peptide 2990 H (5-100) pg/mL Urine Color YELLOW Urine Clarity CLOUDY (CLEAR) Urine pH 7.0 (5.0-7.5) PH Ur Specific [place] 1.010 (1.002-1.030) Urine Protein NEGATIVE (NEGATIVE) mg/dL Urine Glucose (UA) NEGATIVE (NEGATIVE) mg/dL Urine Ketones NEGATIVE (NEGATIVE) mg/dL Urine Occult Blood [place]ACE[place]TA (NEGATIVE) Urine Nitrite NEGATIVE (NEGATIVE) Urine Bilirubin NEGATIVE (NEGATIVE) Urine Urobilinogen 0.2 (NORMAL) (NORMAL) E.U./dL Ur Leukocyte Esterase SMALL H (NEGATIVE) Urine RBC 0-5 (0-5) /HPF Urine WBC 4-5 (0-5) /HPF Ur Squamous Epith Cells MANY Squamous H (<= Few) Urine Bacteria Moderate H (None Seen) /HPF Urine Culture Comments NOT INDICATED Nasal Screen MRSA (PCR) (NEGATIVE) 04/27/22 04/27/22 04/27/22 Range/Units 13:00 11:11 11:11 WBC (4.8-10.8) x10^3/uL RBC (4.20-5.40) 10^6/uL Hgb (12.0-16.0) g/dL Hct (37.0-47.0) % MCV (81.0-99.0) fL MCH (27.0-31.0) pg MCHC (32.0-36.0) g/dL RDW (12.0-15.0) % Plt Count (130-450) 10^3/uL MPV (7.9-10.8) fL Neut # (Auto) (1.5-6.6) 10^3/uL Lymph # (Auto) (1.5-3.5) 10^3/uL [place] # (Auto) (0.0-1.0) 10^3/uL Eos # (Auto) (0.0-0.7) 10^3/uL Baso # (Auto) (0.0-0.1) 10^3/uL Absolute Nucleated RBC x10^3/uL Nucleated RBC % /100WBC PT 14.2 H (9.9-12.6) secs INR 1.3 H (0.8-1.2) Sodium (135-145) mmol/L Potassium (3.5-5.0) mmol/L Chloride (101-111) mmol/L Carbon Dioxide (21-32) mmol/L Anion Gap (6-13) BUN (6-20) mg/dL Creatinine (0.4-1.0) mg/dL Estimated GFR (MDRD) (>89) Glucose (70-100) mg/dL Calcium (8.5-10.3) mg/dL Troponin I High Sens 117.3 H* (2.3-14.8) ng/L B-Natriuretic Peptide (5-100) pg/mL Urine Color Urine Clarity (CLEAR) Urine pH (5.0-7.5) PH Ur Specific [place] (1.002-1.030) Urine Protein (NEGATIVE) mg/dL Urine Glucose (UA) (NEGATIVE) mg/dL Urine Ketones (NEGATIVE) mg/dL Urine Occult Blood (NEGATIVE) Urine Nitrite (NEGATIVE) Urine Bilirubin (NEGATIVE) Urine Urobilinogen (NORMAL) E.U./dL Ur Leukocyte Esterase (NEGATIVE) Urine RBC (0-5) /HPF Urine WBC (0-5) /HPF Ur Squamous Epith Cells (<= Few) Urine Bacteria (None Seen) /HPF Urine Culture Comments Nasal Screen MRSA (PCR) NEGATIVE (NEGATIVE) Assessment/Plan - Problem List (1) Acute respiratory failure with hypoxia Impression: This is likely multifactorial: From pulmonary edema, from COPD exacerbation, and from pneumonia. Will continue with supplemental O2 keeping sats greater than 88%. Because she needed BiPAP temporarily while in the ED, she was admitted to the ICU for possible future need for BiPAP or ventilator. We will treat her underlying problems, see below. Today I updated the daughter Sesar, outside of the patient's room, on all her mother's diagnoses (2) Atrial fibrillation with RVR Conclusion/Plan: She has had known atrial fib. We got history that her metoprolol was recently changed to bisoprolol by her [employer] [employer], because of poor rate control. She was also already on renal doses of Eliquis for anticoagulation for stroke prophylaxis.The daughter showed me some old records (on her iphone, in [employer]) from her Feller Operator: Echo in 03/29, showed LVEF 40%, pulm HTN was mild then w/ PAP 44mmHg. She is on IV diltiazem drip for aggressive rate control treatment and HR has improved from 130 to 100 today. We will continue her Eliquis. Continue with her beta-lillian. and will increase the dose today from 50 bid to 75 bid for rate control and for her CHF management. Will probably start to taper down the Cardizem drip tomorrow, switching to oral. (3) Pulmonary edema Conclusion/Plan: Suspect that she may have had flash pulmonary edema on top of chronic pulmonary edema given the presence of pleural effusions. We will start IV twice daily diuretics. Follow I's and O's, daily weights, BMP daily, BNP daily, and her magnesium intermittently. (4) Type II LA Troponins increased (more than doubled), consistent with an LA. This is likely from her A. fib with RVR. The Echo was done yesterday and shows LVEF 40% Daughter told me the patient has never had a stress test or coronary angiogram, only the CT chest that showed severe coronary calcification with atherosclerosis Will continue to treat with beta-lillian, and will add baby aspirin daily, and continue her anticoagulation using Eliquis. We cannot add nitrates in a patient on sildenafil. We will check her lipid panel and treat per guidelines, as she may already have an LDL under 70 since she is cachectic/anorexic (5) COPD with exacerbation Conclusion/Plan: We ordered start the patient on DuoNebs scheduled and as needed, iv steroids, inhaled steroids and antibx. We ordered the patient to continue to take her Sildenafil as "patient's own med". Will begin oral nightly Singulair Cont O2 suppl (6) CAP (community acquired pneumonia) Conclusion/Plan: We requested a sputum culture and also blood culture. She is on empiric treatment using IV ceftriaxone and oral Zithromax and we started Florastor. We ordered Mucinex for pulmonary toilet Continue with supplemental oxygen. (7) Cor Pulmonale Echo was done yesterday and is consistent with cor pulmonale: Dilated RV and RA, with depressed RV function. This is likely from her longstanding underlying severe COPD and pulm hypertension. We are continuing her sildenafil as "patient's own med" (8) CKD (chronic kidney disease) Conclusion/Plan: Patient had a mildly elevated creatinine of 1.4 at admission and she is on renal dosing for her Eliquis therefore presumptively she has CKD. Creatinine has increased to 1.6 since being started on IV diuretics. We planned on using IV twice daily Lasix but will just give IV Lasix once daily only Avoid nephrotoxins. Follow BMP daily (9) Elevated LFTs Conclusion/Plan: This is likely from passive liver congestion from R heart disease, or chronic from other etiology Will monitor LFTs daily and if improved with diuresis, will not order liver W/U (10) Tremor of right hand Conclusion/Plan: This coincides with her being "nervous" and having panic attacks. Unfortunately we cannot use Propranolol, with its B1 and B-2 blocking effects, because of her severe underlying COPD. We will try to use medications for anxiety. She would need an outpatient Neurology evaluation for this localized hand tremor (11) Odynophagia Conclusion/Plan: She reported, and the daughter confirmed, at [facility] on admission, that she has lost alot of weight, partly because she eats and solid food gets stuck in the lower chest and is painful. She needs warm liquids to move it down. Will request a Gen Surg consult to consider an EGD as she may have a stricture. Dr Zacarias requested. (12) Moderate malnutrition Conclusion/Plan: The patient has some muscle wasting and loss of subcutaneous fat. There has been nutritional intake of less than 50% of recommended for 1 week or more and there has been a 10% weight loss over the past 1 year, EBM male 18 point (13) Anxiety and depression Conclusion/Plan: Daughter says she is on Abilify which may be helping slightly. She also takes some doses of Valium. The daughter reports nightly "panic attacks" which always happen when she tries to go to bed and she is always orthopneic over the last 2 weeks. I suspect this may be her getting air hunger when her feet are elevated causing increased venous return and increased pressure/fluid in her abdomen and lungs. Will treat with Morphine iv for pulm edema, and continue anxiolytics and possibly use Benadryl for insomnia. (14) Insomnia Conclusion/Plan: She had her typical "panic attack" last night, telemedicine night coverage needed to be called and she received Benadryl. We will also add iv morphine q4h as needed for severe respiratory distress. Will continue Benadryl prn insomnia. 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 She was on high doses of oxycodone that the daughter has slowly weaned down to the present dose which is 2.5 twice daily scheduled. Will continue this.
[2022-04-28] MEDS: AZITHROMYCIN 250 MG TABLET PO SCH (09:19)
[2022-04-28] MEDS: cefTRIAXone 2 GM in SODIUM CHLORIDE 0.9% MINIBAG 100 ML IV SCH (09:19)
[2022-04-28] MEDS: ESCITALOPRAM 10 MG TABLET PO SCH (09:19)
[2022-04-28] MEDS: APIXABAN 2.5 MG TABLET PO SCH ×2 (09:19→21:07)
[2022-04-28] MEDS: LORazepam 0.5 MG TABLET PO SCH ×3 (09:20→21:25)
[2022-04-28] MEDS: oxyCODONE 5 MG TABLET PO SCH ×2 (09:20→21:08)
[2022-04-28] MEDS: guaiFENesin 600 MG TABLET PO SCH ×2 (09:20→21:08)
[2022-04-28] MEDS: METOPROLOL SUCCINATE 50 MG TABLET PO SCH ×2 (09:20→21:09)
[2022-04-28] MEDS: SODIUM CHLORIDE FLUSH 0.9% 10 ML SYRINGE IVP SCH ×3 (09:21→21:13)
[2022-04-28] MEDS ORDERED: MORPHINE 2 MG/ML CARPUJECT IVP PRN (09:24)
[2022-04-28 09:42] LABS: ALBUMIN 4.2 g/dL (3.2-5.5); BILIRUBIN,DIRECT 0.1 mg/dL (0.1-0.5); BILIRUBIN,TOTAL 0.5 mg/dL (0.2-1.0); MAGNESIUM 2.5 mg/dL (1.7-2.8); TOTAL PROTEIN 7.7 g/dL (6.7-8.2)
--- NOTE | 2022-04-28 10:26 | PHARMACY PROGRESS NOTE ---
- Best Possible Medication History Admit Date and Time: 04/27/22 0610 Processed by: Pharmacy Medication History completed: Yes Patient Interview: Completed Secondary Source(s): Written medication list, Insurance records (Pt hard of hearing, but had an updated medlist. I spoke with daughter who takes care of pt's meds (Sesar). Per daughter, patient started taking Bisoprolol 10mg in place of metoprolol xl just one day before admission. Premarin prescribed but pt does not want to use and was not using per daughter.) As the person ultimately responsible for medication therapy, providers are able to order a medication from an existing home medication list in [facility] via the "Reconcile Routine" prior to Confirmation of that medication by technical sales support manager. Such practice is discouraged except when the physician, in their clinical judgment, deems that a medical need exists for a medication without regard to previous use.
[2022-04-28] MEDS: BUDESONIDE 0.5 MG/2 ML NEB INH SCH ×2 (11:06→19:11)
--- NOTE | 2022-04-28 11:10 | CONSULTATION NOTE ---
Surgery Consult - Admit Date Hospital Admission Date: 04/27/22 - Consult Date Consult Date: 04/28/22 Requesting Provider: Dr. Sejal Pearson - Chief Complaint Chief Complaint: Difficulty swallowing - Home Meds/Allergies Home Medications: Patient History Medication Instructions Recorded Confirmed Albuterol Sulf [Ventolin Hfa 1 - 2 puffs INH Q4HR 08/31/19 04/28/22 Inhaler] Sildenafil Citrate [Sildenafil] 10 mg PO BID 07/14/20 04/28/22 Levothyroxine Sodium 1 tab PO DAILY 09/08/21 04/28/22 [Levothyroxine] LORazepam [Ativan] 0.25 mg PO BID 09/14/21 04/28/22 Mirabegron [Myrbetriq] 25 mg PO HS 09/14/21 04/28/22 Omeprazole Magnesium 20 mg PO DAILY 09/14/21 04/28/22 Senna [Senokot] 1 tab PO HS 10/06/21 04/28/22 polyethylene glycoL 3350 [Miralax] 1 ea ORAL DAILY 10/06/21 04/28/22 oxyCODONE [Roxicodone] 2.5 mg PO BID 10/13/21 04/28/22 Aripiprazole [Abilify] 2 mg PO QPM 11/13/21 04/28/22 Apixaban [Eliquis] 2.5 mg PO BID 04/27/22 04/28/22 Escitalopram [Lexapro] 10 mg PO DAILY 04/27/22 04/27/22 Tiotropium Br/Olodaterol HCl 2 puffs INH DAILY 04/27/22 04/27/22 [Stiolto Respimat Inhal [place]] Torsemide [Soaanz] 20 mg PO Q48H 04/27/22 04/28/22 bisoproloL fumarate [Bisoprolol 10 mg PO DAILY 04/27/22 04/28/22 Fumarate] Allergies/Adverse Reactions: Allergies Allergy/AdvReac Type Severity Reaction Status Date / Time No Known Drug Allergies Allergy Verified 04/28/22 08:24 - Vital Signs Vital Signs: Last Vital Signs Temp 98.9 F 04/28/22 08:00 Pulse 92 04/28/22 10:00 Resp 23 04/28/22 10:00 BP 120/73 04/28/22 10:00 Pulse Ox 98 04/28/22 10:00 O2 Flow Rate 2 04/28/22 10:00 Intake & Output: Intake & Output 04/25/22 04/26/22 04/27/22 04/28/22 23:59 23:59 23:59 23:59 Intake Total 897 195.75 Output Total 550 275 Balance 347 -79.25 - Lab Results Result Diagrams: 04/28/22 06:15 04/28/22 06:15 - Consultation Note Consultation Note: S: I am asked by Dr. Perry to evaluate Lauren Aviles in consultation for possible upper endoscopy. She was admitted to the ICU for management of severe respiratory distress related to aggravation of her CHF associated with atrial fibrillation with an uncontrolled rate. She was managed with pulmonary support and IV Diltiazem drip which is still being used to manage her atrial rate. This morning she complained of a sore throat and initially would not take her oral meds. Eventually however, she did take her meds along with a soft breakfast without much difficulty. She claims to have no feeling of esophageal obstruction but in the recent past, when she eats, she feels as if she has to stop mid-swallow because there is a full sensation in her lower chest that eventually passes. At the present time she is not having difficulty swallowing her secretions or oral liquids. She has a history of GERD and takes a PPI at home along with her other medicatio ns. O: Frail, elderly female who can hear only from the left side. She is sitting upright in the ICU bed and is in no respiratory distress. There is no drooling as she is able to swallow her secretions. Her VS are stable and she is on a diltiazem drip. Her oral cavity is normal in appearance as is examination of her neck. She has bilateral breath sounds Her heart rate is 80-90 and the rhythm is consistent with atrial fibrillation. She is not having chest pain Images: CXR 04/29/2022 - Mild pulmonary edema, Thoracic spine with dextro-curvature; No evidence of dilated esophagus A: Lauren has difficulty swallowing and this is likely due to either esophageal dysmotility or a distal esophagel web, ring, or stricture. P: EGD is a reasonable way to evaluate her esophagus especially since if there is a narrowing, dilation can be performed. As she has no evidence of an esophageal obstruction and is able to manage her oral intake of meds and food without much difficulty, I recommend that we offer her the procedure once her need for continuous IV diltiazem drip is no longer necessary and her cardiopulmonary status is in general stabilized. In the meantime, she can be offered a general diet as long as she chews her food thoroughly and drinks plenty of water with swallowing. Surgery will follow. Waldo Zacarias MD General Surgery Service
--- NOTE | 2022-04-28 14:41 | ANESTHESIA PROCEDURE NOTE ---
Anesthesia Intubation Template - Intubation Blade: positive: Glidescope Tube: Size-enter number (7.5), Cuffed, Marked at teeth-enter cm (23) Route: Oral Placement Confirmation: End tidal CO2, Direct visualization, Bilateral breath sounds Complications: Other
[2022-04-28] MEDS: ASPIRIN EC 81 MG TABLET PO SCH (17:03)
[2022-04-28] MEDS ORDERED: oxyCODONE 5 MG TABLET PO SCH (21:00)
[2022-04-28] MEDS: MIRABEGRON 25 MG PO SCH (21:10)
[2022-04-28] MEDS: ARIPIPRAZOLE 2 MG PO SCH (21:10)
[2022-04-28] MEDS: SILDENAFIL CITRATE 20 MG PO SCH (21:10)
[2022-04-28] MEDS: MONTELUKAST 10 MG TABLET PO SCH (21:19)
[2022-04-29 06:19] LABS: BASOPHILS % (AUTO) 0.1 %; HCT - HEMATOCRIT 34.1 % (37.0-47.0); HGB - HEMOGLOBIN 10.6 g/dL (12.0-16.0); LYMPHOCYTES # (AUTO) 0.7 10^3/uL (1.5-3.5); LYMPHOCYTES % (AUTO) 7.9 %; MEAN CORPUSCULAR HEMOGLOBIN 25.9 pg (27.0-31.0); MEAN CORPUSCULAR HGB CONC 31.1 g/dL (32.0-36.0); MEAN CORPUSCULAR VOLUME 83.4 fL (81.0-99.0); MEAN PLATELET VOLUME 10.5 fL (7.9-10.8); MONOCYTES # (AUTO) 0.2 10^3/uL (0.0-1.0); MONOCYTES % (AUTO) 2.8 %; NEUTROPHILS # (AUTO) 7.6 10^3/uL (1.5-6.6); PLT - PLATELET COUNT 230 10^3/uL (130-450); RED BLOOD COUNT 4.09 10^6/uL (4.20-5.40); RED CELL DISTRIBUTION WIDTH 16.6 % (12.0-15.0); WHITE BLOOD COUNT 8.5 x10^3/uL (4.8-10.8)
[2022-04-29 06:28] LABS: CALCIUM 9.2 mg/dL (8.5-10.3); CREATININE 1.7 mg/dL (0.4-1.0); MAGNESIUM 2.5 mg/dL (1.7-2.8); POTASSIUM 4.5 mmol/L (3.5-5.0)
[2022-04-29] MEDS: LEVOTHYROXINE 25 MCG TABLET PO SCH (06:38)
[2022-04-29] MEDS: SODIUM CHLORIDE FLUSH 0.9% 10 ML SYRINGE IVP PRN ×2 (06:38→20:46)
[2022-04-29] MEDS: PANTOPRAZOLE 40 MG TABLET PO SCH (06:38)
[2022-04-29] MEDS: diltiaZEM INJ 125 MG in DEXTROSE 5% 100 ML IV SCH (06:38)
[2022-04-29] MEDS: methylPREDNISolone SUCCINATE 40 MG/ML VIAL IVP SCH ×3 (06:38→20:46)
[2022-04-29] MEDS: ZINC OXIDE 20% OINT 30 GM TUBE TOP PRN ×2 (06:44→22:14)
[2022-04-29] MEDS ORDERED: FUROSEMIDE 40 MG/4 ML VIAL IVP SCH (07:00)
--- NOTE | 2022-04-29 07:41 | PROVIDER PROGRESS NOTE ---
Subjective - Subjective Pt reports feeling: Improved (Less short of breath, less panicky, participated with PT) Objective - Vital Signs/Intake & Output Vital Signs: Vital Signs Pulse Resp BP Pulse Ox O2 Flow Rate 04/29/22 07:00 94 15 103/61 94 2 04/29/22 06:00 96 11 L 96/60 96 2 04/29/22 05:00 104 H 11 L 90/64 94 2 04/29/22 04:00 104 H 14 102/79 95 2 Intake & Output: Intake & Output 04/26/22 04/27/22 04/28/22 04/29/22 23:59 23:59 23:59 23:59 Intake Total 897 1421.667 4.083 Output Total 550 475 200 Balance 347 946.667 -195.917 - Objective General Appearance: positive: Lethargic (after working with PT) Eyes Bilateral: positive: No lid inflammation ENT: positive: No signs of dehydration Neck: positive: Nml inspection, No JVD Respiratory: positive: No respiratory distress, Other (Poor air movement, no wheezing or rales) Cardiovascular: positive: Irregularly irregular Abdomen: positive: Non-tender, No distention Skin: positive: Warm, Dry Extremities: positive: Non-tender, No pedal edema Neurologic/Psychiatric: positive: Oriented x3, Other ([place]) - Lab Results Fish Bones: 04/29/22 06:12 04/29/22 06:12 Other Labs: Lab Results x24hrs 04/29/22 04/29/22 04/28/22 Range/Units 06:12 06:12 06:15 WBC 8.5 (4.8-10.8) x10^3/uL RBC 4.09 L (4.20-5.40) 10^6/uL Hgb 10.6 L (12.0-16.0) g/dL Hct 34.1 L (37.0-47.0) % MCV 83.4 (81.0-99.0) fL MCH 25.9 L (27.0-31.0) pg MCHC 31.1 L (32.0-36.0) g/dL RDW 16.6 H (12.0-15.0) % Plt Count 230 (130-450) 10^3/uL MPV 10.5 (7.9-10.8) fL Neut # (Auto) 7.6 H (1.5-6.6) 10^3/uL Lymph # (Auto) 0.7 L (1.5-3.5) 10^3/uL [place] # (Auto) 0.2 (0.0-1.0) 10^3/uL Eos # (Auto) 0.0 (0.0-0.7) 10^3/uL Baso # (Auto) 0.0 (0.0-0.1) 10^3/uL Absolute Nucleated RBC 0.00 x10^3/uL Nucleated RBC % 0.0 /100WBC Sodium 136 (135-145) mmol/L Potassium 4.5 (3.5-5.0) mmol/L Chloride 95 L (101-111) mmol/L Carbon Dioxide 30 (21-32) mmol/L Anion Gap 11.0 (6-13) BUN 70 H (6-20) mg/dL Creatinine 1.7 H (0.4-1.0) mg/dL Estimated GFR (MDRD) 28 L (>89) Glucose 138 H (70-100) mg/dL Calcium 9.2 (8.5-10.3) mg/dL Magnesium 2.5 2.5 (1.7-2.8) mg/dL Total Bilirubin 0.5 (0.2-1.0) mg/dL Direct Bilirubin 0.1 (0.1-0.5) mg/dL AST 91 H (10-42) IU/L ALT 155 H (10-60) IU/L Alkaline Phosphatase 109 (42-121) IU/L Total Protein 7.7 (6.7-8.2) g/dL Albumin 4.2 (3.2-5.5) g/dL Globulin 3.5 (2.1-4.2) g/dL Assessment/Plan - Problem List (1) Acute respiratory failure with hypoxia Impression: Improving This was likely multifactorial: From pulmonary edema, from COPD exacerbation, and from pneumonia. Will continue with supplemental O2 keeping sats greater than 88%. Because she needed BiPAP temporarily while in the ED, she was admitted to the ICU for possible future need for BiPAP or ventilator. She is now back to her baseline suppl O2 at 2L/min We are treating her underlying lung problems, see below. I updated the daughter Sesar, on all her mother's diagnoses (2) Atrial fibrillation with RVR Conclusion/Plan: She has had known atrial fib. Her metoprolol was recently changed to bisoprolol by her Proof Inspector (Dr Raad Lees), because of poor rate control. She was also already on renal doses of Eliquis for anticoagulation for stroke prophylaxis. She is on IV diltiazem drip for aggressive rate control treatment and HR has improved 80-100 today. We increased the Metoprolol Succ. dose from 50 bid to 75 bid for rate control and for her CHF management. BP is soft today, so we will start oral Cardizem CD once daily, stagger it from B-blockers and give at noon and taper down the Cardizem drip to off. We will continue her Eliquis. (3) Pulmonary edema Conclusion/Plan: Suspect that she may have had flash pulmonary edema on top of chronic pulmonary edema given the presence of pleural effusions. The daughter showed me some old records (in [place]) from her Proof Inspector: Echo in 03/29, showed LVEF 40%, pulm HTN was mild then w/ PAP 44mmHg. We started IV twice daily diuretics, then her BUN/creat matilda from 36/1.4 to 48/1.6 yesterday and she got iv Lasix just in am. Today BUN/creat matilda even further to 70/1.7. Will stop Lasix, none today, especially since her BP is "soft" now, and allow BP and renal fnc to equilibrate. Follow I's and O's, daily weights, BMP daily, and her magnesium intermittently. (4) Type II MO Troponins increased (21>> 117>> 81), consistent with an MO. This is likely from her A. fib with RVR. The Echo was done and shows LVEF 40% with regional wall motion abnormalities present. Daughter told me the patient has never had a stress test or coronary angiogram, only a CT chest that showed severe coronary calcification with atherosclerosis Will continue to treat with beta-lillian, and will add baby aspirin daily, and continue her anticoagulation using Eliquis. We cannot add nitrates in a patient on sildenafil. We will check her lipid panel and treat per guidelines, as she may already have an LDL under 70 since she is cachectic/anorexic (5) COPD with exacerbation Conclusion/Plan: She has severe COPD and being on Sildinafil indicates she had severe pulm HTN. Her Correctional Probation Officer is Dr Seun Almonte. We ordered start the patient on DuoNebs scheduled and as needed, iv steroids, inhaled steroids and antibx. We ordered the patient to continue to take her Sildenafil as "patient's own med". We started oral nightly Singulair Cont O2 suppl. She is now back to her baseline suppl O2 at 2L/min (6) CAP (community acquired pneumonia) Conclusion/Plan: We requested a sputum culture and also blood culture. She is on empiric treatment using IV ceftriaxone and oral Zithromax and we started Florastor. We ordered Mucinex for pulmonary toilet Continue with supplemental oxygen. (7) Cor Pulmonale Echo was done and is consistent with cor pulmonale: Dilated RV and RA, with depressed RV function. This is likely from her longstanding underlying severe COPD and pulm hypertension. We are continuing her sildenafil as "patient's own med" Her BP is "soft" today and BUN/creatinine is increased since admission. This is consistent with her having a very narrow range of proper intravascular volume, to prevent pulmonary edema but adequate preload to fill her dilated RV. Fluid and diuretic management is difficult. (8) Acute on chronic kidney failure Conclusion/Plan: Patient had a mildly elevated creatinine of 1.4 at admission and she is on renal dosing for her Eliquis therefore presumptively she has CKD. Creatinine has increased to 1.6, then 1.7 today, since being started on IV diuretics. We planned on using IV twice daily Lasix, was already decreased to once daily yesterday, and stopping Lasix now, to allow BP and renal fnc to equilibrate. Avoid nephrotoxins. Follow BMP daily (9) Elevated LFTs Conclusion/Plan: This was likely from passive liver congestion from R heart disease, and has improved with diuresis Will monitor LFTs intermittently. (10) Tremor of right hand Conclusion/Plan: This coincides with her being "nervous" and having panic attacks. Unfortunately we cannot use Propranolol, with its B1 and B-2 blocking effects, because of her severe underlying COPD. We will try to use medications for anxiety. She would need an outpatient Neurology evaluation for this localized hand tremor (11) Odynophagia Conclusion/Plan: She reported, and the daughter confirmed, at ROS on admission, that she has lost alot of weight, partly because she eats and solid food gets stuck in the lower chest and is painful. She needs warm liquids to move it down. She was seen by Gen Surg weight loss consultant to consider an EGD as she may have a stricture. Dr Zacarias recommended this be done when she is not in the ICU on a Diltiazem drip (12) Moderate malnutrition Conclusion/Plan: The patient has some muscle wasting and loss of subcutaneous fat. There has been nutritional intake of less than 50% of recommended for 1 week or more and there has been a 10% weight loss over the past 1 year, EBM 18 point (13) Anxiety and depression Conclusion/Plan: Daughter says she is on Abilify which may be helping slightly. She also takes scheduled doses of Valium. The daughter reports nightly "panic attacks" which always happen when she tries to go to bed and she is always orthopneic over the last 2 weeks. I suspect these may be air hunger, happening when her feet are elevated causing increased venous return and increased pressure/fluid in her abdomen and lungs. Will treat with prn Morphine iv for pulm edema, and continue anxiolytics and use Benadryl for insomnia. (14) Insomnia Conclusion/Plan: She had her typical "panic attack" 2 nights ago, telemedicine night coverage needed to be called and she received Benadryl. We will also add iv morphine q4h as needed for severe respiratory distress. Will continue Benadryl prn insomnia. 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 She was on high doses of oxycodone that the daughter has slowly weaned down to the present dose which is 2.5 twice daily scheduled. Will continue this.
[2022-04-29] MEDS: BUDESONIDE 0.5 MG/2 ML NEB INH SCH ×2 (07:57→19:30)
[2022-04-29] MEDS: IPRATROPIUM/ALBUTEROL 3 ML NEB INH SCH ×4 (07:57→19:30)
[2022-04-29] MEDS ORDERED: LEVOTHYROXINE SODIUM 50 MCG PO SCH (09:00)
[2022-04-29] MEDS: oxyCODONE 5 MG TABLET PO SCH ×2 (09:29→20:35)
[2022-04-29] MEDS: AZITHROMYCIN 250 MG TABLET PO SCH (09:29)
[2022-04-29] MEDS: ASPIRIN EC 81 MG TABLET PO SCH (09:30)
[2022-04-29] MEDS: LORazepam 0.5 MG TABLET PO SCH ×3 (09:30→20:35)
[2022-04-29] MEDS: APIXABAN 2.5 MG TABLET PO SCH ×2 (09:31→20:34)
[2022-04-29] MEDS: ESCITALOPRAM 10 MG TABLET PO SCH (09:31)
[2022-04-29] MEDS: SACCHAROMYCES BOULARDII 250 MG CAPSULE PO SCH ×2 (09:31→17:10)
[2022-04-29] MEDS: guaiFENesin 600 MG TABLET PO SCH ×2 (09:31→20:34)
[2022-04-29] MEDS: SILDENAFIL CITRATE 20 MG PO SCH ×2 (09:33→20:37)
[2022-04-29] MEDS: METOPROLOL SUCCINATE 50 MG TABLET PO SCH ×2 (09:36→20:34)
[2022-04-29] MEDS: cefTRIAXone 2 GM in SODIUM CHLORIDE 0.9% MINIBAG 100 ML IV SCH (10:15)
[2022-04-29] MEDS: SODIUM CHLORIDE FLUSH 0.9% 10 ML SYRINGE IVP SCH ×2 (10:50→17:10)
[2022-04-29] MEDS: polyethylene glycoL 3350 17 GM PACKET PO SCH (12:45)
[2022-04-29] MEDS: diltiaZEM CD 120 MG CAPSULE PO SCH (12:45)
[2022-04-29] MEDS: MULTIVITAMIN W/MINERALS TABLET PO SCH (12:45)
--- NOTE | 2022-04-29 13:30 | PROVIDER PROGRESS NOTE ---
Progress Note Patient without further difficulty with swallowing. She remains on a diltiazem drip but that may be stopped later today. She is a candidate for EGD and dilation due to her dysphagia but this should be performed when her cardiopulmonary issues have resolved. I will inform Dr. Costello tomorrow when she takes over the in-patient General Surgery Service of this plan. Waldo Zacarias MD General Surgery Service
--- NOTE | 2022-04-29 19:01 | CT Report ---
PROCEDURE: HEAD WO INDICATIONS: R hand tremor, generalized weakness, [place] TECHNIQUE: Noncontrast 4.5 mm thick angled axial sections acquired from the foramen magnum to the vertex. For r adiation dose reduction, the following was used: automated exposure control, adjustment of mA and/or kV according to patient size. COMPARISON: None. FINDINGS: Image quality: Excellent. CSF spaces: Basal cisterns are patent. No extra-axial fluid collections. Ventricles are symmetric in size and shape. Brain: No midline shift. No acute intracranial hemorrhage or mass effect. Hypodensities in the bilat eral basal ganglia likely small chronic lacunar infarcts. Scattered and confluent hypodensities are s een in the subcortical and periventricular white matter, most commonly seen in the setting of chronic microvascular ischemic changes. There is diffuse cerebral and cerebellar parenchymal volume loss wit h associated ventricular and sulcal prominence. Intracranial vascular calcifications are present. Skull and face: Calvarium and visualized facial bones are intact, without suspicious lesions. Sinuses: Visualized sinuses and mastoids are clear. IMPRESSION: 1.No acute intracranial abnormality. 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 3.Diffuse cerebral and cerebellar parenchymal volume loss. Reviewed by: Tucker Moreno MD on 04/29/2022 7:00 PM PDT Approved by: Tucker Moreno MD on 04/29/2022 7:00 PM PDT Station ID: [id number]
[2022-04-29] MEDS: MONTELUKAST 10 MG TABLET PO SCH (20:35)
[2022-04-29] MEDS: ARIPIPRAZOLE 2 MG PO SCH (20:37)
[2022-04-29] MEDS: MIRABEGRON 25 MG PO SCH (20:37)
[2022-04-30] MEDS: SODIUM CHLORIDE FLUSH 0.9% 10 ML SYRINGE IVP SCH ×4 (00:24→23:57)
[2022-04-30 05:02] LABS: EOSINOPHILS % (AUTO) 0.1 %; HGB - HEMOGLOBIN 10.9 g/dL (12.0-16.0); LYMPHOCYTES # (AUTO) 0.5 10^3/uL (1.5-3.5); LYMPHOCYTES % (AUTO) 6.6 %; MEAN CORPUSCULAR HEMOGLOBIN 25.9 pg (27.0-31.0); MEAN CORPUSCULAR HGB CONC 31.1 g/dL (32.0-36.0); MEAN CORPUSCULAR VOLUME 83.1 fL (81.0-99.0); MEAN PLATELET VOLUME 11.4 fL (7.9-10.8); MONOCYTES # (AUTO) 0.2 10^3/uL (0.0-1.0); MONOCYTES % (AUTO) 2.4 %; NEUTROPHILS # (AUTO) 6.7 10^3/uL (1.5-6.6); NEUTROPHILS % (AUTO) 90.2 %; PLT - PLATELET COUNT 265 10^3/uL (130-450); RED BLOOD COUNT 4.21 10^6/uL (4.20-5.40); RED CELL DISTRIBUTION WIDTH 16.7 % (12.0-15.0); WHITE BLOOD COUNT 7.5 x10^3/uL (4.8-10.8)
[2022-04-30 05:19] LABS: CALCIUM 8.9 mg/dL (8.5-10.3); CREATININE 1.8 mg/dL (0.4-1.0); POTASSIUM 4.3 mmol/L (3.5-5.0)
[2022-04-30] MEDS: PANTOPRAZOLE 40 MG TABLET PO SCH (05:29)
[2022-04-30] MEDS: SODIUM CHLORIDE FLUSH 0.9% 10 ML SYRINGE IVP PRN (05:29)
[2022-04-30] MEDS: methylPREDNISolone SUCCINATE 40 MG/ML VIAL IVP SCH ×3 (05:29→21:21)
[2022-04-30] MEDS: LEVOTHYROXINE 25 MCG TABLET PO SCH (05:30)
[2022-04-30] MEDS: IPRATROPIUM/ALBUTEROL 3 ML NEB INH SCH ×4 (07:41→19:10)
[2022-04-30] MEDS: BUDESONIDE 0.5 MG/2 ML NEB INH SCH ×2 (07:41→19:10)
[2022-04-30] MEDS: ASPIRIN EC 81 MG TABLET PO SCH (07:57)
[2022-04-30] MEDS: MULTIVITAMIN W/MINERALS TABLET PO SCH (07:57)
[2022-04-30] MEDS: SACCHAROMYCES BOULARDII 250 MG CAPSULE PO SCH ×2 (07:58→16:20)
[2022-04-30] MEDS ORDERED: SODIUM CHLORIDE 0.9% 1,000 ML IV SCH (08:00)
[2022-04-30] MEDS: polyethylene glycoL 3350 17 GM PACKET PO SCH (08:22)
[2022-04-30] MEDS: DOCUSATE SODIUM 250 MG CAPSULE PO SCH (08:23)
[2022-04-30] MEDS: guaiFENesin 600 MG TABLET PO SCH ×2 (08:24→21:23)
[2022-04-30] MEDS: oxyCODONE 5 MG TABLET PO SCH ×2 (08:24→21:29)
[2022-04-30] MEDS: ESCITALOPRAM 10 MG TABLET PO SCH (08:25)
[2022-04-30] MEDS: DIGOXIN 125 MCG TABLET PO SCH (08:26)
[2022-04-30] MEDS: LORazepam 0.5 MG TABLET PO SCH ×2 (08:26→21:22)
[2022-04-30] MEDS: METOPROLOL SUCCINATE 50 MG TABLET PO SCH ×2 (08:27→21:22)
[2022-04-30] MEDS: APIXABAN 2.5 MG TABLET PO SCH ×2 (08:28→21:22)
[2022-04-30] MEDS: SILDENAFIL CITRATE 20 MG PO SCH ×2 (08:28→21:20)
[2022-04-30] MEDS: cefTRIAXone 2 GM in SODIUM CHLORIDE 0.9% MINIBAG 100 ML IV SCH (08:29)
[2022-04-30] MEDS ORDERED: SENNA 8.6 MG TABLET PO SCH (09:00)
--- NOTE | 2022-04-30 11:00 | PROVIDER PROGRESS NOTE ---
Subjective - General Admit Date: 04/27/22 - Review of Systems All Other Systems: positive: Reviewed and negative (All information was obtained from the daughter who is at bedside, because the patient is very [place]) - Other Other Information/Narrative: Patient states she's eating well today and RN confirms she also took pills this AM without difficulty so long as she takes large pills one at a time. No n/v. Patient also reports to me this AM that she doesn't want to have any procedures. Objective - Patient Data Reviewed Vital Signs: Yes Vital Signs: Vital Signs x48h Temp Pulse Pulse Resp BP Pulse Ox O2 Flow Rate 04/30/22 08:16 36.2 C L 71 20 108/66 93 2 04/30/22 07:42 97 16 2 04/30/22 05:00 36.3 C L 103 H 18 114/77 92 2 Weight: Weight 04/28/22 04/29/22 04/30/22 23:59 23:59 23:59 Weight (kg) 46.5 kg 47.5 kg 48 kg Intake & Output: Intake and Output Totals x24h 04/28/22 04/29/22 04/30/22 23:59 23:59 23:59 Intake Total 5543.274 5120.416 530 Output Total 475 450 250 Balance 946.667 626.416 280 - Lab Results Lab Results: 04/30/22 04:30 04/30/22 04:30 Other Lab Results: Lab Results x24hrs 04/30/22 04/30/22 04/30/22 Range/Units 07:58 04:30 04:30 WBC (4.8-10.8) x10^3/uL RBC (4.20-5.40) 10^6/uL Hgb (12.0-16.0) g/dL Hct (37.0-47.0) % MCV (81.0-99.0) fL MCH (27.0-31.0) pg MCHC (32.0-36.0) g/dL RDW (12.0-15.0) % Plt Count (130-450) 10^3/uL MPV (7.9-10.8) fL Neut # (Auto) (1.5-6.6) 10^3/uL Lymph # (Auto) (1.5-3.5) 10^3/uL [place] # (Auto) (0.0-1.0) 10^3/uL Eos # (Auto) (0.0-0.7) 10^3/uL Baso # (Auto) (0.0-0.1) 10^3/uL Absolute Nucleated RBC x10^3/uL Nucleated RBC % /100WBC Sodium 138 (135-145) mmol/L Potassium 4.3 (3.5-5.0) mmol/L Chloride 93 L (101-111) mmol/L Carbon Dioxide 31 (21-32) mmol/L Anion Gap 14.0 H (6-13) BUN 82 H* (6-20) mg/dL Creatinine 1.8 H (0.4-1.0) mg/dL Estimated GFR (MDRD) 26 L (>89) Glucose 136 H (70-100) mg/dL Calcium 8.9 (8.5-10.3) mg/dL TSH 0.52 (0.34-5.60) uIU/mL Cortisol AM Sample 8.2 ug/dL 04/30/22 Range/Units 04:30 WBC 7.5 (4.8-10.8) x10^3/uL RBC 4.21 (4.20-5.40) 10^6/uL Hgb 10.9 L (12.0-16.0) g/dL Hct 35.0 L (37.0-47.0) % MCV 83.1 (81.0-99.0) fL MCH 25.9 L (27.0-31.0) pg MCHC 31.1 L (32.0-36.0) g/dL RDW 16.7 H (12.0-15.0) % Plt Count 265 (130-450) 10^3/uL MPV 11.4 H (7.9-10.8) fL Neut # (Auto) 6.7 H (1.5-6.6) 10^3/uL Lymph # (Auto) 0.5 L (1.5-3.5) 10^3/uL [place] # (Auto) 0.2 (0.0-1.0) 10^3/uL Eos # (Auto) 0.0 (0.0-0.7) 10^3/uL Baso # (Auto) 0.0 (0.0-0.1) 10^3/uL Absolute Nucleated RBC 0.00 x10^3/uL Nucleated RBC % 0.0 /100WBC Sodium (135-145) mmol/L Potassium (3.5-5.0) mmol/L Chloride (101-111) mmol/L Carbon Dioxide (21-32) mmol/L Anion Gap (6-13) BUN (6-20) mg/dL Creatinine (0.4-1.0) mg/dL Estimated GFR (MDRD) (>89) Glucose (70-100) mg/dL Calcium (8.5-10.3) mg/dL TSH (0.34-5.60) uIU/mL Cortisol AM Sample ug/dL - Current Medications Current Medications: Current Medications Generic Name Dose Route Start Last Admin Trade Name Freq PRN Reason Stop Dose Admin Albuterol/Ipratropium 3 ml 04/27/22 06:14 04/28/22 01:06 Ipratropium/Albuterol 3 Ml Neb INH 3 ml Q4HR PRN Administration Wheezing Albuterol/Ipratropium 3 ml 04/27/22 15:00 04/30/22 07:41 Ipratropium/Albuterol 3 Ml Neb INH 3 ml RTQID RUDOLPH Administration Apixaban 2.5 mg 04/27/22 12:00 04/30/22 08:28 Apixaban 2.5 Mg Tablet PO 2.5 mg BID RUDOLPH Administration Aspirin 81 mg 04/28/22 12:00 04/30/22 07:57 Aspirin Ec 81 Mg Tablet PO 81 mg DAILYWM RUDOLPH Administration Budesonide 0.5 mg 04/28/22 09:19 04/30/22 07:41 Budesonide 0.5 Mg/2 Ml Neb INH 0.5 mg RTBID RUDOLPH Administration Digoxin 125 mcg 04/30/22 09:00 04/30/22 08:26 Digoxin 125 Mcg Tablet PO 05/02/22 00:01 125 mcg DAILY RUDOLPH Administration Diltiazem HCl 120 mg 04/29/22 12:00 04/29/22 12:45 Diltiazem Cd 120 Mg Capsule PO 120 mg 1200 RUDOLPH Administration Docusate Sodium 250 - 500 mg 04/30/22 09:00 04/30/22 08:23 Docusate Sodium 250 Mg Capsule PO 250 mg DAILY RUDOLPH Administration Escitalopram Oxalate 10 mg 04/27/22 12:00 04/30/22 08:25 Escitalopram 10 Mg Tablet PO 10 mg DAILY RUDOLPH Administration Guaifenesin 600 mg 04/27/22 13:00 04/30/22 08:24 Guaifenesin 600 Mg Tablet PO 600 mg BID RUDOLPH Administration Ceftriaxone Sodium 2 gm/ 100 mls @ 200 mls/hr 04/27/22 12:00 04/30/22 08:29 Sodium Chloride IV 05/01/22 12:59 200 mls/hr DAILY RUDOLPH Administration Sodium Chloride 1,000 mls @ 83.333 mls/hr 04/30/22 08:00 04/30/22 08:29 Normal Saline 0.9% IV 04/30/22 19:59 83.333 mls/hr .Q12H RUDOLPH Administration Levothyroxine Sodium 50 mcg 04/28/22 07:00 04/30/22 05:30 Levothyroxine 25 Mcg Tablet PO 50 mcg QDAC RUDOLPH Administration Lorazepam 0.5 mg 04/27/22 21:00 04/30/22 08:26 Lorazepam 0.5 Mg Tablet PO 0.5 mg BID RUDOLPH Administration Methylprednisolone 80 mg 04/27/22 14:00 04/30/22 05:29 Methylprednisolone Succinate 40 Mg/Ml Vial IVP 80 mg TID RUDOLPH Administration Metoprolol Succinate 75 mg 04/29/22 07:35 04/30/22 08:27 Metoprolol Succinate 50 Mg Tablet PO 75 mg BID RUDOLPH Administration Montelukast Sodium 10 mg 04/28/22 21:00 04/29/22 20:35 Montelukast 10 Mg Tablet PO 10 mg QPM RUDOLPH Administration Multi-Ingredient Ointment 1 applic 04/27/22 15:36 04/29/22 22:14 Zinc Oxide 20% Oint 30 Gm Tube TOP 1 applic PRN PRN Administration Skin Care Multivitamins/Minerals 1 tab 04/29/22 08:00 04/30/22 07:57 Multivitamin W/Minerals Tablet PO 1 tab DAILYWM RUDOLPH Administration Oxycodone HCl 2.5 mg 04/27/22 21:00 04/30/22 08:24 Oxycodone 5 Mg Tablet PO 2.5 mg BID RUDOLPH Administration Pantoprazole Sodium 40 mg 04/28/22 07:00 04/30/22 05:29 Pantoprazole 40 Mg Tablet PO 40 mg QDAC RUDOLPH Administration Patient Own Med ( 0.5 each 04/28/22 10:37 04/30/22 08:28 Sildenafil Citrate [ PO 0.5 each Sildenafil] 20 Mg BID RUDOLPH Administration Tablet) Patient Own Med ( 1 each 04/28/22 16:31 04/29/22 20:37 Mirabegron [ PO 1 each Myrbetriq] 25 Mg Er HS RUDOLPH Administration Tab) Patient Own Med ( 1 each 04/28/22 16:37 04/29/22 20:37 Aripiprazole 2mg) PO 1 each HS RUDOLPH Administration Polyethylene Glycol 17 gm 04/29/22 12:00 04/30/22 08:22 Polyethylene Glycol 3350 17 Gm Packet PO 17 gm DAILY RUDOLPH Administration Saccharomyces Boulardii 250 mg 04/27/22 17:00 04/30/22 07:58 Saccharomyces Boulardii 250 Mg Capsule PO 250 mg BIDWM RUDOLPH Administration Senna 8.6 - 17.2 mg 04/30/22 09:00 04/30/22 08:23 Senna 8.6 Mg Tablet PO 8.6 mg DAILY RUDOLPH Administration Sodium Chloride 10 ml 04/27/22 06:10 04/30/22 05:29 Sodium Chloride Flush 0.9% 10 Ml Syringe IVP 10 ml PRN PRN Administration NEEDED PER PROVIDER ORDERS Sodium Chloride 10 ml 04/27/22 09:00 04/30/22 00:24 Sodium Chloride Flush 0.9% 10 Ml Syringe IVP 10 ml 0100,0900,1700 RUDOLPH Administration - Physical Exam General Appearance: positive: No acute distress, Alert Eyes Bilateral: positive: Normal inspection ENT: positive: Other (very hard of hearing) Respiratory: positive: No respiratory distress Cardiovascular: positive: Irregularly irregular Abdomen: positive: Non-tender Neurologic/Psychiatric: positive: Oriented x3 Impression/Plan - Problem List Problem List: A: Ms. Aguilar is an 87 y/o F with a history of dysphagia and odynaphagia. She is currently tolerating a soft diet well and taking her pills without difficulty. She may have esophageal dysmotility and/or a distal esophagel web, ring, or stricture. P: The patient does not want a procedure done and states she's had workup of her dysphagia within the last one year, some of which was done at a rehab facility, though she does not recall where exactly. Currently, not having dysphagia with soft diet. Recommend trying to obtain any old records to elucidate what workup has been done previously and the findings of such. UGI unavailable at this facility at this time (no fluoroscopy). If patient is having more trouble swallowing, and is willing to consider EGD, I will ask anesthesia to asses this patient to ensure she is an appropriate candidate for endoscopy at this facility. I will continue to follow.
[2022-04-30] MEDS: diltiaZEM CD 120 MG CAPSULE PO SCH (12:11)
--- NOTE | 2022-04-30 13:10 | PROVIDER PROGRESS NOTE ---
Assessment/Plan - Problem List (1) Atrial fibrillation with RVR Assessment/Plan: She has had known atrial fib. Her metoprolol was recently changed to bisoprolol by her Interventional Pain Physician (Dr Raad Lees), because of poor rate control, which she took for 1 day then was admitted here. She was also already on renal doses of Eliquis for anticoagulation for stroke prophylaxis. She required an IV diltiazem drip in the ICU for aggressive rate control and was able to be weaned off the drip as the B-lillian dose was increased from 50 bid to 75 bid for rate control and for her CHF management. BP is soft, so we added oral Cardizem CD once daily at noon, staggering it from B-blockers We will continue her Eliquis. Continue on telemetry and assess heart rate control with ambulation. PT has started to work with her. I updated the daughter on all her diagnoses today. (2) CAP (community acquired pneumonia) Conclusion/Plan: This was one of the causes of her acute respiratory exacerbation. We requested a sputum culture and also blood culture. She is on empiric treatment using IV ceftriaxone and oral Zithromax and we started Florastor. We ordered Mucinex for pulmonary toilet Continue with supplemental oxygen. (3) COPD with exacerbation Conclusion/Plan: The pneumonia likely gave her this COPD exacerbation She has severe COPD and being on Sildinafil indicates she had severe pulm HTN. Her History Tutor is Dr Seun Almonte. We ordered start the patient on DuoNebs scheduled and as needed, iv steroids, inhaled steroids and antibx. We ordered the patient to continue to take her Sildenafil as "patient's own med". We started oral nightly Singulair Cont O2 suppl. She is now back to her baseline suppl O2 at 2L/min. Discharge plan is for her to be on new Singulair and nebulized bronchodilators resumed (she has a nebulizer machine at home). I asked the daughter and plan to discuss the patient's voiced desire to be a Full Code. (4) Acute on chronic respiratory failure with hypoxia Improving This was likely multifactorial: From pulmonary edema, from COPD exacerbation, and from pneumonia. Will continue with supplemental O2 keeping sats greater than 88%. Because she needed BiPAP temporarily while in the ED, she was admitted to the ICU for possible future need for BiPAP or ventilator. She is now back to her baseline suppl O2 at 2L/min We are treating her underlying lung problems, see below. I updated the daughter Sesar, on all her mother's diagnoses (5) Pulmonary edema Conclusion/Plan: Improved This was one of the causes of her acute respiratory failure Suspect that she may have had flash pulmonary edema, from her rapid Afib, on top of chronic pulmonary edema given the presence of pleural effusions. The daughter showed me some old records (in [facility]) from her Interventional Pain Physician: Echo in 03/29, showed LVEF 40%, pulm HTN was mild then w/ PAP 44mmHg. We started IV twice daily diuretics, then her BUN/creat matilda from 36/1.4 to 48/1.6 yesterday and she got iv Lasix just in am. Today BUN/creat matilda even further to 70/1.7. We stopped Lasix yesterday, to help her rising BUN/creat Follow I's and O's, daily weights, BMP daily, and her magnesium intermittently. (6) Type II MA Troponins increased (21>> 117>> 81), consistent with an MA. This is likely from her A. fib with RVR. The Echo was done and shows LVEF 40% with regional wall motion abnormalities present. Daughter told me the patient has never had a stress test or coronary angiogram, only a CT chest that showed severe coronary calcification with atherosclerosis Will continue to treat with beta-lillian, and will add baby aspirin daily, and continue her anticoagulation using Eliquis. We cannot add nitrates in a patient on sildenafil. We will check her lipid panel and treat per guidelines, as she may already have an LDL under 70 since she is cachectic/anorexic (7) Acute on chronic kidney failure Conclusion/Plan: Patient had a mildly elevated creatinine of 1.4 at admission and she is on renal dosing for her Eliquis therefore presumptively she has CKD. Unfortunately, her creatinine has increased from 1.4>> 1.6>> 1.7>> 2.0 today, since being started on IV diuretics. We planned on using IV twice daily Lasix, was already decreased to once daily, and was stopped yesterday. Will give fluids back in the form of 1 L of NS today over 1 day Avoid nephrotoxins. Follow BMP daily (8) Cor Pulmonale Echo was done and is consistent with cor pulmonale: Dilated RV and RA, with de pressed RV function. This is likely from her longstanding underlying severe COPD and pulm hypertensi on. We are continuing her sildenafil as "patient's own med" Her BP is "soft" today and BUN/creatinine has increased since admission. This is consistent with her having a very narrow range of proper intravascular volume, to prevent pulmonary edema but adequate preload to fill her dilated RV. Fluid an d diuretic management is difficult. (9) Odynophagia Conclusion/Plan: At admission she reported, and the daughter confirmed, that she has lost alot of weight, partly because she eats and solid food gets stuck in the lower chest and is painful. Then she needs warm liquids to move it down. She was seen by Gen Surg design studio consultant to consider an EGD as she may have a stricture. Dr Zacarias recommended EGD be done when she is not in the ICU. Today the General specification consultant, Dr. Reyes, recommended that we see what work-up she is already had in the past. I spoke to the daughter Sesar by phone who said that her work-up was done in July 2020 when she was an inpatient at [facility]. Those records will be requested. I suspect part of her significant weight loss is due to this and feel she needs an EGD. (10) Tremor of right hand Conclusion/Plan: The daughter described that this coincides with her being "nervous" and having panic attacks. Unfortunately we cannot use Propranolol, with its B1 and B-2 blocking effects, because of her severe underlying COPD. We are continuing her medications for anxiety which help alot. She would need an outpatient Neurology evaluation of this localized hand tremor (11) Insomnia Conclusion/Plan: She had her typical "panic attack" several nights ago, telemedicine night coverage needed to be called and she received Benadryl. She has had none further since the causes of her hypoxia have been addressed. We ordered iv morphine q4h as needed for severe respiratory distress, when in the ICU. Will continue Benadryl prn insomnia. (12) Anxiety and depression Conclusion/Plan: Daughter says she is on Abilify which may be helping slightly. She also takes scheduled doses of Ativan. The daughter reports nightly "panic attacks" which always happen when she tries to go to bed and she is always orthopneic over the last 2 weeks. I suspect and told the daughter these were from orthopnea and air hunger, happening when her feet are elevated causing increased venous return and increased pressure/fluid in her abdomen and lungs. The panic attacks have stopped, once her resp distress was treated. We ordered the Abilify and decreased her scheduled bid Ativan, due to daytime somnolence (see #13) We ordered Benadryl minimally for insomnia. (13) Lethargy Yesterday she was sitting up in a chair and nodding off to sleep while holding a cup she was drinking from. The daughter says this is exactly what she does at home, she sleeps alot. Staff here thought it was from being exhausted after PT. The daughter then gave me examples of how the patient has no interest in many activities: She has not taken a shower since July 2021 (because she is afraid of drowning), she refuses to take sponge baths and insist that she is not dirty, she does not want to change her clothes because she does not want the daughter to control her, she will not let the daughter wash her hair so needs to go to hairdresser from [employer], she wants all her appointments after 1300 because she sleeps "all the time". Ever since she had general anesthesia for her bladder cancer surgery in 07/2020, her personality is different. The patient is on Ativan for anxiety and on Lexapro and Abilify for depression. The daughter thinks she may have more than depression, may have failure to thrive. She underwent a head CT last night, which daughter said she never had Her a.m. cortisol level came back normal Her TSH came back normal I decreased the Ativan from 3.75 twice daily down to 2.5 twice daily. btain a head CT (which she has never had). (14) Old lacunar strokes Conclusion/Plan: She underwent a head CT last night 04/29, and the result shows volume loss and also old lacunar strokes. This was discussed with the daughter today. We are continuing her anticoagulant since she is in chronic A. fib (15) Moderate malnutrition Conclusion/Plan: The patient has some muscle wasting and loss of subcutaneous fat. There has been nutritional intake of less than 50% of recommended for 1 week or more and there has been a 10% weight loss over the past 1 year. I suspect part of this is from her odynophagia Nutrition consult appreciated to adjust her diet to her wants. (16) Chronic pain Conclusion/Plan: The daughter described that the patient used to have severe pain in her bladder from having BCG treatments. She was on high doses of oxycodone for bladder pain with her bladder cancer. The daughter has slowly weaned her down to the present dose which is 2.5 twice daily scheduled. Patient has myoclonic jerks when the dose is missed, which is consistent with withdrawal Will continue her current scheduled doses. (17) Elevated LFTs Conclusion/Plan: Improved/resolved. This was likely from passive liver congestion from R heart disease, and has improved with diuresis Will monitor LFTs intermittently. - Current Meds Current Meds: Current Medications Generic Name Dose Route Start Last Admin Trade Name Freq PRN Reason Stop Dose Admin Albuterol/Ipratropium 3 ml 04/27/22 06:14 04/28/22 01:06 Ipratropium/Albuterol 3 Ml Neb INH 3 ml Q4HR PRN Administration Wheezing Albuterol/Ipratropium 3 ml 04/27/22 15:00 04/30/22 11:40 Ipratropium/Albuterol 3 Ml Neb INH 3 ml RTQID RUDOLPH Administration Apixaban 2.5 mg 04/27/22 12:00 04/30/22 08:28 Apixaban 2.5 Mg Tablet PO 2.5 mg BID RUDOLPH Administration Aspirin 81 mg 04/28/22 12:00 04/30/22 07:57 Aspirin Ec 81 Mg Tablet PO 81 mg DAILYWM RUDOLPH Administration Budesonide 0.5 mg 04/28/22 09:19 04/30/22 07:41 Budesonide 0.5 Mg/2 Ml Neb INH 0.5 mg RTBID RUDOLPH Administration Digoxin 125 mcg 04/30/22 09:00 04/30/22 08:26 Digoxin 125 Mcg Tablet PO 05/02/22 00:01 125 mcg DAILY RUDOLPH Administration Diltiazem HCl 120 mg 04/29/22 12:00 04/30/22 12:11 Diltiazem Cd 120 Mg Capsule PO 120 mg 1200 RUDOLPH Administration Docusate Sodium 250 - 500 mg 04/30/22 09:00 04/30/22 08:23 Docusate Sodium 250 Mg Capsule PO 250 mg DAILY RUDOLPH Administration Escitalopram Oxalate 10 mg 04/27/22 12:00 04/30/22 08:25 Escitalopram 10 Mg Tablet PO 10 mg DAILY RUDOLPH Administration Guaifenesin 600 mg 04/27/22 13:00 04/30/22 08:24 Guaifenesin 600 Mg Tablet PO 600 mg BID RUDOLPH Administration Ceftriaxone Sodium 2 gm/ 100 mls @ 200 mls/hr 04/27/22 12:00 04/30/22 08:29 Sodium Chloride IV 05/01/22 12:59 200 mls/hr DAILY RUDOLPH Administration Sodium Chloride 1,000 mls @ 83.333 mls/hr 04/30/22 08:00 04/30/22 08:29 Normal Saline 0.9% IV 04/30/22 19:59 83.333 mls/hr .Q12H RUDOLPH Administration Levothyroxine Sodium 50 mcg 04/28/22 07:00 04/30/22 05:30 Levothyroxine 25 Mcg Tablet PO 50 mcg QDAC RUDOLPH Administration Lorazepam 0.5 mg 04/27/22 21:00 04/30/22 08:26 Lorazepam 0.5 Mg Tablet PO 0.5 mg BID RUDOLPH Administration Methylprednisolone 80 mg 04/27/22 14:00 04/30/22 05:29 Methylprednisolone Succinate 40 Mg/Ml Vial IVP 80 mg TID RUDOLPH Administration Metoprolol Succinate 75 mg 04/29/22 07:35 04/30/22 08:27 Metoprolol Succinate 50 Mg Tablet PO 75 mg BID RUDOLPH Administration Montelukast Sodium 10 mg 04/28/22 21:00 04/29/22 20:35 Montelukast 10 Mg Tablet PO 10 mg QPM RUDOLPH Administration Multi-Ingredient Ointment 1 applic 04/27/22 15:36 04/29/22 22:14 Zinc Oxide 20% Oint 30 Gm Tube TOP 1 applic PRN PRN Administration Skin Care Multivitamins/Minerals 1 tab 04/29/22 08:00 04/30/22 07:57 Multivitamin W/Minerals Tablet PO 1 tab DAILYWM RUDOLPH Administration Oxycodone HCl 2.5 mg 04/27/22 21:00 04/30/22 08:24 Oxycodone 5 Mg Tablet PO 2.5 mg BID RUDOLPH Administration Pantoprazole Sodium 40 mg 04/28/22 07:00 04/30/22 05:29 Pantoprazole 40 Mg Tablet PO 40 mg QDAC RUDOLPH Administration Patient Own Med ( 0.5 each 04/28/22 10:37 04/30/22 08:28 Sildenafil Citrate [ PO 0.5 each Sildenafil] 20 Mg BID RUDOLPH Administration Tablet) Patient Own Med ( 1 each 04/28/22 16:31 04/29/22 20:37 Mirabegron [ PO 1 each Myrbetriq] 25 Mg Er HS RUDOLPH Administration Tab) Patient Own Med ( 1 each 04/28/22 16:37 04/29/22 20:37 Aripiprazole 2mg) PO 1 each HS RUDOLPH Administration Polyethylene Glycol 17 gm 04/29/22 12:00 04/30/22 08:22 Polyethylene Glycol 3350 17 Gm Packet PO 17 gm DAILY RUDOLPH Administration Saccharomyces Boulardii 250 mg 04/27/22 17:00 04/30/22 07:58 Saccharomyces Boulardii 250 Mg Capsule PO 250 mg BIDWM RUDOLPH Administration Senna 8.6 - 17.2 mg 04/30/22 09:00 04/30/22 08:23 Senna 8.6 Mg Tablet PO 8.6 mg DAILY RUDOLPH Administration Sodium Chloride 10 ml 04/27/22 06:10 04/30/22 05:29 Sodium Chloride Flush 0.9% 10 Ml Syringe IVP 10 ml PRN PRN Administration NEEDED PER PROVIDER ORDERS Sodium Chloride 10 ml 04/27/22 09:00 04/30/22 12:11 Sodium Chloride Flush 0.9% 10 Ml Syringe IVP 10 ml 0100,0900,1700 RUDOLPH Administration - Lab Result Fish Bone Diagrams: 04/30/22 04:30 04/30/22 04:30 - Additional Planning My Orders: My Active Orders 04/29/22 14:42 Telemetry- [RC] Q4HR 04/30/22 08:00 Sodium Chloride 0.9% [Normal Saline 0.9%] 1,000 ml IV 83.333 mls/hr 04/30/22 09:00 Digoxin [Lanoxin] 125 mcg PO DAILY Docusate Sodium 250Mg Capsule [Colace 250Mg Capsule] 250 - 500 mg PO DAILY Senna [Senokot] 8.6 - 17.2 mg PO DAILY 05/01/22 05:00 BMP - BASIC METABOLIC PANEL [CHEM] DAILYLAB CBC - COMP BLD CT W/AUTO DIFF [HEME] DAILYLAB 05/02/22 05:00 BMP - BASIC METABOLIC PANEL [CHEM] DAILYLAB CBC - COMP BLD CT W/AUTO DIFF [HEME] DAILYLAB Subjective - Subjective Patient Reports: Feeling Better (Sitting in a chair, eating her breakfast, she smiled at me when I entered the room. She is in no respiratory distress. She is very SLEETMUTE.) Objective Vital Signs: Vital Signs - 24 hr 04/29/22 04/29/22 04/29/22 14:00 15:22 19:30 Temperature 36.6 C Heart Rate 59 L Heart Rate [ Brachial] Heart Rate [ 98 83 Monitoring electrodes] Respiratory 11 L 20 16 Rate Blood Pressure 87/68 L 113/68 [Right Brachial artery] O2 Saturation 99 97 If not protocol 2 2 2 : Oxygen Flow, liters/minute 04/29/22 04/30/22 04/30/22 20:29 00:29 05:00 Temperature 36.4 C L 36.3 C L Heart Rate Heart Rate [ 72 103 H Brachial] Heart Rate [ 70 Monitoring electrodes] Respiratory 18 16 18 Rate Blood Pressure 130/88 H 116/90 H 114/77 [Right Brachial artery] O2 Saturation 97 94 92 If not protocol 2 2 2 : Oxygen Flow, liters/minute 04/30/22 04/30/22 04/30/22 07:42 08:16 11:41 Temperature 36.2 C L Heart Rate 97 78 Heart Rate [ 71 Brachial] Heart Rate [ Monitoring electrodes] Respiratory 16 20 16 Rate Blood Pressure 108/66 [Right Brachial artery] O2 Saturation 93 If not protocol 2 2 2 : Oxygen Flow, liters/minute Oxygen O2 Source Nasal cannula Oxygen Flow Rate 2 I&O (Last 24 Hrs): Intake and Output Totals x24h 04/28/22 04/29/22 04/30/22 23:59 23:59 23:59 Intake Total 0613.485 7772.416 770 Output Total 475 450 250 Balance 946.667 626.416 520 General: Alert, Other (Cachectic) HEENT: Mucous membr. moist/pink, Other (SLEETMUTE. Wearing O2 per n.c.) Neck: Supple, No JVD Neuro: Alert, Other (SLEETMUTE, R hand tremor is negligable, drifts off to sleep in her recliner.) Cardiovascular: Other (Irreg irreg) Respiratory: No respiratory distress (wearing O2 per n.c.), Other (Poor air mvm.) Abdomen: Soft, No tenderness Extremities: No clubbing, No edema - Results Results: Laboratory Results WBC 7.5 x10^3/uL (4.8-10.8) 04/30/22 04:30 RBC 4.21 10^6/uL (4.20-5.40) 04/30/22 04:30 Hgb 10.9 g/dL (12.0-16.0) L 04/30/22 04:30 Hct 35.0 % (37.0-47.0) L 04/30/22 04:30 MCV 83.1 fL (81.0-99.0) 04/30/22 04:30 MCH 25.9 pg (27.0-31.0) L 04/30/22 04:30 MCHC 31.1 g/dL (32.0-36.0) L 04/30/22 04:30 RDW 16.7 % (12.0-15.0) H 04/30/22 04:30 Plt Count 265 10^3/uL (130-450) 04/30/22 04:30 MPV 11.4 fL (7.9-10.8) H 04/30/22 04:30 Neut # (Auto) 6.7 10^3/uL (1.5-6.6) H 04/30/22 04:30 Lymph # (Auto) 0.5 10^3/uL (1.5-3.5) L 04/30/22 04:30 [place] # (Auto) 0.2 10^3/uL (0.0-1.0) 04/30/22 04:30 Eos # (Auto) 0.0 10^3/uL (0.0-0.7) 04/30/22 04:30 Baso # (Auto) 0.0 10^3/uL (0.0-0.1) 04/30/22 04:30 Absolute Nucleated RBC 0.00 x10^3/uL 04/30/22 04:30 Nucleated RBC % 0.0 /100WBC 04/30/22 04:30 PT 14.2 secs (9.9-12.6) H 04/27/22 11:11 INR 1.3 (0.8-1.2) H 04/27/22 11:11 Sodium 138 mmol/L (135-145) 04/30/22 04:30 Potassium 4.3 mmol/L (3.5-5.0) 04/30/22 04:30 Chloride 93 mmol/L (101-111) L 04/30/22 04:30 Carbon Dioxide 31 mmol/L (21-32) 04/30/22 04:30 Anion Gap 14.0 (6-13) H 04/30/22 04:30 BUN 82 mg/dL (6-20) H* 04/30/22 04:30 Creatinine 1.8 mg/dL (0.4-1.0) H 04/30/22 04:30 Estimated GFR (MDRD) 26 (>89) L 04/30/22 04:30 Glucose 136 mg/dL (70-100) H 04/30/22 04:30 Calcium 8.9 mg/dL (8.5-10.3) 04/30/22 04:30 Magnesium 2.5 mg/dL (1.7-2.8) 04/29/22 06:12 Total Bilirubin 0.5 mg/dL (0.2-1.0) 04/28/22 06:15 Direct Bilirubin 0.1 mg/dL (0.1-0.5) 04/28/22 06:15 AST 91 IU/L (10-42) H 04/28/22 06:15 ALT 155 IU/L (10-60) H 04/28/22 06:15 Alkaline Phosphatase 109 IU/L (42-121) 04/28/22 06:15 Troponin I High Sens 81.2 ng/L (2.3-14.8) H* 04/27/22 17:12 B-Natriuretic Peptide 3726 pg/mL (5-100) H 04/28/22 06:15 Total Protein 7.7 g/dL (6.7-8.2) 04/28/22 06:15 Albumin 4.2 g/dL (3.2-5.5) 04/28/22 06:15 Globulin 3.5 g/dL (2.1-4.2) 04/28/22 06:15 Albumin/Globulin Ratio 1.2 (1.0-2.2) 04/27/22 02:26 Lipase 31 U/L (22-51) 04/27/22 02:26 TSH 0.52 uIU/mL (0.34-5.60) 04/30/22 04:30 Cortisol AM Sample 8.2 ug/dL 04/30/22 07:58 Urine Color YELLOW 04/27/22 17:30 Urine Clarity CLOUDY (CLEAR) 04/27/22 17:30 Urine pH 7.0 PH (5.0-7.5) 04/27/22 17:30 Ur Specific [place] 1.010 (1.002-1.030) 04/27/22 17:30 Urine Protein NEGATIVE mg/dL (NEGATIVE) 04/27/22 17:30 Urine Glucose (UA) NEGATIVE mg/dL (NEGATIVE) 04/27/22 17:30 Urine Ketones NEGATIVE mg/dL (NEGATIVE) 04/27/22 17:30 Urine Occult Blood TRACE-INTA (NEGATIVE) 04/27/22 17:30 Urine Nitrite NEGATIVE (NEGATIVE) 04/27/22 17:30 Urine Bilirubin NEGATIVE (NEGATIVE) 04/27/22 17:30 Urine Urobilinogen 0.2 (NORMAL) E.U./dL (NORMAL) 04/27/22 17:30 Ur Leukocyte Esterase SMALL (NEGATIVE) H 04/27/22 17:30 Urine RBC 0-5 /HPF (0-5) 04/27/22 17:30 Urine WBC 4-5 /HPF (0-5) 04/27/22 17:30 Ur Squamous Epith Cells MANY Squamous (<= Few) H 04/27/22 17:30 Urine Bacteria Moderate /HPF (None Seen) H 04/27/22 17:30 Urine Culture Comments NOT INDICATED 04/27/22 17:30 Nasal Adenovirus (PCR) NOT DETECTED 04/27/22 04:30 Nasal B. parapertussis DNA (PCR) NOT DETECTED 04/27/22 04:30 Nasal Coronavir 229E PCR NOT DETECTED 04/27/22 04:30 Nasal Coronavir HKU1 PCR NOT DETECTED 04/27/22 04:30 Nasal Coronavir NL63 PCR NOT DETECTED 04/27/22 04:30 Nasal Coronavir OC43 PCR NOT DETECTED 04/27/22 04:30 Nasal Enterovir/Rhinovir PCR NOT DETECTED 04/27/22 04:30 Nasal Influenza B PCR NOT DETECTED 04/27/22 04:30 Nasal Influenza A PCR NOT DETECTED 04/27/22 04:30 Nasal Parainfluen 1 PCR NOT DETECTED 04/27/22 04:30 Nasal Parainfluen 2 PCR NOT DETECTED 04/27/22 04:30 Nasal Parainfluen 3 PCR NOT DETECTED 04/27/22 04:30 Nasal Parainfluen 4 PCR NOT DETECTED 04/27/22 04:30 Nasal RSV (PCR) NOT DETECTED 04/27/22 04:30 Nasal Screen MRSA (PCR) NEGATIVE (NEGATIVE) 04/27/22 13:00 Nasal B.pertussis DNA PCR NOT DETECTED 04/27/22 04:30 Nasal C.pneumoniae (PCR) NOT DETECTED 04/27/22 04:30 Jacky Human Metapneumo PCR NOT DETECTED 04/27/22 04:30 Nasal M.pneumoniae (PCR) NOT DETECTED 04/27/22 04:30 Nasal SARS-CoV-2 (PCR) NOT DETECTED 04/27/22 04:30
[2022-04-30] MEDS: ARIPIPRAZOLE 2 MG PO SCH (21:21)
[2022-04-30] MEDS: MIRABEGRON 25 MG PO SCH (21:21)
[2022-04-30] MEDS: MONTELUKAST 10 MG TABLET PO SCH (21:22)
[2022-05-01] MEDS: LEVOTHYROXINE 25 MCG TABLET PO SCH (06:16)
[2022-05-01] MEDS: PANTOPRAZOLE 40 MG TABLET PO SCH (06:16)
[2022-05-01] MEDS: methylPREDNISolone SUCCINATE 40 MG/ML VIAL IVP SCH ×3 (06:16→21:51)
[2022-05-01 06:40] LABS: HCT - HEMATOCRIT 34.8 % (37.0-47.0); LYMPHOCYTES # (AUTO) 0.5 10^3/uL (1.5-3.5); LYMPHOCYTES % (AUTO) 7.3 %; MEAN CORPUSCULAR HEMOGLOBIN 26.3 pg (27.0-31.0); MEAN CORPUSCULAR HGB CONC 31.6 g/dL (32.0-36.0); MEAN CORPUSCULAR VOLUME 83.1 fL (81.0-99.0); MEAN PLATELET VOLUME 10.6 fL (7.9-10.8); MONOCYTES # (AUTO) 0.2 10^3/uL (0.0-1.0); MONOCYTES % (AUTO) 3.2 %; NEUTROPHILS # (AUTO) 5.6 10^3/uL (1.5-6.6); PLT - PLATELET COUNT 234 10^3/uL (130-450); RED BLOOD COUNT 4.19 10^6/uL (4.20-5.40); RED CELL DISTRIBUTION WIDTH 16.7 % (12.0-15.0); WHITE BLOOD COUNT 6.3 x10^3/uL (4.8-10.8)
[2022-05-01 06:52] LABS: CALCIUM 8.9 mg/dL (8.5-10.3); CREATININE 1.4 mg/dL (0.4-1.0); POTASSIUM 4.1 mmol/L (3.5-5.0)
[2022-05-01 08:56] LABS: ALBUMIN 3.4 g/dL (3.2-5.5); BILIRUBIN,DIRECT 0.1 mg/dL (0.1-0.5); BILIRUBIN,TOTAL 0.4 mg/dL (0.2-1.0); TOTAL PROTEIN 6.3 g/dL (6.7-8.2)
[2022-05-01] MEDS: IPRATROPIUM/ALBUTEROL 3 ML NEB INH SCH ×4 (09:04→19:45)
[2022-05-01] MEDS: BUDESONIDE 0.5 MG/2 ML NEB INH SCH ×2 (09:05→19:45)
[2022-05-01] MEDS: polyethylene glycoL 3350 17 GM PACKET PO SCH (09:21)
[2022-05-01] MEDS: cefTRIAXone 2 GM in SODIUM CHLORIDE 0.9% MINIBAG 100 ML IV SCH (09:21)
[2022-05-01] MEDS: DIGOXIN 125 MCG TABLET PO SCH (09:22)
[2022-05-01] MEDS: oxyCODONE 5 MG TABLET PO SCH ×2 (09:22→20:39)
[2022-05-01] MEDS: guaiFENesin 600 MG TABLET PO SCH (09:22)
[2022-05-01] MEDS: ESCITALOPRAM 10 MG TABLET PO SCH (09:22)
[2022-05-01] MEDS: MULTIVITAMIN W/MINERALS TABLET PO SCH (09:22)
[2022-05-01] MEDS: SACCHAROMYCES BOULARDII 250 MG CAPSULE PO SCH ×2 (09:22→16:56)
[2022-05-01] MEDS: APIXABAN 2.5 MG TABLET PO SCH ×2 (09:22→20:40)
[2022-05-01] MEDS: METOPROLOL SUCCINATE 50 MG TABLET PO SCH ×2 (09:23→20:41)
[2022-05-01] MEDS: ASPIRIN EC 81 MG TABLET PO SCH (09:23)
[2022-05-01] MEDS: DOCUSATE SODIUM 250 MG CAPSULE PO SCH (09:23)
[2022-05-01] MEDS: SODIUM CHLORIDE FLUSH 0.9% 10 ML SYRINGE IVP SCH ×3 (09:23→23:41)
[2022-05-01] MEDS: LORazepam 0.5 MG TABLET PO SCH (09:23)
[2022-05-01] MEDS: SILDENAFIL CITRATE 20 MG PO SCH ×2 (09:32→20:42)
[2022-05-01] MEDS: SENNA 8.6 MG TABLET PO SCH ×3 (09:43→20:54)
--- NOTE | 2022-05-01 10:44 | PROVIDER PROGRESS NOTE ---
Assessment/Plan - Problem List (1) COPD with exacerbation Assessment/Plan: The pneumonia likely gave her this COPD exacerbation. She has severe COPD, and being on Sildinafil indicates she had severe pulm HTN. Her Bank President is Dr Seun Almonte. She is on DuoNebs scheduled and as needed, iv steroids, inhaled steroids and on antibx. We ordered the patient to continue to take her Sildenafil as "patient's own med". We started oral nightly Singulair I will start tapering her Solumedrol from 80 tid to 40 tid and plan would be for changing to Prednisone 20 mg daily with a very slow taper over several mos as an outpt, given her very severe chronic COPD. Cont O2 suppl. She is now back to her baseline suppl O2 at 2L/min continuous. Discharge plan is for her to be on new Singulair and nebulized bronchodilators resumed (she has a nebulizer machine at home) and new Prednisone 20 mg po daily and Mucinex. I updated the daughter Sesar, on all her mother's diagnoses, today. (2) CAP (community acquired pneumonia) Conclusion/Plan: This was one of the causes of her acute respiratory exacerbation. She is on empiric treatment using IV ceftriaxone and oral Zithromax and we started Florastor. She finished Zithromax and today is the last day of ceftriaxone. We ordered Mucinex for pulmonary toilet Continue with supplemental oxygen. (3) Odynophagia Conclusion/Plan: At admission she reported, and the daughter confirmed, that she has lost alot of weight, partly because when she eats, solid food gets stuck in the lower chest and is painful. Then she needs warm liquids to move it down. She was seen by Gen Surg consultant intern to consider an EGD re: a stricture. Dr Zacarias recommended EGD be done when she is not in the ICU. General clinical consultant, Dr. Reyes, recommended we review prior W/U, and records were received today from her Inpt stay at [facility] in [place] in July 2020. 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 Then she had an EGD that found no stricture but a foreign body was extracated (tape) and the report said "probable achalasia" I suspect her significant weight loss is related to her odynophagia and she may also be aspirating food, since her coughing is worse after meals, per her RN. I discussed the EGD procedure with the pt and daughter and she wants to "think about it". (4) Acute on chronic respiratory failure with hypoxia Improving This was likely multifactorial: From pulmonary edema, from COPD exacerbation, and from pneumonia. Will continue with supplemental O2 keeping sats greater than 88%. We are treating her underlying lung problems Because she needed BiPAP temporarily while in the ED, she was admitted to the ICU for possible future need for BiPAP or ventilator. She is now back to her baseline suppl O2 at 2L/min continuously, that she was on at home. (5) Cor Pulmonale Echo was done and is consistent with cor pulmonale: Dilated RV and RA, with depressed RV function. This is likely from her longstanding underlying severe COPD and pulm hypertension. We are continuing her sildenafil as "patient's own med" Her BP is "soft" and BUN/creatinine had increased since admission. This is consistent with her having a very narrow range of proper intravascular volume, to prevent pulmonary edema but adequate preload to fill her dilated RV. Fluid and diuretic management is difficult. 6) Atrial fibrillation with RVR Assessment/Plan: She has had known atrial fib. Her Fiscal Economist (Dr Raad Lees) noted her poor rate control, the day before she was admitted here. She was also already on (renal doses of) Eliquis for anticoagulation for stroke prophylaxis. She required an IV diltiazem drip in the ICU for aggressive rate control and was able to be weaned off the drip as the B-lillian dose was increased from 50 bid to 75 bid for rate control and for her CHF management. BP is soft, so we added oral Cardizem CD once daily at noon, staggering it from B-blockers She also got Dig po for 2 days. We are continuing her Eliquis. Continue on telemetry and assess heart rate control with ambulation. PT has started to work with her. (7) Tremor of right hand Conclusion/Plan: I witnessed a severe rate hand and arm tremor on the night of admission when she was in marked distress. The daughter described that this coincides with her being "nervous" and having panic attacks. Unfortunately we cannot use Propranolol, with its B1 and B-2 blocking effects, because of her severe underlying COPD. We are continuing her medications for anxiety which help alot. She would need an outpatient Neurology evaluation of this localized hand tremor (8) Insomnia Conclusion/Plan: She had a typical "panic attack" several nights ago, telemedicine night coverage ordered Benadryl. She has had no further"panic attacks" or insomnia, since the causes of her air hunger have been addressed. Will continue Benadryl prn insomnia. (9) Anxiety and depression Conclusion/Plan: Daughter says she is on Abilify which may be helping slightly. She also takes scheduled doses of Ativan. The daughter reports nightly "panic attacks" which always happen when she tries to go to bed and she is always orthopneic over the last 2 weeks. I suspect and told the daughter these were from orthopnea and air hunger, happening when her feet are elevated causing increased venous return and increased pressure/fluid in her abdomen and lungs. The panic attacks have stopped, once her resp distress was treated. We ordered the Abilify and decreased her scheduled bid Ativan, due to daytime somnolence (see #10) We ordered Benadryl for insomnia, hope to use it minimally. (10) Lethargy For the past 2 days, when she was sitting up in a chair, she was nodding off to sleep while holding a cup she was drinking from. The daughter says this is exactly what she does at home, she sleeps alot. Staff here thought it was from being exhausted after PT. The daughter then gave me examples of how the patient has no interest in many activities: She has not taken a shower since July 2021 (because she is afraid of drowning), she refuses to take sponge baths and insist that she is not dirty, she does not want to change her clothes because she does not want the daughter to control her, she will not let the daughter wash her hair so needs to go to hairdresser for simple shampooing, she wants all her appointments after 1300 be cause she wants to sleep late. And ever since she had general anesthesia for her bladder cancer surgery in 07/2020, her personality is different. The patient has been on b.i.d. Ativan for anxiety and on Lexapro and Abilify for depression. The daughter thinks she may have more than depression, may have failure to thrive. She underwent a head CT (see #11), and her a.m. cortisol level came back normal, her TSH came back normal Plan: I have decreased the scheduled b.i.d. Ativan dose from 0.75 b.i.d. to 0.5 b.i.d., since the "panic attacks" have stopped, with her resp distress addressed. I hope to have her NOT take Ativan in a.m to keep her alert during the day, and only take the evening dose, 1 hour before sleep. I will start decreasing the morning Ativan dose to 0.25 mg in a.m. and make the evening dose 0.75 mg. This patient is extremely deconditioned. The daughter would like her to go to SNF. I discussed SNF with the pt and she is agreeable. This request was passed on to PT and Social Work. They have arranged for SNF at [facility]. (11) Old lacunar strokes Conclusion/Plan: She underwent a head CT on 04/29, and the result shows volume loss and also old lacunar strokes. This was discussed with the daughter. We are continuing her anticoagulant for stroke prevention, since she is in chronic A. fib (12) Moderate malnutrition Conclusion/Plan: The patient has some muscle wasting and loss of subcutaneous fat. There has been nutritional intake of less than 50% of recommended for 1 week or more and there has been a 10% weight loss over the past 1 year. I suspect part of this is from her odynophagia and also from air hunger and feeling panicky. Nutrition consult appreciated to adjust her diet to her wants. (13) Acute on chronic kidney failure Conclusion/Plan: Improved Patient had a mildly elevated creatinine of 1.4 at admission and she is on renal dosing for her Eliquis therefore presumptively she has CKD. Unfortunately, her creatinine had increased from 1.4>> 1.6>> 1.7>> 2.0 since being on IV diuretics. So, her iv diuretics were decreased then stopped, and yesterday, she got fluids back in the form of 1 L of NS over 1 day. BUN/creat have improved today. No further daily loop diuretic is being given. Will give an additional 500 cc of iv fluids due to dry mucosa and skin tenting on exam today Following BMP daily (14) Pulmonary edema Conclusion/Plan: Resolved This was one of the causes of her acute respiratory failure Suspect that she may have had flash pulmonary edema, from her rapid Afib, on top of chronic CHF, given the presence of pleural effusions. She got iv diuresis and improved. No further daily loop diuretic is being given Follow I's and O's, daily weights, BMP daily. (15) Type II VT Troponins increased (21>> 117>> 81), consistent with an VT. This is likely from her A. fib with RVR. An Echo was done here and shows LVEF 40% with regional wall motion abnormalities present. Daughter told me the patient has never had a stress test or coronary angiogram, only a CT chest that showed severe coronary calcification with atherosclerosis Will continue to treat with beta-lillian, and we added baby aspirin daily which she should go home with, while continuing her Eliquis. We cannot add nitrates in a patient on sildenafil. We will check her lipid panel and treat per guidelines, as she may already have an LDL under 70 since she is cachectic/anorexic (16) Chronic pain Conclusion/Plan: The daughter described that the patient used to have severe pain in her bladder from having BCG treatments and from bladder cancer. She was on high doses of oxycodone for bladder pain. The daughter has slowly weaned her down to the present dose which is 2.5 twice daily scheduled. Patient has myoclonic jerks when the dose is missed, which is consistent with withdrawal Will continue her current scheduled oxycodone doses. (17) Elevated LFTs Conclusion/Plan: Improved/resolved. This was likely from passive liver congestion from R heart di sease, and improved after diuresis Will monitor LFTs intermittently. - Current Meds Current Meds: Current Medications Generic Name Dose Route Start Last Admin Trade Name Freq PRN Reason Stop Dose Admin Albuterol/Ipratropium 3 ml 04/27/22 06:14 04/28/22 01:06 Ipratropium/Albuterol 3 Ml Neb INH 3 ml Q4HR PRN Administration Wheezing Albuterol/Ipratropium 3 ml 04/27/22 15:00 05/01/22 09:04 Ipratropium/Albuterol 3 Ml Neb INH 3 ml RTQID RUDOLPH Administration Apixaban 2.5 mg 04/27/22 12:00 05/01/22 09:22 Apixaban 2.5 Mg Tablet PO 2.5 mg BID RUDOLPH Administration Aspirin 81 mg 04/28/22 12:00 05/01/22 09:23 Aspirin Ec 81 Mg Tablet PO 81 mg DAILYWM RUDOLPH Administration Budesonide 0.5 mg 04/28/22 09:19 05/01/22 09:05 Budesonide 0.5 Mg/2 Ml Neb INH 0.5 mg RTBID RUDOLPH Administration Digoxin 125 mcg 04/30/22 09:00 05/01/22 09:22 Digoxin 125 Mcg Tablet PO 05/02/22 00:01 125 mcg DAILY RUDOLPH Administration Diltiazem HCl 120 mg 04/29/22 12:00 04/30/22 12:11 Diltiazem Cd 120 Mg Capsule PO 120 mg 1200 RUDOLPH Administration Docusate Sodium 250 - 500 mg 04/30/22 09:00 05/01/22 09:23 Docusate Sodium 250 Mg Capsule PO Not Given DAILY RUDOLPH Escitalopram Oxalate 10 mg 04/27/22 12:00 05/01/22 09:22 Escitalopram 10 Mg Tablet PO 10 mg DAILY RUDOLPH Administration Guaifenesin 600 mg 04/27/22 13:00 04/30/22 21:23 Guaifenesin 600 Mg Tablet PO 600 mg BID RUDOLPH Administration Ceftriaxone Sodium 2 gm/ 100 mls @ 200 mls/hr 04/27/22 12:00 05/01/22 09:21 Sodium Chloride IV 05/01/22 12:59 200 mls/hr DAILY RUDOLPH Administration Levothyroxine Sodium 50 mcg 04/28/22 07:00 05/01/22 06:16 Levothyroxine 25 Mcg Tablet PO 50 mcg QDAC RUDOLPH Administration Lorazepam 0.5 mg 04/27/22 21:00 05/01/22 09:23 Lorazepam 0.5 Mg Tablet PO 0.5 mg BID RUDOLPH Administration Metoprolol Succinate 75 mg 04/29/22 07:35 05/01/22 09:23 Metoprolol Succinate 50 Mg Tablet PO 75 mg BID RUDOLPH Administration Montelukast Sodium 10 mg 04/28/22 21:00 04/30/22 21:22 Montelukast 10 Mg Tablet PO 10 mg QPM RUDOLPH Administration Multi-Ingredient Ointment 1 applic 04/27/22 15:36 04/29/22 22:14 Zinc Oxide 20% Oint 30 Gm Tube TOP 1 applic PRN PRN Administration Skin Care Multivitamins/Minerals 1 tab 04/29/22 08:00 05/01/22 09:22 Multivitamin W/Minerals Tablet PO 1 tab DAILYWM RUDOLPH Administration Oxycodone HCl 2.5 mg 04/27/22 21:00 05/01/22 09:22 Oxycodone 5 Mg Tablet PO 2.5 mg BID RUDOLPH Administration Pantoprazole Sodium 40 mg 04/28/22 07:00 05/01/22 06:16 Pantoprazole 40 Mg Tablet PO 40 mg QDAC RUDOLPH Administration Patient Own Med ( 0.5 each 04/28/22 10:37 05/01/22 09:32 Sildenafil Citrate [ PO 0.5 each Sildenafil] 20 Mg BID RUDOLPH Administration Tablet) Patient Own Med ( 1 each 04/28/22 16:31 04/30/22 21:21 Mirabegron [ PO 1 each Myrbetriq] 25 Mg Er HS RUDOLPH Administration Tab) Patient Own Med ( 1 each 04/28/22 16:37 04/30/22 21:21 Aripiprazole 2mg) PO 1 each HS RUDOLPH Administration Polyethylene Glycol 17 gm 04/29/22 12:00 05/01/22 09:21 Polyethylene Glycol 3350 17 Gm Packet PO 17 gm DAILY RUDOLPH Administration Saccharomyces Boulardii 250 mg 04/27/22 17:00 05/01/22 09:22 Saccharomyces Boulardii 250 Mg Capsule PO 250 mg BIDWM RUDOLPH Administration Senna 8.6 - 17.2 mg 05/01/22 09:00 05/01/22 09:43 Senna 8.6 Mg Tablet PO 17.2 mg Q6H RUDOLPH Administration Sodium Chloride 10 ml 04/27/22 06:10 04/30/22 05:29 Sodium Chloride Flush 0.9% 10 Ml Syringe IVP 10 ml PRN PRN Administration NEEDED PER PROVIDER ORDERS Sodium Chloride 10 ml 04/27/22 09:00 05/01/22 09:23 Sodium Chloride Flush 0.9% 10 Ml Syringe IVP 10 ml 0100,0900,1700 RUDOLPH Administration - Lab Result Fish Bone Diagrams: 05/01/22 06:14 05/01/22 06:14 - Diagnostic Imaging Results Diagnostic Imaging Results: Final report reviewed - Additional Planning My Orders: My Active Orders 05/01/22 09:00 Senna [Senokot] 8.6 - 17.2 mg PO Q6H 05/01/22 14:00 methylPREDNISolone SUCCINATE [SOLU-Medrol (40MG VIAL)] 40 mg IVP TID 05/02/22 05:00 BMP - BASIC METABOLIC PANEL [CHEM] DAILYLAB CBC - COMP BLD CT W/AUTO DIFF [HEME] DAILYLAB LIVER PANEL [CHEM] DAILYLAB Subjective - Subjective Patient Reports: Feeling Better, Resting Comfortably Nursing Reports: Other (Walked further with PT, was less exhausted) Objective Vital Signs: Vital Signs - 24 hr 04/30/22 04/30/22 04/30/22 11:41 13:12 15:27 Temperature 37.1 C Heart Rate 78 83 Heart Rate [ 95 Brachial] Respiratory 16 20 16 Rate Blood Pressure 113/62 [Right Brachial artery] O2 Saturation 96 If not protocol 2 2 2 : Oxygen Flow, liters/minute 04/30/22 04/30/22 04/30/22 16:32 19:10 20:04 Temperature 36.8 C 36.2 C L Heart Rate 85 Heart Rate [ 87 96 Brachial] Respiratory 20 16 20 Rate Blood Pressure 100/62 130/63 [Right Brachial artery] O2 Saturation 95 97 If not protocol 2 2 2 : Oxygen Flow, liters/minute 04/30/22 05/01/22 05/01/22 23:54 06:00 08:20 Temperature 36.7 C 36.5 C 36.6 C Heart Rate Heart Rate [ 75 75 78 Brachial] Respiratory 16 16 19 Rate Blood Pressure 115/81 H 126/78 109/67 [Right Brachial artery] O2 Saturation 96 97 94 If not protocol 2 2 2 : Oxygen Flow, liters/minute 05/01/22 09:06 Temperature Heart Rate 72 Heart Rate [ Brachial] Respiratory 18 Rate Blood Pressure [Right Brachial artery] O2 Saturation If not protocol 2 : Oxygen Flow, liters/minute Oxygen O2 Source Nasal cannula Oxygen Flow Rate 2 I&O (Last 24 Hrs): Intake and Output Totals x24h 04/29/22 04/30/22 05/01/22 23:59 23:59 23:59 Intake Total 2084.259 8991 240 Output Total 450 750 400 Balance 379.719 2141 -160 General: Alert, No acute distress (wearinv O2 per n.c.) HEENT: EOMI, Other (Dry mucosa) Neck: Supple Neuro: Alert, Non Focal (motor), Other ([place]) Cardiovascular: No murmurs (Irreg irreg) Respiratory: No respiratory distress, Rales (R base) Extremities: No clubbing, No edema, Other ((+) skin tenting of arms) - Results Results: Laboratory Results WBC 6.3 x10^3/uL (4.8-10.8) 05/01/22 06:14 RBC 4.19 10^6/uL (4.20-5.40) L 05/01/22 06:14 Hgb 11.0 g/dL (12.0-16.0) L 05/01/22 06:14 Hct 34.8 % (37.0-47.0) L 05/01/22 06:14 MCV 83.1 fL (81.0-99.0) 05/01/22 06:14 MCH 26.3 pg (27.0-31.0) L 05/01/22 06:14 MCHC 31.6 g/dL (32.0-36.0) L 05/01/22 06:14 RDW 16.7 % (12.0-15.0) H 05/01/22 06:14 Plt Count 234 10^3/uL (130-450) 05/01/22 06:14 MPV 10.6 fL (7.9-10.8) 05/01/22 06:14 Neut # (Auto) 5.6 10^3/uL (1.5-6.6) 05/01/22 06:14 Lymph # (Auto) 0.5 10^3/uL (1.5-3.5) L 05/01/22 06:14 [place] # (Auto) 0.2 10^3/uL (0.0-1.0) 05/01/22 06:14 Eos # (Auto) 0.0 10^3/uL (0.0-0.7) 05/01/22 06:14 Baso # (Auto) 0.0 10^3/uL (0.0-0.1) 05/01/22 06:14 Absolute Nucleated RBC 0.00 x10^3/uL 05/01/22 06:14 Nucleated RBC % 0.0 /100WBC 05/01/22 06:14 PT 14.2 secs (9.9-12.6) H 04/27/22 11:11 INR 1.3 (0.8-1.2) H 04/27/22 11:11 Sodium 140 mmol/L (135-145) 05/01/22 06:14 Potassium 4.1 mmol/L (3.5-5.0) 05/01/22 06:14 Chloride 101 mmol/L (101-111) 05/01/22 06:14 Carbon Dioxide 29 mmol/L (21-32) 05/01/22 06:14 Anion Gap 10.0 (6-13) 05/01/22 06:14 BUN 68 mg/dL (6-20) H 05/01/22 06:14 Creatinine 1.4 mg/dL (0.4-1.0) H 05/01/22 06:14 Estimated GFR (MDRD) 35 (>89) L 05/01/22 06:14 Glucose 130 mg/dL (70-100) H 05/01/22 06:14 Calcium 8.9 mg/dL (8.5-10.3) 05/01/22 06:14 Magnesium 2.5 mg/dL (1.7-2.8) 04/29/22 06:12 Total Bilirubin 0.4 mg/dL (0.2-1.0) 05/01/22 06:14 Direct Bilirubin 0.1 mg/dL (0.1-0.5) 05/01/22 06:14 AST 22 IU/L (10-42) 05/01/22 06:14 ALT 73 IU/L (10-60) H 05/01/22 06:14 Alkaline Phosphatase 76 IU/L (42-121) 05/01/22 06:14 Troponin I High Sens 81.2 ng/L (2.3-14.8) H* 04/27/22 17:12 B-Natriuretic Peptide 3726 pg/mL (5-100) H 04/28/22 06:15 Total Protein 6.3 g/dL (6.7-8.2) L 05/01/22 06:14 Albumin 3.4 g/dL (3.2-5.5) 05/01/22 06:14 Globulin 2.9 g/dL (2.1-4.2) 05/01/22 06:14 Albumin/Globulin Ratio 1.2 (1.0-2.2) 04/27/22 02:26 Lipase 31 U/L (22-51) 04/27/22 02:26 TSH 0.52 uIU/mL (0.34-5.60) 04/30/22 04:30 Cortisol AM Sample 8.2 ug/dL 04/30/22 07:58 Urine Color YELLOW 04/27/22 17:30 Urine Clarity CLOUDY (CLEAR) 04/27/22 17:30 Urine pH 7.0 PH (5.0-7.5) 04/27/22 17:30 Ur Specific [place] 1.010 (1.002-1.030) 04/27/22 17:30 Urine Protein NEGATIVE mg/dL (NEGATIVE) 04/27/22 17:30 Urine Glucose (UA) NEGATIVE mg/dL (NEGATIVE) 04/27/22 17:30 Urine Ketones NEGATIVE mg/dL (NEGATIVE) 04/27/22 17:30 Urine Occult Blood TRACE-INTA (NEGATIVE) 04/27/22 17:30 Urine Nitrite NEGATIVE (NEGATIVE) 04/27/22 17:30 Urine Bilirubin NEGATIVE (NEGATIVE) 04/27/22 17:30 Urine Urobilinogen 0.2 (NORMAL) E.U./dL (NORMAL) 04/27/22 17:30 Ur Leukocyte Esterase SMALL (NEGATIVE) H 04/27/22 17:30 Urine RBC 0-5 /HPF (0-5) 04/27/22 17:30 Urine WBC 4-5 /HPF (0-5) 04/27/22 17:30 Ur Squamous Epith Cells MANY Squamous (<= Few) H 04/27/22 17:30 Urine Bacteria Moderate /HPF (None Seen) H 04/27/22 17:30 Urine Culture Comments NOT INDICATED 04/27/22 17:30 Nasal Adenovirus (PCR) NOT DETECTED 04/27/22 04:30 Nasal B. parapertussis DNA (PCR) NOT DETECTED 04/27/22 04:30 Nasal Coronavir 229E PCR NOT DETECTED 04/27/22 04:30 Nasal Coronavir HKU1 PCR NOT DETECTED 04/27/22 04:30 Nasal Coronavir NL63 PCR NOT DETECTED 04/27/22 04:30 Nasal Coronavir OC43 PCR NOT DETECTED 04/27/22 04:30 Nasal Enterovir/Rhinovir PCR NOT DETECTED 04/27/22 04:30 Nasal Influenza B PCR NOT DETECTED 04/27/22 04:30 Nasal Influenza A PCR NOT DETECTED 04/27/22 04:30 Nasal Parainfluen 1 PCR NOT DETECTED 04/27/22 04:30 Nasal Parainfluen 2 PCR NOT DETECTED 04/27/22 04:30 Nasal Parainfluen 3 PCR NOT DETECTED 04/27/22 04:30 Nasal Parainfluen 4 PCR NOT DETECTED 04/27/22 04:30 Nasal RSV (PCR) NOT DETECTED 04/27/22 04:30 Nasal Screen MRSA (PCR) NEGATIVE (NEGATIVE) 04/27/22 13:00 Nasal B.pertussis DNA PCR NOT DETECTED 04/27/22 04:30 Nasal C.pneumoniae (PCR) NOT DETECTED 04/27/22 04:30 Jacky Human Metapneumo PCR NOT DETECTED 04/27/22 04:30 Nasal M.pneumoniae (PCR) NOT DETECTED 04/27/22 04:30 Nasal SARS-CoV-2 (PCR) NOT DETECTED 04/27/22 04:30
[2022-05-01] MEDS ORDERED: LACTULOSE 10 GM /15 ML UDC PO ONE (10:51)
[2022-05-01 11:06] LABS: CHOL/HDL RATIO 3.6 (<4.4); CHOLESTEROL 184 mg/dL; HDL CHOLESTEROL 51 mg/dL; LDL CHOLESTEROL,CALCULATED 109 mg/dL; LDL/HDL RATIO 2.1 (<4.4); TRIGLYCERIDES 120 mg/dL; VLDL CHOLESTEROL 24 mg/dL
--- NOTE | 2022-05-01 11:13 | PROVIDER PROGRESS NOTE ---
Subjective - General Admit Date: 04/27/22 - Review of Systems All Other Systems: positive: Reviewed and negative (All information was obtained from the daughter who is at bedside, because the patient is very SAMISH) - Other Other Information/Narrative: Patient tolerated PO fairly well yesterday per nursing and patient. However, this morning she had much more difficulty with her swallowing. Objective - Patient Data Vital Signs: Vital Signs x48h Temp Pulse Pulse Resp BP Pulse Ox O2 Flow Rate 05/01/22 09:06 72 18 2 05/01/22 08:20 36.6 C 78 19 109/67 94 2 05/01/22 06:00 36.5 C 75 16 126/78 97 2 Weight: Weight 04/29/22 04/30/22 05/01/22 23:59 23:59 23:59 Weight (kg) 47.5 kg 48 kg 47.5 kg Intake & Output: Intake and Output Totals x24h 04/29/22 04/30/22 05/01/22 23:59 23:59 23:59 Intake Total 9200.783 4997 580 Output Total 450 750 400 Balance 121.786 6974 180 - Lab Results Lab Results: 05/01/22 06:14 05/01/22 06:14 Other Lab Results: Lab Results x24hrs 05/01/22 05/01/22 05/01/22 Range/Units 06:14 06:14 06:14 WBC (4.8-10.8) x10^3/uL RBC (4.20-5.40) 10^6/uL Hgb (12.0-16.0) g/dL Hct (37.0-47.0) % MCV (81.0-99.0) fL MCH (27.0-31.0) pg MCHC (32.0-36.0) g/dL RDW (12.0-15.0) % Plt Count (130-450) 10^3/uL MPV (7.9-10.8) fL Neut # (Auto) (1.5-6.6) 10^3/uL Lymph # (Auto) (1.5-3.5) 10^3/uL Alpine # (Auto) (0.0-1.0) 10^3/uL Eos # (Auto) (0.0-0.7) 10^3/uL Baso # (Auto) (0.0-0.1) 10^3/uL Absolute Nucleated RBC x10^3/uL Nucleated RBC % /100WBC Sodium 140 (135-145) mmol/L Potassium 4.1 (3.5-5.0) mmol/L Chloride 101 (101-111) mmol/L Carbon Dioxide 29 (21-32) mmol/L Anion Gap 10.0 (6-13) BUN 68 H (6-20) mg/dL Creatinine 1.4 H (0.4-1.0) mg/dL Estimated GFR (MDRD) 35 L (>89) Glucose 130 H (70-100) mg/dL Calcium 8.9 (8.5-10.3) mg/dL Total Bilirubin 0.4 (0.2-1.0) mg/dL Direct Bilirubin 0.1 (0.1-0.5) mg/dL AST 22 (10-42) IU/L ALT 73 H (10-60) IU/L Alkaline Phosphatase 76 (42-121) IU/L Total Protein 6.3 L (6.7-8.2) g/dL Albumin 3.4 (3.2-5.5) g/dL Globulin 2.9 (2.1-4.2) g/dL Triglycerides 120 ( - 149) mg/dL Cholesterol 184 ( - 199) mg/dL LDL Cholesterol, Calc 109 ( - 129) mg/dL VLDL Cholesterol 24 mg/dL HDL Cholesterol 51 L (60 - ) mg/dL LDL/HDL Ratio 2.1 (<4.4) Cholesterol/HDL Ratio 3.6 (<4.4) 05/01/22 Range/Units 06:14 WBC 6.3 (4.8-10.8) x10^3/uL RBC 4.19 L (4.20-5.40) 10^6/uL Hgb 11.0 L (12.0-16.0) g/dL Hct 34.8 L (37.0-47.0) % MCV 83.1 (81.0-99.0) fL MCH 26.3 L (27.0-31.0) pg MCHC 31.6 L (32.0-36.0) g/dL RDW 16.7 H (12.0-15.0) % Plt Count 234 (130-450) 10^3/uL MPV 10.6 (7.9-10.8) fL Neut # (Auto) 5.6 (1.5-6.6) 10^3/uL Lymph # (Auto) 0.5 L (1.5-3.5) 10^3/uL Alpine # (Auto) 0.2 (0.0-1.0) 10^3/uL Eos # (Auto) 0.0 (0.0-0.7) 10^3/uL Baso # (Auto) 0.0 (0.0-0.1) 10^3/uL Absolute Nucleated RBC 0.00 x10^3/uL Nucleated RBC % 0.0 /100WBC Sodium (135-145) mmol/L Potassium (3.5-5.0) mmol/L Chloride (101-111) mmol/L Carbon Dioxide (21-32) mmol/L Anion Gap (6-13) BUN (6-20) mg/dL Creatinine (0.4-1.0) mg/dL Estimated GFR (MDRD) (>89) Glucose (70-100) mg/dL Calcium (8.5-10.3) mg/dL Total Bilirubin (0.2-1.0) mg/dL Direct Bilirubin (0.1-0.5) mg/dL AST (10-42) IU/L ALT (10-60) IU/L Alkaline Phosphatase (42-121) IU/L Total Protein (6.7-8.2) g/dL Albumin (3.2-5.5) g/dL Globulin (2.1-4.2) g/dL Triglycerides ( - 149) mg/dL Cholesterol ( - 199) mg/dL LDL Cholesterol, Calc ( - 129) mg/dL VLDL Cholesterol mg/dL HDL Cholesterol (60 - ) mg/dL LDL/HDL Ratio (<4.4) Cholesterol/HDL Ratio (<4.4) - Current Medications Current Medications: Current Medications Generic Name Dose Route Start Last Admin Trade Name Freq PRN Reason Stop Dose Admin Albuterol/Ipratropium 3 ml 04/27/22 06:14 04/28/22 01:06 Ipratropium/Albuterol 3 Ml Neb INH 3 ml Q4HR PRN Administration Wheezing Albuterol/Ipratropium 3 ml 04/27/22 15:00 05/01/22 09:04 Ipratropium/Albuterol 3 Ml Neb INH 3 ml RTQID RUDOLPH Administration Apixaban 2.5 mg 04/27/22 12:00 05/01/22 09:22 Apixaban 2.5 Mg Tablet PO 2.5 mg BID RUDOLPH Administration Budesonide 0.5 mg 04/28/22 09:19 05/01/22 09:05 Budesonide 0.5 Mg/2 Ml Neb INH 0.5 mg RTBID RUDOLPH Administration Digoxin 125 mcg 04/30/22 09:00 05/01/22 09:22 Digoxin 125 Mcg Tablet PO 05/02/22 00:01 125 mcg DAILY RUDOLPH Administration Diltiazem HCl 120 mg 04/29/22 12:00 04/30/22 12:11 Diltiazem Cd 120 Mg Capsule PO 120 mg 1200 RUDOLPH Administration Docusate Sodium 250 - 500 mg 04/30/22 09:00 05/01/22 09:23 Docusate Sodium 250 Mg Capsule PO Not Given DAILY [facility] Escitalopram Oxalate 10 mg 04/27/22 12:00 05/01/22 09:22 Escitalopram 10 Mg Tablet PO 10 mg DAILY RUDOLPH Administration Guaifenesin 600 mg 04/27/22 13:00 04/30/22 21:23 Guaifenesin 600 Mg Tablet PO 600 mg BID RUDOLPH Administration Ceftriaxone Sodium 2 gm/ 100 mls @ 200 mls/hr 04/27/22 12:00 05/01/22 09:51 Sodium Chloride IV 05/01/22 12:59 Infused DAILY RUDOLPH Infusion Levothyroxine Sodium 50 mcg 04/28/22 07:00 05/01/22 06:16 Levothyroxine 25 Mcg Tablet PO 50 mcg QDAC RUDOLPH Administration Metoprolol Succinate 75 mg 04/29/22 07:35 05/01/22 09:23 Metoprolol Succinate 50 Mg Tablet PO 75 mg BID RUDOLPH Administration Montelukast Sodium 10 mg 04/28/22 21:00 04/30/22 21:22 Montelukast 10 Mg Tablet PO 10 mg QPM RUDOLPH Administration Multi-Ingredient Ointment 1 applic 04/27/22 15:36 04/29/22 22:14 Zinc Oxide 20% Oint 30 Gm Tube TOP 1 applic PRN PRN Administration Skin Care Multivitamins/Minerals 1 tab 10/22/22 08:00 05/01/22 09:22 Multivitamin W/Minerals Tablet PO 1 tab DAILYWM RUDOLPH Administration Oxycodone HCl 2.5 mg 04/27/22 21:00 05/01/22 09:22 Oxycodone 5 Mg Tablet PO 2.5 mg BID RUDOLPH Administration Pantoprazole Sodium 40 mg 04/28/22 07:00 05/01/22 06:16 Pantoprazole 40 Mg Tablet PO 40 mg QDAC RUDOLPH Administration Patient Own Med ( 0.5 each 04/28/22 10:37 05/01/22 09:32 Sildenafil Citrate [ PO 0.5 each Sildenafil] 20 Mg BID RUDOLPH Administration Tablet) Patient Own Med ( 1 each 04/28/22 16:31 04/30/22 21:21 Mirabegron [ PO 1 each Myrbetriq] 25 Mg Er HS RUDOLPH Administration Tab) Patient Own Med ( 1 each 04/28/22 16:37 04/30/22 21:21 Aripiprazole 2mg) PO 1 each HS RUDOLPH Administration Polyethylene Glycol 17 gm 04/29/22 12:00 05/01/22 09:21 Polyethylene Glycol 3350 17 Gm Packet PO 17 gm DAILY RUDOLPH Administration Saccharomyces Boulardii 250 mg 04/27/22 17:00 05/01/22 09:22 Saccharomyces Boulardii 250 Mg Capsule PO 250 mg BIDWM RUDOLPH Administration Senna 8.6 - 17.2 mg 05/01/22 09:00 05/01/22 09:43 Senna 8.6 Mg Tablet PO 17.2 mg Q6H RUDOLPH Administration Sodium Chloride 10 ml 04/27/22 06:10 04/30/22 05:29 Sodium Chloride Flush 0.9% 10 Ml Syringe IVP 10 ml PRN PRN Administration NEEDED PER PROVIDER ORDERS Sodium Chloride 10 ml 04/27/22 09:00 05/01/22 09:23 Sodium Chloride Flush 0.9% 10 Ml Syringe IVP 10 ml 0100,0900,1700 RUDOLPH Administration - Physical Exam General Appearance: positive: No acute distress, Alert Eyes Bilateral: positive: Normal inspection Neck: positive: Nml inspection Respiratory: positive: No respiratory distress Abdomen: positive: Non-tender. negative: Guarding, Rebound Impression/Plan - Problem List Problem List: A: Ms. Aguilar is an 87 y/o F with a history of dysphagia and odynaphagia. She appears to wax and wane in respect to how much difficulty she has swallowing. P: - Working to obtain records from [facility] where patient had workup of her dysphagia last year, including an EGD. It appears achalasia was suspected at that time, though I do not see any manometry or UGI studies to support this diagnosis. - At the time of my discussion yesterday, the patient appeared to have capacity, and stated she did not want any procedures done. She mentioned her previous workup though she did not know the results. - If achalasia is suspected, she would benefit from outpatient UGI and/or manometry (both are unavailable at this facility at this time) and formal GI consultation. 1700 Addendum Patient's prior records indicate no sign of stricture on previous EGD done last year. Primary team had discussion with patient and daughter and all parties agree that additional endoscopy is not needed at this time. With regard to possible achalasia, I recommend continued calcium channel lillian, and consideration for outpatient GI followup for possible motility study if patient would like to consider other treatment options. I also recommend continued use of protein meal supplements to maximize the patient's nutrition. I will follow peripherally. Please call with any questions/concerns.
[2022-05-01] MEDS: guaiFENesin 100 MG/5 ML UDC PO SCH ×3 (12:06→23:39)
[2022-05-01] MEDS: diltiaZEM CD 120 MG CAPSULE PO SCH (12:06)
[2022-05-01] MEDS ORDERED: DEXTROSE 5%-0.45% NACL 1,000 ML IV SCH (18:00)
[2022-05-01] MEDS: MONTELUKAST 10 MG TABLET PO SCH (20:41)
[2022-05-01] MEDS: ARIPIPRAZOLE 2 MG PO SCH (20:44)
[2022-05-01] MEDS: MIRABEGRON 25 MG PO SCH (20:46)
[2022-05-01] MEDS ORDERED: LORazepam 0.5 MG TABLET PO SCH (21:00)
[2022-05-01] MEDS: SODIUM CHLORIDE FLUSH 0.9% 10 ML SYRINGE IVP PRN (21:51)
[2022-05-02] MEDS: SENNA 8.6 MG TABLET PO SCH ×2 (02:20→08:39)
[2022-05-02 05:51] LABS: HCT - HEMATOCRIT 35.3 % (37.0-47.0); HGB - HEMOGLOBIN 11.1 g/dL (12.0-16.0); LYMPHOCYTES # (AUTO) 0.4 10^3/uL (1.5-3.5); MEAN CORPUSCULAR HEMOGLOBIN 26.1 pg (27.0-31.0); MEAN CORPUSCULAR HGB CONC 31.4 g/dL (32.0-36.0); MEAN CORPUSCULAR VOLUME 83.1 fL (81.0-99.0); MONOCYTES # (AUTO) 0.3 10^3/uL (0.0-1.0); MONOCYTES % (AUTO) 4.8 %; NEUTROPHILS # (AUTO) 5.9 10^3/uL (1.5-6.6); NEUTROPHILS % (AUTO) 88.8 %; PLT - PLATELET COUNT 244 10^3/uL (130-450); RED BLOOD COUNT 4.25 10^6/uL (4.20-5.40); RED CELL DISTRIBUTION WIDTH 16.8 % (12.0-15.0); WHITE BLOOD COUNT 6.7 x10^3/uL (4.8-10.8)
[2022-05-02 06:08] LABS: ALBUMIN 3.5 g/dL (3.2-5.5); BILIRUBIN,DIRECT 0.1 mg/dL (0.1-0.5); BILIRUBIN,TOTAL 0.6 mg/dL (0.2-1.0); CALCIUM 9.3 mg/dL (8.5-10.3); CREATININE 1.1 mg/dL (0.4-1.0); POTASSIUM 3.8 mmol/L (3.5-5.0); TOTAL PROTEIN 6.7 g/dL (6.7-8.2)
[2022-05-02] MEDS: LEVOTHYROXINE 25 MCG TABLET PO SCH (06:29)
[2022-05-02] MEDS: guaiFENesin 100 MG/5 ML UDC PO SCH ×2 (06:29→12:52)
[2022-05-02] MEDS: BUDESONIDE 0.5 MG/2 ML NEB INH SCH (07:32)
[2022-05-02] MEDS: IPRATROPIUM/ALBUTEROL 3 ML NEB INH SCH ×2 (07:32→11:50)
[2022-05-02] MEDS ORDERED: ASPIRIN CHEW 81 MG TABLET PO SCH (08:00)
[2022-05-02] MEDS ORDERED: predniSONE 20 MG TABLET PO SCH (08:00)
[2022-05-02] MEDS: METOPROLOL SUCCINATE 50 MG TABLET PO SCH (08:38)
[2022-05-02] MEDS: polyethylene glycoL 3350 17 GM PACKET PO SCH (08:38)
[2022-05-02] MEDS: oxyCODONE 5 MG TABLET PO SCH (08:38)
[2022-05-02] MEDS: SODIUM CHLORIDE FLUSH 0.9% 10 ML SYRINGE IVP SCH (08:39)
[2022-05-02] MEDS: MULTIVITAMIN W/MINERALS TABLET PO SCH (08:39)
[2022-05-02] MEDS: SACCHAROMYCES BOULARDII 250 MG CAPSULE PO SCH (08:39)
[2022-05-02] MEDS: APIXABAN 2.5 MG TABLET PO SCH (08:39)
[2022-05-02] MEDS: ESCITALOPRAM 10 MG TABLET PO SCH (08:39)
[2022-05-02] MEDS: DOCUSATE SODIUM 250 MG CAPSULE PO SCH (08:40)
[2022-05-02] MEDS: SILDENAFIL CITRATE 20 MG PO SCH (08:41)
[2022-05-02] MEDS ORDERED: LORazepam 0.5 MG TABLET PO SCH (09:00)
--- NOTE | 2022-05-02 09:03 | Discharge Plan ---
Discharge Plan for SNF / [facility] - Discharge Plan And Transition Orders Problem Reviewed?: Yes Disposition: 03 SNF DC/Xfer Condition: Stable Allergies and Adverse Reactions: Allergies Allergy/AdvReac Type Severity Reaction Status Date / Time No Known Drug Allergies Allergy Verified 04/28/22 08:24 Health Concerns: She is an 87-year-old female with severe COPD who is on home O2, and has a history of congestive heart failure, atrial fibrillation on Eliquis, who presented with worsening shortness of breath for over 2 weeks. Orthopnea was described as nightly and accompanied by "panic attacks". EMS was called for severe respiratory distress and she needed BiPAP in the emergency room. Chest x-ray showed pulmonary edema and pneumonia with A. fib and RVR. She was admitted to the ICU for BiPAP, and intravenous dill drip and respiratory therapy. Our main findings have been that of severe COPD with severe right-sided heart failure due to severe pulmonary hypertension. She was continued on her sildenafil, duo nebs, IV steroids, inhaled steroids, and antibiotics. She completed ceftriaxone and Zithromax. She is now near baseline, and is back to her baseline supplemental oxygen of 2 L/min. Dysphagia was evaluated. She had an EGD in July 2020 which showed probable achalasia and a distal foreign body that was extracted (taper). She has had significant weight loss due to the odynophagia and may be aspirating. Atrial fibrillation rate is now controlled. She is on both Cardizem and beta-blockers with staggered dosing to avoid hypotension. Anxiety was a significant component to her respiratory distress with panic attacks and insomnia. Benadryl helped. Abilify is helping slightly. She has a tendency to nod off going to sleep so we have changed her Ativan dosing that she was taking at home. We have reduced it to the point that she is only getting Ativan at night 0.75. CT scan shows old lacunar strokes. Plan of Treatment: 1. She is very deconditioned not only from this hospital stay but from previous shortness of breath and near chair bound status. She will need significant cardiopulmonary rehab to increase her strength again to be independent. As such she is being transition to half-way facility for rehab. 2. Continue on 2 L nasal cannula 29/01. She will be on prednisone 20 mg a day for a long, long taper. She will also be on Singulair, DuoNebs, inhaled steroids. 3. If she could please be evaluated for her I done aphasia by an EGD in the next 1 to 2 months in the outpatient setting. 4. When she was admitted she had a severe right hand tremor that has been worsened with anxiety. She has not been diagnosed with essential tremor. If she has the ability to do so, please follow-up with neurology in the outpatient setting for this. 5. On admission she had muscle wasting, loss of subcutaneous fat, she would benefit from a diet supplement such as Ensure twice a day. 6. While here we did do a bedside echo that showed an ejection fraction of 40% with regional wall motion abnormalities. She may benefit from an outpatient cardiology referral as well depending on her desire for treatment or not. 7. She has chronic bladder pain from BCG treatments from bladder cancer. Daughter has weaned her down to 2.5 mg of oxycodone twice a day. If she does not get the oxycodone she starts having increasing tremors and myoclonic jerks. Please do not skip doses. Care Goals: To return to living with her daughter. But needs to be independent with getting up to toilet, to be able to help dress herself, and to feed herself. Assessment: Patient has anxiety, cognitive deficits from old lacunar infarcts, and this care plan was discussed with the daughter the day before discharge by the hospitalist on service. - SNF / [facility] Transition Orders Admit to (Facility): [facility] Discharge Diagnosis: 1. Acute on chronic respiratory failure with hypoxia 2. COPD exacerbation 3. Cor pulmonale 4. Atrial fibrillation with RVR 5. Generalized anxiety disorder with depression 6. Insomnia 7. Tremor of right hand 8. Community-acquired pneumonia 9. Odynophagia 10. Sedation due to Ativan 11. 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 Moderate malnutrition 13. Acute on chronic kidney failure, resolved 14. Type II [place] 15. Chronic bladder pain 16. Elevated liver function studies, resolved 17. Generalized weakness due to deconditioning and prolonged bedrest Medicare Certification Statement: I certify that [facility] half-way care is medically necessary on a continuing basis for any of the conditions for which she/he is receiving care during hospitalization. Notify PCP of admission and forward orders to primary provider for signature. Weight on admission and: Weekly Other Notification Orders: Call PCP immediately if patient develops dyspnea, chest pain/tightness or edema. Additional Bowel Program Orders: If no BM after 2 days, nurse may give M.O.M. 30ml PO PRN and/or ducolax Supp 1 WI and/or KALYN 250mg P.O., and/or senna 1-2 tabs PO. On day 3 nurse may give repeat above order until residents constipation is resolved. Annual Influenza Vaccine (between Mar 09 and October 06): Yes Two-step PPD per [facility] [phone] or approved exception documents: Yes Medication Orders: PLEASE REFER TO THE DISCHARGE MEDICATION LIST. Insulin Orders?: No - Medications New Prescriptions: LORazepam [Ativan] 0.75 mg PO QPM #30 tab LORazepam [Ativan] 0.25 mg PO Q48H #15 tab oxyCODONE [Roxicodone] 2.5 mg PO BID #60 tab - Diet Type: Geriatric Texture: [facility] soft - Therapies | Activity Therapy: Evaluation | Treat if indicated: Speech, PT, OT, Swallowing / ST Rehabilitation Potential: Return to independent living Activity: Activity as Tolerated Weight Bearing: Full Weight Assistance Devices: Walker Follow Up: WILD Frankel once she leaves your facility.
[2022-05-02] MEDS ORDERED: MAGNESIUM HYDROXIDE 2,400 MG/30 ML UDC PO ONE (09:15)
[2022-05-02] MEDS ORDERED: BISACODYL 10 MG SUPP PR ONE (09:17)
[2022-05-02 11:20] LABS: CORONAVIRUS 229E-RESP PCR NOT DETECTED; CORONAVIRUS HKU1-RESP PCR NOT DETECTED; CORONAVIRUS NL63-RESP PCR NOT DETECTED; CORONAVIRUS OC43-RESP PCR NOT DETECTED; HUMAN METAPNEUMOVIRUS NOT DETECTED; INFLUENZA A- RESP PCR PANEL NOT DETECTED; RHINOVIRUS/ENTEROVIRUS NOT DETECTED; SARS-CoV-2 -RESP PCR PANEL NOT DETECTED
[2022-05-02 11:21] LABS: B. PARAPERTUSSIS- RESP PCR PAN NOT DETECTED; B. PERTUSSIS- RESP PCR PANEL NOT DETECTED; C. PNEUMONIAE- RESP PCR PANEL NOT DETECTED; INFLUENZA B - RESP PCR PANEL NOT DETECTED; M. PNEUMONIAE- RESP PCR PANEL NOT DETECTED; PARAINFLUENZA VIRUS 1 NOT DETECTED; PARAINFLUENZA VIRUS 2 NOT DETECTED; PARAINFLUENZA VIRUS 3 NOT DETECTED; PARAINFLUENZA VIRUS 4 NOT DETECTED; RSV- RESP PCR PANEL NOT DETECTED
[2022-05-02 12:24] VITALS: BP 140/75
[2022-05-02] MEDS: diltiaZEM CD 120 MG CAPSULE PO SCH (12:52)
--- NOTE | 2022-05-02 13:51 | DISCHARGE SUMMARY ---
Discharge Summary Admit Date: 04/27/22 Discharge Date: 05/02/22 Discharging Provider: Neelam Fisher MD Primary Care Provider: WILD Frankel Code Status: Attempt Resuscitation Condition at Discharge: Fair Discharge Disposition: 03 SNF DC/Xfer - DIAGNOSES Discharge Diagnoses with Status of Each Condition: 1. Acute on chronic respiratory failure with hypoxia 2. COPD exacerbation 3. Cor pulmonale 4. Atrial fibrillation with RVR 5. Generalized anxiety disorder with depression 6. Insomnia 7. Tremor of right hand 8. Community-acquired pneumonia 9. Odynophagia 10. Sedation due to Ativan 11. 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 Moderate malnutrition 13. Acute on chronic kidney failure, resolved 14. Type II LA 15. Chronic bladder pain 16. Elevated liver function studies, resolved 17. Generalized weakness due to deconditioning and prolonged bedrest - HPI History of Present Illness: This is an 87-year-old white female with a history of COPD on 2L of O2 continuously, CHF (unknown type) and A. fib on Eliquis. She was seen by her [employer] Master yesterday and her beta-lillian metoprolol was changed to bisoprolol because of poor heart rate control. She is on sildenafil suggesting that she has severe pulmonary hypertension. She has never been to this ER before. She lives with her daughter and has been more SOB, doing less and less activity over the past 2 weeks, gets nightly "panic attacks" telling her daughter she cannot breath. She developed severe shortness of breath this last night, that was rapidly worsening and daughter called an ambulance when she saw that her mother was pale, diaphoretic and gasping for air. On presentation to the ED she was in severe respiratory distress, could barely speak, received IV morphine, IV Lasix, nebulizers, and was put on BiPAP. She had slow improvement in respiratory status and has been tapered down to nasal cannula supplemental oxygen. She was found to be in A. fib with RVR. Her CXR shows pulmonary edema, bilateral pleural effusions and bilateral basilar infiltrates. She is being admitted to the ICU for starting an iv Cardizem drip for rate control and for further management of her severe respiratory failure from CHF and COPD exacerbation with a probable pneumonia, admitted to the Hospitalist service. Her CODE STATUS is Full Code. (Sejal Barcenas) - Past Medical History Cardiovascular: reports: Congestive heart failure, Hypertension, Atrial fibrillation Respiratory: reports: COPD (uses 2liters/min NC at home) Neuro: reports: None Endocrine/Autoimmune: reports: HyPOthyroidism GI: reports: None TEACHING ASSISTANT: reports: None : reports: Incontinence HEENT: reports: None Psych: reports: None Musculoskeletal: reports: Other Derm: reports: None MRSA Hx?: No Other Past Medical History: pulmonary hypertension, chronic kidney disease - Past Surgical History HEENT: reports: Cataracts Other past surgical history: TURBT - CONSULTS | PROCEDURES Procedures: Echocardiogram has an underlying rhythm of A. fib. Left ventricular wall thickness normal. Ejection fraction mild to moderately impaired with an ejection fraction of 40 to 45%. Basal to mid septal wall segments are hyp okinetic. Mild right ventricular enlargement. Mild tricuspid regurgitation. Mild abnormal right heart pressures. RVSP is 44 mmHg. Chest x-ray has bilateral basilar atelectasis and changes of possible edema Head CT shows old lacunar infarcts in the bilateral basilar ganglia. Diffuse cerebral and cerebellar parenchymal volume loss. No acute intracranial abnormality.Echocardiogram has an underlying rhythm of A. fib. Left ventricular wall thickness normal. Ejection fraction mild to moderately impaired with an ejection fraction of 40 to 45%. Basal to mid septal wall segments are hypokine tic. Mild right ventricular enlargement. Mild tricuspid regurgitation. Mild abnormal right heart pressures. RVSP is 44 mmHg. . - HOSPITAL COURSE Hospital Course: We feel that pneumonia most likely gave her COPD exacerbation. The fact that she was on sildenafil indicated she had severe pulmonary hypertension. She was on duo nebs, IV steroids, inhaled steroids and antibiotics. We also started nightly Singulair. Steroids were tapered. And she was back down to baseline oxygen at 2 L/min at discharge. She was treated with IV ceftriaxone and oral a zithromycin for her and pneumonia. When she was admitted she complained of odynophagia and weight loss. 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 EGD found no stricture but a foreign body, tape, and probable achalasia. EGD was discussed and they want to think about it. They may follow-up with us in the outpatient setting. Acute on chronic respiratory failure resolved. Cor pulmonale showed her to have a very narrow range of proper IV volume. A. fib with RVR was controlled with diltiazem IV at first. Able to be weaned off and beta-lillian dose increased from 50 twice daily to 75 twice daily. Essential tremor was noted. We felt that she might benefit from outpatient neurology evaluation. Anxiety was predominant and she had "panic attacks" at night. Once air hunger was addressed much of that anxiety left her. During the day we noted her to be lethargic and as such Ativan was decreased. She is on Ativan, Lexapro and Abilify. We decreased the schedule twice daily Ativan from 0.75 twice daily to 0.5 twice daily. We are hoping that she will eventually stop the Ativan during the day and only take it at night. She had moderate malnutrition with some muscle wasting and loss of subcutaneous fast. She had had nutritional intake of less than 50% for the week before and may be 10% weight loss over the past year. Acute on chronic kidney failure improved with hydration. Troponins were elevated and went from 21 then to 117 and then back down to 81. Ejection fraction was noted to be 40%. Baby aspirin was added. Chronic pain was noted from her BCG treatments in her bladder. She has been on high doses of oxycodone for bladder pain. Daughter has slowly weaned her down to 2.5 twice daily. And those were continued. At discharge temperature is 36.3. Heart rate 74. Blood pressure 140/75. Respirations 18. 95% 2 L. She is a confused person who is only oriented to self. She is very forgetful. Gets anxious. But she is able to communicate and has purposeful movements. No focal deficits. She has clear lungs. An irregular rate and rhythm. And abdomen is soft nontender. She has some tremors of her right hand. Hard of hearing. Able to ambulate. Greater than 30 minutes was spent coordinating discharge - ALLERGIES Allergies/Adverse Reactions: Allergies Allergy/AdvReac Type Severity Reaction Status Date / Time No Known Drug Allergies Allergy Verified 04/28/22 08:24 - MEDICATIONS Home Medications: Ambulatory Orders Medication Instructions Recorded Confirmed Acetaminophen [Tylenol] 650 mg PO Q4HR PRN tab 05/02/22 Albuterol Sulf [Ventolin Hfa 1 - 2 puffs INH Q4HR PRN #0 05/02/22 04/28/22 Inhaler] Apixaban [Eliquis] 2.5 mg PO BID #0 05/02/22 04/28/22 Aripiprazole [Abilify] 2 mg PO QPM #0 05/02/22 04/28/22 Aspirin Chewable [[place] 81 mg PO DAILYWM tab 05/02/22 Aspirin] Budesonide [Pulmicort] 0.5 mg INH RTBID ml 05/02/22 Escitalopram [Lexapro] 10 mg PO DAILY #0 05/02/22 04/27/22 Ipratropium/Albuterol [Duoneb] 3 ml INH RTQID ml 05/02/22 LORazepam [Ativan] 0.25 mg PO Q48H #15 tab 05/02/22 LORazepam [Ativan] 0.75 mg PO QPM #30 tab 05/02/22 Levothyroxine [Synthroid] 50 mcg PO QDAC tab 05/02/22 Metoprolol Succinate [Toprol Xl] 75 mg PO BID tab 05/02/22 Mirabegron [Myrbetriq] 25 mg PO HS #0 05/02/22 04/28/22 Montelukast [Singulair] 10 mg PO QPM tab 05/02/22 Multivitamin W/Minerals [Theragran 1 tab PO DAILYWM tab 05/02/22 M] Omeprazole Magnesium 20 mg PO DAILY #0 05/02/22 04/28/22 Parab/Cet Alc/Stryl Alc/Pg/Sls 473 ml TOP PRN PRN each 05/02/22 [Cetaphil] Senna [Senokot] 1 tab PO HS #0 05/02/22 04/28/22 Sildenafil Citrate [Sildenafil] 10 mg PO BID #0 05/02/22 04/28/22 Torsemide [Soaanz] 20 mg PO Q48H #0 05/02/22 04/28/22 Zinc Oxide 20% Oint [Zinc Oxide] 1 applic TOP PRN PRN #1 each 05/02/22 diltiaZEM CD [Cardizem Cd] 120 mg PO 1200 cap 05/02/22 oxyCODONE [Roxicodone] 2.5 mg PO BID #60 tab 05/02/22 oxyCODONE [Roxicodone] 2.5 mg PO BID #60 tab 05/02/22 04/28/22 polyethylene glycoL 3350 [Miralax] 1 ea ORAL DAILY #0 05/02/22 04/28/22 predniSONE [Deltasone] 20 mg PO DAILYWM tab 05/02/22 - LABS Result Diagrams: 05/02/22 05:41 05/02/22 05:41
== END 2022-05-02 14:25 | DRG 189 ==
LOC: ED 02:10 → MS2 06:10 → MERGE 06:10 → ICU 11:21 → MS2 04-29 15:11
PROVIDERS: ADMIT Internal Medicine; ATTEND Specialist
DX: I11.0 Hypertensive heart disease with heart failure (principal); J96.01 Acute respiratory failure with hypoxia; J44.9 Chronic obstructive pulmonary disease, unspecified; J18.9 Pneumonia, unspecified organism; I21.A1 Myocardial infarction type 2; J44.1 Chronic obstructive pulmonary disease with (acute) exacerbation; J44.0 Chronic obstructive pulmonary disease with (acute) lower respiratory infection; E44.0 Moderate protein-calorie malnutrition; Z68.1 Body mass index [BMI] 19.9 or less, adult; N17.9 Acute kidney failure, unspecified; I13.0 Hypertensive heart and chronic kidney disease with heart failure and stage 1 through stage 4 chronic kidney disease, or unspecified chronic kidney disease; I48.20 Chronic atrial fibrillation, unspecified; I27.81 Cor pulmonale (chronic); F41.1 Generalized anxiety disorder; F32.A Depression, unspecified; G47.00 Insomnia, unspecified; R25.1 Tremor, unspecified; R13.10 Dysphagia, unspecified; R40.0 Somnolence; T42.4X5A Adverse effect of benzodiazepines, initial encounter; N18.9 Chronic kidney disease, unspecified; R39.82 Chronic bladder pain; R94.5 Abnormal results of liver function studies; R53.1 Weakness; I50.9 Heart failure, unspecified; E03.9 Hypothyroidism, unspecified; R32 Unspecified urinary incontinence; I27.20 Pulmonary hypertension, unspecified; K21.9 Gastro-esophageal reflux disease without esophagitis; H91.90 Unspecified hearing loss, unspecified ear; Z20.822 Contact with and (suspected) exposure to COVID-19; Z79.01 Long term (current) use of anticoagulants; Z79.52 Long term (current) use of systemic steroids; Z79.82 Long term (current) use of aspirin; Z79.890 Hormone replacement therapy; Z79.899 Other long term (current) drug therapy; Z86.73 Personal history of transient ischemic attack (TIA), and cerebral infarction without residual deficits; Z99.81 Dependence on supplemental oxygen
CPT/HCPCS: 36415; 70450; 71045; 80048; 80053; 80061; 80076; 81001; 82533; 83690; 83735; 83880; 84443; 84484; 85025; 85610; 87040; 87205; 87633; 87640; 93005; 93306; 94640; 96372; 96374; 96375; 97110; 97162; 97167; 97530; 99283; 99285; A9270; J1650; J2060; J7512; J7626; 83721; 87070; 87086

== ENCOUNTER 2022-05-19 10:47 | Outpatient (CLI) | payer MEDICARE, OTHER, MEDICAID | END 2022-05-19 23:59 | disposition critical access hospital (66) | LOC: EMS 10:47 | DX: R07.9 Chest pain, unspecified (principal); R05.9 Cough, unspecified | CPT/HCPCS: A0425; A0429 ==

== ENCOUNTER 2022-05-19 10:56 | Emergency (ER) | payer MEDICARE, OTHER, MEDICAID ==
--- NOTE | 2022-05-19 11:20 | ED Physician Documentation ---
History of Present Illness - Stated complaint Stated Complaint: CHEST PX/COUGH - Chief complaint Chief Complaint: Cardiac - History obtained from History obtained from: Patient - Additonal information Additional information: This is an 87-year-old woman with history of CP COPD, CHF, and A. fib who was admitted to the hospital on April 28 for multifactorial dyspnea related to pulmonary edema, COPD, pneumonia. She also had A. fib with RVR. She was treated as an inpatient and subsequently discharged on 02 May to [facility]. She returns today with about 3 days of chest tightness and increased shortness of breath with cough. No reported fevers. Review of Systems Ten Systems: 10 systems reviewed and negative Constitutional: denies: Fever, Chills Cardiac: reports: Chest pain / pressure. denies: Palpitations, Pedal edema, Calf pain Respiratory: reports: Dyspnea, Cough PD PAST MEDICAL HISTORY - Allergies Allergies/Adverse Reactions: Allergies Allergy/AdvReac Type Severity Reaction Status Date / Time No Known Drug Allergies Allergy Verified 05/19/22 11:04 PD ED PE NORMAL - Vitals Vital signs reviewed: Yes (Modestly tachypneic) - General General: Alert and oriented X 3, No acute distress - HEENT HEENT: PERRL, EOMI - Neck Neck: Supple, no meningeal sign, No bony TTP - Cardiac Cardiac: Other (Irregularly irregular) - Respiratory Respiratory: No respiratory distress, Other (Severely diminished at the right base) - Abdomen Abdomen: Non tender - Back Back: No CVA TTP, No spinal TTP - Derm Derm: Normal color, Warm and dry - Extremities Extremities: No edema, No calf tenderness / cord - Neuro Neuro: Alert and oriented X 3, Normal speech, Other (Hard of hearing) Results - Vitals Vitals: Vital Signs - 24 hr 05/19/22 05/19/22 11:01 13:53 Temperature 36.7 C Heart Rate 83 60 Respiratory 30 H 16 Rate Blood Pressure 121/82 H 108/71 O2 Saturation 100 95 Oxygen O2 Source Room air - EKG (time done) 1106 Rate: Rate (enter#) (87) Rhythm: Atrial fibrillation Banks: Normal QRS: LVH Ischemia: No: ST elevation c/w ischemia, ST depression - Labs Labs: Laboratory Tests 05/19/22 05/19/22 05/19/22 11:27 11:27 11:27 WBC 8.7 RBC 3.80 L Hgb 10.1 L Hct 32.7 L MCV 86.1 MCH 26.6 L MCHC 30.9 L RDW 20.7 H Plt Count 286 MPV 10.0 Neut # (Auto) 7.0 H Lymph # (Auto) 0.9 L [place] # (Auto) 0.6 Eos # (Auto) 0.2 Baso # (Auto) 0.0 Absolute Nucleated RBC 0.00 Nucleated RBC % 0.0 Manual Slide Review Indicated Platelet Estimate NORMAL (130-450,000) Platelet Morphology NORMAL APPEARANCE RBC Morph Micro Appear 2+ ANISOCYTOSIS VBG pH VBG pCO2 VBG pO2 VBG HCO3 VBG Total CO2 VBG O2 Saturation VBG Base Excess Sodium 135 Potassium 5.6 H Chloride 95 L Carbon Dioxide 29 Anion Gap 11.0 BUN 76 H Creatinine 1.4 H Estimated GFR (MDRD) 35 L Glucose 121 H Lactic Acid 1.1 Calcium 9.2 Total Bilirubin 0.8 AST 49 H ALT 71 H Alkaline Phosphatase 62 Troponin I High Sens B-Natriuretic Peptide Total Protein 6.5 L Albumin 3.6 Globulin 2.9 Albumin/Globulin Ratio 1.2 Nasal Adenovirus (PCR) Nasal B. parapertussis DNA (PCR) Nasal Coronavir 229E PCR Nasal Coronavir HKU1 PCR Nasal Coronavir NL63 PCR Nasal Coronavir OC43 PCR Nasal Enterovir/Rhinovir PCR Nasal Influenza B PCR Nasal Influenza A PCR Nasal Parainfluen 1 PCR Nasal Parainfluen 2 PCR Nasal Parainfluen 3 PCR Nasal Parainfluen 4 PCR Nasal RSV (PCR) Nasal B.pertussis DNA PCR Nasal C.pneumoniae (PCR) Jacky Human Metapneumo PCR Nasal M.pneumoniae (PCR) Nasal SARS-CoV-2 (PCR) 05/19/22 05/19/22 05/19/22 11:27 11:27 11:27 WBC RBC Hgb Hct MCV MCH MCHC RDW Plt Count MPV Neut # (Auto) Lymph # (Auto) [place] # (Auto) Eos # (Auto) Baso # (Auto) Absolute Nucleated RBC Nucleated RBC % Manual Slide Review Platelet Estimate Platelet Morphology RBC Morph Micro Appear VBG pH 7.441 H VBG pCO2 45.7 VBG pO2 55.2 H VBG HCO3 30.4 H VBG Total CO2 31.8 H VBG O2 Saturation 90.2 H VBG Base Excess 5.5 H Sodium Potassium Chloride Carbon Dioxide Anion Gap BUN Creatinine Estimated GFR (MDRD) Glucose Lactic Acid Calcium Total Bilirubin AST ALT Alkaline Phosphatase Troponin I High Sens 55.6 H* B-Natriuretic Peptide 393 H Total Protein Albumin Globulin Albumin/Globulin Ratio Nasal Adenovirus (PCR) Nasal B. parapertussis DNA (PCR) Nasal Coronavir 229E PCR Nasal Coronavir HKU1 PCR Nasal Coronavir NL63 PCR Nasal Coronavir OC43 PCR Nasal Enterovir/Rhinovir PCR Nasal Influenza B PCR Nasal Influenza A PCR Nasal Parainfluen 1 PCR Nasal Parainfluen 2 PCR Nasal Parainfluen 3 PCR Nasal Parainfluen 4 PCR Nasal RSV (PCR) Nasal B.pertussis DNA PCR Nasal C.pneumoniae (PCR) Jacky Human Metapneumo PCR Nasal M.pneumoniae (PCR) Nasal SARS-CoV-2 (PCR) 05/19/22 05/19/22 05/19/22 12:34 13:35 13:35 WBC RBC Hgb Hct MCV MCH MCHC RDW Plt Count MPV Neut # (Auto) Lymph # (Auto) [place] # (Auto) Eos # (Auto) Baso # (Auto) Absolute Nucleated RBC Nucleated RBC % Manual Slide Review Platelet Estimate Platelet Morphology RBC Morph Micro Appear VBG pH VBG pCO2 VBG pO2 VBG HCO3 VBG Total CO2 VBG O2 Saturation VBG Base Excess Sodium 134 L Potassium 5.6 H Chloride 96 L Carbon Dioxide 30 Anion Gap 8.0 BUN 73 H Creatinine 1.4 H Estimated GFR (MDRD) 35 L Glucose 113 H Lactic Acid Calcium 8.8 Total Bilirubin AST ALT Alkaline Phosphatase Troponin I High Sens 50.0 H* B-Natriuretic Peptide Total Protein Albumin Globulin Albumin/Globulin Ratio Nasal Adenovirus (PCR) NOT DETECTED Nasal B. parapertussis DNA (PCR) NOT DETECTED Nasal Coronavir 229E PCR NOT DETECTED Nasal Coronavir HKU1 PCR NOT DETECTED Nasal Coronavir NL63 PCR NOT DETECTED Nasal Coronavir OC43 PCR NOT DETECTED Nasal Enterovir/Rhinovir PCR NOT DETECTED Nasal Influenza B PCR NOT DETECTED Nasal Influenza A PCR NOT DETECTED Nasal Parainfluen 1 PCR NOT DETECTED Nasal Parainfluen 2 PCR NOT DETECTED Nasal Parainfluen 3 PCR NOT DETECTED Nasal Parainfluen 4 PCR NOT DETECTED Nasal RSV (PCR) NOT DETECTED Nasal B.pertussis DNA PCR NOT DETECTED Nasal C.pneumoniae (PCR) NOT DETECTED Jacky Human Metapneumo PCR NOT DETECTED Nasal M.pneumoniae (PCR) NOT DETECTED Nasal SARS-CoV-2 (PCR) NOT DETECTED - Rads (name of study) 1v cxr Radiology: EMP read contemporaneously (Patchy bibasilar opacity right greater than left with possible small effusions) PD MEDICAL DECISION MAKING - ED course ED course: 87-year-old woman with recent admission for pneumonia presents with chest heaviness and shortness of breath. She is mildly tachypneic but with good sats, no tachycardia or hypotension. No elevated white count and she is dry appearing on labs with BUN of 76, creatinine of 1.4, potassium of 5.6. She is a mildly elevated troponin at 55. When she was registered unfortunately patient access made her a new account which made it more time-consuming to compare these findings with her prior admission, but I was able to do so. The chest x-ray looks similar. Her anemia is similar. Her BUN has gone up a hair but it was 59 on discharge. On the previous admission she did have fluctuating troponins as low as 21, but as high as 117. I will repeat this after 2 hours to ensure that it is not changing significantly over a short period. Her troponin trended slightly down, but roughly similar, her BMP remained the same. I reassessed the patient, now her daughter was at the bedside. We discussed the diagnostics. 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 She had 1L NS and advised skip next dose tomorrow. Rpt labs in a couple of days. Departure - Departure Disposition: 01 Home, Self Care Clinical Impression: Atypical chest pain, Dehydration Condition: Good Record reviewed to determine appropriate education?: Yes Instructions: ED Chest Pain Atypical Unkn Cause, Diet Low Potassium Dc Comments: She was seen today for 3 days of chest pressure and cough. Her x-ray looks similar to prior, and her blood work suggests no worsening of any infections. We worried about heart attack, but her troponin (a measure of heart strain) is similar to her last admission and we checked it twice here and it was not changing, if it was changing rapidly that is more consistent with acute coronary syndrome. She does show evidence of dehydration on her labs with elevated BUN more so than an elevated creatinine. And mild hyperkalemia with potassium of 5.6. She needs to do a low potassium diet because of that and she should hold her dose of Bumex tomorrow and I would recommend repeat labs at least a basic metabolic panel that could be done at [facility] Sunday or Sunday. Return for new or worsening symptoms.
[2022-05-19 11:31] LABS: BASOPHILS % (AUTO) 0.5 %; EOSINOPHILS # (AUTO) 0.2 10^3/uL (0.0-0.7); EOSINOPHILS % (AUTO) 1.7 %; HCT - HEMATOCRIT 32.7 % (37.0-47.0); HGB - HEMOGLOBIN 10.1 g/dL (12.0-16.0); LYMPHOCYTES # (AUTO) 0.9 10^3/uL (1.5-3.5); MEAN CORPUSCULAR HEMOGLOBIN 26.6 pg (27.0-31.0); MEAN CORPUSCULAR HGB CONC 30.9 g/dL (32.0-36.0); MEAN CORPUSCULAR VOLUME 86.1 fL (81.0-99.0); MONOCYTES # (AUTO) 0.6 10^3/uL (0.0-1.0); MONOCYTES % (AUTO) 6.9 %; NEUTROPHILS % (AUTO) 80.4 %; PLT - PLATELET COUNT 286 10^3/uL (130-450); RED CELL DISTRIBUTION WIDTH 20.7 % (12.0-15.0); WHITE BLOOD COUNT 8.7 x10^3/uL (4.8-10.8)
[2022-05-19 11:34] LABS: VBG BASE EXCESS 5.5 mmol/L (-2 - +2); VBG HCO3 30.4 mmol/L (23-28); VBG OXYGEN SATURATION 90.2 % (60-80); VBG PCO2 45.7 mmHg (41-51); VBG PH 7.441 (7.31-7.41); VBG PO2 55.2 mmHg (25-47); VBG TOTAL CO2 31.8 mmol/L (24-29)
[2022-05-19 11:36] LABS: SLIDE REVIEW? Indicated
[2022-05-19 11:57] LABS: PLATELET ESTIMATE, MANUAL NORMAL (130-450,000) (NORMAL); PLATELET MORPHOLOGY NORMAL APPEARANCE (NORMAL); RBC MORPHOLOGY (MULTIPLE) 2+ ANISOCYTOSIS (NORMAL)
[2022-05-19 12:02] LABS: ALBUMIN 3.6 g/dL (3.2-5.5); ALBUMIN/GLOBULIN RATIO 1.2 (1.0-2.2); BILIRUBIN,TOTAL 0.8 mg/dL (0.2-1.0); CALCIUM 9.2 mg/dL (8.5-10.3); CREATININE 1.4 mg/dL (0.4-1.0); POTASSIUM 5.6 mmol/L (3.5-5.0); TOTAL PROTEIN 6.5 g/dL (6.7-8.2)
--- NOTE | 2022-05-19 12:17 | XRAY Report ---
PROCEDURE: Chest 1 View X-Ray INDICATIONS: dyspnea TECHNIQUE: One view of the chest was acquired. COMPARISON: 09/08/2021. FINDINGS: Surgical changes and devices: None. Lungs and pleura: Chronic interstitial prominence. Blunting of the bilateral costophrenic angles may represent small bilateral pleural effusions. Patchy bibasilar airspace opacities more pronounced on the right. No pneumothorax. Mediastinum: Mediastinal contours appear normal. Heart size is normal. Atherosclerosis of the aort ic arch. Bones and chest wall: No suspicious bony lesions. Overlying soft tissues appear unremarkable. IMPRESSION: Patchy bibasilar airspace opacities more pronounced on the right which may represent atelectasis vers us early developing airspace disease. Blunting of the bilateral costophrenic angles likely representi ng small bilateral pleural effusions. Persistent background chronic interstitial prominence. Reviewed by: Deion Horner MD on 05/19/2022 12:16 PM PST Approved by: Deion Horner MD on 05/19/2022 12:16 PM PST Station ID: [id number]
[2022-05-19] MEDS ORDERED: SODIUM CHLORIDE 0.9% 1,000 ML IV STA (12:19)
[2022-05-19 13:43] LABS: B. PARAPERTUSSIS- RESP PCR PAN NOT DETECTED; B. PERTUSSIS- RESP PCR PANEL NOT DETECTED; C. PNEUMONIAE- RESP PCR PANEL NOT DETECTED; CORONAVIRUS 229E-RESP PCR NOT DETECTED; CORONAVIRUS HKU1-RESP PCR NOT DETECTED; CORONAVIRUS NL63-RESP PCR NOT DETECTED; CORONAVIRUS OC43-RESP PCR NOT DETECTED; HUMAN METAPNEUMOVIRUS NOT DETECTED; INFLUENZA A- RESP PCR PANEL NOT DETECTED; INFLUENZA B - RESP PCR PANEL NOT DETECTED; M. PNEUMONIAE- RESP PCR PANEL NOT DETECTED; PARAINFLUENZA VIRUS 1 NOT DETECTED; PARAINFLUENZA VIRUS 2 NOT DETECTED; PARAINFLUENZA VIRUS 3 NOT DETECTED; PARAINFLUENZA VIRUS 4 NOT DETECTED; RHINOVIRUS/ENTEROVIRUS NOT DETECTED; RSV- RESP PCR PANEL NOT DETECTED; SARS-CoV-2 -RESP PCR PANEL NOT DETECTED
[2022-05-19 13:54] LABS: CALCIUM 8.8 mg/dL (8.5-10.3); CREATININE 1.4 mg/dL (0.4-1.0); POTASSIUM 5.6 mmol/L (3.5-5.0)
[2022-05-19 16:06] VITALS: BP 104/72
== END 2022-05-19 16:06 | disposition home or self-care (01) ==
LOC: ED 10:56 → MERGE 10:56 → ED 16:06
DX: R07.89 Other chest pain (principal); E86.0 Dehydration; I48.20 Chronic atrial fibrillation, unspecified; Z20.822 Contact with and (suspected) exposure to COVID-19
CPT/HCPCS: 36415; 80048; 80053; 82803; 83605; 83880; 84484; 85025; 87040; 87633; 93005; 96360; 99284

== ENCOUNTER 2022-05-27 17:12 | Outpatient (CLI) | payer MEDICARE, OTHER, MEDICAID | END 2022-05-27 17:13 | disposition critical access hospital (66) | LOC: EMS 17:12 | DX: R06.02 Shortness of breath (principal) | CPT/HCPCS: A0425; A0429 ==

== ENCOUNTER 2022-05-27 17:18 | Emergency (ER) | payer MEDICARE, OTHER, MEDICAID ==
[2022-05-27 18:20] LABS: BASOPHILS % (AUTO) 0.4 %; HGB - HEMOGLOBIN 11.6 g/dL (12.0-16.0); LYMPHOCYTES # (AUTO) 0.5 10^3/uL (1.5-3.5); LYMPHOCYTES % (AUTO) 9.8 %; MEAN CORPUSCULAR HEMOGLOBIN 27.1 pg (27.0-31.0); MEAN CORPUSCULAR HGB CONC 31.4 g/dL (32.0-36.0); MEAN CORPUSCULAR VOLUME 86.4 fL (81.0-99.0); MEAN PLATELET VOLUME 9.5 fL (7.9-10.8); MONOCYTES # (AUTO) 0.4 10^3/uL (0.0-1.0); MONOCYTES % (AUTO) 9.2 %; NEUTROPHILS # (AUTO) 3.7 10^3/uL (1.5-6.6); NEUTROPHILS % (AUTO) 79.1 %; PLT - PLATELET COUNT 307 10^3/uL (130-450); RED BLOOD COUNT 4.28 10^6/uL (4.20-5.40); RED CELL DISTRIBUTION WIDTH 20.7 % (12.0-15.0); WHITE BLOOD COUNT 4.7 x10^3/uL (4.8-10.8)
[2022-05-27 18:21] LABS: SLIDE REVIEW? Indicated
--- NOTE | 2022-05-27 18:21 | XRAY Report ---
PROCEDURE: Chest 2 View X-Ray INDICATIONS: cough TECHNIQUE: 2 views of the chest were acquired. COMPARISON: Chest x-ray 09/08/2021 FINDINGS: Surgical changes and devices: None. Lungs and pleura: There is blunting of the costophrenic angles. COPD changes are present. Mediastinum: Mediastinal contours are normal. Heart size is normal. Bones and chest wall: No suspicious bony abnormalities. Soft tissues appear unremarkable. IMPRESSION: Costophrenic angle blunting possibly related to trace effusions versus scarring. Reviewed by: Rebecca Liz MD on 05/27/2022 6:20 PM PST Approved by: Rebecca Liz MD on 05/27/2022 6:20 PM [facility] Station ID: [id number]
--- NOTE | 2022-05-27 18:27 | ED Physician Documentation ---
History of Present Illness - Stated complaint Stated Complaint: SOA - Chief complaint Chief Complaint: Resp - History obtained from History obtained from: Patient, EMS - History of Present Illness Pain level max: 0 Pain level now: 0 - Additonal information Additional information: Patient is an 87-year-old female who presents to the emergency department with dyspnea ongoing for the past several weeks. She was diagnosed with pneumonia about a month ago. The detention states that she had increased work of breathing today. 92% on her normal O2 which is 2 L nasal cannula. She is not on antibiotics currently. She is on steroids for COPD. Patient states that she feels normal and has no complaints. She states that she feels like her breathing is at her baseline. Review of Systems Constitutional: reports: Fever. denies: Chills Nose: reports: Rhinorrhea / runny nose, Congestion Throat: denies: Sore throat Respiratory: reports: Cough GI: denies: Vomiting, Constipation, Diarrhea Skin: denies: Rash Musculoskeletal: denies: Neck pain, Back pain Neurologic: denies: Headache PD PAST MEDICAL HISTORY - Past Medical History Past Medical History: Yes Cardiovascular: Deep vein thrombosis, High cholesterol, Atrial fibrillation, Congestive heart failure, Hypertension, Arrhythmia, Other Respiratory: COPD, Pneumonia Neuro: None, Peripheral neuropathy Endocrine/Autoimmune: HyPOthyroidism, None GI: Hemorrhoids, None, GERD, C.difficile RN ON SITE: None : Frequency, Incontinence, Nocturia, Other HEENT: Chronic hearing loss, Chronic vision loss, None, Chronic sinusitis Psych: Anxiety Musculoskeletal: Osteoarthritis, Osteoporosis, Fatigue, Other Derm: None - Past Surgical History Past Surgical History: Yes Ortho: Spine surgery /RN ON SITE: Hysterectomy HEENT: Cataracts - Present Medications Home Medications: Ambulatory Orders Medication Instructions Recorded Confirmed Acetaminophen [Tylenol] 650 mg PO Q4HR PRN tab 05/02/22 Albuterol Sulf [Ventolin Hfa 1 - 2 puffs INH Q4HR PRN #0 05/02/22 04/28/22 Inhaler] Apixaban [Eliquis] 2.5 mg PO BID #0 05/02/22 04/28/22 Aripiprazole [Abilify] 2 mg PO QPM #0 05/02/22 04/28/22 Aspirin Chewable [[place] 81 mg PO DAILYWM tab 05/02/22 Aspirin] Budesonide [Pulmicort] 0.5 mg INH RTBID ml 05/02/22 Escitalopram [Lexapro] 10 mg PO DAILY #0 05/02/22 04/27/22 Ipratropium/Albuterol [Duoneb] 3 ml INH RTQID ml 05/02/22 LORazepam [Ativan] 0.25 mg PO Q48H #15 tab 05/02/22 LORazepam [Ativan] 0.75 mg PO QPM #30 tab 05/02/22 Levothyroxine [Synthroid] 50 mcg PO QDAC tab 05/02/22 Metoprolol Succinate [Toprol Xl] 75 mg PO BID tab 05/02/22 Mirabegron [Myrbetriq] 25 mg PO HS #0 05/02/22 04/28/22 Montelukast [Singulair] 10 mg PO QPM tab 05/02/22 Multivitamin W/Minerals [Theragran 1 tab PO DAILYWM tab 05/02/22 M] Omeprazole Magnesium 20 mg PO DAILY #0 05/02/22 04/28/22 Parab/Cet Alc/Stryl Alc/Pg/Sls 473 ml TOP PRN PRN each 05/02/22 [Cetaphil] Senna [Senokot] 1 tab PO HS #0 05/02/22 04/28/22 Sildenafil Citrate [Sildenafil] 10 mg PO BID #0 05/02/22 04/28/22 Torsemide [Soaanz] 20 mg PO Q48H #0 05/02/22 04/28/22 Zinc Oxide 20% Oint [Zinc Oxide] 1 applic TOP PRN PRN #1 each 05/02/22 diltiaZEM CD [Cardizem Cd] 120 mg PO 1200 cap 05/02/22 oxyCODONE [Roxicodone] 2.5 mg PO BID #60 tab 05/02/22 oxyCODONE [Roxicodone] 2.5 mg PO BID #60 tab 05/02/22 04/28/22 polyethylene glycoL 3350 [Miralax] 1 ea ORAL DAILY #0 05/02/22 04/28/22 predniSONE [Deltasone] 20 mg PO DAILYWM tab 05/02/22 Benzonatate [Tessalon] 200 mg PO TID PRN #30 cap 05/27/22 - Allergies Allergies/Adverse Reactions: Allergies Allergy/AdvReac Type Severity Reaction Status Date / Time No Known Drug Allergies Allergy Verified 05/27/22 17:30 - Social History Does the pt smoke?: No Smoking Status: Never smoker Does the pt drink ETOH?: No Does the pt have substance abuse?: No - Immunizations Immunizations are current?: Yes - POLST Patient has POLST: No POLST Status: Full Code PD ED PE NORMAL - Vitals Vital signs reviewed: Yes - General General: Alert and oriented X 3, No acute distress, Well developed/nourished - HEENT HEENT: PERRL, Ears normal, Moist mucous membranes, Pharynx benign - Neck Neck: Supple, no meningeal sign - Cardiac Cardiac: RRR, Strong equal pulses - Respiratory Respiratory: No respiratory distress, Clear bilaterally - Abdomen Abdomen: Soft, Non tender, Non distended - Derm Derm: Warm and dry - Extremities Extremities: No calf tenderness / cord - Neuro Neuro: Alert and oriented X 3 - Psych Psych: Normal mood, Normal affect Results - Vitals Vitals: Vital Signs - 24 hr 05/27/22 05/27/22 05/27/22 17:26 17:30 19:30 Temperature 38.3 C H 38.3 C H Heart Rate 83 83 90 Respiratory 31 H 31 H 18 Rate Blood Pressure 110/75 110/75 133/84 H O2 Saturation 99 99 100 If not protocol 4 : Oxygen Flow, liters/minute Oxygen O2 Source Room air Oxygen Flow Rate 2 - Labs Labs: Laboratory Tests 05/27/22 05/27/22 05/27/22 18:02 18:14 18:14 WBC 4.7 L RBC 4.28 Hgb 11.6 L Hct 37.0 MCV 86.4 MCH 27.1 MCHC 31.4 L RDW 20.7 H Plt Count 307 MPV 9.5 Neut # (Auto) 3.7 Lymph # (Auto) 0.5 L [place] # (Auto) 0.4 Eos # (Auto) 0.0 Baso # (Auto) 0.0 Absolute Nucleated RBC 0.00 Nucleated RBC % 0.0 Manual Slide Review Indicated Platelet Estimate NORMAL (130-450,000) Platelet Morphology NORMAL APPEARANCE RBC Morph Micro Appear 3+ POIKILOCYTOSIS Sodium 138 Potassium 4.2 Chloride 93 L Carbon Dioxide 34 H Anion Gap 11.0 BUN 35 H Creatinine 1.2 H Estimated GFR (MDRD) 42 L Glucose 162 H Calcium 9.1 Total Bilirubin 0.6 AST 33 ALT 46 Alkaline Phosphatase 75 Total Protein 7.5 Albumin 3.7 Globulin 3.8 Albumin/Globulin Ratio 1.0 Lipase 29 Nasal Adenovirus (PCR) NOT DETECTED Nasal B. parapertussis DNA (PCR) NOT DETECTED Nasal Coronavir 229E PCR NOT DETECTED Nasal Coronavir HKU1 PCR NOT DETECTED Nasal Coronavir NL63 PCR NOT DETECTED Nasal Coronavir OC43 PCR NOT DETECTED Nasal Enterovir/Rhinovir PCR NOT DETECTED Nasal Influenza B PCR NOT DETECTED Nasal Influenza A PCR NOT DETECTED Nasal Parainfluen 1 PCR NOT DETECTED Nasal Parainfluen 2 PCR NOT DETECTED Nasal Parainfluen 3 PCR DETECTED A Nasal Parainfluen 4 PCR NOT DETECTED Nasal RSV (PCR) NOT DETECTED Nasal B.pertussis DNA PCR NOT DETECTED Nasal C.pneumoniae (PCR) NOT DETECTED Jacky Human Metapneumo PCR NOT DETECTED Nasal M.pneumoniae (PCR) NOT DETECTED Nasal SARS-CoV-2 (PCR) NOT DETECTED - Rads (name of study) Chest x-ray Radiology: Final report received, See rad report (No acute abnormality) PD MEDICAL DECISION MAKING - ED course Complexity details: reviewed results, re-evaluated patient, considered differential, d/w patient, d/w family ED course: 87-year-old female with COPD and is positive for parainfluenza. No pneumonia on chest x-ray. Patient is in no respiratory distress. She is stable on her normal home oxygen. No indication for antibiotics at this time. She is already on steroids. No significant wheezing. We will have her follow-up with her doctor for further care. Patient and family counseled regarding signs and symptoms for which I believe and urgent re-evaluation would be necessary. Patient with good understanding of and agreement to plan and is comfortable ab g home at this time This document was made in part using voice recognition software. While efforts are made to proofread this document, sound alike and grammatical errors may occur. Departure - Departure Disposition: 01 Home, Self Care Clinical Impression: Parainfluenza COPD (chronic obstructive pulmonary disease) Qualifiers: COPD type: unspecified COPD Qualified Code(s): J44.9 - Chronic obstructive pulmonary disease, unspecified Condition: Good Instructions: ED Viral Syndrome Follow-Up: your,doctor in 1 week [Other] Prescriptions: Benzonatate [Tessalon] 200 mg PO TID PRN #30 cap PRN Reason: Cough Comments: You have tested positive for parainfluenza type III tonight. Please follow-up with your doctor for further care. This is a viral illness. Please continue your current medications. We will prescribe you cough medication as well. Return if you worsen Discharge Date/Time: 05/27/22 20:35
[2022-05-27 18:32] LABS: ALBUMIN 3.7 g/dL (3.2-5.5); BILIRUBIN,TOTAL 0.6 mg/dL (0.2-1.0); CALCIUM 9.1 mg/dL (8.5-10.3); CREATININE 1.2 mg/dL (0.4-1.0); POTASSIUM 4.2 mmol/L (3.5-5.0); TOTAL PROTEIN 7.5 g/dL (6.7-8.2)
[2022-05-27 18:47] LABS: PLATELET ESTIMATE, MANUAL NORMAL (130-450,000) (NORMAL); PLATELET MORPHOLOGY NORMAL APPEARANCE (NORMAL)
[2022-05-27 19:08] LABS: B. PARAPERTUSSIS- RESP PCR PAN NOT DETECTED; B. PERTUSSIS- RESP PCR PANEL NOT DETECTED; C. PNEUMONIAE- RESP PCR PANEL NOT DETECTED; CORONAVIRUS 229E-RESP PCR NOT DETECTED; CORONAVIRUS HKU1-RESP PCR NOT DETECTED; CORONAVIRUS NL63-RESP PCR NOT DETECTED; CORONAVIRUS OC43-RESP PCR NOT DETECTED; HUMAN METAPNEUMOVIRUS NOT DETECTED; INFLUENZA A- RESP PCR PANEL NOT DETECTED; INFLUENZA B - RESP PCR PANEL NOT DETECTED; M. PNEUMONIAE- RESP PCR PANEL NOT DETECTED; PARAINFLUENZA VIRUS 1 NOT DETECTED; PARAINFLUENZA VIRUS 2 NOT DETECTED; PARAINFLUENZA VIRUS 3 DETECTED; PARAINFLUENZA VIRUS 4 NOT DETECTED; RHINOVIRUS/ENTEROVIRUS NOT DETECTED; RSV- RESP PCR PANEL NOT DETECTED; SARS-CoV-2 -RESP PCR PANEL NOT DETECTED
[2022-05-27 19:35] VITALS: BP 133/84
[2022-05-27] MEDS ORDERED: BENZONATATE 100 MG CAPSULE PO STA (19:41)
== END 2022-05-27 20:35 | disposition home or self-care (01) ==
LOC: EDUNIT# → ED 17:18
DX: B34.8 Other viral infections of unspecified site (principal); J44.9 Chronic obstructive pulmonary disease, unspecified; Z20.822 Contact with and (suspected) exposure to COVID-19
CPT/HCPCS: 36415; 71046; 80053; 83690; 85025; 87633; 99284; A9270

== ENCOUNTER 2022-05-28 08:00 | Outpatient (CLI) | payer MEDICARE, OTHER, MEDICAID ==
[2022-05-28 21:13] LABS: CREATININE 1.1 mg/dL (0.4-1.0); POTASSIUM 4.9 mmol/L (3.5-5.0)
== END 2022-05-28 23:59 | disposition home or self-care (01) ==
LOC: LAB.R 08:00
PROVIDERS: ATTEND Internal Medicine
DX: N18.9 Chronic kidney disease, unspecified (principal)
CPT/HCPCS: 80048

== ENCOUNTER → 2022-06-09 | Outpatient (CLI) | payer MEDICARE, OTHER, MEDICAID | END | disposition critical access hospital (66) | LOC: EMS 09:49 | DX: R04.0 Epistaxis (principal); Z79.01 Long term (current) use of anticoagulants | CPT/HCPCS: A0425; A0429 ==

== ENCOUNTER 2022-06-29 21:10 | Outpatient (CLI) | payer MEDICARE, OTHER, MEDICAID | END 2022-06-29 21:11 | disposition critical access hospital (66) | LOC: EMS 21:10 | DX: R09.89 Other specified symptoms and signs involving the circulatory and respiratory systems (principal); R06.2 Wheezing; R05.9 Cough, unspecified; R50.9 Fever, unspecified; F41.9 Anxiety disorder, unspecified; Z99.81 Dependence on supplemental oxygen | CPT/HCPCS: A0425; A0429 ==

== ENCOUNTER 2022-06-29 21:20 | Emergency (ER) | payer MEDICARE, OTHER, MEDICAID ==
[2022-06-29 22:16] LABS: BASOPHILS # (AUTO) 0.1 10^3/uL (0.0-0.1); BASOPHILS % (AUTO) 0.4 %; EOSINOPHILS % (AUTO) 0.1 %; HCT - HEMATOCRIT 38.6 % (37.0-47.0); HGB - HEMOGLOBIN 11.5 g/dL (12.0-16.0); LYMPHOCYTES # (AUTO) 0.9 10^3/uL (1.5-3.5); LYMPHOCYTES % (AUTO) 7.3 %; MEAN CORPUSCULAR HEMOGLOBIN 25.8 pg (27.0-31.0); MEAN CORPUSCULAR HGB CONC 29.8 g/dL (32.0-36.0); MEAN CORPUSCULAR VOLUME 86.7 fL (81.0-99.0); MEAN PLATELET VOLUME 9.2 fL (7.9-10.8); MONOCYTES # (AUTO) 0.9 10^3/uL (0.0-1.0); MONOCYTES % (AUTO) 7.1 %; NEUTROPHILS # (AUTO) 10.6 10^3/uL (1.5-6.6); NEUTROPHILS % (AUTO) 84.5 %; PLT - PLATELET COUNT 457 10^3/uL (130-450); RED BLOOD COUNT 4.45 10^6/uL (4.20-5.40); WHITE BLOOD COUNT 12.6 x10^3/uL (4.8-10.8)
[2022-06-29 22:28] LABS: ALBUMIN 3.5 g/dL (3.2-5.5); ALBUMIN/GLOBULIN RATIO 0.9 (1.0-2.2); BILIRUBIN,TOTAL 0.7 mg/dL (0.2-1.0); POTASSIUM 3.9 mmol/L (3.5-5.0); TOTAL PROTEIN 7.3 g/dL (6.7-8.2)
[2022-06-29] MEDS ORDERED: ACETAMINOPHEN 325 MG TABLET PO STA (22:49)
[2022-06-29] MEDS ORDERED: SODIUM CHLORIDE 0.9% 500 ML IV STA (22:49)
[2022-06-29] MEDS ORDERED: DEXAMETHASONE 10 MG/ML VIAL IV STA (22:49)
[2022-06-29] MEDS ORDERED: IPRATROPIUM/ALBUTEROL 3 ML NEB INH STA (22:49)
--- NOTE | 2022-06-29 23:49 | XRAY Report ---
PROCEDURE: Chest 1 View X-Ray INDICATIONS: chest pain TECHNIQUE: One view of the chest was acquired. COMPARISON: Chest x-ray 05/27/2022. FINDINGS: Surgical changes and devices: None. Lungs and pleura: There is hyperinflation of the lungs with flattening of the hemidiaphragms compatib le with COPD. There is a new small right pleural effusion with confluent right basilar opacities cons istent with consolidation or atelectasis. Mediastinum: Mediastinal contours appear unchanged. Heart size is normal. Bones and chest wall: There is a dextroscoliosis of the thoracic spine redemonstrated. No suspicious bony lesions. Overlying soft tissues appear unremarkable. IMPRESSION: 1. New small right pleural effusion with right basilar consolidation/pneumonia versus compressive ate lectasis. Reviewed by: Vito Salas MD on 06/29/2022 11:57 PM PST Approved by: Vito Salas MD on 06/29/2022 11:57 PM [facility] Station ID: [id number]
[2022-06-30] LABS: B. PARAPERTUSSIS- RESP PCR PAN NOT DETECTED; B. PERTUSSIS- RESP PCR PANEL NOT DETECTED; C. PNEUMONIAE- RESP PCR PANEL NOT DETECTED; CORONAVIRUS 229E-RESP PCR NOT DETECTED; CORONAVIRUS HKU1-RESP PCR NOT DETECTED; CORONAVIRUS NL63-RESP PCR NOT DETECTED; CORONAVIRUS OC43-RESP PCR NOT DETECTED; HUMAN METAPNEUMOVIRUS NOT DETECTED; INFLUENZA A- RESP PCR PANEL NOT DETECTED; INFLUENZA B - RESP PCR PANEL NOT DETECTED; M. PNEUMONIAE- RESP PCR PANEL NOT DETECTED; PARAINFLUENZA VIRUS 1 NOT DETECTED; PARAINFLUENZA VIRUS 2 NOT DETECTED; PARAINFLUENZA VIRUS 3 NOT DETECTED; PARAINFLUENZA VIRUS 4 NOT DETECTED; RHINOVIRUS/ENTEROVIRUS NOT DETECTED; RSV- RESP PCR PANEL DETECTED; SARS-CoV-2 -RESP PCR PANEL NOT DETECTED
[2022-06-30] MEDS ORDERED: AZITHROMYCIN 250 MG TABLET PO STA (00:18)
[2022-06-30] MEDS ORDERED: cefTRIAXone 2 GM in SODIUM CHLORIDE 0.9% MINIBAG 100 ML IV STA (00:18)
[2022-06-30] MEDS ORDERED: cefTRIAXone 2 GM VIAL ONE (00:29)
--- NOTE | 2022-06-30 02:00 | ED Physician Documentation ---
PD HPI DYSPNEA - Stated complaint Stated Complaint: SOA - Chief complaint Chief Complaint: Resp - History obtained from History obtained from: Patient, Family - Additional information Additional information: The patient is brought to the emergency department by EMS for chief complaint of dyspnea. The patient has a history of advanced COPD and also, of CHF. The patient feels that her cough has been worse lately. She was recently ill with a respiratory virus few weeks ago and has had frequent bouts of pneumonia. The patient denies any measured fever. She has been a little chilled. She is foll owed by pulmonology according to daughter, and they have recommended going up to 3 L of oxygen per nasal cannula, because daughter states she has not been able to keep the patient sats up on 2 L. Medics report that the patient was wheezing and seemed anxious when they got there, but has improved with a DuoNeb. No chest pain. No abdominal symptoms. No other complaints at this time.The patient is on a long-term, 3-month prednisone taper since discharge from the hospital. She also has inhalers at home. She lives with her daughter. Review of Systems Ten Systems: 10 systems reviewed and negative Constitutional: reports: Reviewed and negative Eyes: reports: Reviewed and negative Ears: reports: Reviewed and negative Nose: reports: Reviewed and negative Throat: reports: Reviewed and negative Cardiac: reports: Reviewed and negative Respiratory: reports: Dyspnea, Cough GI: reports: Reviewed and negative : reports: Reviewed and negative Skin: reports: Reviewed and negative Musculoskeletal: reports: Reviewed and negative Neurologic: reports: Reviewed and negative Psychiatric: reports: Reviewed and negative Endocrine: reports: Reviewed and negative Immunocompromised: reports: Reviewed and negative PD PAST MEDICAL HISTORY - Past Medical History Past Medical History: Yes Cardiovascular: Deep vein thrombosis, High cholesterol, Atrial fibrillation, Congestive heart failure, Hypertension, Arrhythmia, Other Respiratory: COPD, Pneumonia Neuro: None, Peripheral neuropathy Endocrine/Autoimmune: HyPOthyroidism, None GI: Hemorrhoids, None, GERD, C.difficile [employer]ATOR: None : Frequency, Incontinence, Nocturia, Other HEENT: Chronic hearing loss, Chronic vision loss, None, Chronic sinusitis Psych: Anxiety Musculoskeletal: Osteoarthritis, Osteoporosis, Fatigue, Other Derm: None - Past Surgical History Past Surgical History: Yes 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 HEENT: Cataracts - Present Medications Home Medications: Ambulatory Orders Medication Instructions Recorded Confirmed Acetaminophen [Tylenol] 650 mg PO Q4HR PRN tab 05/02/22 06/09/22 Albuterol Sulf [Ventolin Hfa 1 - 2 puffs INH Q4HR PRN #0 05/02/22 06/09/22 Inhaler] Apixaban [Eliquis] 2.5 mg PO BID #0 05/02/22 06/09/22 Aripiprazole [Abilify] 2 mg PO QPM #0 05/02/22 06/09/22 Aspirin Chewable [[place] 81 mg PO DAILYWM tab 05/02/22 06/09/22 Aspirin] Budesonide [Pulmicort] 0.5 mg INH RTBID ml 05/02/22 06/09/22 Escitalopram [Lexapro] 10 mg PO DAILY #0 05/02/22 06/09/22 Ipratropium/Albuterol [Duoneb] 3 ml INH RTQID ml 05/02/22 06/09/22 LORazepam [Ativan] 0.25 mg PO Q48H #15 tab 05/02/22 06/09/22 LORazepam [Ativan] 0.75 mg PO QPM #30 tab 05/02/22 06/09/22 Levothyroxine [Synthroid] 50 mcg PO QDAC tab 05/02/22 06/09/22 Metoprolol Succinate [Toprol Xl] 75 mg PO BID tab 05/02/22 06/09/22 Mirabegron [Myrbetriq] 25 mg PO HS #0 05/02/22 06/09/22 Montelukast [Singulair] 10 mg PO QPM tab 05/02/22 06/09/22 Multivitamin W/Minerals [Theragran 1 tab PO DAILYWM tab 05/02/22 06/09/22 M] Omeprazole Magnesium 20 mg PO DAILY #0 05/02/22 06/09/22 Parab/Cet Alc/Stryl Alc/Pg/Sls 473 ml TOP PRN PRN each 05/02/22 06/09/22 [Cetaphil] Senna [Senokot] 1 tab PO HS #0 05/02/22 06/09/22 Sildenafil Citrate [Sildenafil] 10 mg PO BID #0 05/02/22 06/09/22 Torsemide [Soaanz] 20 mg PO Q48H #0 05/02/22 06/09/22 Zinc Oxide 20% Oint [Zinc Oxide] 1 applic TOP PRN PRN #1 each 05/02/22 06/09/22 diltiaZEM CD [Cardizem Cd] 120 mg PO 1200 cap 05/02/22 06/09/22 oxyCODONE [Roxicodone] 2.5 mg PO BID #60 tab 05/02/22 06/09/22 oxyCODONE [Roxicodone] 2.5 mg PO BID #60 tab 05/02/22 06/09/22 polyethylene glycoL 3350 [Miralax] 1 ea ORAL DAILY #0 05/02/22 06/09/22 predniSONE [Deltasone] 20 mg PO DAILYWM tab 05/02/22 06/09/22 Benzonatate [Tessalon] 200 mg PO TID PRN #30 cap 05/27/22 06/09/22 Azithromycin [Zithromax] 0 mg PO DAILY #6 tablet 06/30/22 Codeine Phosphate/Guaifenesin 10 ml PO Q6H PRN #200 ml 06/30/22 [Codeine-Guaifen 10-100 mg/5 ml] predniSONE [Deltasone] 60 mg PO DAILY 5 Days #15 tablet 06/30/22 - Allergies Allergies/Adverse Reactions: Allergies Allergy/AdvReac Type Severity Reaction Status Date / Time No Known Drug Allergies Allergy Verified 06/29/22 21:45 - Social History Does the pt smoke?: No Smoking Status: Never smoker Does the pt drink ETOH?: No Does the pt have substance abuse?: No - Immunizations Immunizations are current?: Yes - POLST Patient has POLST: No POLST Status: Full Code PD ED PE NORMAL - Vitals Vital signs reviewed: Yes - General General: Alert and oriented X 3, No acute distress, Well developed/nourished - HEENT HEENT: Atraumatic, PERRL, EOMI, Moist mucous membranes - Neck Neck: Supple, no meningeal sign - Cardiac Cardiac: RRR, No murmur, Strong equal pulses - Respiratory Respiratory: Other (Mild respiratory distress with tachypnea and anxiety. Mildly coarse breath sounds.) - Abdomen Abdomen: Soft, Non tender, Non distended - Derm Derm: Normal color, Warm and dry, No rash - Extremities Extremities: No deformity, No edema - Neuro Neuro: Alert and oriented X 3, Other (Grossly intact) - Psych Psych: Normal mood, Normal affect Results - Vitals Vitals: Vital Signs - 24 hr 06/29/22 06/29/22 06/29/22 21:28 22:22 22:51 Temperature 37.0 C Heart Rate 112 H 106 H 108 H Respiratory 29 H 32 H 31 H Rate Blood Pressure 182/102 H 155/97 H 160/111 H O2 Saturation 99 94 95 If not protocol 3 3 : Oxygen Flow, liters/minute 06/29/22 06/29/22 06/30/22 22:55 23:29 02:00 Temperature Heart Rate 109 H 90 Respiratory 31 H 26 H 18 Rate Blood Pressure 172/91 H 103/68 O2 Saturation 93 94 If not protocol 3 3 : Oxygen Flow, liters/minute Oxygen O2 Source Nasal cannula Oxygen Flow Rate 3 - Labs Labs: Laboratory Tests 06/29/22 06/29/22 06/29/22 22:03 22:03 22:03 WBC 12.6 H RBC 4.45 Hgb 11.5 L Hct 38.6 MCV 86.7 MCH 25.8 L MCHC 29.8 L RDW 19.0 H Plt Count 457 H MPV 9.2 Neut # (Auto) 10.6 H Lymph # (Auto) 0.9 L Ritchie # (Auto) 0.9 Eos # (Auto) 0.0 Baso # (Auto) 0.1 Absolute Nucleated RBC 0.00 Nucleated RBC % 0.0 Sodium 132 L Potassium 3.9 Chloride 89 L Carbon Dioxide 33 H Anion Gap 10.0 BUN 22 H Creatinine 1.0 Estimated GFR (MDRD) 52 L Glucose 139 H Calcium 9.0 Total Bilirubin 0.7 AST 22 ALT 34 Alkaline Phosphatase 90 Lactate Dehydrogenase 144 Total Protein 7.3 Albumin 3.5 Globulin 3.8 Albumin/Globulin Ratio 0.9 L Lipase 25 Nasal Adenovirus (PCR) Nasal B. parapertussis DNA (PCR) Nasal Coronavir 229E PCR Nasal Coronavir HKU1 PCR Nasal Coronavir NL63 PCR Nasal Coronavir OC43 PCR Nasal Enterovir/Rhinovir PCR Nasal Influenza B PCR Nasal Influenza A PCR Nasal Parainfluen 1 PCR Nasal Parainfluen 2 PCR Nasal Parainfluen 3 PCR Nasal Parainfluen 4 PCR Nasal RSV (PCR) Nasal B.pertussis DNA PCR Nasal C.pneumoniae (PCR) Jacky Human Metapneumo PCR Nasal M.pneumoniae (PCR) Nasal SARS-CoV-2 (PCR) 06/29/22 22:05 WBC RBC Hgb Hct MCV MCH MCHC RDW Plt Count MPV Neut # (Auto) Lymph # (Auto) Ritchie # (Auto) Eos # (Auto) Baso # (Auto) Absolute Nucleated RBC Nucleated RBC % Sodium Potassium Chloride Carbon Dioxide Anion Gap BUN Creatinine Estimated GFR (MDRD) Glucose Calcium Total Bilirubin AST ALT Alkaline Phosphatase Lactate Dehydrogenase Total Protein Albumin Globulin Albumin/Globulin Ratio Lipase Nasal Adenovirus (PCR) NOT DETECTED Nasal B. parapertussis DNA (PCR) NOT DETECTED Nasal Coronavir 229E PCR NOT DETECTED Nasal Coronavir HKU1 PCR NOT DETECTED Nasal Coronavir NL63 PCR NOT DETECTED Nasal Coronavir OC43 PCR NOT DETECTED Nasal Enterovir/Rhinovir PCR NOT DETECTED Nasal Influenza B PCR NOT DETECTED Nasal Influenza A PCR NOT DETECTED Nasal Parainfluen 1 PCR NOT DETECTED Nasal Parainfluen 2 PCR NOT DETECTED Nasal Parainfluen 3 PCR NOT DETECTED Nasal Parainfluen 4 PCR NOT DETECTED Nasal RSV (PCR) DETECTED A Nasal B.pertussis DNA PCR NOT DETECTED Nasal C.pneumoniae (PCR) NOT DETECTED Jacky Human Metapneumo PCR NOT DETECTED Nasal M.pneumoniae (PCR) NOT DETECTED Nasal SARS-CoV-2 (PCR) NOT DETECTED - Rads (name of study) Chest x-ray Radiology: Final report received, See rad report (New small right pleural effusion with right basilar consolidation/pneumonia versus compressive atelectasis.) PD Medical Decision Making - ED course Complexity details: reviewed old records, reviewed results, re-evaluated patient, considered differential, d/w patient, d/w family ED course: The patient was treated with nebulizer treatments and worked up with chest x-ray and respiratory PCR. Chest x-ray showed a possible pneumonia and PCR showed RSV positive. The patient was doing much better after the nebulizer and steroid. It was not clear whether she actually pneumonia or not but given her age and underlying conditions, I did err on the side of caution and treated her with Rocephin and Zithromax. The patient was stable for discharge home. I discussed the findings with her daughter and the rationale behind treatment. We have discussed the need for follow-up and the usual indications for return. Departure - Departure Disposition: 01 Home, Self Care Clinical Impression: RSV (respiratory syncytial virus infection), COPD exacerbation Pneumonia Qualifiers: Pneumonia type: due to unspecified organism Laterality: unspecified laterality Lung location: lower lobe of lung Qualified Code(s): J18.9 - Pneumonia, unspecified organism Condition: Stable Instructions: ED COPD Flare, ED Pneumonia Adult, ED Viral Syndrome Prescriptions: Codeine Phosphate/Guaifenesin [Codeine-Guaifen 10-100 mg/5 ml] 10 ml PO Q6H PRN #200 ml PRN Reason: Cough predniSONE [Deltasone] 60 mg PO DAILY 5 Days #15 tablet Azithromycin [Zithromax] 0 mg PO DAILY #6 tablet Comments: Your viral panel is positive for RSV. Your labs overall look pretty good. Your chest x-ray shows what could be a small amount of fluid at the bottom of one of your lungs but there is a possibility that this could represent a small area of pneumonia. To err on the side of caution, we have treated you with antibiotics today. Your oxygen is fairly good considering your underlying conditions and you have responded well to medication. Your prescriptions have been electronically transmitted To [facility] pharmacy in [place]. You have been given first dose of antibiotics here but will need to pick the prescriptions up in the morning to continue your antibiotics. A course of steroids has also been prescribed to help ease your breathing and coughing. Please follow-up with your primary care physician after the holiday. Discharge Date/Time: 06/30/22 03:47
[2022-06-30 02:22] VITALS: BP 103/68
[2022-06-30] MEDS ORDERED: ACETAMINOPHEN/CODEINE 300 MG/30 MG TABLET PO STA (03:35)
--- NOTE | 2022-06-30 10:51 | ED Physician Documentation ---
ED Addendum - Addendum Addendum: 06/30/22 10:50 The patient called and spoke with one of the nurses and asked if we could transmit her prescriptions instead to [facility]. I redirected the prescriptions that way and retransmitted this morning.
== END 2022-06-30 03:47 | disposition home or self-care (01) ==
LOC: EDUNIT# → ED 21:20
DX: J44.0 Chronic obstructive pulmonary disease with (acute) lower respiratory infection (principal); J18.9 Pneumonia, unspecified organism; J44.1 Chronic obstructive pulmonary disease with (acute) exacerbation; Z87.01 Personal history of pneumonia (recurrent); B97.4 Respiratory syncytial virus as the cause of diseases classified elsewhere; I48.91 Unspecified atrial fibrillation; I11.0 Hypertensive heart disease with heart failure; I50.9 Heart failure, unspecified; Z20.822 Contact with and (suspected) exposure to COVID-19
CPT/HCPCS: 36415; 71045; 80053; 83615; 83690; 85025; 87633; 94640; 96365; 96375; 99284; A9270

== ENCOUNTER 2022-07-01 20:11 | Outpatient (CLI) | payer MEDICARE, OTHER, MEDICAID | END 2022-07-01 20:12 | disposition EMS.NT | LOC: EMS 20:11 | DX: R06.02 Shortness of breath (principal) ==